=== PATIENT | female | born 1930 | race Caucasian/White ===

== ENCOUNTER 2016-12-22 16:28 | Emergency (ER) | payer MEDICARE, OTHER ==
[2016-12-22 16:38] VITALS: BP 112/66
--- NOTE | 2016-12-22 17:05 | UC ---
Complaint Female HPI - HPI Summary HPI Summary: 86 Y/O female being seen for C/O blood in urine that began today. Denies flank pain, denies suprapubic pain, denies dysuria or frequency. State feels pressure " over bladder. Takes coumadin last PT INR within recommended range done INR 2.41. UA shows Blood 3+, trace leukocytes. Discussed with Angle and need to have PT/INR checked due to jimbo blood in urine. Agreed to go to ER to have PT/INR drawn. - History Of Current Complaint Chief Complaint: UCGU Stated Complaint: BURNING URINATION Time Seen by Provider: 12/22/16 16:41 Hx Obtained From: Patient, Family/Rod Piler ?: No Onset/Duration: Sudden Onset Timing: Lasting Hours Severity Initially: Mild Severity Currently: Mild Pain Intensity: 0 Pain Scale Used: 0-10 Numeric - Allergies/Home Medications Allergies/Adverse Reactions: Allergies Allergy/AdvReac Type Severity Reaction Status Date / Time Penicillins Allergy Severe shortness Verified 04/08/16 14:56 of breathe PMH/Surg Hx/FS Hx/Imm Hx Previously Healthy: No - COPD Endocrine History: Hypothyroidism Cardiovascular History: Hypertension, Atrial Fibrillation Respiratory History: COPD Other History Of: Anticoagulant Therapy - coumadin - Surgical History Surgical History: Yes Surgery Procedure, Year, and Place: open heart surgery september 2011. hysterectomy. Valve repair 2010 - Family History Known Family History: Positive: Cardiac Disease, Hypertension - Social History Alcohol Use: None Substance Use Type: None Smoking Status (MU): Former Smoker - Immunization History Most Recent Influenza Vaccination: 2013 Most Recent Tetanus Shot: with in last 5 years Most Recent Pneumonia Vaccination: 2013 Review of Systems Constitutional: Negative Skin: Negative Eyes: Negative ENT: Negative Respiratory: Shortness Of Breath - COPD chronic Cardiovascular: Negative Gastrointestinal: Negative Genitourinary: Negative Motor: Negative Neurovascular: Negative Musculoskeletal: Negative Neurological: Negative Psychological: Negative All Other Systems Reviewed And Are Negative: Yes Physical Exam Triage Information Reviewed: Yes Appearance: Well-Appearing Vital Signs: Initial Vital Signs Temp 98.3 F 12/22/16 16:34 Pulse 88 12/22/16 16:34 Resp 22 12/22/16 16:34 BP 112/66 12/22/16 16:34 Pulse Ox 87 12/22/16 16:34 Vital Signs Reviewed: Yes Respiratory Exam: Normal Respiratory: Positive: Lungs clear Cardiovascular Exam: Normal Cardiovascular: Positive: RRR Abdominal Exam: Normal Abdomen Description: Positive: Nontender, Soft Bowel Sounds: Positive: Present Musculoskeletal Exam: Normal Musculoskeletal: Positive: ROM Intact Neurological Exam: Normal Neurological: Positive: Alert Psychological Exam: Normal Skin Exam: Normal Complaint Female Dx - Differential Dx/Diagnosis Differential Diagnosis/HQI/PQRI: Urinary Tract Infection, Other - Over coagulation, bladder CA Provider Diagnoses: Hematuria Discharge - Discharge Plan Condition: Stable Disposition: OTHER Discharge Disposition Comment: Recommended patient go directly to ER- Patient and in agreement. Patient Education Materials: Hematuria (ED) Additional Instructions: Please report directly to emergency room for further evaluation of blood in urine and to have blood test related to Coumadin therapy (PT/INR)
== END 2016-12-22 17:33 ==
LOC: UCEAST 16:28
DX: R31.9 Hematuria, unspecified (principal); J44.9 Chronic obstructive pulmonary disease, unspecified; E03.9 Hypothyroidism, unspecified; I10 Essential (primary) hypertension; I48.91 Unspecified atrial fibrillation; Z79.01 Long term (current) use of anticoagulants; Z88.0 Allergy status to penicillin; Z95.2 Presence of prosthetic heart valve; Z95.1 Presence of aortocoronary bypass graft; Z87.891 Personal history of nicotine dependence
CPT/HCPCS: 81003; 87077; 87086; 99211; G0463

== ENCOUNTER 2016-12-22 17:53 | Emergency (ER) | payer MEDICARE, OTHER ==
[2016-12-22 18:54] LABS: Hematocrit 38 % (35-47); Hemoglobin 12.7 g/dl (12.0-16.0); Mean Corpuscular HGB Conc 33 g/dl (31-36); Mean Corpuscular Hemoglobin 34 pg (27-31); Mean Corpuscular Volume 101 fL (80-97); Mean Platelet Volume 10 um3 (7.4-10.4); Red Blood Count 3.73 10^6/ul (4.0-5.4); Red Cell Distribution Width 15 % (10.5-15); White Blood Count 9.6 10^3/ul (3.5-10.8)
[2016-12-22 19:08] LABS: ALT 14 U/L (7-52); Albumin 4.3 g/dL (3.2-5.2); Alkaline Phosphatase 51 U/L (34-104); BUN/Creatinine Ratio 16.2 (8-20); Blood Urea Nitrogen 16 mg/dL (6-24); CO2 Carbon Dioxide 29 mmol/L (22-32); Calcium 9.1 mg/dL (8.6-10.3); Chloride 99 mmol/L (101-111); EGFR African American 68.4 (>60); EGFR Non-African American 53.2 (>60); Globulin 3.4 g/dL (2-4); Glucose 99 mg/dL (70-100); Sodium 133 mmol/L (133-145); Total Protein 7.7 g/dL (6.4-8.9)
[2016-12-22 19:11] LABS: Urine Bacteria Absent (Absent); Urine Bilirubin Negative (Negative); Urine Glucose Negative (Negative); Urine Nitrite Negative (Negative)
[2016-12-22 19:20] LABS: Anion Gap 5 mmol/L (2-11)
[2016-12-22] MEDS ORDERED: Ciprofloxacin 400MG IVPREMIX(* 400 MG/200 ML BAG IVPB ONE (20:12)
[2016-12-22] MEDS ORDERED: cefTRIAXone(*) 1 GM in NS 0.9% 50 ML* 50 ML IVPB ONE (20:14)
--- NOTE | 2016-12-22 20:16 | ED ---
Dillan Caba Rebecca, scribed for Lisa Stanley MD on 12/22/16 at 1829 . GI/ HPI - HPI Summary HPI Summary: Pt is an 86 y/o F sent form [facility] who presents to ED c/o urinary sx and acute on chronic SOB. urinary sx began today and are described as hematuria, dysuria and increased urinary frequency. SOB is characterized as dyspnea at rest. Sx aggravated and alleviated by nothing. Denies flank pain, fever, chills, N/V/D. Pt expresses that she would also like her Coumadin level checked which she is on to treat A Fib. PMHx UTIs which presented with similar sx. - History of Current Complaint Chief Complaint: EDUrogenitalProblems Stated Complaint: BLOOD IN URINE,SOB, COMING FROM CC Hx Obtained From: Patient, Family/Media Buyer - Onset/Duration: Started Days Ago - Today, Still Present Current Severity: Mild Pain Intensity: 3 Associated Signs and Symptoms: Positive: Hematuria, Dysuria. Negative: Nausea, Vomiting Aggravating Factor(s): Nothing Alleviating Factor(s): Nothing - Allergy/Home Medications Allergies/Adverse Reactions: Allergies Allergy/AdvReac Type Severity Reaction Status Date / Time Penicillins Allergy Severe shortness Verified 12/22/16 18:08 of breathe PMH/Surg Hx/FS Hx/Imm Hx Endocrine/Hematology History: Reports: Hx Anticoagulant Therapy - coumadin, Hx Thyroid Disease Denies: Hx Diabetes, Hx Systemic Lupus Erythematosus Cardiovascular History: Reports: Hx Atrial Fibrillation, Hx Congestive Heart Failure - HX, Hx Hypertension, Hx Valvular Heart Disease, Other Cardiovascular Problems/Disorders - VALVULAR HEART DISEASE Respiratory History: Reports: Hx Asthma, Hx Chronic Obstructive Pulmonary Disease (COPD) History: Reports: Hx Kidney Infection, Other Problems/Disorders - UTIs Denies: Hx Dialysis, Hx Renal Disease Musculoskeletal History: Reports: Hx Arthritis Denies: Hx Rheumatoid Arthritis Sensory History: Reports: Hx Contacts or Glasses Opthamlomology History: Reports: Hx Contacts or Glasses Neurological History: Reports: Hx Dementia - per pt's daughter - Cancer History Hx Chemotherapy: No Hx Radiation Therapy: No - Surgical History Surgery Procedure, Year, and Place: open heart surgery september 2011. hysterectomy. Valve repair 2010 Infectious Disease History: No Infectious Disease History: Denies: Traveled Outside the [place] in Last 30 Days - Family History Known Family History: Positive: Cardiac Disease, Hypertension - Social History Alcohol Use: None Substance Use Type: Reports: None Smoking Status (MU): Former Smoker Review of Systems Negative: Fever, Chills Positive: Shortness Of Breath - acute on chronic Negative: Vomiting, Diarrhea, Nausea Positive: dysuria, frequency, hematuria, other - Denies flank pain All Other Systems Reviewed And Are Negative: Yes Physical Exam - Summary Physical Exam Summary: General: Well appearing, no pain distress Skin: Warm, Skin Color Reflects Adequate Perfusion, Dry Eyes: EOMI, DONNA ENT: Pharynx normal, TMs normal Neck: Supple, nontender Respiratory: CTA, breath sounds present, no rhonchi, no wheezes, no rales Cardiovascular: RRR, no murmur, no rub, no gallop Abdomen: Soft, nontender, Non-distended, no guarding, no rebound Bowel: Present Musculoskeletal: TIM, No edema Neuro: Sensory/motor intact, A&Ox3, CN intact 2-12 Psych: Affect/mood appropriate Triage Information Reviewed: Yes Vital Signs On Initial Exam: Initial Vitals Temp Pulse Resp BP Pulse Ox 98.0 F 90 22 148/60 87 12/22/16 17:54 12/22/16 17:54 12/22/16 17:54 12/22/16 17:54 12/22/16 17:54 Vital Signs Reviewed: Yes - Davi Coma Scale Coma Scale Total: 15 Diagnostics - Vital Signs Vital Signs Temp Pulse Resp BP Pulse Ox 12/22/16 18:04 98.0 F 90 22 148/60 98 12/22/16 17:54 98.0 F 90 22 148/60 87 - Laboratory Lab Results: Lab Results 12/22/16 12/22/16 12/22/16 Range/Units 18:40 18:40 18:40 WBC 9.6 (3.5-10.8) 10^3/ul RBC 3.73 L (4.0-5.4) 10^6/ul Hgb 12.7 (12.0-16.0) g/dl Hct 38 (35-47) % MCV 101 H (80-97) fL MCH 34 H (27-31) pg MCHC 33 (31-36) g/dl RDW 15 (10.5-15) % Plt Count 176 (150-450) 10^3/ul MPV 10 (7.4-10.4) um3 Neut % (Auto) 74.0 (38-83) % Lymph % (Auto) 18.5 L (25-47) % [place] % (Auto) 6.0 (1-9) % Eos % (Auto) 1.0 (0-6) % Baso % (Auto) 0.5 (0-2) % Absolute Neuts (auto) 7.1 (1.5-7.7) 10^3/ul Absolute Lymphs (auto) 1.8 (1.0-4.8) 10^3/ul Absolute Monos (auto) 0.6 (0-0.8) 10^3/ul Absolute Eos (auto) 0.1 (0-0.6) 10^3/ul Absolute Basos (auto) 0 (0-0.2) 10^3/ul Absolute Nucleated RBC 0.01 10^3/ul Nucleated RBC % 0.1 INR (Anticoag Therapy) (0.89-1.11) Sodium 133 (133-145) mmol/L Potassium TNP Chloride 99 L (101-111) mmol/L Carbon Dioxide 29 (22-32) mmol/L Anion Gap 5 (2-11) mmol/L BUN 16 (6-24) mg/dL Creatinine 0.99 H (0.51-0.95) mg/dL Est GFR ( Amer) 68.4 (>60) Est GFR (Non-Af Amer) 53.2 (>60) BUN/Creatinine Ratio 16.2 (8-20) Glucose 99 (70-100) mg/dL Calcium 9.1 (8.6-10.3) mg/dL Total Bilirubin 0.90 (0.2-1.0) mg/dL AST TNP ALT 14 (7-52) U/L Alkaline Phosphatase 51 (34-104) U/L C-Reactive Protein 8.10 H (< 5.00) mg/L Total Protein 7.7 (6.4-8.9) g/dL Albumin 4.3 (3.2-5.2) g/dL Globulin 3.4 (2-4) g/dL Albumin/Globulin Ratio 1.3 (1-3) Urine Color Red A Urine Appearance Cloudy Urine pH 7.0 (5-9) Ur Specific [place] 1.014 (1.010-1.030) Urine Protein 2+(100 mg/dl) H (Negative) Urine Ketones Negative (Negative) Urine Blood 3+ H (Negative) Urine Nitrate Negative (Negative) Urine Bilirubin Negative (Negative) Urine Urobilinogen Negative (Negative) Ur Leukocyte Esterase Trace H (Negative) Urine WBC (Auto) Trace(0-5/hpf) (Absent) Urine RBC (Auto) 3+(>10/hpf) H (Absent) Urine Bacteria Absent (Absent) Urine Glucose Negative (Negative) Urine Ascorbic Acid * H (Negative) 12/22/16 12/22/16 Range/Units 18:40 19:35 WBC (3.5-10.8) 10^3/ul RBC (4.0-5.4) 10^6/ul Hgb (12.0-16.0) g/dl Hct (35-47) % MCV (80-97) fL MCH (27-31) pg MCHC (31-36) g/dl RDW (10.5-15) % Plt Count (150-450) 10^3/ul MPV (7.4-10.4) um3 Neut % (Auto) (38-83) % Lymph % (Auto) (25-47) % [place] % (Auto) (1-9) % Eos % (Auto) (0-6) % Baso % (Auto) (0-2) % Absolute Neuts (auto) (1.5-7.7) 10^3/ul Absolute Lymphs (auto) (1.0-4.8) 10^3/ul Absolute Monos (auto) (0-0.8) 10^3/ul Absolute Eos (auto) (0-0.6) 10^3/ul Absolute Basos (auto) (0-0.2) 10^3/ul Absolute Nucleated RBC 10^3/ul Nucleated RBC % INR (Anticoag Therapy) 2.49 H (0.89-1.11) Sodium (133-145) mmol/L Potassium 4.4 Chloride (101-111) mmol/L Carbon Dioxide (22-32) mmol/L Anion Gap (2-11) mmol/L BUN (6-24) mg/dL Creatinine (0.51-0.95) mg/dL Est GFR ( Amer) (>60) Est GFR (Non-Af Amer) (>60) BUN/Creatinine Ratio (8-20) Glucose (70-100) mg/dL Calcium (8.6-10.3) mg/dL Total Bilirubin (0.2-1.0) mg/dL AST 24 ALT (7-52) U/L Alkaline Phosphatase (34-104) U/L C-Reactive Protein (< 5.00) mg/L Total Protein (6.4-8.9) g/dL Albumin (3.2-5.2) g/dL Globulin (2-4) g/dL Albumin/Globulin Ratio (1-3) Urine Color Urine Appearance Urine pH (5-9) Ur Specific [place] (1.010-1.030) Urine Protein (Negative) Urine Ketones (Negative) Urine Blood (Negative) Urine Nitrate (Negative) Urine Bilirubin (Negative) Urine Urobilinogen (Negative) Ur Leukocyte Esterase (Negative) Urine WBC (Auto) (Absent) Urine RBC (Auto) (Absent) Urine Bacteria (Absent) Urine Glucose (Negative) Urine Ascorbic Acid (Negative) Result Diagrams: 12/22/16 18:40 12/22/16 19:35 Lab Statement: Any lab studies that have been ordered have been reviewed, and results considered in the medical decision making process. Re-Evaluation - Re-Evaluation First Eval Re-Evaluation Time: 19:35 Comment: Discussed UA results and plan to D/C the pt. GIGU Course/Dx - Course Course Of Treatment: 86 yo with frequent cystitis with blood here with same. 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
[2016-12-22] MEDS ORDERED: cefTRIAXone(*) 1 GM ADVAN ONE (20:30)
[2016-12-22 21:48] VITALS: BP 134/61
== END 2016-12-22 21:55 | disposition home or self-care (01) ==
LOC: ED 17:53
DX: N30.91 Cystitis, unspecified with hematuria (principal); R30.0 Dysuria; R06.02 Shortness of breath; Z87.891 Personal history of nicotine dependence
CPT/HCPCS: 36415; 80053; 81003; 81015; 85025; 85610; 86140; 99283; J0696

== ENCOUNTER 2017-03-17 01:26 | Inpatient (IN) | payer MEDICARE, OTHER ==
[2017-03-17] MEDS ORDERED: Furosemide IV* 10 MG/ML 10 ML VIAL (100 MG) IV ONE (01:28)
[2017-03-17] MEDS ORDERED: Morphine INJ* 4 MG/ML 1 ML CARPUJECT IV ONE (01:28)
[2017-03-17] MEDS ORDERED: Ondansetron INJ* 2 MG/ML VIAL IV ONE ×2 (01:28→02:14)
[2017-03-17] MEDS ORDERED: Levalbuterol 1.25MG/0.5ML NEB INH ONE (01:28)
[2017-03-17] MEDS ORDERED: Nitroglycerin 2% OINT* 1 GM PAK TOPICAL ONE (01:28)
[2017-03-17] MEDS: methylPREDNISolone 125 MG* 2 ML VIAL IV ONE (01:28)
[2017-03-17] MEDS ORDERED: Diltiazem IV* 5 MG/ML 5 ML VIAL (for loading dose/IV Push) (25 MG) IV SLOW PU ONE (01:31)
[2017-03-17 01:44] LABS: EPAP 6; FIO2 35; IPAP 16
[2017-03-17 01:47] LABS: PCO2 Arterial 47 mmHg (35-45)
[2017-03-17] MEDS ORDERED: Levofloxacin 500 MG IVPREMIX(* 500 MG/100 ML BAG IVPB ONE (01:47)
[2017-03-17 01:50] LABS: Hematocrit 34 % (35-47); Hemoglobin 11.1 g/dl (12.0-16.0); Mean Corpuscular HGB Conc 32 g/dl (31-36); Mean Corpuscular Hemoglobin 33 pg (27-31); Mean Corpuscular Volume 102 fL (80-97); Mean Platelet Volume 10 um3 (7.4-10.4); Red Blood Count 3.37 10^6/ul (4.0-5.4); Red Cell Distribution Width 16 % (10.5-15); White Blood Count 20.4 10^3/ul (3.5-10.8)
[2017-03-17 01:59] LABS: Albumin 4.3 g/dL (3.2-5.2); Calcium 9.7 mg/dL (8.6-10.3); EGFR African American 80.5 (>60); EGFR Non-African American 62.6 (>60); Globulin 3.6 g/dL (2-4); Magnesium 1.9 mg/dL (1.9-2.7); Potassium 4.4 mmol/L (3.5-5.0); Total Bilirubin 1.6 mg/dL (0.2-1.0); Total Protein 7.9 g/dL (6.4-8.9)
[2017-03-17 02:01] LABS: Troponin I 0.02 ng/mL (<0.04)
[2017-03-17 02:52] LABS: Urine Bacteria 1+ (Absent); Urine Bilirubin Negative (Negative); Urine Glucose Negative (Negative); Urine Nitrite Negative (Negative)
[2017-03-17] MEDS ORDERED: Acetaminophen TAB* 325 MG PO PRN (02:52)
[2017-03-17] MEDS ORDERED: Al Hydrox/Mg Hydrox/Simet LIQ* 30 ML UDC PO PRN (02:52)
[2017-03-17] MEDS ORDERED: Docusate CAP* 100 MG PO PRN (02:52)
[2017-03-17] MEDS ORDERED: Morphine INJ* 2 MG/ML 1 ML SYRINGE (TWO MG - NEW SYRINGE VERSION) IV PRN (02:52)
[2017-03-17] MEDS ORDERED: Ondansetron INJ* 2 MG/ML VIAL IV PRN (02:52)
[2017-03-17] MEDS ORDERED: Senna TAB PO PRN (02:52)
[2017-03-17] MEDS ORDERED: Albuterol/Ipratropium NEB.SOL* Albuterol 2.5 MG/Ipratropium 0.5 MG 3 ML INH PRN (02:55)
[2017-03-17] MEDS ORDERED: Albuterol 2.5 MG/3 ML NEB.SOL* (0.083%) INH PRN (02:55)
[2017-03-17 03:35] LABS: TSH (Thyroid Stimulating Horm) 2.74 mcIU/mL (0.34-5.60)
[2017-03-17] MEDS ORDERED: PROCHLORPERAZINE INJ 5 MG/ML 2 ML VIAL ONE (04:33)
[2017-03-17] MEDS: PROCHLORPERAZINE INJ 5 MG/ML 2 ML VIAL IV PRN (04:40)
[2017-03-17 05:12] LABS: Hematocrit 32 % (35-47); Hemoglobin 10.2 g/dl (12.0-16.0); Mean Corpuscular HGB Conc 32 g/dl (31-36); Mean Corpuscular Hemoglobin 32 pg (27-31); Mean Corpuscular Volume 101 fL (80-97); Mean Platelet Volume 11 um3 (7.4-10.4); Red Blood Count 3.14 10^6/ul (4.0-5.4); Red Cell Distribution Width 16 % (10.5-15); White Blood Count 16.8 10^3/ul (3.5-10.8)
[2017-03-17 05:34] LABS: BUN/Creatinine Ratio 15.3 (8-20); Calcium 9.4 mg/dL (8.6-10.3); EGFR African American 81.6 (>60); EGFR Non-African American 63.4 (>60); Potassium 3.5 mmol/L (3.5-5.0)
[2017-03-17 05:36] LABS: Troponin I 0.05 ng/mL (<0.04)
--- NOTE | 2017-03-17 06:46 | ED ---
Marta Caba Thomas, scribed for Robson Mariscal on 03/17/17 at 0238 . Shortness of Breath - HPI Summary HPI Summary: The patient is an 86 y/o F BIBA c/o extreme SOB that began a few hours ago. She was given two breathing treatments prior to arrival. She c/o a cough for the last few days. PMHx includes COPD. Pt additionally c/o nausea. - History of Current Complaint Time Seen by Provider: 03/17/17 01:28 EST Hx Obtained From: Patient, EMS Onset/Duration: Lasting Hours - onset a few hours ago, Still Present Current Severity: Moderate Dyspnea At: Rest Aggrevating Factors: Nothing Alleviating Factors: Nothing Associated Signs & Symptoms: Cough (Productive) - Allergy/Home Medications Allergies/Adverse Reactions: Allergies Allergy/AdvReac Type Severity Reaction Status Date / Time Penicillins Allergy Severe shortness Verified 12/22/16 18:08 of breathe Albuterol [From Proventil] Allergy Unknown Verified 03/17/17 06:06 Reaction Details Amoxicillin [From Augmentin] Allergy Unknown Verified 03/17/17 06:06 Reaction Details Clavulanic Acid Allergy Unknown Verified 03/17/17 06:06 [From Augmentin] Reaction Details Fenoprofen [From Nalfon] Allergy Unknown Verified 03/17/17 06:06 Reaction Details Metolazone [From Zaroxolyn] Allergy Unknown Verified 03/17/17 06:06 Reaction Details Morphine Allergy Nausea Verified 03/17/17 06:06 Nitrofurantoin Allergy Unknown Verified 03/17/17 06:06 [From Macrodantin] Reaction Details Sulfamethoxazole Allergy Nausea Verified 03/17/17 06:06 w/Trimethoprim [From Septra] Theophylline [From Chidi-Dur] Allergy Unknown Verified 03/17/17 06:06 Reaction Details Yellow Dye Allergy Unknown Verified 03/17/17 06:06 Reaction Details PMH/Surg Hx/FS Hx/Imm Hx Previously Healthy: No Endocrine/Hematology History: Reports: Hx Anticoagulant Therapy - coumadin, Hx Thyroid Disease Denies: Hx Diabetes, Hx Systemic Lupus Erythematosus Cardiovascular History: Reports: Hx Atrial Fibrillation, Hx Congestive Heart Failure - HX, Hx Hypertension, Hx Valvular Heart Disease, Other Cardiovascular Problems/Disorders - VALVULAR HEART DISEASE Respiratory History: Reports: Hx Asthma, Hx Chronic Obstructive Pulmonary Disease (COPD) History: Reports: Hx Kidney Infection, Other Problems/Disorders - UTIs Denies: Hx Dialysis, Hx Renal Disease Musculoskeletal History: Reports: Hx Arthritis Denies: Hx Rheumatoid Arthritis Sensory History: Reports: Hx Contacts or Glasses Opthamlomology History: Reports: Hx Contacts or Glasses Neurological History: Reports: Hx Dementia - per pt's daughter - Cancer History Hx Chemotherapy: No Hx Radiation Therapy: No - Surgical History Surgery Procedure, Year, and Place: open heart surgery september 2011. hysterectomy. Valve repair 2010 - Family History Known Family History: Positive: Cardiac Disease, Hypertension - Social History Alcohol Use: None Substance Use Type: Reports: None Smoking Status (MU): Former Smoker Review of Systems Positive: Shortness Of Breath, Cough Positive: Nausea All Other Systems Reviewed And Are Negative: Yes Physical Exam - Summary Physical Exam Summary: Appearance: mild distress Skin: warm, dry, reflects adequate perfusion Head/face: normal Eyes: EOMI, DONNA ENT: normal Neck: supple, nontender Respiratory: Wheezes and rales bilaterally. Cardiovascular: irregular rthym, tachy Abdomen: nontender, soft Bowel: present Musculoskeletal: normal, strength/ROM intact Neuro: normal, sensory motor intact, A&Ox3 Triage Information Reviewed: Yes Vital Signs On Initial Exam: Initial Vitals Temp Pulse Resp BP Pulse Ox 100.4 F 153 36 179/115 90 03/17/17 01:30 EDT 03/17/17 01:30 EDT 03/17/17 01:30 EDT 03/17/17 01:30 EDT 03/17/17 01:30 EDT Vital Signs Reviewed: Yes Diagnostics - Vital Signs Vital Signs Temp Pulse Resp BP Pulse Ox 03/17/17 02:30 105 25 91/54 92 03/17/17 02:02 110 35 92 03/17/17 02:00 108 28 134/65 93 03/17/17 01:52 EST 36 03/17/17 01:47 EST 110 39 130/68 91 03/17/17 01:44 EST 108 44 91 03/17/17 01:41 EST 141 93 03/17/17 01:37 EDT 36 03/17/17 01:30 EDT 100.4 F 153 36 179/115 90 - Laboratory Lab Results: Lab Results 03/17/17 03/17/17 03/17/17 Range/Units 01:35 EST 01:35 EST 01:35 EST WBC 20.4 H (3.5-10.8) 10^3/ul RBC 3.37 L (4.0-5.4) 10^6/ul Hgb 11.1 L (12.0-16.0) g/dl Hct 34 L (35-47) % MCV 102 H (80-97) fL MCH 33 H (27-31) pg MCHC 32 (31-36) g/dl RDW 16 H (10.5-15) % Plt Count 202 (150-450) 10^3/ul MPV 10 (7.4-10.4) um3 Neut % (Auto) 85.6 H (38-83) % Lymph % (Auto) 5.3 L (25-47) % [place] % (Auto) 8.1 (1-9) % Eos % (Auto) 0.4 (0-6) % Baso % (Auto) 0.6 (0-2) % Absolute Neuts (auto) 17.5 H (1.5-7.7) 10^3/ul Absolute Lymphs (auto) 1.1 (1.0-4.8) 10^3/ul Absolute Monos (auto) 1.7 H (0-0.8) 10^3/ul Absolute Eos (auto) 0.1 (0-0.6) 10^3/ul Absolute Basos (auto) 0.1 (0-0.2) 10^3/ul Absolute Nucleated RBC 0 10^3/ul Nucleated RBC % 0 INR (Anticoag Therapy) 3.13 H (0.89-1.11) APTT 37.8 H (26.0-36.3) seconds Patient Temperature ABG pH (7.35-7.45) ABG pH (Temp Correct) ABG pCO2 (35-45) mmHg ABG pCO2 (Temp Corrct ABG pO2 (80-100) mmHg ABG pO2 (Temp Correct ABG HCO3 (19-31) mmol/L ABG O2 Saturation (95-98) % ABG Base Excess (-2.0-2.0) Respiration Rate Ventilator Type Vent Mode FiO2 Inspiratory Time PEEP Pressure Support Pressure Control EPAP IPAP BiPAP Sodium (133-145) mmol/L Potassium (3.5-5.0) mmol/L Chloride (101-111) mmol/L Carbon Dioxide (22-32) mmol/L Anion Gap (2-11) mmol/L BUN (6-24) mg/dL Creatinine (0.51-0.95) mg/dL Est GFR ( Amer) (>60) Est GFR (Non-Af Amer) (>60) BUN/Creatinine Ratio (8-20) Glucose (70-100) mg/dL Lactic Acid (0.5-2.0) mmol/L Calcium (8.6-10.3) mg/dL Magnesium (1.9-2.7) mg/dL Total Bilirubin (0.2-1.0) mg/dL AST (13-39) U/L ALT (7-52) U/L Alkaline Phosphatase (34-104) U/L Troponin I (<0.04) ng/mL B-Natriuretic Peptide 223 H ( - 100) pg/mL Total Protein (6.4-8.9) g/dL Albumin (3.2-5.2) g/dL Globulin (2-4) g/dL Albumin/Globulin Ratio (1-3) Procalcitonin (<0.6) ng/mL TSH (0.34-5.60) mcIU/mL Urine Color Urine Appearance Urine pH (5-9) Ur Specific [place] (1.010-1.030) Urine Protein (Negative) Urine Ketones (Negative) Urine Blood (Negative) Urine Nitrate (Negative) Urine Bilirubin (Negative) Urine Urobilinogen (Negative) Ur Leukocyte Esterase (Negative) Urine WBC (Auto) (Absent) Urine RBC (Auto) (Absent) Ur Squamous Epith Cells (Absent) Urine Bacteria (Absent) Urine Glucose (Negative) 03/17/17 03/17/17 03/17/17 Range/Units 01:35 EST 01:35 EST 01:35 EST WBC (3.5-10.8) 10^3/ul RBC (4.0-5.4) 10^6/ul Hgb (12.0-16.0) g/dl Hct (35-47) % MCV (80-97) fL MCH (27-31) pg MCHC (31-36) g/dl RDW (10.5-15) % Plt Count (150-450) 10^3/ul MPV (7.4-10.4) um3 Neut % (Auto) (38-83) % Lymph % (Auto) (25-47) % [place] % (Auto) (1-9) % Eos % (Auto) (0-6) % Baso % (Auto) (0-2) % Absolute Neuts (auto) (1.5-7.7) 10^3/ul Absolute Lymphs (auto) (1.0-4.8) 10^3/ul Absolute Monos (auto) (0-0.8) 10^3/ul Absolute Eos (auto) (0-0.6) 10^3/ul Absolute Basos (auto) (0-0.2) 10^3/ul Absolute Nucleated RBC 10^3/ul Nucleated RBC % INR (Anticoag Therapy) (0.89-1.11) APTT (26.0-36.3) seconds Patient Temperature ABG pH (7.35-7.45) ABG pH (Temp Correct) ABG pCO2 (35-45) mmHg ABG pCO2 (Temp Corrct ABG pO2 (80-100) mmHg ABG pO2 (Temp Correct ABG HCO3 (19-31) mmol/L ABG O2 Saturation (95-98) % ABG Base Excess (-2.0-2.0) Respiration Rate Ventilator Type Vent Mode FiO2 Inspiratory Time PEEP Pressure Support Pressure Control EPAP IPAP BiPAP Sodium 137 (133-145) mmol/L Potassium 4.4 (3.5-5.0) mmol/L Chloride 103 (101-111) mmol/L Carbon Dioxide 29 (22-32) mmol/L Anion Gap 5 (2-11) mmol/L BUN 12 (6-24) mg/dL Creatinine 0.86 (0.51-0.95) mg/dL Est GFR ( Amer) 80.5 (>60) Est GFR (Non-Af Amer) 62.6 (>60) BUN/Creatinine Ratio 14.0 (8-20) Glucose 211 H (70-100) mg/dL Lactic Acid 2.0 (0.5-2.0) mmol/L Calcium 9.7 (8.6-10.3) mg/dL Magnesium 1.9 (1.9-2.7) mg/dL Total Bilirubin 1.60 H (0.2-1.0) mg/dL AST 19 (13-39) U/L ALT 15 (7-52) U/L Alkaline Phosphatase 51 (34-104) U/L Troponin I 0.02 (<0.04) ng/mL B-Natriuretic Peptide ( - 100) pg/mL Total Protein 7.9 (6.4-8.9) g/dL Albumin 4.3 (3.2-5.2) g/dL Globulin 3.6 (2-4) g/dL Albumin/Globulin Ratio 1.2 (1-3) Procalcitonin 0.1 (<0.6) ng/mL TSH 2.74 (0.34-5.60) mcIU/mL Urine Color Urine Appearance Urine pH (5-9) Ur Specific [place] (1.010-1.030) Urine Protein (Negative) Urine Ketones (Negative) Urine Blood (Negative) Urine Nitrate (Negative) Urine Bilirubin (Negative) Urine Urobilinogen (Negative) Ur Leukocyte Esterase (Negative) Urine WBC (Auto) (Absent) Urine RBC (Auto) (Absent) Ur Squamous Epith Cells (Absent) Urine Bacteria (Absent) Urine Glucose (Negative) 03/17/17 03/17/17 Range/Units 01:38 EST 02:15 WBC (3.5-10.8) 10^3/ul RBC (4.0-5.4) 10^6/ul Hgb (12.0-16.0) g/dl Hct (35-47) % MCV (80-97) fL MCH (27-31) pg MCHC (31-36) g/dl RDW (10.5-15) % Plt Count (150-450) 10^3/ul MPV (7.4-10.4) um3 Neut % (Auto) (38-83) % Lymph % (Auto) (25-47) % [place] % (Auto) (1-9) % Eos % (Auto) (0-6) % Baso % (Auto) (0-2) % Absolute Neuts (auto) (1.5-7.7) 10^3/ul Absolute Lymphs (auto) (1.0-4.8) 10^3/ul Absolute Monos (auto) (0-0.8) 10^3/ul Absolute Eos (auto) (0-0.6) 10^3/ul Absolute Basos (auto) (0-0.2) 10^3/ul Absolute Nucleated RBC 10^3/ul Nucleated RBC % INR (Anticoag Therapy) (0.89-1.11) APTT (26.0-36.3) seconds Patient Temperature Not Reportable ABG pH 7.35 (7.35-7.45) ABG pH (Temp Correct) Not Reportable ABG pCO2 47 H (35-45) mmHg ABG pCO2 (Temp Corrct Not Reportable ABG pO2 63 L (80-100) mmHg ABG pO2 (Temp Correct Not Reportable ABG HCO3 24.8 (19-31) mmol/L ABG O2 Saturation 94.9 L (95-98) % ABG Base Excess 0 (-2.0-2.0) Respiration Rate Not Reportable Ventilator Type Not Reportable Vent Mode bipap FiO2 35 Inspiratory Time Not Reportable PEEP Not Reportable Pressure Support Not Reportable Pressure Control Not Reportable EPAP 6 IPAP 16 BiPAP Not Reportable Sodium (133-145) mmol/L Potassium (3.5-5.0) mmol/L Chloride (101-111) mmol/L Carbon Dioxide (22-32) mmol/L Anion Gap (2-11) mmol/L BUN (6-24) mg/dL Creatinine (0.51-0.95) mg/dL Est GFR ( Amer) (>60) Est GFR (Non-Af Amer) (>60) BUN/Creatinine Ratio (8-20) Glucose (70-100) mg/dL Lactic Acid (0.5-2.0) mmol/L Calcium (8.6-10.3) mg/dL Magnesium (1.9-2.7) mg/dL Total Bilirubin (0.2-1.0) mg/dL AST (13-39) U/L ALT (7-52) U/L Alkaline Phosphatase (34-104) U/L Troponin I (<0.04) ng/mL B-Natriuretic Peptide ( - 100) pg/mL Total Protein (6.4-8.9) g/dL Albumin (3.2-5.2) g/dL Globulin (2-4) g/dL Albumin/Globulin Ratio (1-3) Procalcitonin (<0.6) ng/mL TSH (0.34-5.60) mcIU/mL Urine Color Straw Urine Appearance Cloudy Urine pH 5.0 (5-9) Ur Specific [place] 1.005 L (1.010-1.030) Urine Protein Negative (Negative) Urine Ketones Negative (Negative) Urine Blood 1+ H (Negative) Urine Nitrate Negative (Negative) Urine Bilirubin Negative (Negative) Urine Urobilinogen Negative (Negative) Ur Leukocyte Esterase Negative (Negative) Urine WBC (Auto) Trace(0-5/hpf) (Absent) Urine RBC (Auto) Trace(0-2/hpf) (Absent) Ur Squamous Epith Cells Present H (Absent) Urine Bacteria 1+ H (Absent) Urine Glucose Negative (Negative) Result Diagrams: 03/17/17 04:52 03/17/17 04:52 Lab Statement: Any lab studies that have been ordered have been reviewed, and results considered in the medical decision making process. - Radiology CXR Xray Interpretation: No Acute Changes - CHF. Right lower lobe pneumonia. Radiology Interpretation Completed By: ED Physician - EKG 02:29 Cardiac Rate: Tachycardia - 152 BPM. EKG Interpretation: A-Fib with RVR. Course/Dx - Course Assessment/Plan: The patient is an 86 y/o F BIBA c/o extreme SOB that began a few hours ago. She was given BiPap in the ED. CXR shows right lower lobe infiltrate and CHF. EKG shows A-Fib with RVR. The patient will be admitted [place] [facility] [place]. [place]. - Diagnoses Differential Diagnosis/HQI/PQRI: Positive: CHF, COPD Exacerbation, Pneumonia, Pulmonary Embolism, SARS, Other - resp failure, a fib with rvr Provider Diagnoses: Respiratory failure with hypoxia, COPD exacerbation, CHF (congestive heart failure), Atrial fibrillation with rapid ventricular response - Physician Notifications Discussed Care of Patient With: Cheyanne Davis Time Discussed With Above Provider: 02:38 Instructed by Provider To: Other - I consulted with Dr. Davis, hospitalist, who will admit the patient to [facility]. - Critical Care Time Critical Care Time: 30-74 min Discharge - Discharge Plan Condition: Fair Disposition: ADMITTED TO [facility] documentation as recorded by the Marta moon Thomas accurately reflects the service I personally performed and the decisions made by Loida willis Emmanuel.
--- NOTE | 2017-03-17 07:53 | PN ---
Subjective Date of Service: 03/17/17 Interval History: Patient not sure if she is different than her baseline. She does not know her O2 flow rate at home. She states she uses a nebulizer at home. Objective Active Medications: Acetaminophen (Tylenol Tab*) 650 mg PO Q4H PRN PRN Reason: FEVER/PAIN Al Hydrox/Mg Hydrox/Simethicone (Maalox Plus*) 30 ml PO Q6H PRN PRN Reason: INDIGESTION Albuterol (Ventolin 2.5 Mg/3 Ml Neb.Jen*) 2.5 mg INH Q2H PRN PRN Reason: SOB/WHEEZING Albuterol/Ipratropium (Duoneb (Albuterol 2.5 Mg/Ipratropium 0.5 Mg)) 1 neb INH Q4H PRN PRN Reason: SOB/WHEEZING Docusate Sodium (Colace Cap*) 100 mg PO BID PRN PRN Reason: CONSTIPATION Levofloxacin/Dextrose (Levaquin 750 Mg Ivpremix(*)) 750 mg in 150 mls @ 100 mls /hr IVPB Q48HR [facility] Levothyroxine Sodium (Synthroid Tab*) 50 mcg PO 0800 [facility] Morphine Sulfate (Morphine Inj (Syringe)*) 2 mg IV Q4H PRN PRN Reason: PAIN Ondansetron HCl (Zofran Inj*) 4 mg IV Q4H PRN PRN Reason: NAUSEA/VOMITING Prochlorperazine Edisylate (Compazine Inj*) 5 mg IV Q6H PRN PRN Reason: NAUSEA/VOMITING Last Admin: 03/17/17 04:40 Dose: 5 mg Senna (Senokot Tab*) 1 tab PO BID PRN PRN Reason: CONSTIPATION Warfarin Sodium (Coumadin Tab(*)) 1 mg PO DAILY@1700 [facility] PRN Reason: Protocol Vital Signs 03/17/17 03/17/17 03/17/17 03:00 03:11 03:31 Temperature 100.4 F Pulse Rate 104 103 98 Respiratory 25 24 21 Rate Blood Pressure 127/54 127/54 (mmHg) O2 Sat by Pulse 95 96 96 Oximetry 03/17/17 03/17/17 03/17/17 03:41 03:47 03:57 Temperature 100.2 F 100.2 F Pulse Rate 110 94 90 Respiratory 20 25 25 Rate Blood Pressure 119/67 130/74 (mmHg) O2 Sat by Pulse 95 95 95 Oximetry 03/17/17 03/17/17 03/17/17 04:00 04:02 04:15 Temperature 100.0 F 99.9 F Pulse Rate 102 101 94 Respiratory 23 19 Rate Blood Pressure 130/74 135/93 (mmHg) O2 Sat by Pulse 95 96 Oximetry 03/17/17 03/17/17 03/17/17 04:30 04:45 05:00 Temperature 99.7 F 99.7 F 99.5 F Pulse Rate 96 91 97 Respiratory 18 19 20 Rate Blood Pressure 137/69 139/72 (mmHg) O2 Sat by Pulse 95 96 97 Oximetry 03/17/17 03/17/17 03/17/17 05:01 05:15 05:31 Temperature 99.5 F 99.5 F 99.5 F Pulse Rate 98 99 105 Respiratory 22 22 22 Rate Blood Pressure 114/64 91/71 123/75 (mmHg) O2 Sat by Pulse 96 98 98 Oximetry 03/17/17 03/17/17 03/17/17 05:38 06:00 06:01 Temperature 99.7 F 99.7 F Pulse Rate 97 97 Respiratory 26 16 Rate Blood Pressure 132/80 86/70 (mmHg) O2 Sat by Pulse 99 99 Oximetry 03/17/17 03/17/17 03/17/17 06:25 07:00 07:26 Temperature 99.5 F 99.5 F 98.9 F Pulse Rate 93 92 Respiratory 18 20 Rate Blood Pressure 123/66 123/60 (mmHg) O2 Sat by Pulse 97 95 Oximetry Oxygen Devices in Use Now: Nasal Cannula, BiPAP Appearance: Alert, in a chair. Neutral affect. Blowing her cheeks with each breath but otherwise looks comfortable. She states she breathes like this at home also. Eyes: No Scleral Icterus Ears/Nose/Mouth/Throat: Clear Oropharnyx, Mucous Membranes Moist Neck: NL Appearance and Movements; NL JVP, No Thyroid Enlargement, Masses Respiratory: Symmetrical Chest Expansion and Respiratory Effort, Clear to Auscultation, Clear to Percussion Cardiovascular: RRR, No Edema, - - 3/6 systolic murmur across precordium Extremities: No Clubbing, Cyanosis, - - tr edema BL Neurological: NL Sensation, - - Diminished memory, gave her [age] as "[age]", knows her family's names, her town of residence but very little about her meds. Result Diagrams: 03/17/17 04:52 03/17/17 04:52 Additional Lab and Data: Lab Results 03/17/17 03/17/17 03/17/17 Range/Units 01:35 EST 01:35 EST 01:35 EST WBC 20.4 H (3.5-10.8) 10^3/ul RBC 3.37 L (4.0-5.4) 10^6/ul Hgb 11.1 L (12.0-16.0) g/dl Hct 34 L (35-47) % MCV 102 H (80-97) fL MCH 33 H (27-31) pg MCHC 32 (31-36) g/dl RDW 16 H (10.5-15) % Plt Count 202 (150-450) 10^3/ul MPV 10 (7.4-10.4) um3 Neut % (Auto) 85.6 H (38-83) % Lymph % (Auto) 5.3 L (25-47) % [place] % (Auto) 8.1 (1-9) % Eos % (Auto) 0.4 (0-6) % Baso % (Auto) 0.6 (0-2) % Absolute Neuts (auto) 17.5 H (1.5-7.7) 10^3/ul Absolute Lymphs (auto) 1.1 (1.0-4.8) 10^3/ul Absolute Monos (auto) 1.7 H (0-0.8) 10^3/ul Absolute Eos (auto) 0.1 (0-0.6) 10^3/ul Absolute Basos (auto) 0.1 (0-0.2) 10^3/ul Absolute Nucleated RBC 0 10^3/ul Nucleated RBC % 0 INR (Anticoag Therapy) 3.13 H (0.89-1.11) APTT 37.8 H (26.0-36.3) seconds Patient Temperature ABG pH (7.35-7.45) ABG pH (Temp Correct) ABG pCO2 (35-45) mmHg ABG pCO2 (Temp Corrct ABG pO2 (80-100) mmHg ABG pO2 (Temp Correct ABG HCO3 (19-31) mmol/L ABG O2 Saturation (95-98) % ABG Base Excess (-2.0-2.0) Respiration Rate Ventilator Type Vent Mode FiO2 Inspiratory Time PEEP Pressure Support Pressure Control EPAP IPAP BiPAP Sodium (133-145) mmol/L Potassium (3.5-5.0) mmol/L Chloride (101-111) mmol/L Carbon Dioxide (22-32) mmol/L Anion Gap (2-11) mmol/L BUN (6-24) mg/dL Creatinine (0.51-0.95) mg/dL Est GFR ( Amer) (>60) Est GFR (Non-Af Amer) (>60) BUN/Creatinine Ratio (8-20) Glucose (70-100) mg/dL Lactic Acid (0.5-2.0) mmol/L Calcium (8.6-10.3) mg/dL Magnesium (1.9-2.7) mg/dL Total Bilirubin (0.2-1.0) mg/dL AST (13-39) U/L ALT (7-52) U/L Alkaline Phosphatase (34-104) U/L Troponin I (<0.04) ng/mL B-Natriuretic Peptide 223 H ( - 100) pg/mL Total Protein (6.4-8.9) g/dL Albumin (3.2-5.2) g/dL Globulin (2-4) g/dL Albumin/Globulin Ratio (1-3) Procalcitonin (<0.6) ng/mL TSH (0.34-5.60) mcIU/mL Urine Color Urine Appearance Urine pH (5-9) Ur Specific [place] (1.010-1.030) Urine Protein (Negative) Urine Ketones (Negative) Urine Blood (Negative) Urine Nitrate (Negative) Urine Bilirubin (Negative) Urine Urobilinogen (Negative) Ur Leukocyte Esterase (Negative) Urine WBC (Auto) (Absent) Urine RBC (Auto) (Absent) Ur Squamous Epith Cells (Absent) Urine Bacteria (Absent) Urine Glucose (Negative) 03/17/17 03/17/17 03/17/17 Range/Units 01:35 EST 01:35 EST 01:35 EST WBC (3.5-10.8) 10^3/ul RBC (4.0-5.4) 10^6/ul Hgb (12.0-16.0) g/dl Hct (35-47) % MCV (80-97) fL MCH (27-31) pg MCHC (31-36) g/dl RDW (10.5-15) % Plt Count (150-450) 10^3/ul MPV (7.4-10.4) um3 Neut % (Auto) (38-83) % Lymph % (Auto) (25-47) % [place] % (Auto) (1-9) % Eos % (Auto) (0-6) % Baso % (Auto) (0-2) % Absolute Neuts (auto) (1.5-7.7) 10^3/ul Absolute Lymphs (auto) (1.0-4.8) 10^3/ul Absolute Monos (auto) (0-0.8) 10^3/ul Absolute Eos (auto) (0-0.6) 10^3/ul Absolute Basos (auto) (0-0.2) 10^3/ul Absolute Nucleated RBC 10^3/ul Nucleated RBC % INR (Anticoag Therapy) (0.89-1.11) APTT (26.0-36.3) seconds Patient Temperature ABG pH (7.35-7.45) ABG pH (Temp Correct) ABG pCO2 (35-45) mmHg ABG pCO2 (Temp Corrct ABG pO2 (80-100) mmHg ABG pO2 (Temp Correct ABG HCO3 (19-31) mmol/L ABG O2 Saturation (95-98) % ABG Base Excess (-2.0-2.0) Respiration Rate Ventilator Type Vent Mode FiO2 Inspiratory Time PEEP Pressure Support Pressure Control EPAP IPAP BiPAP Sodium 137 (133-145) mmol/L Potassium 4.4 (3.5-5.0) mmol/L Chloride 103 (101-111) mmol/L Carbon Dioxide 29 (22-32) mmol/L Anion Gap 5 (2-11) mmol/L BUN 12 (6-24) mg/dL Creatinine 0.86 (0.51-0.95) mg/dL Est GFR ( Amer) 80.5 (>60) Est GFR (Non-Af Amer) 62.6 (>60) BUN/Creatinine Ratio 14.0 (8-20) Glucose 211 H (70-100) mg/dL Lactic Acid 2.0 (0.5-2.0) mmol/L Calcium 9.7 (8.6-10.3) mg/dL Magnesium 1.9 (1.9-2.7) mg/dL Total Bilirubin 1.60 H (0.2-1.0) mg/dL AST 19 (13-39) U/L ALT 15 (7-52) U/L Alkaline Phosphatase 51 (34-104) U/L Troponin I 0.02 (<0.04) ng/mL B-Natriuretic Peptide ( - 100) pg/mL Total Protein 7.9 (6.4-8.9) g/dL Albumin 4.3 (3.2-5.2) g/dL Globulin 3.6 (2-4) g/dL Albumin/Globulin Ratio 1.2 (1-3) Procalcitonin 0.1 (<0.6) ng/mL TSH 2.74 (0.34-5.60) mcIU/mL Urine Color Urine Appearance Urine pH (5-9) Ur Specific [place] (1.010-1.030) Urine Protein (Negative) Urine Ketones (Negative) Urine Blood (Negative) Urine Nitrate (Negative) Urine Bilirubin (Negative) Urine Urobilinogen (Negative) Ur Leukocyte Esterase (Negative) Urine WBC (Auto) (Absent) Urine RBC (Auto) (Absent) Ur Squamous Epith Cells (Absent) Urine Bacteria (Absent) Urine Glucose (Negative) 03/17/17 03/17/17 Range/Units 01:38 EST 02:15 WBC (3.5-10.8) 10^3/ul RBC (4.0-5.4) 10^6/ul Hgb (12.0-16.0) g/dl Hct (35-47) % MCV (80-97) fL MCH (27-31) pg MCHC (31-36) g/dl RDW (10.5-15) % Plt Count (150-450) 10^3/ul MPV (7.4-10.4) um3 Neut % (Auto) (38-83) % Lymph % (Auto) (25-47) % [place] % (Auto) (1-9) % Eos % (Auto) (0-6) % Baso % (Auto) (0-2) % Absolute Neuts (auto) (1.5-7.7) 10^3/ul Absolute Lymphs (auto) (1.0-4.8) 10^3/ul Absolute Monos (auto) (0-0.8) 10^3/ul Absolute Eos (auto) (0-0.6) 10^3/ul Absolute Basos (auto) (0-0.2) 10^3/ul Absolute Nucleated RBC 10^3/ul Nucleated RBC % INR (Anticoag Therapy) (0.89-1.11) APTT (26.0-36.3) seconds Patient Temperature Not Reportable ABG pH 7.35 (7.35-7.45) ABG pH (Temp Correct) Not Reportable ABG pCO2 47 H (35-45) mmHg ABG pCO2 (Temp Corrct Not Reportable ABG pO2 63 L (80-100) mmHg ABG pO2 (Temp Correct Not Reportable ABG HCO3 24.8 (19-31) mmol/L ABG O2 Saturation 94.9 L (95-98) % ABG Base Excess 0 (-2.0-2.0) Respiration Rate Not Reportable Ventilator Type Not Reportable Vent Mode bipap FiO2 35 Inspiratory Time Not Reportable PEEP Not Reportable Pressure Support Not Reportable Pressure Control Not Reportable EPAP 6 IPAP 16 BiPAP Not Reportable Sodium (133-145) mmol/L Potassium (3.5-5.0) mmol/L Chloride (101-111) mmol/L Carbon Dioxide (22-32) mmol/L Anion Gap (2-11) mmol/L BUN (6-24) mg/dL Creatinine (0.51-0.95) mg/dL Est GFR ( Amer) (>60) Est GFR (Non-Af Amer) (>60) BUN/Creatinine Ratio (8-20) Glucose (70-100) mg/dL Lactic Acid (0.5-2.0) mmol/L Calcium (8.6-10.3) mg/dL Magnesium (1.9-2.7) mg/dL Total Bilirubin (0.2-1.0) mg/dL AST (13-39) U/L ALT (7-52) U/L Alkaline Phosphatase (34-104) U/L Troponin I (<0.04) ng/mL B-Natriuretic Peptide ( - 100) pg/mL Total Protein (6.4-8.9) g/dL Albumin (3.2-5.2) g/dL Globulin (2-4) g/dL Albumin/Globulin Ratio (1-3) Procalcitonin (<0.6) ng/mL TSH (0.34-5.60) mcIU/mL Urine Color Straw Urine Appearance Cloudy Urine pH 5.0 (5-9) Ur Specific [place] 1.005 L (1.010-1.030) Urine Protein Negative (Negative) Urine Ketones Negative (Negative) Urine Blood 1+ H (Negative) Urine Nitrate Negative (Negative) Urine Bilirubin Negative (Negative) Urine Urobilinogen Negative (Negative) Ur Leukocyte Esterase Negative (Negative) Urine WBC (Auto) Trace(0-5/hpf) (Absent) Urine RBC (Auto) Trace(0-2/hpf) (Absent) Ur Squamous Epith Cells Present H (Absent) Urine Bacteria 1+ H (Absent) Urine Glucose Negative (Negative) Microbiology and Other Data: Microbiology 03/17/17 03:40 Nasal Screen MRSA (PCR)(MARGIE) - Final Nasal Mrsa Negative Assess/Plan/Problems-Billing Assessment: - Patient Problems (1) COPD exacerbation Current Visit: Yes Status: Acute Code(s): J44.1 - CHRONIC OBSTRUCTIVE PULMONARY DISEASE W (ACUTE) EXACERBATION SNOMED Code(s): 255049509233581 Comment: Continue levofloxacin. Transfer to medical [facility]. (2) Atrial fibrillation Current Visit: Yes Status: Acute Code(s): I48.91 - UNSPECIFIED ATRIAL FIBRILLATION SNOMED Code(s): 03749076 Comment: Chronic. Rate OK. Addon digoxin level 1.4 on 03/17. Continue warfarin at 1 mg daily starting 03/18. Her told me on the phone she takes her warfarin in the evening and took it on 03/16. The intent is to skip one day due to INR 3.12 and new antibiotic. Repeat INR 03/18. (3) S/P mitral valve replacement Current Visit: Yes Status: Acute Code(s): Z95.2 - PRESENCE OF PROSTHETIC HEART VALVE SNOMED Code(s): 2233146719782 Comment: Not visible on CXR, must be tissue valve. Will check with . (4) Aortic stenosis Current Visit: Yes Status: Acute Code(s): I35.0 - NONRHEUMATIC AORTIC (VALVE ) STENOSIS SNOMED Code(s): 81641596 Comment: Needs cardiology fup.
[2017-03-17] MEDS ORDERED: Levothyroxine TAB* 25 MCG TAB PO SCH (08:00)
[2017-03-17 08:38] LABS: Digoxin 1.4 ng/ml (0.8-2.0)
[2017-03-17] MEDS ORDERED: Levofloxacin 750 MG IVPREMIX(* 750 MG/150 ML BAG IVPB SCH (09:00)
--- NOTE | 2017-03-17 10:32 | ECHO ---
Patient: GORDO CARROLL [facility] Rec#: [id number] : 1930 Date: 03/17/2017 Age: 86y Height: 152.4 cm / 60.0 in Weight: 54.43 kg / 120.0 lbs Sex: F BSA: 1.5 Room#: ICU 2 Admit Date#: 03/17/2017 Type: Inpatient Referring: Cheyanne Davis Reading: John Lama MD Inspector Toys: Judy Bustos,ROBINSON,RDMS CC: Román Sheets MD Transthoracic Echocardiogram Indication: SOB, CHF BP: 123/60 HR: 96 Rhythm: A-Fib Findings History: MV repair, TV repair, COPD, CHF, HTN, AFIB, AOV stenosis Technical Comments: The study quality is fair. The study is technically limited due to the patient's history of COPD. The study was technically limited due to the patient's inability to lay in the left lateral decubitus position. Left Ventricle: The left ventricular chamber size is normal. Mild concentric left ventricular hypertrophy is observed. Global left ventricular wall motion and contractility are within normal limits. There is normal left ventricular systolic function. The estimated ejection fraction is 55-60%. The assessment of diastolic function is non-diagnostic. Left Atrium: The left atrium is mildly dilated. Right Ventricle: The right ventricle wall thickness is moderately increased. The right ventricular cavity size is normal. The right ventricular global systolic function is low normal. Right Atrium: The right atrium is mildly dilated. Aortic Valve: The aortic valve leaflets are severely thickened with reduced systolic excursion. There is mild to moderate aortic regurgitation. There is severe aortic stenosis. The mean gradient of the aortic valve is 29 mmHg. The aortic valve area, by peak velocities, is calculated at 0.9 cm2. Mitral Valve: The mitral valve leaflets are mildly thickened. There is mild mitral regurgitation. There is mild mitral stenosis. Mitral valve repair functioning normally. Tricuspid Valve: The tricuspid valve leaflets are normal. There is mild tricuspid regurgitation. There is evidence that pulmonary hypertension may be underestimated. Tricuspid valve repair is functioning normally. Pulmonic Valve: The pulmonic valve structure is not well visualized. There is a trace pulmonic regurgitation. Pericardium: There is no significant pericardial effusion. Aorta: The aortic root appears normal. There is no dilatation of the aortic arch. Pulmonary Artery: The main pulmonary artery is not well visualized. Venous: The inferior vena cava appears normal in size. There is less than 50% respiratory change in the inferior vena cava dimension. Summary: There are no significant changes when compared to the previous study done on 10/19/16 Conclusions Mild concentric left ventricular hypertrophy is observed. Global left ventricular wall motion and contractility are within normal limits. The estimated ejection fraction is 55-60%. The aortic valve leaflets are severely thickened with reduced systolic excursion. There is severe aortic stenosis. The mean gradient of the aortic valve is 29 mmHg. There is mild to moderate aortic regurgitation. There is mild mitral regurgitation. Mitral valve repair functioning normally. There is mild tricuspid regurgitation. There is evidence that pulmonary hypertension may be underestimated. There is no significant pericardial effusion. Measurements Name Value Normal Range RVIDd (AP) 2D 2.7 cm (0.9 - 2.6) RVDdMajor (2D) 2.6 cm (2.2 - 4.4) RAd ISD 4CH 4.8 cm (3.4 - 4.9) RA (A4C)W 4.2 cm (2.9 - 4.6) IVSd (2D) 1.1 cm (0.6 - 1) LVPWd (2D) 1.2 cm (0.6 - 1) LVIDd (2D) 3.9 cm (3.6 - 5.4) LVIDs (2D) 2.9 cm - LV FS (2D) 26 % (25 - 45) Aortic Annulus 2 cm (1.4 - 2.6) Ao root diameter (2D) 2.7 cm (2.1 - 3.5) Ascending Ao 2.7 cm (2.1 - 3.4) Aortic arch 2.3 cm (1.8 - 3.4) LA dimension (AP) 2D 4.6 cm (2.3 - 3.8) LAd ISD 4CH 5.2 cm (2.9 - 5.3) LA ISD 4CH W 3.9 cm (2.5 - 4.5) Name Value Normal Range LA ESV SP 4CH (A/L) 42.53 ml - LA ESV SP 2CH (A/L) 48.65 ml - LA ESV BP (A/L) 45.88 ml - LA ESV BP (A/L) index 31 ml/m2 - LA ESV SP 4CH (MOD) 40.09 ml - LA ESV SP 2CH (MOD) 44.85 ml - Name Value Normal Range MV E-wave Vmax 1.5 m/sec - MV deceleration time 215 msec - LV lateral e' Vmax 0.04 m/sec - LV E:e' lateral ratio 37.5 ratio - Name Value Normal Range AV Vmax 3.6 m/sec - AV VTI 70.4 cm - AV peak gradient 52 mmHg - AV mean gradient 29 mmHg - LVOT diameter 2 cm - LVOT Vmax 1 m/sec - LVOT VTI 20 cm - LVOT peak gradient 4 mmHg - LVOT mean gradient 2 mmHg - DOI (VTI) 0.3 ratio - LIOR (continuity Vmax) 0.9 cm2 - LIOR (continuity VTI) 0.9 cm2 - Name Value Normal Range MV Vmax 1.7 m/sec - MV VTI 30.3 cm - MV peak gradient 12 mmHg - MV mean gradient 4.5 mmHg - MV PHT 71 msec - MVA (PHT) 3.1 cm2 - MVA (continuity VTI) 2.1 cm2 - Name Value Normal Range TR Vmax 2.9 m/sec - TR peak gradient 34 mmHg - RAP 8 mmHg - RVSP 42 mmHg - IVC diameter 2 cm - Name Value Normal Range PV Vmax 1 m/sec - PV peak gradient 4 mmHg -
--- NOTE | 2017-03-17 11:22 | HP ---
CC: Román Sheets MD * HISTORY AND PHYSICAL: DATE OF ADMISSION: 03/17/17 TIME OF EVALUATION: 0300. PRIMARY CARE PHYSICIAN: Román Sheets MD CHIEF COMPLAINT: Shortness of breath. HISTORY OF PRESENT ILLNESS: This is an 86-year-old female with past medical history of COPD, on 3 L and CAD, and congestive heart failure, who presents to the emergency room with acute onset of shortness of breath. The patient is on CPAP currently. Most of the history is provided by her and her family members including her , daughter and granddaughter. The patient has been short of breath for about a week now, worse with exertion. She was noted to go down to 78% oxygen with exerting herself a few days ago. They also have noticed increasing congestion and a dry cough for the past 2 days. No chest pain, no changes in her weight, no increase in the lower extremity swelling. This evening, she woke up acutely short of breath and respiratory distress and EMS was called. The patient was noted to be hypoxic 70s to 80s, on 6 L and a heart rate of 140 to 160. On arrival to the emergency room, patient was placed on CPAP, found to be in rapid atrial fibrillation and was given diltiazem, had labs and imaging, was also given Solu- Medrol 125, morphine, nitroglycerin, Zofran, Levaquin, Xopenex and Lasix and was referred to the hospitalist service for further evaluation. The patient states she still feels quite short of breath. No nausea or vomiting. No chest pain. No fevers or chills. No abdominal pain. No urinary symptoms. Otherwise, remaining review of systems is negative. PAST MEDICAL HISTORY: 1. COPD, on 3 L. 2. Hypertension. 3. History of aortic stenosis. 4. History of mitral regurgitation, status post repair. 5. History of tricuspid regurgitation, status post repair. 6. History of CHF, most recent EF reported was 50%. 7. Obstructive sleep apnea. 8. Atrial fibrillation, on anticoagulation. 9. Hypothyroidism. 10. History of hysterectomy. 11. Cataract surgery. MEDICATIONS: Family members are attempting to get her medication list. She is on Coumadin. ALLERGIES: PENICILLIN, developed shortness of breath. FAMILY HISTORY: Mother , complication of diabetes. Father from heart disease. SOCIAL HISTORY: She lives at home with her who is her healthcare proxy. She is a former smoker. She has children and grandchildren who are present in the room. No alcohol use or drug use. Reviewed her code status. The patient states she wants to be a full code. The family is concerned about her decision but she is insisted on this. REVIEW OF SYSTEMS: A 14-point of review of systems reviewed. Pertinent positives and negatives as mentioned in the HPI, otherwise negative. PHYSICAL EXAMINATION GENERAL: Moderate respiratory distress, pale appearing. VITAL SIGNS: T-max 100.4, pulse rate 105, respiratory rate 25, oxygen saturation 92% on 40% of CPAP, blood pressure 91/54. HEENT: Head normocephalic. Pupils equal and reactive. Anicteric. Oropharynx, mucous membranes are dry. NECK: Supple. No lymphadenopathy. RESPIRATORY: Rhonchorous breath sounds bilaterally. Some tachypnea with increased work of breathing noted. CARDIAC: Harsh systolic murmur heard at the right sternal base, most prominent. Irregularly irregular rate and rhythm. ABDOMEN: Soft, nontender, nondistended. EXTREMITIES: No clubbing, cyanosis, or edema. +1 DPs. NEUROLOGIC: Alert and oriented x3. No gross focal neurologic deficits. LABORATORY DATA: White count 20.4, hemoglobin 11.1, hematocrit 34, MCV is 102 , platelets 202. INR of 3.13. Blood gas, pH 7.35, pCO2 47, pO2 63. Sodium 137 , potassium 4.4, chloride 103, bicarb 29, BUN 12, creatinine 0.86. BNP is 223. RADIOGRAPHIC DATA: Prominent interstitial markings, increased haziness/ opacification over the right lower lobe. EKG shows rapid atrial fibrillation with a rate of 150. ASSESSMENT: This is an 86-year-old female with past medical history of chronic obstructive pulmonary disease and congestive heart failure, who presents to the emergency room with acute worsening shortness of breath. 1. Shortness of breath/respiratory distress. Assessment: The patient with hypoxic and hypercarbic respiratory failure. This appears to be multifactorial. I suspect this began with viral upper respiratory infection developing into community- acquired pneumonia with some chronic obstructive pulmonary disease exacerbation and respiratory distress with subsequent acute decompensated congestive heart failure with some volume overload. Plan: We will admit her to the intensive care unit, continue her on the BiPAP. Hold off on further diureses at this time. We will trend her troponins, repeat an echocardiogram, get her med rec obtained, continue her on antibiotics and breathing treatments, hold off on prednisone at this time and follow up on cultures. 2. Rapid atrial fibrillation. Assessment: The patient with a history of atrial fibrillation, on anticoagulation. Her rate is improved after getting diltiazem bolus. Now, her blood pressures are soft. We will monitor. Her rate is better controlled. We will give Lopressor as needed. 3. Chronic medical problems. As mentioned, we will need to obtain the med rec and resume her medications as prescribed and indicated. 4. FEN. We will keep her n.p.o. for now while she is on the CPAP, in respiratory distress. 5. Code status. The patient states she is a full code. Readdress this once her respiratory status subsides. 6. DVT prophylaxis. The patient scores high risk. She is supratherapeutic from her Coumadin. We will hold off on chemical prophylaxis and place SCDs on for now. PATIENT TIME: Greater than 60 minutes spent doing history and physical, more than half the time spent in direct patient contact and critical care time in someone with respiratory distress, going to the intensive care unit. [id number]/[facility] #: [id number] IDRIS
--- NOTE | 2017-03-17 11:56 | RAD ---
Indication: CHF. Single frontal view of the chest performed at 0140 hours was reviewed. Comparison is made with previous exam dated February 19, 2017. Cardiomegaly is noted. Interstitial edema consistent with CHF is noted. The patient is status post tracer thoracotomy. IMPRESSION: CARDIOMEGALY. PATIENT IS STATUS POST TRACER THORACOTOMY. INTERSTITIAL EDEMA CONSISTENT WITH VASCULAR CONGESTION IS NOTED.
[2017-03-17] MEDS: Mometasone/Formoter 200/5 MDI INH SCH (19:20)
[2017-03-18] MEDS: Levothyroxine TAB* 50 MCG TAB PO SCH (06:16)
[2017-03-18] MEDS: Tiotropium CAP.INH* CAP.INH/18 MCG (USE ORDER SET !) INH SCH (08:27)
[2017-03-18] MEDS: Mometasone/Formoter 200/5 MDI INH SCH ×2 (08:27→19:25)
[2017-03-18] MEDS: Donepezil TAB* 5 MG PO SCH (08:35)
[2017-03-18] MEDS ORDERED: Warfarin TAB(*) 1 MG PO SCH (09:00)
[2017-03-18] MEDS ORDERED: Levofloxacin 750 MG IVPREMIX(* 750 MG/150 ML BAG IVPB SCH (09:00)
[2017-03-18] MEDS ORDERED: Spiriva Inhaler DEVICE* 1 EACH DEVICE INH ONE (09:00)
--- NOTE | 2017-03-18 10:32 | PN ---
Subjective Date of Service: 03/18/17 Interval History: No new c/o. Occ cough. Objective Active Medications: Acetaminophen (Tylenol Tab*) 650 mg PO Q4H PRN PRN Reason: FEVER/PAIN Al Hydrox/Mg Hydrox/Simethicone (Maalox Plus*) 30 ml PO Q6H PRN PRN Reason: INDIGESTION Albuterol (Ventolin 2.5 Mg/3 Ml Neb.Jen*) 2.5 mg INH Q2H PRN PRN Reason: SOB/WHEEZING Albuterol/Ipratropium (Duoneb (Albuterol 2.5 Mg/Ipratropium 0.5 Mg)) 1 neb INH Q4H PRN PRN Reason: SOB/WHEEZING Last Admin: 03/17/17 19:14 Dose: 1 neb Docusate Sodium (Colace Cap*) 100 mg PO BID PRN PRN Reason: CONSTIPATION Donepezil HCl (Aricept Tab*) 5 mg PO DAILY [facility] Last Admin: 03/18/17 08:35 Dose: 5 mg Guaifenesin (Robitussin*) 10 ml PO QID [facility] Levofloxacin/Dextrose (Levaquin 750 Mg Ivpremix(*)) 750 mg in 150 mls @ 100 mls /hr IVPB Q48HR [facility] Last Admin: 03/18/17 08:35 Dose: 100 mls/hr Levothyroxine Sodium (Synthroid Tab*) 50 mcg PO DAILY@0600 [facility] Last Admin: 03/18/17 06:16 Dose: 50 mcg Mometasone Furoate/Formoterol Fumar (Dulera 200/5 Mdi*) 2 puff INH BID [facility] Last Admin: 03/18/17 08:27 Dose: 2 puff Morphine Sulfate (Morphine Inj (Syringe)*) 2 mg IV Q4H PRN PRN Reason: PAIN Ondansetron HCl (Zofran Inj*) 4 mg IV Q4H PRN PRN Reason: NAUSEA/VOMITING Potassium Chloride (Klor Con Er Tab*) 40 meq PO ONCE ONE Stop: 03/18/17 11:01 Prochlorperazine Edisylate (Compazine Inj*) 5 mg IV Q6H PRN PRN Reason: NAUSEA/VOMITING Last Admin: 03/17/17 04:40 Dose: 5 mg Senna (Senokot Tab*) 1 tab PO BID PRN PRN Reason: CONSTIPATION Tiotropium [place] (Spiriva Cap.Inh*) 1 cap INH DAILY [facility] Last Admin: 03/18/17 08:27 Dose: 1 cap.cd Vital Signs 03/17/17 03/17/17 03/17/17 10:33 11:00 11:43 Temperature 98.0 F 98 F Pulse Rate 89 89 Respiratory 20 20 20 Rate Blood Pressure 142/55 142/55 (mmHg) O2 Sat by Pulse 97 97 Oximetry 03/17/17 03/17/17 03/17/17 15:54 19:16 20:20 Temperature 98.0 F Pulse Rate 98 97 Respiratory 24 20 20 Rate Blood Pressure 136/64 (mmHg) O2 Sat by Pulse 94 98 Oximetry 03/18/17 03/18/17 03/18/17 00:25 03:40 07:44 Temperature 98.2 F 98.2 F 97.5 F Pulse Rate 87 79 69 Respiratory 20 20 20 Rate Blood Pressure 124/45 134/52 147/54 (mmHg) O2 Sat by Pulse 97 96 97 Oximetry Oxygen Devices in Use Now: Nasal Cannula Appearance: Alert, supine in bed. Neutral affect. Looks comfortable, occ harsh cough. Eyes: No Scleral Icterus Neck: NL Appearance and Movements; NL JVP, No Thyroid Enlargement, Masses Respiratory: Symmetrical Chest Expansion and Respiratory Effort, Clear to Auscultation, Clear to Percussion Cardiovascular: RRR, No Edema, - - 2-3/6 systolic murmur across precordium Extremities: No Edema, No Clubbing, Cyanosis, - Skin: No Rash or Ulcers, No Nodules or Sclerosis, - Neurological: Alert and Oriented x 3, NL Sensation - diminished memory. Result Diagrams: 03/17/17 04:52 03/17/17 04:52 Additional Lab and Data: Lab Results 03/17/17 03/17/17 03/17/17 Range/Units 01:35 EST 01:35 EST 01:35 EST WBC 20.4 H (3.5-10.8) 10^3/ul RBC 3.37 L (4.0-5.4) 10^6/ul Hgb 11.1 L (12.0-16.0) g/dl Hct 34 L (35-47) % MCV 102 H (80-97) fL MCH 33 H (27-31) pg MCHC 32 (31-36) g/dl RDW 16 H (10.5-15) % Plt Count 202 (150-450) 10^3/ul MPV 10 (7.4-10.4) um3 Neut % (Auto) 85.6 H (38-83) % Lymph % (Auto) 5.3 L (25-47) % [place] % (Auto) 8.1 (1-9) % Eos % (Auto) 0.4 (0-6) % Baso % (Auto) 0.6 (0-2) % Absolute Neuts (auto) 17.5 H (1.5-7.7) 10^3/ul Absolute Lymphs (auto) 1.1 (1.0-4.8) 10^3/ul Absolute Monos (auto) 1.7 H (0-0.8) 10^3/ul Absolute Eos (auto) 0.1 (0-0.6) 10^3/ul Absolute Basos (auto) 0.1 (0-0.2) 10^3/ul Absolute Nucleated RBC 0 10^3/ul Nucleated RBC % 0 INR (Anticoag Therapy) 3.13 H (0.89-1.11) APTT 37.8 H (26.0-36.3) seconds Patient Temperature ABG pH (7.35-7.45) ABG pH (Temp Correct) ABG pCO2 (35-45) mmHg ABG pCO2 (Temp Corrct ABG pO2 (80-100) mmHg ABG pO2 (Temp Correct ABG HCO3 (19-31) mmol/L ABG O2 Saturation (95-98) % ABG Base Excess (-2.0-2.0) Respiration Rate Ventilator Type Vent Mode FiO2 Inspiratory Time PEEP Pressure Support Pressure Control EPAP IPAP BiPAP Sodium (133-145) mmol/L Potassium (3.5-5.0) mmol/L Chloride (101-111) mmol/L Carbon Dioxide (22-32) mmol/L Anion Gap (2-11) mmol/L BUN (6-24) mg/dL Creatinine (0.51-0.95) mg/dL Est GFR ( Amer) (>60) Est GFR (Non-Af Amer) (>60) BUN/Creatinine Ratio (8-20) Glucose (70-100) mg/dL Lactic Acid (0.5-2.0) mmol/L Calcium (8.6-10.3) mg/dL Magnesium (1.9-2.7) mg/dL Total Bilirubin (0.2-1.0) mg/dL AST (13-39) U/L ALT (7-52) U/L Alkaline Phosphatase (34-104) U/L Troponin I (<0.04) ng/mL B-Natriuretic Peptide 223 H ( - 100) pg/mL Total Protein (6.4-8.9) g/dL Albumin (3.2-5.2) g/dL Globulin (2-4) g/dL Albumin/Globulin Ratio (1-3) Procalcitonin (<0.6) ng/mL TSH (0.34-5.60) mcIU/mL Urine Color Urine Appearance Urine pH (5-9) Ur Specific [place] (1.010-1.030) Urine Protein (Negative) Urine Ketones (Negative) Urine Blood (Negative) Urine Nitrate (Negative) Urine Bilirubin (Negative) Urine Urobilinogen (Negative) Ur Leukocyte Esterase (Negative) Urine WBC (Auto) (Absent) Urine RBC (Auto) (Absent) Ur Squamous Epith Cells (Absent) Urine Bacteria (Absent) Urine Glucose (Negative) 03/17/17 03/17/17 03/17/17 Range/Units 01:35 EST 01:35 EST 01:35 EST WBC (3.5-10.8) 10^3/ul RBC (4.0-5.4) 10^6/ul Hgb (12.0-16.0) g/dl Hct (35-47) % MCV (80-97) fL MCH (27-31) pg MCHC (31-36) g/dl RDW (10.5-15) % Plt Count (150-450) 10^3/ul MPV (7.4-10.4) um3 Neut % (Auto) (38-83) % Lymph % (Auto) (25-47) % [place] % (Auto) (1-9) % Eos % (Auto) (0-6) % Baso % (Auto) (0-2) % Absolute Neuts (auto) (1.5-7.7) 10^3/ul Absolute Lymphs (auto) (1.0-4.8) 10^3/ul Absolute Monos (auto) (0-0.8) 10^3/ul Absolute Eos (auto) (0-0.6) 10^3/ul Absolute Basos (auto) (0-0.2) 10^3/ul Absolute Nucleated RBC 10^3/ul Nucleated RBC % INR (Anticoag Therapy) (0.89-1.11) APTT (26.0-36.3) seconds Patient Temperature ABG pH (7.35-7.45) ABG pH (Temp Correct) ABG pCO2 (35-45) mmHg ABG pCO2 (Temp Corrct ABG pO2 (80-100) mmHg ABG pO2 (Temp Correct ABG HCO3 (19-31) mmol/L ABG O2 Saturation (95-98) % ABG Base Excess (-2.0-2.0) Respiration Rate Ventilator Type Vent Mode FiO2 Inspiratory Time PEEP Pressure Support Pressure Control EPAP IPAP BiPAP Sodium 137 (133-145) mmol/L Potassium 4.4 (3.5-5.0) mmol/L Chloride 103 (101-111) mmol/L Carbon Dioxide 29 (22-32) mmol/L Anion Gap 5 (2-11) mmol/L BUN 12 (6-24) mg/dL Creatinine 0.86 (0.51-0.95) mg/dL Est GFR ( Amer) 80.5 (>60) Est GFR (Non-Af Amer) 62.6 (>60) BUN/Creatinine Ratio 14.0 (8-20) Glucose 211 H (70-100) mg/dL Lactic Acid 2.0 (0.5-2.0) mmol/L Calcium 9.7 (8.6-10.3) mg/dL Magnesium 1.9 (1.9-2.7) mg/dL Total Bilirubin 1.60 H (0.2-1.0) mg/dL AST 19 (13-39) U/L ALT 15 (7-52) U/L Alkaline Phosphatase 51 (34-104) U/L Troponin I 0.02 (<0.04) ng/mL B-Natriuretic Peptide ( - 100) pg/mL Total Protein 7.9 (6.4-8.9) g/dL Albumin 4.3 (3.2-5.2) g/dL Globulin 3.6 (2-4) g/dL Albumin/Globulin Ratio 1.2 (1-3) Procalcitonin 0.1 (<0.6) ng/mL TSH 2.74 (0.34-5.60) mcIU/mL Urine Color Urine Appearance Urine pH (5-9) Ur Specific [place] (1.010-1.030) Urine Protein (Negative) Urine Ketones (Negative) Urine Blood (Negative) Urine Nitrate (Negative) Urine Bilirubin (Negative) Urine Urobilinogen (Negative) Ur Leukocyte Esterase (Negative) Urine WBC (Auto) (Absent) Urine RBC (Auto) (Absent) Ur Squamous Epith Cells (Absent) Urine Bacteria (Absent) Urine Glucose (Negative) 03/17/17 03/17/17 Range/Units 01:38 EST 02:15 WBC (3.5-10.8) 10^3/ul RBC (4.0-5.4) 10^6/ul Hgb (12.0-16.0) g/dl Hct (35-47) % MCV (80-97) fL MCH (27-31) pg MCHC (31-36) g/dl RDW (10.5-15) % Plt Count (150-450) 10^3/ul MPV (7.4-10.4) um3 Neut % (Auto) (38-83) % Lymph % (Auto) (25-47) % [place] % (Auto) (1-9) % Eos % (Auto) (0-6) % Baso % (Auto) (0-2) % Absolute Neuts (auto) (1.5-7.7) 10^3/ul Absolute Lymphs (auto) (1.0-4.8) 10^3/ul Absolute Monos (auto) (0-0.8) 10^3/ul Absolute Eos (auto) (0-0.6) 10^3/ul Absolute Basos (auto) (0-0.2) 10^3/ul Absolute Nucleated RBC 10^3/ul Nucleated RBC % INR (Anticoag Therapy) (0.89-1.11) APTT (26.0-36.3) seconds Patient Temperature Not Reportable ABG pH 7.35 (7.35-7.45) ABG pH (Temp Correct) Not Reportable ABG pCO2 47 H (35-45) mmHg ABG pCO2 (Temp Corrct Not Reportable ABG pO2 63 L (80-100) mmHg ABG pO2 (Temp Correct Not Reportable ABG HCO3 24.8 (19-31) mmol/L ABG O2 Saturation 94.9 L (95-98) % ABG Base Excess 0 (-2.0-2.0) Respiration Rate Not Reportable Ventilator Type Not Reportable Vent Mode bipap FiO2 35 Inspiratory Time Not Reportable PEEP Not Reportable Pressure Support Not Reportable Pressure Control Not Reportable EPAP 6 IPAP 16 BiPAP Not Reportable Sodium (133-145) mmol/L Potassium (3.5-5.0) mmol/L Chloride (101-111) mmol/L Carbon Dioxide (22-32) mmol/L Anion Gap (2-11) mmol/L BUN (6-24) mg/dL Creatinine (0.51-0.95) mg/dL Est GFR ( Amer) (>60) Est GFR (Non-Af Amer) (>60) BUN/Creatinine Ratio (8-20) Glucose (70-100) mg/dL Lactic Acid (0.5-2.0) mmol/L Calcium (8.6-10.3) mg/dL Magnesium (1.9-2.7) mg/dL Total Bilirubin (0.2-1.0) mg/dL AST (13-39) U/L ALT (7-52) U/L Alkaline Phosphatase (34-104) U/L Troponin I (<0.04) ng/mL B-Natriuretic Peptide ( - 100) pg/mL Total Protein (6.4-8.9) g/dL Albumin (3.2-5.2) g/dL Globulin (2-4) g/dL Albumin/Globulin Ratio (1-3) Procalcitonin (<0.6) ng/mL TSH (0.34-5.60) mcIU/mL Urine Color Straw Urine Appearance Cloudy Urine pH 5.0 (5-9) Ur Specific [place] 1.005 L (1.010-1.030) Urine Protein Negative (Negative) Urine Ketones Negative (Negative) Urine Blood 1+ H (Negative) Urine Nitrate Negative (Negative) Urine Bilirubin Negative (Negative) Urine Urobilinogen Negative (Negative) Ur Leukocyte Esterase Negative (Negative) Urine WBC (Auto) Trace(0-5/hpf) (Absent) Urine RBC (Auto) Trace(0-2/hpf) (Absent) Ur Squamous Epith Cells Present H (Absent) Urine Bacteria 1+ H (Absent) Urine Glucose Negative (Negative) Microbiology and Other Data: Microbiology 03/17/17 03:40 Nasal Screen MRSA (PCR)(MARGIE) - Final Nasal Mrsa Negative Assess/Plan/Problems-Billing Assessment: - Patient Problems (1) COPD exacerbation Current Visit: Yes Status: Acute Code(s): J44.1 - CHRONIC OBSTRUCTIVE PULMONARY DISEASE W (ACUTE) EXACERBATION SNOMED Code(s): 767093770154570 Comment: Continue levofloxacin. Add guifenesin and flutter valve. (2) Atrial fibrillation Current Visit: Yes Status: Acute Code(s): I48.91 - UNSPECIFIED ATRIAL FIBRILLATION SNOMED Code(s): 68799021 Comment: Chronic. Rate OK. Addon digoxin level 1.4 on 03/17. Stop warfarin , got 1 mg AM 03/18. Repeat INR 03/19. (3) S/P mitral valve replacement Current Visit: Yes Status: Acute Code(s): Z95.2 - PRESENCE OF PROSTHETIC HEART VALVE SNOMED Code(s): 0114344620906 Comment: Not visible on CXR, must be tissue valve. Will check with . (4) Aortic stenosis Current Visit: Yes Status: Acute Code(s): I35.0 - NONRHEUMATIC AORTIC (VALVE ) STENOSIS SNOMED Code(s): 40342963 Comment: Needs cardiology fup.
[2017-03-18] MEDS: Potassium Chlor TAB* 10 MEQ TAB.ER PO ONE ×2 (10:56→16:33)
[2017-03-18] MEDS: PROCHLORPERAZINE INJ 5 MG/ML 2 ML VIAL IV PRN (13:35)
[2017-03-18] MEDS: guaiFENesin LIQ* 100 MG/5 ML UDC PO SCH ×3 (15:14→20:13)
[2017-03-19] MEDS: Levothyroxine TAB* 50 MCG TAB PO SCH (05:59)
[2017-03-19 07:57] VITALS: BP 132/42
[2017-03-19] MEDS: Donepezil TAB* 5 MG PO SCH (08:29)
[2017-03-19] MEDS: guaiFENesin LIQ* 100 MG/5 ML UDC PO SCH (08:30)
[2017-03-19] MEDS: Mometasone/Formoter 200/5 MDI INH SCH (08:52)
[2017-03-19] MEDS: Tiotropium CAP.INH* CAP.INH/18 MCG (USE ORDER SET !) INH SCH (08:52)
[2017-03-19] MEDS ORDERED: ceFUROXime TAB(*) 250 MG PO SCH (09:00)
--- NOTE | 2017-03-19 13:18 | PN ---
Progress Note - Progress Note Date of Service: 03/19/17 Note: Time spent on discharge 50 minutes.
--- NOTE | 2017-03-19 21:56 | DS ---
CC: Dr. Sheets* DISCHARGE SUMMARY: DATE OF ADMISSION: 03/17/17 DATE OF DISCHARGE: 03/19/17 HISTORY OF PRESENT ILLNESS: This 86-year-old woman presented with shortness of breath that is going on for about a week. She has a long history of COPD and has home oxygen. She was given methylprednisolone 125 mg in the emergency room. She was in rapid atrial fibrillation at that time. She was given intravenous diltiazem. She was given levofloxacin, bronchodilators, antiemetics. She did very well. By the second hospital day, was markedly improved symptomatically. Her INR went up unexpectedly even though she had only received 1 mg of warfarin here; it did start to come down before discharge. Urine showed low numbers of E. coli that was sensitive to all antibiotics tested. She was switched from levofloxacin to cefuroxime. She will have an INR. She will not get any warfarin the day of discharge or the day following that. On 03/21/17, she will start warfarin 1 mg daily and get an INR on 03/25/17. The report should go to Dr. Sheets. FINAL DIAGNOSES: 1. Chronic obstructive pulmonary disease exacerbation. 2. Atrial fibrillation. 3. Status post mitral valve replacement. 4. Aortic stenosis. 5. Hypothyroidism. DISCHARGE MEDICATIONS: 1. Guaifenesin 10 mL four times a day. 2. Cefuroxime 500 mg b.i.d. for 5 days. 3. Warfarin 1 mg daily to start on 03/21/17, . 4. Topiramate 25 mg daily. 5. Levothyroxine 50 mcg daily. 6. Digoxin 0.25 mg daily. 7. Aspirin 81 mg daily. 8. Fluticasone/salmeterol 230/21 one puff daily. 9. Donepezil 5 mg daily. 10. Tiotropium 1 capsule daily. Losartan has been discontinued. [id number]/[facility] #: [id number] [facility]
== END 2017-03-19 14:00 | disposition home or self-care (01) | DRG 190 ==
LOC: ED 01:26 → ICU 02:52 → MED 10:30
PROVIDERS: ADMIT Pediatrics; ATTEND Internal Medicine
PROC: 5A09357 Assistance with Respiratory Ventilation, Less than 24 Consecutive Hours, Continuous Positive Airway Pressure (ICD-10-PCS; principal; 2017-03-17)
DX: J44.1 Chronic obstructive pulmonary disease with (acute) exacerbation (principal); J96.91 Respiratory failure, unspecified with hypoxia; J96.92 Respiratory failure, unspecified with hypercapnia; I48.91 Unspecified atrial fibrillation; Z99.81 Dependence on supplemental oxygen; M19.90 Unspecified osteoarthritis, unspecified site; I25.10 Atherosclerotic heart disease of native coronary artery without angina pectoris; I35.0 Nonrheumatic aortic (valve) stenosis; B96.20 Unspecified Escherichia coli [E. coli] as the cause of diseases classified elsewhere; G47.33 Obstructive sleep apnea (adult) (pediatric); E03.9 Hypothyroidism, unspecified; F03.90 Unspecified dementia, unspecified severity, without behavioral disturbance, psychotic disturbance, mood disturbance, and anxiety; Z88.5 Allergy status to narcotic agent; Z88.0 Allergy status to penicillin; Z88.2 Allergy status to sulfonamides; Z88.8 Allergy status to other drugs, medicaments and biological substances; Z88.1 Allergy status to other antibiotic agents; Z91.041 Radiographic dye allergy status; Z90.710 Acquired absence of both cervix and uterus; Z82.49 Family history of ischemic heart disease and other diseases of the circulatory system; Z87.891 Personal history of nicotine dependence; Z98.49 Cataract extraction status, unspecified eye; Z83.3 Family history of diabetes mellitus; Z95.2 Presence of prosthetic heart valve; Z79.82 Long term (current) use of aspirin
CPT/HCPCS: 36415; 36600; 71010; 80048; 80053; 80162; 81003; 81015; 82803; 83605; 83735; 83880; 84145; 84443; 84484; 85025; 85610; 85730; 87040; 87077; 87086; 87186; 87641; 87899; 93005; 93306; 94640; 94660; 94760; A9270-GY; J0780; J1956; J2270; J2405; J2930

== ENCOUNTER → 2017-04-15 11:11 | Day surgery (SDC) | payer MEDICARE, OTHER ==
[~2017-04-15 11:11] MED LIST: Acetaminophen TAB* 325 MG PO PRN; Diazepam TAB(*) 5 MG ONE; Heparin 2 UNITS/ML IVPREMIX* 3,000 ML IV ONE; Iohexol 350 (CONTRAST) 200 ML MDV IV ONE; Lidocaine 1% INJ* 10 MG/ML 30 ML SDV ONE; Midazolam* 1 MG/ML 10 ML VIAL (10 MG) ONE; NS 0.9% 1000 ML* 1,000 ML IV SCH; diPHENhydraMINE PO* 25 MG ONE; fentaNYL* 50 MCG/ML 2 ML VIAL (100 MCG VIAL) ONE
[2017-04-15 16:06] VITALS: BP 142/78
--- NOTE | 2017-04-16 04:15 | CATH ---
CC: Dr. Nik Decker, [facility], Cardiology Department * CARDIAC CATHETERIZATION: DATE OF STUDY: 04/15/17 - [facility] CATH PROCEDURE: Cardiac catheterization including coronary angiography. PREOPERATIVE DIAGNOSIS: Aortic stenosis. POSTOPERATIVE DIAGNOSIS: Aortic stenosis. INDICATIONS: The patient is an 86-year-old female with a history of severe COPD , history of mitral and tricuspid valve repair in the past, who now has severe aortic stenosis. The patient is being considered for TAVR aortic valve replacement. DESCRIPTION OF PROCEDURE: The patient was brought to the cardiac catheterization lab in a fasting state. Informed consent had been obtained prior to the procedure. All labs had been reviewed. The patient had been off of her Coumadin for 4 days prior to the procedure. The patient was placed supine on the procedure table. Her femoral areas were cleaned and draped in the usual fashion. 1% lidocaine was used for local anesthesia. The right femoral artery was entered via modified Seldinger technique and a 6-Iranian sheath introducer was placed. The patient underwent coronary angiography using 6-Iranian JL4 catheter and 6-Iranian JR4 catheter. At the end of the procedure, an angiogram of the femoral artery demonstrated normal position in the catheter and a Mynx closure device was deployed. The patient tolerated the procedure well. There were no complications. A total of 35 cc of Omnipaque dye was used. A total of 1 minute fluoro time was used. FINDINGS: CORONARY ARTERIES: 1. Left main artery. The left main was normal in size. It bifurcated into the LAD and circumflex. There was 10% tapering of the left main vessel before the bifurcation of the LAD and left circumflex artery. 2. Left anterior descending artery. The LAD was normal in size. It gave off one diagonal branch. There was no evidence of stenosis. 3. Left circumflex artery. The left circumflex artery was normal in size. It gave off one large obtuse marginal branch. There was no evidence of stenosis. 4. The right coronary artery was a large dominant vessel, giving off the PDA and two posterolateral branches. There was no evidence of stenosis. IMPRESSION: 1. Normal coronary arteries with no significant coronary artery disease. 2. Mynx closure device to the right femoral artery. The patient will proceed to evaluation for TAVR valve replacement. [id number]/[facility] #: [id number] [facility]
== END | disposition home or self-care (01) ==
LOC: CHICATH 11:11
PROVIDERS: ATTEND Specialist
DX: I25.10 Atherosclerotic heart disease of native coronary artery without angina pectoris (principal); I35.0 Nonrheumatic aortic (valve) stenosis; M46.86 Other specified inflammatory spondylopathies, lumbar region; J45.909 Unspecified asthma, uncomplicated; I48.91 Unspecified atrial fibrillation; I10 Essential (primary) hypertension; Z87.891 Personal history of nicotine dependence; Z79.01 Long term (current) use of anticoagulants; Z88.1 Allergy status to other antibiotic agents; Z88.0 Allergy status to penicillin; Z91.09 Other allergy status, other than to drugs and biological substances
CPT/HCPCS: 93454; 99156; 99157; A9270-GY; C1760; C1887; J1644; J2250; J3010

== ENCOUNTER 2017-04-24 13:01 | Inpatient (IN) | payer MEDICARE, OTHER ==
[2017-04-24 14:01] LABS: Hematocrit 27 % (35-47); Hemoglobin 8.8 g/dl (12.0-16.0); Mean Corpuscular HGB Conc 33 g/dl (31-36); Mean Corpuscular Hemoglobin 33 pg (27-31); Mean Corpuscular Volume 100 fL (80-97); Mean Platelet Volume 10 um3 (7.4-10.4); Red Blood Count 2.67 10^6/ul (4.0-5.4); Red Cell Distribution Width 17 % (10.5-15); White Blood Count 6.6 10^3/ul (3.5-10.8)
[2017-04-24 14:02] LABS: Add Diff/Slide Review? Manual Diff Added; Comments Flag Yes
--- NOTE | 2017-04-24 14:04 | RAD ---
HISTORY: Altered mental status COMPARISONS: March 17, 2017 VIEWS: 1: frontal portable view of the chest at 1:43 PM FINDINGS: LINES AND TUBES: None. CARDIOMEDIASTINAL SILHOUETTE: The cardiac silhouette is enlarged. The cardiomediastinal silhouette is otherwise normal for portable technique. Prosthetic heart valves and a stent are noted. PLEURA: The costophrenic angles are sharp. No pleural abnormalities are noted. LUNG PARENCHYMA: The lungs are clear. ABDOMEN: The upper abdomen is clear. There is no subphrenic gas. BONES AND SOFT TISSUES: The patient is status post median sternotomy. IMPRESSION: CARDIOMEGALY
[2017-04-24 14:16] LABS: Albumin 3.5 g/dL (3.2-5.2); BUN/Creatinine Ratio 11.9 (8-20); Calcium 8.9 mg/dL (8.6-10.3); EGFR African American 82.7 (>60); EGFR Non-African American 64.3 (>60); Total Bilirubin 1.5 mg/dL (0.2-1.0); Total Protein 6.5 g/dL (6.4-8.9)
[2017-04-24 14:23] LABS: Eosinophils % 1 % (0-6); Immature Granulocytes 2 % (0-9); Macrocytosis 1+; Neutrophil % 79 % (38-83)
[2017-04-24 14:24] LABS: Add Path Review? YES
[2017-04-24] MEDS ORDERED: Iohexol 300* (CONTRAST) 10 ML SDV IV ONE (14:46)
--- NOTE | 2017-04-24 15:18 | RAD ---
INDICATION: Change in mental status COMPARISON: CT brain February 03, 2004 TECHNIQUE: Noncontrast axial source images were acquired from the skull base to the vertex. FINDINGS: Ventricles/sulci: There is age-related cortical atrophy with compensatory dilatation of the CSF spaces. Brain parenchyma: There is mild periventricular and subcortical white matter change compatible with chronic ischemia. Intracranial hemorrhage:None. Extra-axial spaces: There are no abnormal extra axial fluid collections or evidence of extra-axial mass. Calvarium: There is no calvarial fracture or other calvarial abnormality. Scalp: There is no evidence of scalp or extracalvarial soft tissue abnormality. Paranasal sinuses/mastoid: The paranasal sinuses and mastoid air cells are clear. Other: None. IMPRESSION: CORTICAL ATROPHY WITH CHRONIC MICROVASCULAR ISCHEMIC CHANGES. NO ACUTE FINDINGS.
--- NOTE | 2017-04-24 15:39 | RAD ---
INDICATION: Lower abdominal tenderness COMPARISON: None TECHNIQUE: Axial source images were obtained from the hemidiaphragms to the symphysis pubis following administration of oral and intravenous contrast. 84 mL Omnipaque 300 was utilized. Coronal and sagittal reconstructed images were acquired. Lung bases: The lung bases are clear. There is cardiomegaly. There is sternotomy with valvular surgery. Liver: The liver is normal in size. There is a 0.8 cm, low-density, right hepatic lesion likely an incidental cyst or hemangioma. There is no ductal dilatation. Gallbladder: There are no calcified gallstones. There is no evidence of wall thickening or pericholecystic fluid. Spleen: The spleen is normal in size. There are no masses. Pancreas: There is no focal pancreatic mass or ductal dilatation. Adrenal glands: There is no evidence of adrenal mass. Kidneys: The kidneys are normal in size and position. There are prompt nephrograms and there is prompt excretion bilaterally. There are no renal parenchymal masses. There is no evidence of nephrolithiasis. Adenopathy: There is no evidence of adenopathy by size criteria. Fluid collections: There are no free or localized fluid collections. Vessels:There are atherosclerotic changes involving the aorta and iliac vessels. There is no focal aneurysm. The IVC appears normal. GI tract: There are no acute CT bowel findings. There is no obstruction. There is a moderate-sized hiatal hernia. The upper GI tract is otherwise unremarkable. There are no CT abnormalities the lower GI tract. The terminal ileum and ileocecal valve appear normal. The appendix is normal. Pelvic organs: There is hysterectomy. There is no adnexal mass Bladder: There are no bladder masses. Abdominal and pelvic soft tissues: The extraperitoneal abdominal and pelvic soft tissues appear normal.. Osseous structures: There is spondylitic change lumbar spine. There is a scoliotic deformity.. Other: None IMPRESSION: NO ACUTE CT FINDINGS. NO MASS OR INFLAMMATORY CHANGES. CARDIOMEGALY. JODEE HERNIA.
[2017-04-24] MEDS ORDERED: Phytonadione INJ (Adult)* 10 MG/ML 1 ML AMP IV ONE (16:16)
[2017-04-24] MEDS ORDERED: Pantoprazole IV* 40 MG IV ONE (16:17)
[2017-04-24 16:39] LABS: Digoxin 1.9 ng/ml (0.8-2.0)
[2017-04-24] MEDS ORDERED: Pantoprazole IV* 80 MG in NS 0.9% 250 ML* 250 ML IVPB SCH (18:30)
[2017-04-24] MEDS ORDERED: Albuterol HFA INHALER* 8 gm MDI INH PRN (18:47)
[2017-04-24 19:12] LABS: Troponin I 0.04 ng/mL (<0.04)
[2017-04-24 19:38] LABS: Hematocrit 27 % (35-47); Hemoglobin 8.9 g/dl (12.0-16.0)
[2017-04-24 19:39] LABS: Comments Flag Yes
--- NOTE | 2017-04-24 20:23 | RAD ---
HISTORY: Right arm numbness, altered mental status, confusion COMPARISONS: Head CT dated April 24, 2017, MRI dated December 14, 2008 TECHNIQUE: The following sequences were obtained of the head: Sagittal T1-weighted images, axial T2-weighted images, axial FLAIR images, axial susceptibility weighted images, axial T1-weighted images. Additionally, axial diffusion-weighted images were obtained with calculated apparent diffusion coefficients. FINDINGS: HEMORRHAGE/INFARCT: There are small foci of acute diffusion within the right frontal subcortical white matter. There is no hemorrhage. Elsewhere, there is no hemorrhage or acute infarct. MASSES/SHIFT: There is no mass or shift. EXTRA-AXIAL SPACES/MENINGES: There are no extra-axial fluid collections. SULCI AND VENTRICLES: There is diffuse and proportional enlargement of the sulci and ventricles. CEREBRUM: There is multifocal uncomplicated elevated T2/FLAIR signal in the periventricular and subcortical white matter. BRAINSTEM: There is elevated T2/FLAIR signal within the pontine white matter. CEREBELLUM: There are no focal parenchymal abnormalities. The cerebellar tonsils are normal in size and position. SELLA: The sella is normal. PINEAL: The pineal region is clear. CP ANGLE/TEMPORAL BONES: The labyrinthine structures are grossly normal. VESSELS: Normal flow-voids are noted within the visualized vertebral vasculature. DIFFUSION ABNORMALITIES: There are small foci of restricted diffusion within the right frontal lobe PARANASAL SINUSES/MASTOIDS: The paranasal sinuses are clear. There is a trace right mastoid effusion. ORBITS: The orbits are unremarkable. BONES AND SOFT TISSUE: No bone or soft tissue abnormalities are noted. OTHER: None IMPRESSION: 1. SMALL FOCI OF RESTRICTED DIFFUSION WITHIN THE RIGHT FRONTAL LOBE CONSISTENT WITH SUBACUTE NONHEMORRHAGIC INFARCT. 2. DIFFUSE INVOLUTIONAL CHANGE WITH CHRONIC SMALL VESSEL ISCHEMIC CHANGES. 3. TRACE RIGHT MASTOID EFFUSION
[2017-04-24] MEDS: Mometasone/Formoter 200/5 MDI INH SCH (21:03)
--- NOTE | 2017-04-24 22:55 | ED ---
Nancy Caba Gabriel, scribed for Francisco Miller MD on 04/24/17 at 1327 . 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 Patient reports dizziness and lightheadedness. Patient denies vomiting. Pt has had a BM today. Granddaughter reports they were being seen a CC for ABD pain and on the way out she had an episode of what appeared to be a neurological deficit. She reports being unable to feel her arm and her granddaughter states she was unable to follow her finger. She has had a few episodes since; they have lasted about a minute. She recently stopped her Coumadin for a surgery she had last week and just recently started taking it again, her INR was 1.8 yesterday. Pt has dementia that has been worse since her procedure. - History of Current Complaint Chief Complaint: EDAltMentalStatus Stated Complaint: SOB Hx Obtained From: Patient, Family/Scrap Stripper Hand - mostly from granddaughter Hx From Patient Unobtainable Due To: Dementia Onset/Duration: Sudden Onset, Resolved Timing: Intermittent Episodes Lasting: - 1 minute Onset Severity: Mild Current Severity: None Pain Intensity: 0 Pain Scale Used: 0-10 Numeric Character: Lightheaded, Numbness/Tingling, Visual Changes, Other: - unable to follow her finger - Additional Pertinent History Primary Care Physician: [facility] - Allergy/Home Medications Allergies/Adverse Reactions: Allergies Allergy/AdvReac Type Severity Reaction Status Date / Time Penicillins Allergy Severe shortness Verified 12/22/16 18:08 of breathe Albuterol [From Proventil] Allergy Unknown Verified 03/17/17 06:06 Reaction Details Amoxicillin [From Augmentin] Allergy Unknown Verified 03/17/17 06:06 Reaction Details Clavulanic Acid Allergy Unknown Verified 03/17/17 06:06 [From Augmentin] Reaction Details Fenoprofen [From Nalfon] Allergy Unknown Verified 03/17/17 06:06 Reaction Details Metolazone [From Zaroxolyn] Allergy Unknown Verified 03/17/17 06:06 Reaction Details Morphine Allergy Nausea Verified 03/17/17 06:06 Nitrofurantoin Allergy Unknown Verified 03/17/17 06:06 [From Macrodantin] Reaction Details Sulfamethoxazole Allergy Nausea Verified 03/17/17 06:06 w/Trimethoprim [From Septra] Theophylline [From Chidi-Dur] Allergy Unknown Verified 03/17/17 06:06 Reaction Details Yellow Dye Allergy Unknown Verified 03/17/17 06:06 Reaction Details Home Medications: Home Medications Fluticasone-Salmeterol 250-50* [Advair Diskus 250-50*] 1 puff INH BID 04/24/17 [ History Confirmed 04/24/17] Magnesium Gluconate 500 mg PO DAILY 04/24/17 [History Confirmed 04/24/17] Warfarin TAB(*) [Coumadin TAB(*)] 4 mg PO .TUFR 04/24/17 [History Confirmed ] PMH/Surg Hx/FS Hx/Imm Hx Previously Healthy: No Endocrine/Hematology History: Reports: Hx Anticoagulant Therapy - coumadin, Hx Thyroid Disease Denies: Hx Diabetes, Hx Systemic Lupus Erythematosus Cardiovascular History: Reports: Hx Atrial Fibrillation, Hx Congestive Heart Failure - HX, Hx Hypertension, Hx Valvular Heart Disease, Other Cardiovascular Problems/Disorders - VALVULAR HEART DISEASE Respiratory History: Reports: Hx Asthma, Hx Chronic Obstructive Pulmonary Disease (COPD) History: Reports: Hx Kidney Infection, Other Problems/Disorders - UTIs Denies: Hx Dialysis, Hx Renal Disease Musculoskeletal History: Reports: Hx Arthritis Denies: Hx Rheumatoid Arthritis Sensory History: Reports: Hx Contacts or Glasses Denies: Hx Hearing Aid Opthamlomology History: Reports: Hx Contacts or Glasses Neurological History: Reports: Hx Dementia - per pt's daughter, Hx Migraine, Hx Transient Ischemic Attacks (TIA) Psychiatric History: Reports: Hx Anxiety - Cancer History Hx Chemotherapy: No Hx Radiation Therapy: No - Surgical History Surgery Procedure, Year, and Place: open heart surgery september 2011. hysterectomy. Valve repair 2010 Infectious Disease History: No Infectious Disease History: Denies: Traveled Outside the [place] in Last 30 Days - Family History Known Family History: Positive: Cardiac Disease, Hypertension - Social History Lives: With Family Alcohol Use: None Hx Substance Use: No Substance Use Type: Reports: None Smoking Status (MU): Former Smoker Review of Systems Negative: Fever, Chills Negative: Erythema Negative: Sore Throat Negative: Chest Pain Negative: Shortness Of Breath, Cough Positive: Abdominal Pain. Negative: Vomiting, Diarrhea Negative: dysuria, hematuria Negative: Myalgia, Edema Negative: Rash Neurological: Other - dizziness Positive: Numbness - in upper extremities All Other Systems Reviewed And Are Negative: Yes Physical Exam - Summary Physical Exam Summary: Constitutional: Well-developed, Well-nourished, Alert. (-) Distressed Skin: Warm, Dry HENT: Normocephalic; Atraumatic Eyes: Conjunctiva normal Neck: Musculoskeletal ROM normal neck. (-) JVD, (-) Stridor, (-) Tracheal deviation Cardio: Rhythm regular, rate normal, Heart sounds normal; Intact distal pulses; The pedal pulses are 2+ and symmetric. Radial pulses are 2+ and symmetric. (-) Murmur Pulmonary/Chest wall: Effort normal. (-) Respiratory distress, (-) Wheezes, (-) Rales Abd: Soft, (+) Tenderness in lower abd, (-) Distension, (-) Guarding, (-) Rebound Musculoskeletal: (-) Edema Lymph: (-) Cervical adenopathy Neuro: Alert, Oriented x3 Psych: Mood and affect Normal Rectal exam perform with Kasie as western felt hat blocker reveals jimbo blood per rectum. Triage Information Reviewed: Yes Vital Signs On Initial Exam: Initial Vitals Temp Pulse Resp BP Pulse Ox 98.7 F 84 24 148/71 99 04/24/17 13:08 04/24/17 13:08 04/24/17 13:08 04/24/17 13:08 04/24/17 13:08 Vital Signs Reviewed: Yes Diagnostics - Vital Signs Vital Signs Temp Pulse Resp BP Pulse Ox 04/24/17 13:08 98.7 F 84 24 148/71 99 - Laboratory Result Diagrams: 04/24/17 13:50 04/24/17 13:50 Lab Statement: Any lab studies that have been ordered have been reviewed, and results considered in the medical decision making process. - Radiology CXR Radiology Interpretation Completed By: Radiologist - CARDIOMEGALY ED physician has reviewed this radiology report. - CT CT Brain CT Interpretation Completed By: Radiologist - CORTICAL ATROPHY WITH CHRONIC MICROVASCULAR ISCHEMIC CHANGES. NO ACUTE FINDINGS. ED physician has reviewed this radiology report. CT ABD/Pelvis CT Interpretation Completed By: Radiologist - NO ACUTE CT FINDINGS. NO MASS OR INFLAMMATORY CHANGES. CARDIOMEGALY. JODEE HERNIA. ED physician has reviewed this radiology report. - EKG 1335 Cardiac Rate: NL EKG Rhythm: Sinus Rhythm - at 79 BPM EKG Interpretation: No STEMI NIH Scale - NIH Scale Level of Consciousness: Responds to Minor Stimulation Ask Patient the Month and His/Her Age: Both Correct Ask Pt to Open/Close Eyes and Field Service Supervisor/Release Non-Paretic Hand: Both Correctly Best Gaze (Only Horizontal Eye Movement): Normal Visual Field Testing: No Visual Loss Facial Paresis-Pt to Smile & Close Eyes or Grimace Symmetry: Normal/Symmetrical Motor Function - Right Arm: No Drift-Holds 10 Seconds Motor Function - Left Arm: No Drift-Holds 10 Seconds Motor Function - Right Leg: No Drift-Holds 10 Seconds Motor Function - Left Leg: No Drift-Holds 10 Seconds Sensory (Use Pinprick to Test Arms/Legs/Trunk/Face): Normal Dysarthria (Read Several Words): Normal Extinction and Inattention: No Abnormality Course/Dx - Course Assessment/Plan: This patient is a 86 year old F presenting to [facility] accompanied by granddaughter with a 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 Patient reports dizziness and lightheadedness. Patient denies vomiting. Pt has had a BM today. Granddaughter reports they were being seen a CC for ABD pain and on the way out she had an episode of what appeared to be a neurological deficit. She reports being unable to feel her arm and her granddaughter states she was unable to follow her finger. She has had a few episodes since; they have lasted about a minute. She recently stopped her Coumadin for a surgery she had last week and just recently started taking it again, her INR was 1.8 yesterday. Pt has dementia that has been worse since her procedure. An EKG reveals no STEMI. CXR reveals, per radiologist, CARDIOMEGALY. CT Brain reveals, per radiologist, CORTICAL ATROPHY WITH CHRONIC MICROVASCULAR ISCHEMIC CHANGES. NO ACUTE. FINDINGS. CT ABD/Pelvis reveals, per radiologist, NO ACUTE CT FINDINGS. NO MASS OR INFLAMMATORY CHANGES. CARDIOMEGALY. JODEE. HERNIA. Test results with no significant abnormalities except for a Trop of .04. In the ED course the patient was given vitamin K, Prontonix, and IV fluids. We discussed patient care with Dr. Godfrey and they recommended an EEG. Patient will be admitted with follow up from Dr. Mcclendon. The patient is agreeable with this plan. - Diagnoses Provider Diagnoses: GI bleed, Seizure Discharge - Discharge Plan Condition: Stable Disposition: ADMITTED TO [facility] Referrals: Román Sheets MD [Primary Care Provider] - Consult Consult: 1630 Discussed patient care with Dr. Godfrey, Neuro and she recommend an EEG for bed. 1638 Discussed patient care with Dr. Mcclendon, hospitalist and they agreed to admit the patient. The documentation as recorded by the Nancy moon Gabriel accurately reflects the service I personally performed and the decisions made by , Francisco Miller MD.
--- NOTE | 2017-04-24 23:19 | HP ---
HISTORY AND PHYSICAL: ADDENDUM: Mrs. Luevano is an 86-year-old female with history of recent transaortic valve replacement, who presented to the hospital with change of mental status and reported "blank staring." The patient's MRI showed subacute CVA. Neurology was consulted. The patient is being admitted to the hospital on neuro checks. For further details of the patient's presentation and plan, please see history and physical dictated by Tiffany Loera on with which I agree. [id number]/CPS #: [id number] MTDD
[2017-04-24] MEDS ORDERED: traMADol TAB* 50 MG PO PRN (23:33)
[2017-04-24 23:43] LABS: Urine Bacteria Absent (Absent); Urine Bilirubin Negative (Negative); Urine Glucose Negative (Negative); Urine Nitrite Negative (Negative)
--- NOTE | 2017-04-25 00:51 | HP ---
ATTENDING ADDENDUM NOW INCLUDED ON THIS REPORT CC: Dr. Román Sheets * HISTORY AND PHYSICAL: DATE OF ADMISSION: 04/24/17 PRIMARY CARE PROVIDER: Dr. Román Sheets. ATTENDING PHYSICIAN: Dr. Rozina Quinteros * (dictated by Gabriella Amaya NP). CHIEF COMPLAINT: Right hand numbness and altered mental status. HISTORY OF PRESENT ILLNESS: Ms. Luevano is an 86-year-old female with past medical history significant for dementia, hypothyroidism, atrial fibrillation, CHF with last known EF of 55-60%, obstructive sleep apnea that is untreated, hypertension, COPD on 3 L oxygen via nasal cannula, arthritis, history of TIA, migraines and anxiety, who presents to the emergency room with her granddaughter with complaints of a fixed stare and complaints of a numbness in her right arm. It is to note that the patient was last hospitalized at [facility] from March 17 to March 19 for a COPD exacerbation and atrial fibrillation. According to the patient's granddaughter, she had an aortic TAVR last on April 18. She has noted that she has been lethargic since the procedure and a little more confused. She states that they were at the primary care office today for an evaluation for complaints of abdominal pain when her grandmother developed a fixed stare that lasted approximately 20 seconds. She then could not find her walker and is complaining of numbness in her left arm. She was unable to follow her daughter's finger. She denies any recent fever, chills, lightheadedness, or dizziness. She reports being cold. She reports chest discomfort when she is short of breath and she reports shortness of breath and diarrhea 2 days ago after moving her bowels. Her granddaughter noticed bright red blood when she wiped her. She presented to the hospital for further evaluation. While in the emergency room, the patient again had another episode where she stared to the left for a few seconds, this was noted by her family, not the staff. She received Protonix bolus and was placed on a Protonix drip. She was noted to be anemic lower than her baseline, so she had a digital rectal exam that produced a guaiac positive stool. The patient had labs that were fairly unremarkable. She had a slightly elevated troponin of 0.04. Her digoxin level was 1.9. She had a therapeutic INR of 2.04. EKG showing an atrial fibrillation. Chest x-ray showing cardiomyopathy. She had a head CT showing a cortical atrophy with chronic microvascular changes. She had an abdomen and pelvis CT showing no acute findings with hiatal hernia. Dr. Gold was consulted and the hospitalists were asked to evaluate the patient for admission. PAST MEDICAL HISTORY: 1. Dementia. 2. Hypothyroidism. 3. Atrial fibrillation. 4. Congestive heart failure, last EF of 55-60%. 5. Obstructive sleep apnea, untreated and diagnosed approximately 5 years ago. 6. Hypertension. 7. Aortic stenosis. 8. Chronic obstructive pulmonary disease with chronic hypoxic respiratory failure, on 3 L nasal cannula. 9. Arthritis. 10. TIA. 11. Migraines. 12. Anxiety. PAST SURGICAL HISTORY: 1. Status post aortic TAVR. 2. Status post hysterectomy. 3. Status post mitral valve repair. 4. Status post tricuspid repair. 5. Status post bilateral cataract extractions. HOME MEDICATIONS: Include: 1. Digoxin 0.25 mg oral daily. 2. Aspirin 81 mg oral daily. 3. Albuterol HFA inhaler 2 puffs inhalation every 6 hours as needed for shortness of breath or wheeze. 4. Levothyroxine 50 mcg oral daily. 5. Advair Diskus 250/50 one puff inhalation twice daily. 6. Topamax 25 mg oral daily. 7. Spiriva 1 capsule oral daily. 8. Multivitamin 1 tablet oral daily. 9. Magnesium gluconate 500 mg oral daily. 10. Warfarin 4 mg oral on Saturday and Saturday; 2 mg oral on Saturday, Saturday, Saturday, , Saturday. 11. Aricept 5 mg oral daily. ALLERGIES: PENICILLIN, ALBUTEROL, AMOXICILLIN, AUGMENTIN, FENOPROFEN, METOLAZONE, MORPHINE, NITROFURANTOIN, SEPTRA, THEOPHYLLINE, and YELLOW DYE. FAMILY HISTORY: The patient's father passed from an [place] and the patient has had 2 brothers with history of MIs. Her mother had a history of diabetes mellitus. There is no family history of cancer. SOCIAL HISTORY: The patient is a former smoker, quitting approximately 20 years ago. Prior to that, she had a heavy 60-year smoking history. She denies alcohol or recreational drug use. Her family assist her at home. Her son, Hakan and daughter, Rama Perez will be her surrogate decision makers in the event she is unable to make decisions for herself. REVIEW OF SYSTEMS: I performed a 14-point review of systems. All the pertinent positives and negatives are mentioned in the history of present illness. The remaining review of systems are negative. PHYSICAL EXAMINATION GENERAL APPEARANCE: The patient is alert and pleasant, appears to be in no acute distress. VITAL SIGNS: Temperature 98.7, heart rate 84, respiratory rate 24, O2 sat 99% on 3 L via nasal cannula, and blood pressure 148/71. HEENT: Normocephalic, atraumatic. Pupils are equal and reactive to light. Extraocular movements are intact. RESPIRATORY: There is no accessory muscle use. The lungs are clear to auscultation bilateral. CARDIOVASCULAR: Irregular rate and rhythm. S1, S2 present. There are no murmurs, rubs, or gallops heard. ABDOMEN: Soft, mild tenderness in the epigastric area, nondistended. There are bowel sounds present x4. EXTREMITIES: There is 1+ bilateral lower extremity edema. DP and PT pulses are 2+ and symmetric. MUSCULOSKELETAL: There is no clubbing or cyanosis noted. The patient exhibits good strength in all extremities. NEUROLOGICAL: The patient is alert and oriented x3 with confusion and cranial nerves II through XII are grossly intact. The patient has no pronator drift noted. No nystagmus. She has equal hand lab rep. Her smile is symmetric. Her tongue is midline. She has a strong dorsi and plantar flexion bilateral. PSYCHOLOGICAL: The patient is calm and cooperative. SKIN: There are no rashes or abnormalities seen. DIAGNOSTIC STUDIES/LABORATORY DATA: Sodium 134, potassium 4.0, chloride 100, CO2 29, BUN 10, creatinine 0.84, glucose 95. INR 2.04, troponin 0.04, digoxin 1.9, guaiac positive. White blood cell count 6.6, hemoglobin 8.8, hematocrit 27 , and platelet count 167. EKG shows atrial fibrillation at a rate of 79 and LVH. This EKG is similar to previous EKG from 03/17/17. 1. Chest x-ray from today. Radiologist's impression: Cardiomegaly. 2. Brain CT from today. Radiologist's impression: Cortical atrophy with chronic microvascular ischemic changes. No acute findings. 3. Abdomen and pelvis CT from today. Radiologist's Impression: No acute findings. Hiatal hernia. IMPRESSION: Ms. Luevano is an 86-year-old female with past medical history significant for dementia, hypothyroidism, atrial fibrillation, congestive heart failure with a last known ejection fraction of 55% to 60% in March, obstructive sleep apnea, hypertension, valvular disease, chronic obstructive pulmonary disease on home O2, arthritis, transient ischemic attack, migraines and anxiety, who presents to the emergency room with complaints of staring off, altered mental status, and right hand numbness. She will be admitted as an observation for right arm numbness and a possible GI bleed. ASSESSMENT/PLAN: 1. Right arm numbness and altered mental status. I suspect the part of the patient's altered mental status is secondary to postoperative delirium from her TAVR procedure last week. She will be provided supportive care for that. As far as the patient's staring off and right arm numbness, this could represent seizure or a cerebrovascular accident. The patient will have neuro checks q.4 hours. She will have an EEG. Dr. Gold is aware of the patient and recommends an MRI, we will get this tonight. We will check fasting lipids in the morning and add a hemoglobin A1c on to the ED labs. At this time, the patient has no neuro deficits. The patient is at risk of having a cerebrovascular accident due to being taken off of her warfarin for her procedure and just recently being placed back on it. 2. Atrial fibrillation. The patient's rate is controlled. I am going to hold her warfarin for now in the setting of a possible GI bleed. She will be continued on her home digoxin. Her INR is therapeutic at 2.04 today. 3. Congestive heart failure. The patient's last ejection fraction in March of this year was 55% to 60%. She will have strict I's and O's, daily weights. I will hold on any IV fluids. She has some lower extremity edema, but her lungs are clear at this time. 4. Possible GI bleed. There are reports of bright red blood per rectum and the patient has a positive guaiac. She received Protonix in the ER. We will place her on omeprazole twice daily and trend her H and H. She could also be anemic due to being postop from last week. We will ask GI to consult on the patient if needed in the morning. 5. Anemia. Again, this could be in the setting of a GI bleed or from postoperative blood loss. We will continue to trend the patient's H and H. 6. Obstructive sleep apnea. This is not treated. 7. Hypothyroidism. The patient's TSH was 2.74 in March of this year. We will continue her home levothyroxine. 8. Hypertension. The patient is currently normotensive. She is not on any antihypertensives. We will continue to follow. 9. Chronic obstructive pulmonary disease. I do not suspect the patient is having an acute exacerbation at this time. She will be continued on her home Spiriva and Advair or other substitute available here. 10. Dementia. The patient will be provided with supportive care. I suspect she has some amount of delirium as she is more confused than her baseline. 11. Fluids, electrolytes, and nutrition. The patient will be on a clear liquid diet. 12. Code status. Do not resuscitate. We will try to find a MOLST if the family already has one. If not, we will complete a new one. 13. DVT prophylaxis. The patient is a highest risk. We are going to hold on chemical DVT prophylaxis. She will have TEDs. 14. Disposition. Observation. TIME SPENT: Time for this admission was approximately 60 minutes, greater than half of that was spent [id number] with the patient and family discussing medications, past medical history, the events leading up to her arrival today, and performing a physical examination. The case has been reviewed with the attending, Dr. Quinteros, who agrees with the plan of care. Reviewed by GABRIELLA AMAYA, CULINARY ARTS TEACHER-C 05/01/17 0868 ADDENDUM: Mrs. Luevano is an 86-year-old female with history of recent transaortic valve replacement, who presented to the hospital with change of mental status and reported "blank staring." The patient's MRI showed subacute CVA. Neurology was consulted. The patient is being admitted to the hospital on neuro checks. For further details of the patient's presentation and plan, please see history and physical dictated by Gabriella Amaya on 04/24/17 with which I agree. ROZINA QUINTEROS MD [id number]/CPS #: [id number] #: [id number] IRDIS
[2017-04-25] MEDS: Levothyroxine TAB* 50 MCG TAB PO SCH (06:14)
[2017-04-25 08:22] LABS: Hematocrit 28 % (35-47); Mean Corpuscular HGB Conc 33 g/dl (31-36); Mean Corpuscular Hemoglobin 33 pg (27-31); Mean Corpuscular Volume 101 fL (80-97); Mean Platelet Volume 10 um3 (7.4-10.4); Red Blood Count 2.73 10^6/ul (4.0-5.4); Red Cell Distribution Width 17 % (10.5-15); White Blood Count 5.7 10^3/ul (3.5-10.8)
[2017-04-25 08:27] LABS: Comments Flag Yes
[2017-04-25 08:28] LABS: Add Diff/Slide Review? Manual Diff Added
[2017-04-25] MEDS: Digoxin TAB* 0.25 MG PO SCH (08:29)
[2017-04-25] MEDS: Omeprazole CAP* 20 MG PO SCH ×2 (08:30→20:44)
[2017-04-25] MEDS: Topiramate TAB(*) 25 MG PO SCH (08:30)
[2017-04-25 08:37] LABS: BUN/Creatinine Ratio 10.7 (8-20); Calcium 8.8 mg/dL (8.6-10.3); EGFR African American 82.7 (>60); EGFR Non-African American 64.3 (>60); HDL Cholesterol 23.8 mg/dL; Potassium 4.2 mmol/L (3.5-5.0)
[2017-04-25] MEDS ORDERED: Donepezil TAB* 5 MG PO SCH (09:00)
[2017-04-25] MEDS ORDERED: Spiriva Inhaler DEVICE* 1 EACH DEVICE INH ONE (09:00)
[2017-04-25] MEDS ORDERED: Nitroglycerin TAB 0.4 MG* 0.4 MG TAB SL PRN (09:09)
[2017-04-25] MEDS: Mometasone/Formoter 200/5 MDI INH SCH ×2 (09:22→19:56)
[2017-04-25] MEDS: Tiotropium CAP.INH* CAP.INH/18 MCG (USE ORDER SET !) INH SCH (09:22)
[2017-04-25 09:23] LABS: Eosinophils % 1 % (0-6); Neutrophil % 75 % (38-83)
[2017-04-25 09:24] LABS: Add Path Review? YES; Hypochromasia 1+
[2017-04-25] MEDS: Acetaminophen TAB* 325 MG PO PRN ×2 (09:28→18:19)
--- NOTE | 2017-04-25 10:11 | EEG ---
ELECTROENCEPHALOGRAPHY: DATE OF STUDY: 04/24/17 REFERRING PHYSICIAN: Francisco Miller MD LOCATION: The patient is in the ER. CLINICAL PROBLEM: This is an 86-year-old woman who is status post TAVR 1 week ago. She has a history of atrial fibrillation and was off of her warfarin until just a couple of days ago. Today, she has had three episodes of right arm numbness followed by a blank stare. She also complained of feeling dizzy. These lasted seconds. She has dementia at baseline as well. EEG is requested to evaluate for epileptiform abnormalities. MEDICATIONS: None listed. REPORT: The background demonstrated appropriate organization with defined anterior to posterior voltage and frequency gradients. There was a defined, but slow posterior rhythm of 7 Hz, which was somewhat better developed over the left hemisphere. Over the right frontocentral region, there was frequent, intermittent, polymorphic slowing in the 2 to 5 Hz range. This slowing involved F4, C4 and P4 as well as sometimes Pz. This slowing would last for 2 to 3 seconds at a time. Otherwise, there was also excessive slowing in the bilateral temporal regions, which seemed worse on the right. Attenuation of the occipital rhythm accompanied drowsiness. The sleep background was denoted by sleep spindles, which were bilaterally synchronous and symmetrical as well as K complexes. The sleep transient showed appropriate morphology. Throughout the recording, there were no definitive epileptiform discharges. CLINICAL IMPRESSION: This is an abnormal waking and sleep EEG. There is diffuse background slowing as well as superimposed excessive slowing in the right frontocentral region, extending more posteriorly. In addition, there is also excessive slowing in the bilateral temporal regions, but worse on the right. These findings are suggestive of multifocal areas of neuronal dysfunction without any clear increased epileptic potential. This occurs on a background of mild-to- moderate encephalopathy. [id number]/[facility] #: [id number] [facility]
--- NOTE | 2017-04-25 16:33 | PN ---
Subjective Date of Service: 04/25/17 Interval History: HOSPITALIST PROGRESS NOTE Patient seen and examined at bedside. She c/o epigastric pain and nausea. Does not remember why she came to ED yesterday. As per she has been c/o stomach pain for "a while" and went to see her PCP yesterday. He does not remember if she had hand numbness. Family History: Unchanged from Admission Social History: Unchanged from Admission Past Medical History: Unchanged from Admission Objective Active Medications: Acetaminophen (Tylenol Tab*) 650 mg PO Q4H PRN PRN Reason: FEVER/PAIN Last Admin: 04/25/17 09:28 Dose: 650 mg Albuterol (Ventolin Hfa Inhaler*) 2 puff INH Q6H PRN PRN Reason: WHEEZING Digoxin (Lanoxin Tab*) 0.25 mg PO DAILY [facility] Last Admin: 04/25/17 08:29 Dose: 0.25 mg Levothyroxine Sodium (Synthroid Tab*) 50 mcg PO 0600 [facility] Last Admin: 04/25/17 06:14 Dose: 50 mcg Mometasone Furoate/Formoterol Fumar (Dulera 200/5 Mdi*) 2 puff INH BID [facility] Last Admin: 04/25/17 09:22 Dose: 2 puff Nitroglycerin (Nitroglycerin Tab 0.4 Mg*) 0.4 mg SL Q5M PRN PRN Reason: ANGINA Omeprazole (Prilosec Cap*) 20 mg PO BID [facility] Last Admin: 04/25/17 08:30 Dose: 20 mg Tiotropium Lovell (Spiriva Cap.Inh*) 1 cap INH DAILY [facility] Last Admin: 04/25/17 09:22 Dose: 1 cap Topiramate (Topamax(*)) 25 mg PO DAILY [facility] Last Admin: 04/25/17 08:30 Dose: 25 mg Vital Signs - 8 hr 04/25/17 04/25/17 04/25/17 08:29 08:36 09:09 Temperature 98.1 F Pulse Rate 70 70 96 Respiratory 20 22 Rate Blood Pressure 137/57 136/58 (mmHg) O2 Sat by Pulse 98 94 Oximetry 04/25/17 04/25/17 04/25/17 11:07 11:49 15:22 Temperature 98.0 F 98.4 F Pulse Rate 57 80 68 Respiratory 20 18 Rate Blood Pressure 123/48 128/56 143/52 (mmHg) O2 Sat by Pulse 96 93 98 Oximetry Oxygen Devices in Use Now: Nasal Cannula - 3 liters Appearance: Elderly lady sitting up in bed in NAD. Eyes: No Scleral Icterus Ears/Nose/Mouth/Throat: Mucous Membranes Moist Neck: Trachea Midline Respiratory: Symmetrical Chest Expansion and Respiratory Effort, Clear to Auscultation Cardiovascular: RRR - Normal S1 and S2 Abdominal: NL Sounds; No Tenderness; No Distention Neurological: - - AAOx2 (self and place), [place] Result Diagrams: 04/25/17 08:14 04/25/17 08:13 Assess/Plan/Problems-Billing Assessment: Mrs. 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 - Patient Problems (1) Altered mental status Comment: - Family does not know exactly what neuro deficits she had and patient does not remember (this is her baseline). - As per HPI she had right hand numbness, but and son cannot confirm it. 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 - Patient was off AC for TAVR 1 week ago. - Awaiting Neurology consult and EEG. (2) GI bleed Comment: - As per , patient has had stomach pain for "a while" and that' s the reason of her PCP visit yesterday. - Denies pain now. - Although H&P states Stool guaiac was positive, the result I can see is negative. - Continue PPI, Warfarin on hold for now - family understands she's at risk for furhter strokes off AC. - GI consult requested. (3) Anemia Comment: - Macrocytic, but H/H worse now due to bleed. - Check anemia w/u and monitor H/H. (4) Aortic stenosis Comment: - S/p TAVR at [facility] 04/18/17 (records in the chart). (5) DVT prophylaxis Comment: - Pharmacological prophylaxis contraindicated in the setting of GI bleed. - SCDs. Status and Disposition: Change to inpatient.
--- NOTE | 2017-04-25 16:35 | CONS ---
NEUROLOGY CONSULTATION: DATE OF CONSULT: 04/25/17 LOCATION: The patient is an inpatient. REQUESTING PHYSICIAN: Francisco Miller MD REASON FOR CONSULT: Transient neurologic symptoms. HISTORY OF PRESENT ILLNESS: Angle Luevano is an 86-year-old woman with multiple medical problems most notable for dementia, atrial fibrillation treated with warfarin, as well as aortic valve disease recently, status post TAVR on 04/18/17. She also has a history of COPD and is oxygen dependent. Yesterday, she was at Dr. Sheets's office with her and her granddaughter when her granddaughter noticed that she had a fixed stare and was not able to follow a finger. I was also told by Dr. Miller that there was numbness in her right arm, but the family today is unable to verify this information and the patient herself does not recall. They know that there were symptoms in one of her arms, but they are not sure which arm. She then apparently had another similar episode in the emergency department which reportedly lasted about 10 seconds. She had been at Dr. Sheets's office for evaluation for abdominal pain. In the hospitalist admission note, it then states that she had some numbness in her left arm and was unable to find her walker. I recommended an EEG be done in the emergency department last night and this did not show any epileptiform abnormalities. Her family has not noticed any recurrent symptoms since last night. She has also been diagnosed with GI bleed. Consequently, her warfarin has been held. Since her admission, she has also undergone MRI scan of the brain which showed a small area of restricted diffusion in the right frontal subcortical white matter. With respect to her dementia, she lives at home with her . He states that she is typically oriented to the month and the year, but has otherwise significant short-term memory problems. Her son states that she would be unable to recall having had the surgery last week. Since her surgery, her has noticed that she seems unable to do things that she used to do. For example, she was unable to button the buttons on her shirt recently and she was also trying to put on her shirt incorrectly. She has never had any past history of seizures. As far as they know, she has not been evaluated by Neurology in the past. PAST MEDICAL HISTORY: Dementia; hypothyroidism; atrial fibrillation; congestive heart failure, last EF 50%; obstructive sleep apnea, untreated; hypertension; aortic stenosis; COPD, oxygen dependent; arthritis; TIA; migraines ; anxiety; aortic valve disease, status post TAVR on 04/18/17. PAST SURGICAL HISTORY: Also includes hysterectomy, mitral valve repair, tricuspid repair and bilateral cataract extractions. HOME MEDICATIONS: 1. Digoxin 0.25 mg daily. 2. Aspirin 81 mg daily. 3. Albuterol p.r.n. 4. Levothyroxine 50 mcg daily. 5. Advair twice daily. 6. Topiramate 25 mg daily. 7. Spiriva daily. 8. Multivitamins. 9. Magnesium gluconate. 10. Warfarin. 11. Donepezil. ALLERGIES: PENICILLIN, ALBUTEROL, AMOXICILLIN, AUGMENTIN, FENOPROFEN, METOLAZONE, MORPHINE, NITROFURANTOIN, SEPTRA, THEOPHYLLINE and YELLOW DYE. FAMILY HISTORY: There is cardiac disease as well as diabetes in the family. SOCIAL HISTORY: She is a former smoker, quit about 20 years ago. No alcohol or drug use. REVIEW OF SYSTEMS: As per HPI, otherwise negative. PHYSICAL EXAM: Vital Signs: Temperature 98 degrees, blood pressure 128/56, heart rate 80, oxygen saturation 93% on 3 L. On general examination, she was initially asleep when I entered the room and was speaking with her son and . She woke easily to voice. Her cardiac exam revealed a regular rate and rhythm. She has a midline well-healed sternal scar from previous mitral and tricuspid valve surgery. Her lungs are clear to auscultation bilaterally. There is no significant lower extremity edema. On neurologic examination, she is oriented to person and place but not time. She stated she was 82 years old and was 1 year off on her year of . She was able to name simple objects. She was not able to follow cross-body commands. On cranial nerves exam, her pupils were equal, round and reactive from 3 to 2 mm bilaterally. Versions are full without nystagmus. She was unreliable with visual field testing, but there was no clear visual field deficit. Facial sensation and musculature was full and symmetric. Hearing is intact to voice. The palate elevates symmetrically and the tongue is midline. Shoulder shrug is full and symmetric. On motor examination, she has full strength in the upper and lower extremities with no pronator drift. Sensation is intact to light touch in the upper and lower extremities. Reflexes were 2+ throughout with downgoing toes. [id number] was intact without ataxia. I did not ambulate her. DIAGNOSTIC STUDIES/LAB DATA: Her BMP today is unremarkable. Hemoglobin A1c is 5.9. Lipid panel shows triglycerides 84, total cholesterol 81, LDL 40, HDL 23.8. Her troponin was slightly elevated at 0.4 on admission, but has come down to 0.03 since then. Her CBC has been stable with a hemoglobin of 9.0 and hematocrit of 28, platelets slightly low at 144,000, and white blood cell count of 5.7. Her INR today is 1.86, yesterday it was 2.04. Her urine shows 3+ leukocyte esterase and 3+ white blood cells, negative nitrites, and epithelial cells are present as is 2+ RBCs. Digoxin level was 1.9. Her MRI of the brain was personally reviewed and shows a small area of restricted diffusion in the white matter of the right frontal lobe. There is also multifocal elevated T2/FLAIR signal in the periventricular and subcortical white matter bilaterally as well as in the altagracia, consistent with chronic small vessel ischemic changes. Her EEG yesterday showed some prominent slowing in the right frontal region and overall generalized background slowing, but no clear epileptiform discharges. IMPRESSION: Angle Luevano is an 86-year-old woman with atrial fibrillation who is status post TAVR 1 week ago. She is admitted with GI bleeding and as a result, warfarin has been held. She had an episode at Dr. Sheets's office suggestive of possible seizure with unresponsiveness, staring and possibly some arm numbness, but it is unclear if this was the right or the left side. She does have evidence of a small subcortical infarct on her MRI scan, which could have happened anytime in the last 2 weeks. If she had left arm numbness with this episode yesterday, then it is possible that this stroke could have resulted in seizures, though I note that the infarct is subcortical and not cortical. With respect to treating her for potential seizures, I discussed with the family that seizure medications run risks including sedation as well as confusion and she clearly already has difficulties with that given her dementia. Since she will be here for the next day or two from a GI standpoint, I suggested that we continue to monitor her and if there are any further clear episodes suggestive of focal seizure, then we could certainly initiate treatment at that time. Otherwise, GI is going to be consulting on her in terms of safety of anticoagulation and the family is aware that she is at risk of further strokes if she cannot be on Coumadin at the current time. I would stop her donepezil as this can lower the seizure threshold. I also note that she has tramadol p.r.n. available and I would suggest discontinuing that as well. Thank you for this consultation. [id number]/[facility] #: [id number] IDRIS
[2017-04-25] MEDS: Warfarin TAB(*) 2 MG PO SCH (20:44)
--- NOTE | 2017-04-25 22:03 | CONS ---
GASTROENTEROLOGY CONSULTATION: DATE OF CONSULT: 04/25/17 PRIMARY CARE PROVIDER: Dr. Román Sheets. ATTENDING PHYSICIAN: Dr. Amezquita. REASON FOR CONSULTATION: Abdominal pain. HISTORY OF PRESENT ILLNESS: Ms. Luevano is an 86-year-old female with extensive past medical history significant for dementia, atrial fibrillation, severe aortic stenosis, status post aortic TAVR last on 04/18/17, CHF, obstructive sleep apnea, hypertension, COPD on 3 L oxygen via nasal cannula, history of TIA, migraines, anxiety, who presented to the emergency room with altered mental status. After emergent workup was performed, it was determined that she had an acute CVA. She was admitted for further workup and Neurology work-up is in progress . Further history was obtained by family at bedside and it was noted that the patient was seen in her primary care's office the day before for symptoms of abdominal pain that began in March of 2017. The patient's granddaughter is a nurse and majority of the history was obtained from her at bedside. The patient apparently has been having pain located in her epigastric area and left upper quadrant that at times radiates to her upper chest. She denies any nausea or history of emesis. Her weight and appetite have been relatively stable over many years. She denies any rectal bleeding, melena, dysphagia, odynophagia, heartburn. Throughout the day she was noted to have a few soft brown bowel movements. She was occult blood negative in the emergency room. She is also on Coumadin for her multiple cardiac issues. Gastroenterology was consulted for further workup of her abdominal pain and noted anemia of 8.8 on admission and possible GI bleed. Of note, CT abdomen and pelvis did reveal a moderate sized hiatal hernia. There were otherwise no acute gastrointestinal abnormalities on CT imaging. PAST MEDICAL HISTORY: 1. Dementia. 2. Hypothyroidism. 3. Atrial fibrillation. 4. Congestive heart failure with an EF of 50%. 5. Untreated obstructive sleep apnea. 6. Hypertension. 7. Aortic stenosis status post TAVR. 8. COPD with chronic hypoxic respiratory failure on 3 L nasal cannula home O2. 9. Arthritis. 10. TIA. 11. Migraines. 12. Anxiety. PAST SURGICAL HISTORY: 1. Status post aortic TAVR last week. 2. Hysterectomy. 3. Mitral valve repair. 4. Tricuspid repair. 5. Bilateral cataracts repair. HOME MEDICATIONS: 1. Digoxin. 2. Aspirin 81 mg daily. 3. Albuterol HFA. 4. Levothyroxine. 5. Advair Diskus. 6. Topamax. 7. Spiriva. 8. Multivitamin. 9. Magnesium gluconate. 10. Warfarin. 11. Aricept. ALLERGIES: PENICILLIN, ALBUTEROL, AMOXICILLIN, AUGMENTIN, FENOPROFEN, METOLAZONE, MORPHINE, NITROFURANTOIN, SEPTRA, THEOPHYLLINE, YELLOW DYE. FAMILY HISTORY: No family history of gastrointestinal cancers, otherwise noncontributory. SOCIAL HISTORY: The patient is a former smoker. She quit approximately 20 years ago. She denies any alcohol or recreational drug use. REVIEW OF SYSTEMS: On a 14-point scale have been reviewed, all pertinent positives and negatives have been noted above in the HPI. PHYSICAL EXAM: Vital Signs: Temperature 98.4, pulse 78, respirations 17, she is 98% on 3 L nasal cannula, blood pressure 144/58. Generally, the patient is alert and oriented, response to some questions appropriately. He is a poor historian in no acute distress. HEENT: Moist mucous membranes. Respiratory: Clear to auscultation bilaterally. Cardiovascular Exam: Irregular rhythm, regular rate. Abdomen: Soft, nontender, mild tenderness in the epigastric area , nondistended. Positive bowel sounds in all 4 quadrants. No rebound, guarding or rigidity. Extremities: Positive 1+ pitting lower extremity edema. No clubbing or cyanosis. DIAGNOSTIC STUDIES/LAB DATA: WBCs 5.7, hemoglobin 9.0, hematocrit 28, MCV 101, platelets 144. INR 1.86. Sodium 136, potassium 4.2, chloride 105, CO2 25, anion gap 6, BUN 9, creatinine 0.84, glucose 90, hemoglobin A1c 5.9, lactic acid 1.1, calcium 8.8, total bilirubin 1.50, AST 17, ALT 10, alkaline phosphatase 40, troponin 0.04 and have normalized to 0.03 and 0.02. Total protein 6.5, albumin 3.5, globulin 3.0, albumin 1.2, triglycerides 84, cholesterol 81, LDL 40, HDL 23.8. CT imaging with moderate hiatal hernia. ASSESSMENT AND PLAN: Ms. Luevano is a pleasant 86-year-old female with multiple comorbidities including atrial fibrillation and severe aortic stenosis status post transcatheter aortic valve replacement on Coumadin, obstructive sleep apnea, chronic obstructive pulmonary disease on 3 L nasal cannula at home , dementia, history of transient ischemic accident, who presented with new cerebrovascular accident. Neurology is currently following the patient. Gastroenterology was consulted for epigastric pain that began in March of 2017. The patient was noted to be anemic at 8.8 on admission. Currently, she has a hemoglobin of 9.0. She was occult blood negative. CT of the abdomen and pelvis revealed a moderate sized hiatal hernia, otherwise was negative for an acute process. 1. Epigastric pain: maybe secondary to moderate sized hiatal hernia versus stress-induced gastritis. The patient has been started on PPI therapy daily. Is symptoms persist, recommend adding Carafate therapy twice daily or may increase PPI to twice daily for possible PUD for a short course of 6 weeks. At this juncture given the patient's newly diagnosed cerebrovascular accident yesterday and occult blood negative stool and lack of acute gastrointestinal bleeding, would recommend placing any endoscopic procedures on hold and to restart Coumadin therapy given her new cerebrovascular accident while off Coumadin. We will continue to follow the patient closely. Currently, the patient's hemoglobin is stable. If rectal bleeding occurs or the patient's hemoglobin continues to downtrend while on Coumadin therapy, we would then recommend endoscopic procedures to be done under monitored anesthesia care due to multiple comorbidities. 2. Normocytic anemia without active gastrointestinal bleeding: Will follow hemoglobin closely after initiation of Coumadin therapy. The patient's granddaughter states she has had a distant history of a colonoscopy and no recent upper endoscopies. Again, we will continue PPI therapy daily for possible gastritis and GERD due to moderate hiatal hernia. 3. Moderate sized hiatal hernia. Would recommend administering small frequent meals. Again, the patient has been started on PPI therapy daily, which should help with some of her upper gastrointestinal symptoms. 4. History of atrial fibrillation and severe aortic stenosis, status post recent transcatheter aortic valve replacement. Coumadin therapy will be restarted this evening due to recent stroke. Discussed with Dr. Amezquita. 5. Obstructive sleep apnea and severe chronic obstructive pulmonary disease on 3 L nasal cannula home oxygen. Case was discussed with Dr. Amezquita and patient's family at bedside. They are in agreement with conservative measures at this time due to new CVA. We will follow the patient closely and provide further recommendations as clinically needed. Thank you, Dr. Bia, for allowing us to participate in the care of your patient. If you should have any further questions or concerns, please do not hesitate to contact us. [id number]/[facility] #: [id number] IDRIS
[2017-04-26] MEDS: Acetaminophen TAB* 325 MG PO PRN (05:44)
[2017-04-26] MEDS: Levothyroxine TAB* 50 MCG TAB PO SCH (05:44)
[2017-04-26 05:49] LABS: Hematocrit 26 % (35-47); Mean Corpuscular HGB Conc 34 g/dl (31-36); Mean Corpuscular Hemoglobin 34 pg (27-31); Mean Corpuscular Volume 99 fL (80-97); Mean Platelet Volume 10 um3 (7.4-10.4); Red Blood Count 2.68 10^6/ul (4.0-5.4); Red Cell Distribution Width 17 % (10.5-15); White Blood Count 4.3 10^3/ul (3.5-10.8)
[2017-04-26 05:53] LABS: Add Diff/Slide Review? Manual Diff Added; Comments Flag Yes
[2017-04-26 06:05] LABS: Anion Gap 5 mmol/L (2-11); BUN/Creatinine Ratio 10.3 (8-20); Blood Urea Nitrogen 9 mg/dL (6-24); CO2 Carbon Dioxide 27 mmol/L (22-32); Chloride 107 mmol/L (101-111); EGFR African American 79.4 (>60); EGFR Non-African American 61.7 (>60); Glucose 98 mg/dL (70-100); Potassium 3.9 mmol/L (3.5-5.0); Sodium 139 mmol/L (133-145)
[2017-04-26 06:21] LABS: Iron 64 ug/dL (50-212); Total Iron Binding Capacity 294 mcg/dL (250-450); Transferrin 210 mg/dL (203-362)
[2017-04-26 06:29] LABS: Add Path Review? YES; Eosinophils % 2 % (0-6); Immature Granulocytes 1 % (0-9); Metamyelocytes % 1 % (0-2); Neutrophil % 70 % (38-83)
[2017-04-26 06:41] LABS: Ferritin 50.6 ng/mL (11-307)
[2017-04-26 06:46] LABS: Folate > 20.00 ng/mL (>3.99)
[2017-04-26 06:50] LABS: Vitamin B12 1074 pg/mL (180-914)
[2017-04-26] MEDS: Mometasone/Formoter 200/5 MDI INH SCH ×2 (07:34→19:35)
[2017-04-26] MEDS: Tiotropium CAP.INH* CAP.INH/18 MCG (USE ORDER SET !) INH SCH (07:34)
[2017-04-26] MEDS: Digoxin TAB* 0.25 MG PO SCH (08:15)
[2017-04-26] MEDS: Topiramate TAB(*) 25 MG PO SCH (08:15)
[2017-04-26] MEDS: Omeprazole CAP* 20 MG PO SCH ×2 (08:16→21:28)
--- NOTE | 2017-04-26 14:26 | PN ---
Subjective Date of Service: 04/26/17 Interval History: HOSPITALIST PROGRESS NOTE Patient seen and examined at bedside. Offers no complaints at this time, denies stomach pain, tolerating diet well with no N/V. Family History: Unchanged from Admission Social History: Unchanged from Admission Past Medical History: Unchanged from Admission Objective Active Medications: Acetaminophen (Tylenol Tab*) 650 mg PO Q4H PRN PRN Reason: FEVER/PAIN Last Admin: 04/26/17 05:44 Dose: 650 mg Albuterol (Ventolin Hfa Inhaler*) 2 puff INH Q6H PRN PRN Reason: WHEEZING Digoxin (Lanoxin Tab*) 0.25 mg PO DAILY [facility] Last Admin: 04/26/17 08:15 Dose: 0.25 mg Levothyroxine Sodium (Synthroid Tab*) 50 mcg PO 0600 [facility] Last Admin: 04/26/17 05:44 Dose: 50 mcg Mometasone Furoate/Formoterol Fumar (Dulera 200/5 Mdi*) 2 puff INH BID [facility] Last Admin: 04/26/17 07:34 Dose: 2 puff Nitroglycerin (Nitroglycerin Tab 0.4 Mg*) 0.4 mg SL Q5M PRN PRN Reason: ANGINA Omeprazole (Prilosec Cap*) 20 mg PO BID [facility] Last Admin: 04/26/17 08:16 Dose: 20 mg Tiotropium [place] (Spiriva Cap.Inh*) 1 cap INH DAILY [facility] Last Admin: 04/26/17 07:34 Dose: 1 cap Topiramate (Topamax(*)) 25 mg PO DAILY [facility] Last Admin: 04/26/17 08:15 Dose: 25 mg Warfarin Sodium (Coumadin Tab(*)) 4 mg PO TuFr@1700 [facility] PRN Reason: Protocol Warfarin Sodium (Coumadin Tab(*)) 2 mg PO SuMoWeThSa@1700 [facility] PRN Reason: Protocol Last Admin: 04/25/17 20:44 Dose: 2 mg Vital Signs - 8 hr 04/26/17 11:32 Temperature 98.1 F Pulse Rate 68 Respiratory 20 Rate Blood Pressure 132/44 (mmHg) O2 Sat by Pulse 97 Oximetry Oxygen Devices in Use Now: Nasal Cannula - 3 liters Appearance: Elderly lady lying in bed in NAD. Eyes: No Scleral Icterus Ears/Nose/Mouth/Throat: Mucous Membranes Moist Neck: Trachea Midline Respiratory: Symmetrical Chest Expansion and Respiratory Effort, Clear to Auscultation Cardiovascular: - - Normal S1 and S2, irregularly irregular Abdominal: NL Sounds; No Tenderness; No Distention Neurological: - - AAOx1 (self), [place] Result Diagrams: 04/26/17 05:42 04/26/17 05:42 Assess/Plan/Problems-Billing Assessment: Mrs. 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 - Patient Problems (1) Altered mental status Comment: - Family does not know exactly what neuro deficits she had and patient does not remember (this is her baseline). - As per HPI she had right hand numbness, but and son cannot confirm it. 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 - Patient was off AC for TAVR 1 week ago. - Neurology input appreciated and EEG reviewed - would not recommend AED at this time. Agreed with warfarin. (2) GI bleed Comment: - As per , patient has had stomach pain for "a while" and that' s the reason of her PCP visit yesterday. - Denies pain now. - Although H&P states Stool guaiac was positive, the result I can see is negative. - GI consult appreciated - would not pursue and EGD now in the acute setting of a stroke. Recommended PPI, continue warfarin and monitor H/H. If H/H remains stable, can go home and f/u with GI as outpatient to plan EGD in the future. If H/H drops, will reconsult GI. (3) Anemia Comment: - Continue to monitor H/H with Warfarin on board. (4) Aortic stenosis Comment: - S/p TAVR at [facility] 04/18/17 (records in the chart). (5) Enterococcus UTI Comment: - Allergic to penicillins and Nitrofurantoin - will treat with Fosfomycin. (6) DVT prophylaxis Comment: - Warfarin. - SCDs. Status and Disposition: Inpatient. Anticipate d/c home if H/H remains stable.
[2017-04-26] MEDS ORDERED: FOSFOMYCIN 3 GM PO ONE (17:00)
[2017-04-26] MEDS ORDERED: Warfarin TAB(*) 4 MG PO SCH (17:00)
--- NOTE | 2017-04-27 04:44 | PN ---
PROGRESS NOTE: DATE OF FOLLOWUP: 04/26/17 HISTORY: No acute overnight events. The family and the patient deny any further episodes of staring off or arm numbness. She has been seen by GI and they feel it is safe from a GI perspective to restart the warfarin so that was done last night. I also note that her urine culture is growing Enterococcus faecalis greater than 100,000 colonies. MEDICATIONS: 1. Tylenol as needed. 2. Albuterol as needed. 3. Digoxin. 4. Levothyroxine. 5. Dulera. 6. Nitroglycerin as needed. 7. Omeprazole. 8. Spiriva. 9. Topamax. 10. Warfarin. PHYSICAL EXAMINATION: Vital Signs: Temperature 98.1, blood pressure 132/44, heart rate 68, oxygen saturation 97% on 3 L. On focused mental status examination, the patient was alert and intermittently appeared to be trying to fall asleep, but would quickly alert again when spoken to. She indicates she does not know why she is here in the hospital. When asked what city we are in, she first guessed [place] and then guessed [place]. When told that she is in [place], she asked why. She knows the town that she lives in. She does not know the name of the hospital. She is able to name simple objects. She initially stated that her grandson was her nephew. The remainder of the neurologic exam was not repeated today. LABORATORY DATA: Her hematocrit is stable at 26 with a hemoglobin of 9.0. Her vitamin B12 is 1074 and folate is greater than 20. Her BMP is normal today. Iron studies are normal. 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 She has been found to have a small right frontal subcortical stroke. She has not had any further episodes of staring off. She has been found to have a urinary tract infection and Dr. Amezquita will be starting an antibiotic. She has been restarted on warfarin and she has a very small stroke, so I think this is fine at this point. It is possible that her urinary tract infection could have caused further confusion leading to this apparent staring episode, but it is also possible as mentioned previously that that could have been a small seizure. At this point, she has not had this recur and I think it makes sense to hold off on any antiseizure treatment at this point. I discussed with her that he should watch carefully for any recurrent staring episodes and if she has any associated arm numbness with this that it would be important to take note of which side of the body is affected. If she were to have further episodes which seemed consistent with seizure, then consideration of an antiseizure medication should be made at that time. Dr. Johnson will be taking over the neurology service this evening and will receive sign-out on the patient , but please call if there are any further episodes. [id number]/[facility] #: [id number] IDRIS
[2017-04-27] MEDS: Levothyroxine TAB* 50 MCG TAB PO SCH (06:03)
[2017-04-27 07:23] LABS: Hematocrit 27 % (35-47); Hemoglobin 8.8 g/dl (12.0-16.0)
[2017-04-27] MEDS: Tiotropium CAP.INH* CAP.INH/18 MCG (USE ORDER SET !) INH SCH (07:50)
[2017-04-27] MEDS: Mometasone/Formoter 200/5 MDI INH SCH ×2 (07:51→19:25)
[2017-04-27] MEDS: Digoxin TAB* 0.25 MG PO SCH (08:24)
[2017-04-27] MEDS: Omeprazole CAP* 20 MG PO SCH ×2 (08:24→21:34)
[2017-04-27] MEDS: Topiramate TAB(*) 25 MG PO SCH (08:24)
[2017-04-27] MEDS: Warfarin TAB(*) 2 MG PO SCH (16:48)
--- NOTE | 2017-04-27 17:35 | PN ---
Subjective Date of Service: 04/27/17 Interval History: . Interviewed and examined patient at bedside; Discussed case with Dr. Garcia ; Reviewed previous notes and radiology results; Patient seems quite lucid; family agrees. Discussed labs and that there is not a significant decrement in Hgb overnight despite therapeutic INR. no evidence for seizure on EEG (discussed with family) UTI was treated with one, 3 gram dose of Abx (Fosfomycin) Stroke (CVA) noted - thought secondary to being off warfarin - now therapeutic. . Family History: Unchanged from Admission Social History: Unchanged from Admission Past Medical History: Unchanged from Admission Objective Active Medications: . Acetaminophen (Tylenol Tab*) 650 mg PO Q4H PRN PRN Reason: FEVER/PAIN Last Admin: 04/26/17 05:44 Dose: 650 mg Albuterol (Ventolin Hfa Inhaler*) 2 puff INH Q6H PRN PRN Reason: WHEEZING Digoxin (Lanoxin Tab*) 0.25 mg PO DAILY [facility] Last Admin: 04/27/17 08:24 Dose: 0.25 mg Levothyroxine Sodium (Synthroid Tab*) 50 mcg PO 0600 [facility] Last Admin: 04/27/17 06:03 Dose: 50 mcg Mometasone Furoate/Formoterol Fumar (Dulera 200/5 Mdi*) 2 puff INH BID [facility] Last Admin: 04/27/17 07:51 Dose: 2 puff Nitroglycerin (Nitroglycerin Tab 0.4 Mg*) 0.4 mg SL Q5M PRN PRN Reason: ANGINA Omeprazole (Prilosec Cap*) 20 mg PO BID [facility] Last Admin: 04/27/17 08:24 Dose: 20 mg Tiotropium [place] (Spiriva Cap.Inh*) 1 cap INH DAILY [facility] Last Admin: 04/27/17 07:50 Dose: 1 cap Topiramate (Topamax(*)) 25 mg PO DAILY [facility] Last Admin: 04/27/17 08:24 Dose: 25 mg Warfarin Sodium (Coumadin Tab(*)) 4 mg PO TuFr@1700 [facility] PRN Reason: Protocol Last Admin: 04/26/17 16:58 Dose: 4 mg Warfarin Sodium (Coumadin Tab(*)) 2 mg PO SuMoWeThSa@1700 [facility] PRN Reason: Protocol Last Admin: 04/27/17 16:48 Dose: 2 mg . Oxygen Devices in Use Now: Nasal Cannula Result Diagrams: 04/27/17 06:44 04/26/17 05:42 Assess/Plan/Problems-Billing . Assessment: Mrs. Luevano is an 86 y.o. F with PMH of dementia, hypothyroidism, Afib, diastolic CHF EF 50%, SHADY, HTN, severe s/p TAVR 04/18/17, COPD on home O2 3 liters, arthritis, TIA, migraines, anxiety, who presented to ED with altered mental status. Current Medications: - Acetaminophen (Tylenol Tab) 650 mg PO Q4H PRN FEVER/PAIN - Albuterol (Ventolin Hfa Inhaler) 2 puff INH Q6H PRN WHEEZING - Digoxin (Lanoxin Tab) 0.25 mg PO DAILY [facility] - Levothyroxine Sodium (Synthroid Tab) 50 mcg PO 0600 [facility] - Mometasone Furoate/Formoterol Fumar (Dulera 200/5 Mdi) 2 puff INH BID [facility] - Nitroglycerin (Nitroglycerin Tab 0.4 Mg) 0.4 mg SL Q5M PRN ANGINA - Omeprazole (Prilosec Cap) 20 mg PO BID [facility] - Tiotropium [place] (Spiriva Cap.Inh) 1 cap INH DAILY [facility] - Topiramate (Topamax) 25 mg PO DAILY [facility] - Warfarin Sodium (Coumadin Tab) 4 mg PO TuFr@1700 [facility] - Warfarin Sodium (Coumadin Tab) 2 mg PO SuMoWeThSa@1700 [facility] - Patient Problems (1) Anemia Current Visit: Yes Status: Acute Priority: High Code(s): D64.9 - ANEMIA, UNSPECIFIED Comment: - Continue to monitor H/H with Warfarin and therapeutic INR. (2) Altered mental status Current Visit: Yes Status: Acute Code(s): R41.82 - ALTERED MENTAL STATUS, UNSPECIFIED Comment: - Better now. - Family does not know exactly what neuro deficits she had and patient does not remember (this is her baseline). - As per HPI she had right hand numbness, but and son cannot confirm it. 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 - Patient was off AC for TAVR 1 week ago. - Neurology input appreciated and EEG reviewed - does not recommend AED at this time. - Agreed with warfarin. - Possibly secondary to UTI (treated and improving now). (3) Aortic stenosis Current Visit: Yes Status: Acute Priority: High Code(s): I35.0 - NONRHEUMATIC AORTIC (VALVE) STENOSIS Comment: - S/p TAVR at [facility] 04/18/17 (records in the chart). - was off anticoagulation for ~ 1 week. - likely there was embolic event during procedure or in ana-procedure period ( while off anticoagulation). (4) Enterococcus UTI Current Visit: Yes Status: Acute Code(s): N39.0 - URINARY TRACT INFECTION, SITE NOT SPECIFIED; B95.2 - ENTEROCOCCUS THE CAUSE OF DISEASES CLASSIFIED ELSEWHERE SNOMED Code(s): 212955543791622 Comment: - Allergic to penicillins and Nitrofurantoin - will treat with Fosfomycin. (5) GI bleed Current Visit: Yes Status: Acute Code(s): K92.2 - GASTROINTESTINAL HEMORRHAGE, UNSPECIFIED SNOMED Code(s): 98851388 Comment: - As per , patient has had stomach pain for "a while" and that's the reason for a recent PCP visit. - Denies pain now. - Although H&P states Stool guaiac was positive, the result available is negative (perhaps miscommunication between providers) - GI consult appreciated - would not pursue and EGD now in the acute setting of a stroke. Recommended PPI, continue warfarin and monitor H/H. If H/H remains stable, can go home and f/u with GI as outpatient to plan EGD in the future. If H/H drops, will reconsult GI. (6) Atrial fibrillation Current Visit: No Status: Acute Priority: High Code(s): I48.91 - UNSPECIFIED ATRIAL FIBRILLATION Comment: Chronic; rate-controlled. On digoxin; level was acceptable 04/24... (7) S/P mitral valve replacement Current Visit: No Status: Acute Code(s): Z95.2 - PRESENCE OF PROSTHETIC HEART VALVE Comment: - History noted. (8) DVT prophylaxis Current Visit: Yes Status: Acute Priority: High Code(s): VSX4796 - Comment: - Warfarin (INR > 2 now) - SCDs. Status and Disposition: Inpatient. Anticipate d/c home if H/H remains stable.
[2017-04-28 05:25] LABS: Hematocrit 28 % (35-47); Hemoglobin 9.4 g/dl (12.0-16.0); Mean Corpuscular HGB Conc 34 g/dl (31-36); Mean Corpuscular Hemoglobin 34 pg (27-31); Mean Corpuscular Volume 100 fL (80-97); Mean Platelet Volume 10 um3 (7.4-10.4); Red Blood Count 2.78 10^6/ul (4.0-5.4); Red Cell Distribution Width 17 % (10.5-15); White Blood Count 4.6 10^3/ul (3.5-10.8)
[2017-04-28 05:26] LABS: Add Diff/Slide Review? Slide Review Added; Comments Flag Yes
[2017-04-28 05:40] LABS: Albumin 3.6 g/dL (3.2-5.2); BUN/Creatinine Ratio 8.8 (8-20); EGFR African American 87.5 (>60); Globulin 2.7 g/dL (2-4); Potassium 3.7 mmol/L (3.5-5.0); Total Bilirubin 1.7 mg/dL (0.2-1.0); Total Protein 6.3 g/dL (6.4-8.9)
[2017-04-28] MEDS: Levothyroxine TAB* 50 MCG TAB PO SCH (06:06)
[2017-04-28 08:18] VITALS: BP 136/55
[2017-04-28] MEDS: Omeprazole CAP* 20 MG PO SCH (08:18)
[2017-04-28] MEDS: Topiramate TAB(*) 25 MG PO SCH (08:18)
[2017-04-28] MEDS: Digoxin TAB* 0.25 MG PO SCH (08:18)
[2017-04-28] MEDS: Mometasone/Formoter 200/5 MDI INH SCH (11:13)
[2017-04-28] MEDS: Tiotropium CAP.INH* CAP.INH/18 MCG (USE ORDER SET !) INH SCH (11:13)
[2017-04-28] MEDS: Acetaminophen TAB* 325 MG PO PRN (12:01)
--- NOTE | 2017-04-28 12:48 | PN ---
Hospitalist Progress Note Date of Service: 04/28/17 . HOSPITALIST DISCHARGE NOTE: See dc instructions and summary by me. Patient stable for dc dc instructions reviewed with the patient at the bedside. DC patient home today.
--- NOTE | 2017-04-28 13:29 | CONS ---
GASTROENTEROLOGY CONSULT FOLLOWUP: DATE OF CONSULT: 04/28/17 CONSULTING PHYSICIANS: Yana Amezquita MD; Román Sheets MD REASON FOR CONSULTATION: Several potential GI issues over the last 6 weeks including constipation (skipping upwards of 4 or 5 days), epigastric pain and anemia with a question of GI bleeding, although no blood seen and stool heme negative this admission. An extended conversation was held with the patient's granddaughter, , who is a nurse on . The patient lives with her who is said to be a good observer and historian. Her granddaughter states that through the year she has not typically been one to complain about her bowels. She began to complain of stomach pain the epigastric area during an early March hospitalization. She did not go to the bathroom during that hospital stay nor for a few days after going home. Some MiraLAX was used, though not on a fixed schedule. It did seem to work, though it is difficult to pin that down. There is also concern about Aricept that was started sometime in February or March, although it is not listed on her 03/17/17 H and P, and med-recon form has many question pierre. The Aricept was discontinued. Another followup appointment for complaints of epigastric pain also revealed the neurologic deficits since she was admitted. Here in the hospital, warfarin was restarted and omeprazole started. She was observed to eat fine and have bowel movements at least every other day without any overt blood. Her hemoglobin which was 8.8 on admission went up slightly to 9.4. Hemoglobin was 10.2 the morning after admission, 03/17/17. Today she states her stomach is fine and her daughter agrees. She ate a complete breakfast. Her abdomen is symmetric with active bowel sounds. She appears nontender and there is no particular guarding, though the abdomen is somewhat firm and she appears in no distress and is smiling stating her abdomen hurts everywhere that it is touched. A light touch had her saying that the pressure was too much. IMAGING: CT scan of the abdomen and pelvis showed a moderate hiatal hernia with no abnormalities of the luminal GI tract below that. LABORATORY DATA: White count is 6.6 and then at discharge 4.6, having been 20, 000 on admission, 03/17/17. Platelets 140,000. IMPRESSION: Most likely cause for her abdominal complaints are reflux induced by chronic illness and dependency and/or constipation and the same factors would exacerbate that. Both could be operating. Her having poor short-term memory probably plays a role. Going home on a PPI is a good idea and we would also give MiraLAX on a fixed schedule. She should spend time upright after meals in an attempt to reduce time recumbent. Her anemia probably has a substantial component of anemia of chronic disease, possibly a bone marrow contribution given the chronic leukopenia and thrombocytopenia. [id number]/[facility] #: [id number] [facility]
--- NOTE | 2017-04-29 03:36 | DS ---
CC: Dr. Román Sheets; Dr. Juan Antonio Hill * DISCHARGE SUMMARY: DATE OF ADMISSION: 04/24/17 DATE OF DISCHARGE: 04/28/17 PRIMARY CARE PROVIDER: Dr. Román Sheets. GI DIESEL TECHNOLOGY INSTRUCTOR: Dr. Juan Antonio Hill. NEUROLOGY DIESEL TECHNOLOGY INSTRUCTOR: Dr. Janneth Gold. PRINCIPAL DISCHARGE DIAGNOSES: 1. Right hand numbness/altered mental status - multifactorial. 2. Subacute versus acute subcortical infarct on MRI. 3. Recent transaortic valve replacement (TAVR), off anticoagulation with implication in current stroke presentation. 4. Chronic atrial fibrillation - on anticoagulation. 5. Chronic dementia. 6. Acute urinary tract infection - enterococcal - status post treatment in hospital. SECONDARY DIAGNOSES: 1. Known dementia. 2. Hypothyroidism - on Synthroid replacement. 3. Congestive heart failure with last ejection fraction approximately 50%. 4. Obstructive sleep apnea, untreated - diagnosed approximately 5 years ago. 5. Hypertension. 6. Aortic stenosis - status post TAVR recently in [place], [place]. 7. Chronic obstructive pulmonary disease/chronic hypoxic respiratory failure, on 3 L nasal cannula standing. 8. Arthritis. 9. History of transient ischemic attacks. 10. Migraines. 11. Anxiety. DISCHARGE MEDICATION REGIMEN: 1. Topamax 25 mg by mouth daily. 2. Levothyroxine 50 mcg by mouth daily. 3. Digoxin 0.25 mg by mouth daily. 4. Aspirin 81 mg by mouth daily. 5. Spiriva 1 capsule/inhalation daily. 6. Albuterol inhaler 2 puffs every 6 hours as needed for shortness of breath/ wheezing. 7. Multivitamin with minerals 1 tab by mouth once daily. 8. Warfarin - continue previous regimen including 2 mg orally Saturday, Saturday, Saturday, , Saturday and 4 mg on Saturday and Saturday. 9. Advair Diskus 250/50 strength 1 inhalation twice daily. 10. Magnesium gluconate 500 mg by mouth daily. 11. Stop donepezil/Aricept. 12. Start omeprazole 20 mg by mouth twice daily. 13. Tylenol (OTC) 650 mg by mouth every 4 hours p.r.n. pain/fever. HISTORY OF PRESENT ILLNESS AND HOSPITAL COURSE: Please see the H and P on April 24, [address] Rozina Quinteros, supervising Tiffany Loera NP, as well as the neurology consultation by Dr. Janneth Gold, as well as the GI consultation by Dr. Jamee Cisneros with followup by Dr. Juan Antonio Hill. In brief , Ms. Luevano is a pleasant, but demented 86-year-old female with a medical history complicated including hypothyroidism/chronic atrial fibrillation/CHF with generally preserved ejection fraction, SHADY - untreated, COPD - chronic 3 L oxygen by nasal cannula, arthritis, history of TIA, migraines, and anxiety, who came to the emergency room with her granddaughter complaining of fixed staring episodes and numbness in her right arm, by report. Of note, the patient had held her anticoagulation for a TAVR on the prior to admission ( April 18, 2017). The patient was lethargic since that procedure (which was reportedly successful) and a bit more confused. The patient went to her PCP for her complaints of abdominal pain, when there was fixed stare noted lasting 20 seconds. The patient was confused and could not find her walker and complained of numbness in her left arm. She was not following her granddaughter 's finger (granddaughter is a nurse at [employer] [place] The patient reported feeling cold , but did not have objective fever nor other vital sign abnormalities. The patient came to the emergency room and had another episode of staring where she stared to the left, by report, for a few seconds. This was noted by the family but not the staff. The abdominal pain was very vague on description. The patient had a therapeutic INR of over 2, but the patient was off Coumadin for her recent cardiac procedure. The patient was admitted with concern for stroke. The head CT showed cortical atrophy with chronic microvascular changes , and the MRI subsequently showed a small foci of restricted diffusion within the right frontal lobe consistent with a subacute nonhemorrhagic infarct. The MRI also showed diffuse involutional changes consistent with chronic small vessel ischemic disease as well as trace right mastoid effusion. Together, these MRI findings were suggestive of a acute to subacute infarct likely sustained in the 1 to 2 weeks prior to this presentation and likely after the cardiac procedure given all factors. There was concern for seizure and the patient had an EEG, which was abnormal consistent with her multiple medical problems including dementia but did not show any specific epileptiform changes. The patient was seen by GI for reports of dark stools and other reports of red stools but there was no evidence of GI bleeding. The patient remained on Coumadin and this was deemed very important secondary to her neurologic events. The patient's hemoglobin ranged between 8.8 (low during hospitalization) to 9.4 on the day of admission. There was no transfusion given. The patient continues on aspirin and Coumadin. She has followup labs on May [address] Hill as well as to her PCP, Dr. Sheets. The patient is subjectively feeling better. She was treated with antibiotics (fosfomycin) for a urinary tract infection with a single 3-g dose, which is an appropriate choice given the UTI was Enterococcus faecalis species. The enterococcus was known to be pansensitive. The patient is doing better and is at her baseline on April 28. Repeat hemoglobin is encouraging. The patient is to follow up with Dr. Sheets and then Dr. Hill in the outpatient setting. There is a tentative plan to do an EGD/colonoscopy to explore her iron deficiency anemia when the patient is stabilized. Again, this will be arranged based on her clinical progress following the hospitalization. She was given return to ED instructions along with her family members and in particular her granddaughter who is a nurse at the hospital and is instrumental in her care. Med changes were communicated to the patient's family. TIME SPENT: Total time taken to discharge Ms. Luevano was 45 minutes, greater than half the time was spent going over the discharge instructions with the patient and her family. [id number]/[facility] #: [id number] MTDD
== END 2017-04-28 13:16 | disposition home health service (06) | DRG 65 ==
LOC: ED 13:01 → MEDTELE 18:41 → OBSVTOIN 04-25 07:35
PROVIDERS: ADMIT Internal Medicine; ATTEND Internal Medicine
PROC: 4A00X4Z Measurement of Central Nervous Electrical Activity, External Approach (ICD-10-PCS; principal; 2017-04-25)
DX: I63.9 Cerebral infarction, unspecified (principal); N39.0 Urinary tract infection, site not specified; J96.11 Chronic respiratory failure with hypoxia; I48.2 Chronic atrial fibrillation; I11.0 Hypertensive heart disease with heart failure; I50.9 Heart failure, unspecified; D53.9 Nutritional anemia, unspecified; G43.909 Migraine, unspecified, not intractable, without status migrainosus; B95.2 Enterococcus as the cause of diseases classified elsewhere; J44.9 Chronic obstructive pulmonary disease, unspecified; E03.9 Hypothyroidism, unspecified; F03.90 Unspecified dementia, unspecified severity, without behavioral disturbance, psychotic disturbance, mood disturbance, and anxiety; F41.9 Anxiety disorder, unspecified; R20.0 Anesthesia of skin; M19.90 Unspecified osteoarthritis, unspecified site; G47.33 Obstructive sleep apnea (adult) (pediatric); R41.82 Altered mental status, unspecified; K44.9 Diaphragmatic hernia without obstruction or gangrene; Z66 Do not resuscitate; Z88.5 Allergy status to narcotic agent; Z88.0 Allergy status to penicillin; Z88.2 Allergy status to sulfonamides; Z88.8 Allergy status to other drugs, medicaments and biological substances; Z88.1 Allergy status to other antibiotic agents; Z91.041 Radiographic dye allergy status; Z86.73 Personal history of transient ischemic attack (TIA), and cerebral infarction without residual deficits; Z90.710 Acquired absence of both cervix and uterus; Z82.49 Family history of ischemic heart disease and other diseases of the circulatory system; Z87.891 Personal history of nicotine dependence; Z95.2 Presence of prosthetic heart valve; Z83.3 Family history of diabetes mellitus; Z98.42 Cataract extraction status, left eye; Z98.41 Cataract extraction status, right eye; Z79.82 Long term (current) use of aspirin
CPT/HCPCS: 36415; 70450; 70551; 71010; 74177; 80048; 80053; 80061; 80162; 81003; 81015; 82272; 82607; 82728; 82746; 83036; 83540; 83550; 83605; 84484; 85014; 85018; 85025; 85060; 85610; 85730; 86850; 86900; 86901; 87077; 87086; 87186; 93005; 94640; 94760; 95819; A9270-GY; G0378; Q9967

== ENCOUNTER 2017-11-13 14:49 | Emergency (ER) | payer MEDICARE, OTHER ==
[2017-11-13 15:03] VITALS: BP 143/63
--- NOTE | 2017-11-13 15:11 | UC ---
Complaint Female HPI - HPI Summary HPI Summary: 87 yo female presents with uti symptoms. She is a poor historian due to underlying dementia - therefore her son and provide the majority of the history. They tell me that pt has been complaining of burning with urination and blood in her urine for the last 2 days. Also feeling achy all over and tired more often, but they say this is common for her when she has a UTI. Usually gets one every 6 months or so. Denies fever, chills, abdominal pain, n/v /d/c, flank pain. - History Of Current Complaint Chief Complaint: UCGU Stated Complaint: UTI Time Seen by Provider: 11/13/17 15:11 Hx Obtained From: Patient, Family/Lasting Machine Operator Onset/Duration: Sudden Onset Severity Currently: None Pain Intensity: 0 - Allergies/Home Medications Allergies/Adverse Reactions: Allergies Allergy/AdvReac Type Severity Reaction Status Date / Time albuterol Allergy Unknown Verified 11/13/17 15:44 Reaction Details amoxicillin [From Augmentin] Allergy Unknown Verified 11/13/17 15:44 Reaction Details clavulanic acid Allergy Unknown Verified 11/13/17 15:44 [From Augmentin] Reaction Details fenoprofen Allergy Unknown Verified 11/13/17 15:44 Reaction Details metolazone Allergy Unknown Verified 11/13/17 15:44 Reaction Details morphine Allergy Nausea Verified 11/13/17 15:44 nitrofurantoin Allergy Unknown Verified 11/13/17 15:44 [From Macrodantin] Reaction Details Penicillins Allergy Shortness Verified 11/13/17 15:44 of Breath sulfamethoxazole Allergy Nausea Verified 11/13/17 15:44 [From Septra] theophylline Allergy Unknown Verified 11/13/17 15:44 Reaction Details trimethoprim [From Septra] Allergy Nausea Verified 11/13/17 15:44 yellow dye Allergy Unknown Verified 11/13/17 15:44 Reaction Details Home Medications: Home Medications Donepezil HCl [Aricept] 5 mg PO DAILY 11/13/17 [History Confirmed 11/13/17] Spironolactone 25 mg PO DAILY 11/13/17 [History Confirmed 11/13/17] Ubidecarenone [Coq-10 Tr] 100 mg PO DAILY 11/13/17 [History Confirmed 11/13/17] PMH/Surg Hx/FS Hx/Imm Hx Endocrine History: Hypothyroidism Cardiovascular History: Cardiac Disease, Hypertension, Congestive Heart Failure Respiratory History: COPD GI/ History: Gastroesophageal Reflux Other History Of: Anticoagulant Therapy - coumadin - Surgical History Surgical History: Yes Surgery Procedure, Year, and Place: open heart surgery september 2011. hysterectomy. Valve repair 2017-MARIUSZ 3-OK FOR 1.5 OR 3T-UP TO 720 G/CM. HEART ABLASION - Family History Known Family History: Positive: Cardiac Disease, Hypertension - Social History Lives: With Family Alcohol Use: None Substance Use Type: None Smoking Status (MU): Former Smoker - Immunization History Most Recent Influenza Vaccination: 2017 Most Recent Tetanus Shot: with in last 5 years Most Recent Pneumonia Vaccination: 2017 Review of Systems Constitutional: Negative Skin: Negative Respiratory: Negative Cardiovascular: Negative Gastrointestinal: Negative Genitourinary: Dysuria, Hematuria Neurological: Negative Psychological: Negative All Other Systems Reviewed And Are Negative: Yes Physical Exam - Summary Physical Exam Summary: GENERAL: NAD. WDWN. No pain distress. SKIN: No rashes, sores, lesions, or open wounds. NECK: Supple. Nontender. No lymphadenopathy. CHEST: No accessory muscle use. Breathing comfortably and in no distress. CV: Pulses intact. Brisk cap refill. ABDOMEN: Soft. NTTP. No distention or guarding. No CVA tenderness. Bowel sounds present NEURO: Alert. PSYCH: Age appropriate behavior. Triage Information Reviewed: Yes Vital Signs: Initial Vital Signs Temp 98 F 11/13/17 15:00 Pulse 90 11/13/17 15:00 Resp 16 11/13/17 15:00 BP 143/63 11/13/17 15:00 Pulse Ox 98 11/13/17 15:00 Laboratory Tests 11/13/17 15:27 POC Urine Color Red A POC Urine Clarity Turbid POC Urine pH 5.5 POC Ur Specif [place] 1.015 POC Urine Protein 3+ A POC Ur Glucose (UA) Negative POC Urine Ketones Trace A POC Urine Blood 3+ A POC Urine Nitrite Positive A POC Urine Bilirubin 2+ A POC Urine Urobilinogen 1.0 POC U Leukocyte Esteras Trace A Complaint Female Dx - Course Course Of Treatment: UA with signs of infection. Given pt's extensive allergy list and cross-reactions with her current medications - I will rx for Keflex and send her urine for culture. - Differential Dx/Diagnosis Provider Diagnoses: UTI Discharge - Sign-Out/Discharge Documenting (check all that apply): Discharge/Admit/Transfer - Discharge Plan Condition: Stable Disposition: HOME Prescriptions: Cephalexin CAP* [Keflex CAP*] 500 mg PO BID #14 cap Patient Education Materials: Urinary Tract Infection in Women (ED) Referrals: Nuria Martin MD [Primary Care Provider] - Additional Instructions: If you develop a fever, shortness of breath, chest pain, new or worsening symptoms - please call your PCP or go to the ED. Your blood pressure was high at todays visit. Please see your primary provider within 4 weeks for recheck and re-evaluation. - Billing Disposition and Condition Condition: STABLE Disposition: Home
--- NOTE | 2017-11-15 17:24 | UC ---
- Progress Note Progress Note: notify p NO UTI stop antibiotic recheck if still symptomatic Discharge - Sign-Out/Discharge Documenting (check all that apply): Post-Discharge Follow Up - Discharge Plan Condition: Stable Disposition: HOME Prescriptions: Cephalexin CAP* [Keflex CAP*] 500 mg PO BID #14 cap Patient Education Materials: Urinary Tract Infection in Women (ED) Referrals: Nuria Martin MD [Primary Care Provider] - Additional Instructions: If you develop a fever, shortness of breath, chest pain, new or worsening symptoms - please call your PCP or go to the ED. Your blood pressure was high at todays visit. Please see your primary provider within 4 weeks for recheck and re-evaluation. - Billing Disposition and Condition Condition: STABLE Disposition: Home
== END 2017-11-13 16:13 | disposition home or self-care (01) ==
LOC: UCEAST 14:49
DX: N39.0 Urinary tract infection, site not specified (principal); F03.90 Unspecified dementia, unspecified severity, without behavioral disturbance, psychotic disturbance, mood disturbance, and anxiety; Z88.0 Allergy status to penicillin; Z88.5 Allergy status to narcotic agent; Z88.8 Allergy status to other drugs, medicaments and biological substances; Z88.2 Allergy status to sulfonamides; Z91.041 Radiographic dye allergy status; J44.9 Chronic obstructive pulmonary disease, unspecified; I11.0 Hypertensive heart disease with heart failure; I50.9 Heart failure, unspecified; Z87.891 Personal history of nicotine dependence
CPT/HCPCS: 81003; 87086; 99212; G0463

== ENCOUNTER 2018-02-06 10:52 | Emergency (ER) | payer MEDICARE, OTHER ==
--- NOTE | 2018-02-06 11:36 | ED ---
Abdominal Pain/Female - HPI Summary HPI Summary: A 87 y/o female presents to the ED c/o constant abdominal pain that has been ongoing for 3 weeks. Pt was admitted to [facility] and discharged on 01/19/18 and has been having constipation since. Pt saw her PCP today who referred her to ED for CT scan to r/o SBO. 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 - History of Current Complaint Chief Complaint: EDAbdPain Stated Complaint: CONSTIPATION Time Seen by Provider: 02/06/18 11:20 Hx Obtained From: Family/Air Box Tester Hx From Patient Unobtainable Due To: Dementia Onset/Duration: Lasting Weeks, Still Present Timing: Constant Severity Initially: Mild Severity Currently: Mild Pain Intensity: 0 Pain Scale Used: 0-10 Numeric Location: Diffuse - lower abdominal Character: Dull Alleviating Factor(s): Bowel Movement Associated Signs and Symptoms: Positive: Constipation Allergies/Adverse Reactions: Allergies Allergy/AdvReac Type Severity Reaction Status Date / Time albuterol Allergy Unknown Verified 02/06/18 11:28 Reaction Details amoxicillin [From Augmentin] Allergy Unknown Verified 02/06/18 11:28 Reaction Details clavulanic acid Allergy Unknown Verified 02/06/18 11:28 [From Augmentin] Reaction Details fenoprofen Allergy Unknown Verified 02/06/18 11:28 Reaction Details metolazone Allergy Unknown Verified 02/06/18 11:28 Reaction Details morphine Allergy Nausea Verified 02/06/18 11:28 nitrofurantoin Allergy Unknown Verified 02/06/18 11:28 [From Macrodantin] Reaction Details Penicillins Allergy Shortness Verified 02/06/18 11:28 of Breath sulfamethoxazole Allergy Nausea Verified 02/06/18 11:28 [From Septra] theophylline Allergy Unknown Verified 02/06/18 11:28 Reaction Details trimethoprim [From Septra] Allergy Nausea Verified 02/06/18 11:28 yellow dye Allergy Unknown Verified 02/06/18 11:28 Reaction Details PMH/Surg Hx/FS Hx/Imm Hx Previously Healthy: No Endocrine/Hematology History: Reports: Hx Anticoagulant Therapy - coumadin, Hx Thyroid Disease Denies: Hx Diabetes, Hx Systemic Lupus Erythematosus Cardiovascular History: Reports: Hx Atrial Fibrillation, Hx Congestive Heart Failure - HX, Hx Hypertension, Hx Valvular Heart Disease, Other Cardiovascular Problems/Disorders - VALVULAR HEART DISEASE Denies: Hx Pacemaker/ICD Respiratory History: Reports: Hx Asthma, Hx Chronic Obstructive Pulmonary Disease (COPD) History: Reports: Hx Kidney Infection, Other Problems/Disorders - UTIs Denies: Hx Dialysis, Hx Renal Disease Musculoskeletal History: Reports: Hx Arthritis Denies: Hx Rheumatoid Arthritis, Hx Scoliosis Sensory History: Reports: Hx Contacts or Glasses Denies: Hx Hearing Aid Opthamlomology History: Reports: Hx Contacts or Glasses Neurological History: Reports: Hx Dementia - per pt's daughter, Hx Migraine, Hx Transient Ischemic Attacks (TIA) Denies: Hx Headaches, Other Neuro Impairments/Disorders Psychiatric History: Reports: Hx Anxiety Denies: Hx Panic Disorder - Cancer History Hx Chemotherapy: No Hx Radiation Therapy: No - Surgical History Surgery Procedure, Year, and Place: open heart surgery september 2011. hysterectomy. Valve repair 2017-[facility] 3-OK FOR 1.5 OR 3T-UP TO 720 G/CM. HEART ABLASION Infectious Disease History: No Infectious Disease History: Denies: Traveled Outside the [place] in Last 30 Days - Family History Known Family History: Positive: Cardiac Disease, Hypertension - Social History Occupation: Retired Lives: With Family Alcohol Use: None Hx Substance Use: No Substance Use Type: Reports: None Hx Tobacco Use: Yes Smoking Status (MU): Former Smoker Review of Systems Negative: Fever Positive: Abdominal Pain, Other - pos: constipation All Other Systems Reviewed And Are Negative: Yes Physical Exam - Summary Physical Exam Summary: Appearance: The patient is well-nourished in no acute distress and in no acute pain. Skin: The skin is warm and dry and skin color reflects adequate perfusion. HEENT: The head is normocephalic and atraumatic. The pupils are equal and reactive. The conjunctivae are clear and without drainage. Nares are patent and without drainage. Mouth reveals moist mucous membranes and the throat is without erythema and exudate. The external ears are intact. The ear canals are patent and without drainage. The tympanic membranes are intact. Neck: the neck is supple with full range of motion and non-tender. There are no carotid bruits. There is no neck vein distension. Respiratory: Chest is non-tender. Lungs are clear to auscultation and breath sounds are symmetrical and equal. Cardiovascular: Heart is regular rate and rhythm. There is no murmur or rub auscultated. There is no peripheral edema and pulses are symmetrical and equal. Abdomen: MildTTP in lower abdomen. There are normal bowel sounds heard in all four quadrants and there is no organomegaly palpated. Musculoskeletal: There is no back tenderness noted. Extremities are non-tender with full range of motion. There is good capillary refill. There is no peripheral edema or calf tenderness elicited. Neurological: Patient is alert and oriented to person, place and time. The patient has symmetrical motor strength in all four extremities. Cranial nerves are grossly intact. Deep tendon reflexes are symmetrical and equal in all four extremities. Psychiatric: The patient has an appropriate affect and does not exhibit any anxiety or depression. Triage Information Reviewed: Yes Vital Signs On Initial Exam: Initial Vitals Temp Pulse Resp BP Pulse Ox 97.8 F 83 16 127/66 98 02/06/18 11:14 02/06/18 11:14 02/06/18 11:14 02/06/18 11:14 02/06/18 11:14 Vital Signs Reviewed: Yes Abdomen Description: Positive: Other: - lower abdominal tenderness Diagnostics - Vital Signs Vital Signs Temp Pulse Resp BP Pulse Ox 02/06/18 11:14 97.8 F 83 16 127/66 98 - Laboratory Result Diagrams: 02/06/18 11:57 02/06/18 11:57 Lab Statement: Any lab studies that have been ordered have been reviewed, and results considered in the medical decision making process. - CT A/P CT CT Interpretation: No Acute Changes - IMPRESSION: #. Colonic diverticulosis without findings of acute diverticulitis. Negative for bowel obstruction. Negative for significant retained stool in the colon. #. Peripheral vascular disease without gross change compared with the January 16, 2018. ED provider has reviewed this report. CT Interpretation Completed By: Radiologist Re-Evaluation - Re-Evaluation 1 Re-Evaluation Time: 14:17 Change: Improved Comment: Discussing diagnostic results with pt and family, and plan to D/C home. Abdominal Pain Fem Course/Dx - Course Course Of Treatment: Ms Luevano was brought in by her family at her PCP's request. The family just wants a CT scan of her abdomen to see if she is obstructed because she has been C/O abdominal pain ever since a recent admission for GI bleeding. She has been feeling constipated and has had laxatives, enemas and a digital disimpaction. They do not know why a CT wasn't just obtained as an outpatient so my assumption is that the PCP wants a more thorough W/U for the pain. She has mild diffuse low abdominal tenderness with normal bowel sounds. Labs are WNL and CT shoed no acute pathology including constipation. I recommended F/U with her PCP for further consideration. - Diagnoses Provider Diagnoses: Abdominal pain Discharge - Sign-Out/Discharge Documenting (check all that apply): Patient Departure - DC - Discharge Plan Condition: Stable Disposition: HOME Patient Education Materials: Acute Abdominal Pain (ED) Referrals: Nuria Martin MD [Primary Care Provider] - 2 Days Additional Instructions: Please return to ED if you experience new or worsening symptoms. Follow up with your primary care provider in 2 days. - Billing Disposition and Condition Condition: STABLE Disposition: Home - Attestation Statements Document Initiated by Scribe: Yes Documenting Scribe: Kathleen Becerra Provider For Whom Scribe is Documenting (Include Credential): Dr. Uriel Santillan MD Scribe Attestation: I, Kathleen Becerra, scribed for Dr. Uriel Santillan MD on 02/07/18 at 0930. Scribe Documentation Reviewed: Yes Provider Attestation: The documentation as recorded by the Kathleen moon accurately reflects the service I personally performed and the decisions made by me, Dr. Uriel Santillan MD
[2018-02-06 12:11] LABS: Hematocrit 33 % (35-47); Hemoglobin 10.8 g/dl (12.0-16.0); Mean Corpuscular HGB Conc 33 g/dl (31-36); Mean Corpuscular Hemoglobin 31 pg (27-31); Mean Corpuscular Volume 95 fL (80-97); Mean Platelet Volume 10.1 um3 (7.4-10.4); Platelet Count 161 10^3/ul (150-450); Red Blood Count 3.45 10^6/ul (4.00-5.40); Red Cell Distribution Width 18 % (10.5-15); White Blood Count 6.3 10^3/ul (3.5-10.8)
--- OUTSIDE RECORDS SUMMARY | 2018-02-06 12:23 | XMS REPORT ---
:1930 External Reference #:[id number] Author Organization [facility] Address [address] [place] [address] [place] [address] Phone [phone] Care Team Providers Name Role Phone Nuria Martin MD Primary Care Physician Unavailable Payers Type Date Identification Numbers Payment Provider Subscriber Medicare Primary Policy Number: [id number] Medicare Angle Carroll PayID: [id number] [facility] [address] [place] [address] [facility] Part [facility] Policy Number: [id number] [facility] Benefit Plan Uriel Escobedo Chloé Group Number: [id number] [facility] Group Name: Joe Grimes [place], [place] PayID: [id number] Advance Directives Type Date Description Status Comment Other Directive 02/08/2015 Health Care Proxy Current and Verified Problems Date Description Provider Status Onset: 02/18/2013 Mitral valve disorder John Lama M.D. Active Onset: 02/18/2013 Atrial fibrillation John Lama M.D. Active Onset: 02/18/2013 Hypoxemia John Lama M.D. Active Onset: 01/12/2015 Localized, primary osteoarthritis Nava Rose M.D. Active Social History Type Date Description Comments Marital Status Lives With Occupation Retired Cigarette Use Former Cigarette Smoker ETOH Use Denies alcohol use Smoking Patient is a former smoker quit 21 years ago Recreational Drug Use Denies Drug Use Smoking Patient is a former smoker 1996 Daily Caffeine Comsumes on average 1 cup of decaff coffee per day Exercise Type/Frequency Walks daily limited Allergies, Adverse Reactions, Alerts Date Description Reaction Status Severity Comments 02/18/2013 Penicillin shortness of breathe active 09/03/2014 Macrodantin active 03/15/2017 Theodur active 03/15/2017 Zaroxlen active 03/22/2017 Morphine active Vomitimg 03/22/2017 Nalfon active 04/24/2017 Quinoline Yellow active 04/30/2017 Amoxicillin active 05/16/2017 Sulfamethoxazole / active Trimethoprim 03/15/2017 Potasium inactive 03/22/2017 Proventil inactive Medications Medication Date Status Form Strength Qnty SIG Indications Ordering Provider Digoxin 01/21/ Active Tablets 125mcg One by I48.0 Airc 2018 mouth every Ted, [employer] day Albuterol 10/02/ Active Nebulizer (2.5mg/3ML 75ml 1 vial via Aric Sulfate 2017 ) 0.083% nebulizer 4 Ted, [employer] times daily as needed Nebulizer 08/28/ Active Device 1units use for R06.02 Aric 2018 albuterol Ted, [employer] nebulized solution up to 4 times a day. I50.9 Spiriva 08/23/2017 Active Capsules 18mcg 90caps inhale the Aric Handihaler contents of Ted, [employer] one capsule via handihaler by mouth every day Spironolactone 08/22/2017 Active Tablets 25mg 90tabs 1 by mouth R0 John every day 6. DGill Lama, 02 M.D. Nebulizer 03/15/2017 Active Device 1units use for Román Miller albuterol Kortney, nebulized M.D. solution up to 4 times a day. Ventolin HFA 10/03/2016 Active Aerosol 108(90B 1units 2 puffs po qid J4 Román carbajal) prn 4. Kortney mcg/ac 9 M.D. Topamax Active Tablets 25mg 120tabs 1 by mouth Román Miller every day Edna Sheets Oxygen Active Misc 1units 2-3 L Unknown continuously Warfarin Sodium Active Tablets 2mg take 1 by Unknown mouth at nightly( on hold for at least two months) Centrum Silver Active Tablets 50+Wome Unknown 50+Women n Wheelchair Active 1units to be used as Román Sheets M.D. Magnesium Active Tablets 250mg 1 by mouth Unknown every day Coq-10 Active Capsules 100mg 1 by mouth Unknown ER daily Advair Diskus Active Aerosol 250-50m 180units use 1 Aric cg/Dose inhalation by RENE Jean mouth 2 times a day Levothyroxine Active Tablets 50mcg 90tabs Take 1 Tablet Aric Sodium By Mouth Daily RENE Jean Omeprazole Active Capsules 20mg 180caps Take One Aric DR Capsule By RENE Jean Mouth Twice A Day Zofran Active Tablets 4mg take 1 by Unknown mouth Orn q6 hrs Coumadin 12/07/2017 - Hx Tablets 2mg 270tabs Take 3 Tablets Aric 01/20/2018 By Mouth Daily RENE Jean Or as Directed Digoxin 10/23/2017 - Hx Tablets 250mcg 90tabs One tablet I4 Aric 01/21/2018 once daily 8. RENE Jean 0 Donepezil HCL 03/15/2017 - Hx Tablets 5mg 60tabs 1 by mouth G3 Román Miller 04/23/2017 every day Bisi Fortune M.D. Losartan 02/17/2013 - Hx Tablets 25mg 30tabs 1 po qd John Potassium 04/23/2017 Anna Lama M.D. Aspirin 81 02/17/2013 - Hx Tablets DR 81mg po qd John 04/23/2016 Anna Lama M.D. Reglan 12/05/2008 - Hx Tablets 5mg 30tabs tid ac prn Kevin 02/18/2013 Anna Martinez M.D.,FACP Imitrex 12/05/2008 - Hx Tablets 50mg 9tabs po q2h as Kevin 02/18/2013 directed for Anna Martinez h/vic Bishop,FACP Albuterol - Hx 1 puff qid Unknown Sulfate ER 02/21/2017 Coumadin - Hx Tablet As directed by Unknown 12/07/2017 PCP Digoxin - Hx 250mcg 1 po qd Aric 10/23/2017 RENE Jean Potassium - Hx Tablets ER 10Meq 1 po bid Unknown Chloride CR 10/13/2013 Magnesium & - Hx 1 po bid Unknown Vitamin 10/13/2013 D3/Calcium Aspirin - Hx Tablets DR 325mg 1 by mouth Unknown 10/03/2016 every day Aspirin - Hx 81mg 1 by mouth Unknown 01/20/2018 every day Magnesium - Hx Capsules 500-300 take one Unknown 05/16/2017 0-150mg capsule/tablet -Unit-m daily by mouth g Topiramate - Hx Tablets 25mg Take 1 Tablet Unknown 05/15/2017 By Mouth Every Day Acetaminophen - Hx Tablets 325mg 2 tablets by Unknown 01/23/2018 mouth every 6 hours as needed for pain/fever Medications Administered in Office Medication Date Status Form Strength Qnty SIG Indications Ordering Provider Depomedrol Administered Injection Nava 80MG 015 Edna Rose Depomedrol Administered Injection Nava 80MG 015 Edna Rose Immunizations CPT Code Status Date Vaccine Lot # [id number] Given 01/25/2017 Influenza Virus Vaccine, Quadrivalent, Split, [id number] Preservative Free Vital Signs Date Vital Result Comment 01/24/2018 Height 58.25 inches 4'10.25" Weight 130.00 lb Heart Rate 60 /min BP Systolic Sitting 132 mmHg lue lg cuff BP Diastolic Sitting 64 mmHg lue lg cuff BP Systolic Standing 130 mmHg BP Diastolic Standing 64 mmHg Respiratory Rate 18 /min BMI (Body Mass Index) 26.9 kg/m2 Ejection Fraction 50-55% 01/20/2018 echo 01/21/2018 Height 58.25 inches 4'10.25" Weight 132.00 lb Heart Rate 62 /min BP Systolic Sitting 140 mmHg BP Diastolic Sitting 74 mmHg O2 % BldC Oximetry 96 % BMI (Body Mass Index) 27.3 kg/m2 01/16/2018 Height 58.25 inches 4'10.25" Heart Rate 90 /min BP Systolic 142 mmHg BP Diastolic 63 mmHg O2 % BldC Oximetry 96 % 01/02/2018 Height 58.25 inches 4'10.25" Weight 128.00 lb Heart Rate 89 /min BP Systolic Sitting 118 mmHg lue reg cuff BP Diastolic Sitting 62 mmHg lue reg cuff BP Systolic Standing 120 mmHg BP Diastolic Standing 62 mmHg Respiratory Rate 16 /min BMI (Body Mass Index) 26.5 kg/m2 Ejection Fraction 50-55% 05/14/2017 echo 11/21/2017 Height 58.25 inches 4'10.25" Weight 128.75 lb Heart Rate 89 /min BP Systolic 124 mmHg BP Diastolic 64 mmHg Body Temperature 97.1 F O2 % BldC Oximetry 95 % BMI (Body Mass Index) 26.7 kg/m2 09/11/2017 Height 58.25 inches 4'10.25" Weight 132.25 lb Heart Rate 87 /min BP Systolic 153 mmHg BP Diastolic 76 mmHg Body Temperature 97.3 F O2 % BldC Oximetry 95 % BMI (Body Mass Index) 27.4 kg/m2 08/22/2017 Weight 137.00 lb Heart Rate 90 /min BP Systolic Sitting 140 mmHg lue reg cuff BP Diastolic Sitting 76 mmHg lue reg cuff BP Systolic Standing 148 mmHg lue reg cuff BP Diastolic Standing 80 mmHg lue reg cuff Respiratory Rate 18 /min Ejection Fraction 50-55% 05/14/2017 echo 08/19/2017 Weight 136.50 lb BP Systolic 122 mmHg BP Diastolic 70 mmHg Body Temperature 97.8 F 05/29/2017 Height 60 inches 5'0" Weight 137.00 lb Heart Rate 84 /min BP Systolic Sitting 132 mmHg Lue large cuff BP Diastolic Sitting 74 mmHg Lue large cuff BP Systolic Standing 138 mmHg Lue BP Diastolic Standing 72 mmHg Lue Respiratory Rate 16 /min BMI (Body Mass Index) 26.8 kg/m2 Ejection Fraction 50-55% 05/14/17 05/16/2017 Height 60 inches 5'0" Weight 137.25 lb with shoes BP Systolic Sitting 152 mmHg Rue reg cuff BP Diastolic Sitting 55 mmHg Rue reg cuff BP Systolic Standing 136 mmHg Rue reg cuff BP Diastolic Standing 66 mmHg Rue reg cuff Respiratory Rate 36 /min O2 % BldC Oximetry 87 % BMI (Body Mass Index) 26.8 kg/m2 04/30/2017 Height 60 inches 5'0" Weight 134.00 lb w/ shoes and coat Heart Rate 80 /min BP Systolic Sitting 134 mmHg lue reg cuff BP Diastolic Sitting 68 mmHg lue reg cuff Respiratory Rate 20 /min w/ O2, 3L/min BMI (Body Mass Index) 26.2 kg/m2 Ejection Fraction 55-60% echo 03/17/17 04/24/2017 Heart Rate 89 /min BP Systolic Sitting 120 mmHg BP Diastolic Sitting 60 mmHg Body Temperature 98.4 F O2 % BldC Oximetry 86 % supplementary O2 nasal cannula 03/22/2017 Height 60 inches 5'0" Weight 142.00 lb Heart Rate 98 /min BP Systolic Sitting 136 mmHg BP Diastolic Sitting 62 mmHg Body Temperature 98.7 F O2 % BldC Oximetry 88 % BMI (Body Mass Index) 27.7 kg/m2 03/15/2017 Height 60 inches 5'0" Weight 144.00 lb Heart Rate 63 /min BP Systolic 130 mmHg BP Diastolic 80 mmHg Body Temperature 98.4 F O2 % BldC Oximetry 87 % with 02 on 3 liters N/C BMI (Body Mass Index) 28.1 kg/m2 02/22/2017 Height 60 inches 5'0" Weight 150.00 lb with shoes Heart Rate 88 /min BP Systolic Sitting 126 mmHg Lue lrg cuff BP Diastolic Sitting 56 mmHg Lue lrg cuff Respiratory Rate 18 /min BMI (Body Mass Index) 29.3 kg/m2 Ejection Fraction 55-60% 10/19/2016-echo 02/18/2017 Height 60 inches 5'0" Weight 148.12 lb Heart Rate 72 /min BP Systolic 140 mmHg BP Diastolic 65 mmHg Body Temperature 98.2 F O2 % BldC Oximetry 95 % BMI (Body Mass Index) 28.9 kg/m2 01/03/2017 Weight 148.50 lb Heart Rate 80 /min BP Systolic 110 mmHg BP Diastolic 60 mmHg Body Temperature 98.0 F O2 % BldC Oximetry 97 % 10/03/2016 Weight 148.00 lb Heart Rate 90 /min BP Systolic Sitting 130 mmHg BP Diastolic Sitting 82 mmHg Respiratory Rate 14 /min Body Temperature 97.0 F O2 % BldC Oximetry 91 % 2% O2 04/24/2016 Height 58.5 inches 4'10.50" Weight 144.00 lb Heart Rate 86 /min BP Systolic Sitting 148 mmHg right arm, reg cuff BP Diastolic Sitting 76 mmHg right arm, reg cuff BP Systolic Standing 142 mmHg right arm, reg cuff BP Diastolic Standing 76 mmHg right arm, reg cuff Respiratory Rate 20 /min BMI (Body Mass Index) 29.6 kg/m2 Ejection Fraction 55-60% 09/25/12 04/29/2015 Height 58.5 inches 4'10.50" Weight 159.00 lb with shoes Heart Rate 64 /min regular BP Systolic 126 mmHg left arm reg cuff BP Diastolic 64 mmHg left arm reg cuff BP Systolic Standing 132 mmHg left arm reg cuff BP Diastolic Standing 72 mmHg left arm reg cuff BMI (Body Mass Index) 32.7 kg/m2 Ejection Fraction 55-60% as of 09/25/12 echo 04/01/2015 Height 58.5 inches 4'10.50" Weight 155.00 lb Pain Level 0 BMI (Body Mass Index) 31.8 kg/m2 03/02/2015 Height 58.5 inches 4'10.50" Weight 155.00 lb Pain Level 6 BMI (Body Mass Index) 31.8 kg/m2 01/12/2015 Height 58.5 inches 4'10.50" Weight 155.00 lb Pain Level 0 BMI (Body Mass Index) 31.8 kg/m2 10/29/2014 Height 58.5 inches 4'10.50" Weight 153.00 lb w/o shoes Heart Rate 90 /min reg BP Systolic Sitting 140 mmHg Rue, lg cuff BP Diastolic Sitting 76 mmHg Rue, lg cuff BP Systolic Standing 136 mmHg Rue BP Diastolic Standing 80 mmHg Rue Respiratory Rate 22 /min BMI (Body Mass Index) 31.4 kg/m2 Ejection Fraction 55-60% as of 09/25/12 echo 10/11/2014 Height 58.5 inches 4'10.50" Weight 155.00 lb Heart Rate 89 /min BP Systolic 124 mmHg BP Diastolic 61 mmHg Pain Level 2 BMI (Body Mass Index) 31.8 kg/m2 09/20/2014 Height 58.5 inches 4'10.50" Weight 155.00 lb Heart Rate 94 /min BP Systolic 141 mmHg BP Diastolic 80 mmHg Pain Level 5 BMI (Body Mass Index) 31.8 kg/m2 09/03/2014 Height 58.5 inches 4'10.50" Weight 155.00 lb Pain Level 8 BMI (Body Mass Index) 31.8 kg/m2 04/14/2014 Height 58.5 inches 4'10.50" Weight 160.00 lb with shoes Heart Rate 88 /min BP Systolic Sitting 132 mmHg LA lg cuff BP Diastolic Sitting 70 mmHg LA lg cuff BP Systolic Standing 124 mmHg LA lg cuff BP Diastolic Standing 70 mmHg LA lg cuff Respiratory Rate 17 /min BMI (Body Mass Index) 32.9 kg/m2 10/16/2013 Height 58.5 inches 4'10.50" Weight 155.00 lb Heart Rate 96 /min irreg BP Systolic Sitting 146 mmHg Ra large cuff BP Diastolic Sitting 80 mmHg Ra large cuff BP Systolic Standing 140 mmHg Ra BP Diastolic Standing 76 mmHg Ra Respiratory Rate 18 /min BMI (Body Mass Index) 31.8 kg/m2 02/18/2013 Height 58.5 inches 4'10.50" Weight 160.00 lb Heart Rate 96 /min BP Systolic Sitting 110 mmHg Ra large cuff BP Diastolic Sitting 60 mmHg Ra large cuff BP Systolic Standing 118 mmHg Ra BP Diastolic Standing 68 mmHg Ra Respiratory Rate 18 /min BMI (Body Mass Index) 32.9 kg/m2 Results Test Date Test Result H/L Range Note Protime W/ Inr 01/21/2018 Prothrombin Time 14.7 Inr 1.2 Stool Occult Blood, 01/16/2018 Stool Occult SEE RESULT BELOW 1 Screen Blood, Screen Inr/Protime 01/16/2018 Inr 4.56 High 0.77-1.02 Protime W/ Inr 01/16/2018 Inr 4.56 Laboratory test 01/16/2018 Packed Cells SEE RESULTS BELO 2 finding <SEE NOTE> FFP SEE RESULTS BELO <SEE NOTE> 3 Type & Screen 01/16/2018 Patient Blood Type O Positive Antibody Screen NEGATIVE CBC Auto Diff 01/16/2018 White Blood Count 11.0 10^3/uL High 3.5-10.8 Red Blood Count 1.62 10^6/uL Low 4.00-5.40 Hemoglobin 5.4 g/dL Low 12.0-16.0 4 Hematocrit 16 % Low 35-47 Mean Corpuscular Volume 100 fL High 80-97 Mean Corpuscular Hemoglobin 33 pg High 27-31 Mean Corpuscular HGB Conc 34 g/dL 31-36 Red Cell Distribution Width 17 % High 10.5-15 Platelet Count 216 10^3/uL 150-450 Mean Platelet Volume 9.6 um3 7.4-10.4 Abs Neutrophils 8.2 10^3/uL High 1.5-7.7 Laboratory test finding 01/16/2018 Lactic Acid 1.4 mmol/L 0.5-2.0 5 Manual Differential 01/16/2018 Neutrophil % 70 % 38-83 Lymphocytes % 25 % 25-47 Monocytes % 5 % 0-7 Eosinophils % 0 % 0-6 Basophil % 0 % 0-2 Abs Neutrophils 7.7 10^3/uL 1.5-7.7 Abs Lymphocytes 2.8 10^3/uL 1.0-4.8 Abs Monocytes 0.6 10^3/uL 0-0.8 Abs Eosinophils 0 10^3/uL 0-0.6 Abs Basophils 0 10^3/uL 0-0.2 Macrocytosis 1+ Polychromasia 1+ Anisocytosis 3+ Tear Drop Cells 1+ Elliptocyte 1+ Comp Metabolic Panel 01/16/2018 Sodium 138 mmol/L 135-145 Potassium 4.0 mmol/L 3.5-5.0 Chloride 102 mmol/L 101-111 Co2 Carbon Dioxide 31 mmol/L 22-32 Anion Gap 5 mmol/L 2-11 Glucose 98 mg/dL 70-100 Blood Urea Nitrogen 23 mg/dL 6-24 Creatinine 0.79 mg/dL 0.51-0.95 BUN/Creatinine Ratio 29.1 High 8-20 Calcium 8.6 mg/dL 8.6-10.3 Total Protein 5.8 g/dL Low 6.4-8.9 Albumin 3.7 g/dL 3.2-5.2 Globulin 2.1 g/dL 2-4 Albumin/Globulin Ratio 1.8 1-3 Total Bilirubin 0.80 mg/dL 0.2-1.0 Alkaline Phosphatase 40 U/L 34-104 Alt 7 U/L 7-52 Ast 12 U/L Low 13-39 Egfr Non- 68.8 >60 Egfr 83.3 >60 6 Urine Culture And Sensitivities 01/16/2018 Urine Culture SEE RESULT BELOW 7 Laboratory test finding 01/16/2018 Pathologist Review (SEE NOTE) 8 Urinalysis Profile 01/16/2018 Urine Color Yellow Urine Appearance Clear Urine Specific [place] 1.016 1.010-1.030 Urine pH 6.0 5-9 Urine Urobilinogen Negative Negative Urine Ketones Negative Negative Urine Protein Negative Negative Urine Leukocytes Trace Negative Urine Blood Negative Negative * * Negative 9 Urine Nitrite Negative Negative Urine Bilirubin Negative Negative Urine Glucose Negative Negative Urine White Blood Cell Trace(0-5/hpf) Absent Urine Red Blood Cell Trace(0-2/hpf) Absent Urine Bacteria Absent Absent Urine Squamous Epithelial Cell Present Absent Laboratory test finding 01/16/2018 Troponin-I (TnI) 0.01 ng/mL <0.04 TSH (Thyroid Stim Horm) 2.90 mcIU/mL 0.34-5.60 Digoxin 2.5 ng/ml High 0.8-2.0 Protime W/ Inr 12/19/2017 Prothrombin Time 31.2 Inr 2.6 Protime W/ Inr 11/21/2017 Prothrombin Time 27.8 Inr 2.3 Ua Routine 11/21/2017 Ua Specific [place] 1.015 Ua PH 5 Ua Color cindy Ua Appera clear Ua WBC neg Ua Protein trace Ua Glucose neg Ua Ketones ng Ua Bilirubin neg Ua Urobilinogen neg Ua Nitrite neg Ua Occult Blood trace Poc Urinalysis 11/13/2017 Poc Glucose, Urine Negative Negative Poc Bilirubin, Urine 2+ Negative Poc Ketone, Urine Trace Negative Poc Specific [place], Urine 1.015 1.010-1.030 Poc Blood, Urine 3+ Negative Poc pH, Urine 5.5 5-9 Poc Protein, Urine 3+ Negative Poc Urobilinogen, Urine 1.0 Negative Poc Nitrite, Urine Positive Negative Poc Leukocytes, Urine Trace Negative Poc Color, Urine Red Poc Clarity, Urine Turbid 10 Urine Culture And 11/13/2017 Urine Culture SEE RESULT BELOW 11, 12 Sensitivities Protime W/ Inr 10/24/2017 Prothrombin Time 24.9 Inr 2.1 Protime W/ Inr 10/10/2017 Prothrombin Time 24.6 Inr 2.1 Protime W/ Inr 10/03/2017 Prothrombin Time 19 Inr 1.6 Protime W/ Inr 2017 Prothrombin Time 41.4 Inr 3.5 Protime W/ Inr 09/19/2017 Prothrombin Time 19.5 Inr 1.6 Laboratory test finding 09/13/2017 Lipase 21 U/L 11.0-82.0 Erythrocyte Sed Rate 29 mm/Hr 0-40 C Reactive Protein 3.92 mg/L < 5.00 13 Comp Metabolic Panel 09/13/2017 Sodium 140 mmol/L 139-145 Potassium 4.9 mmol/L 3.5-5.0 Chloride 105 mmol/L 101-111 Co2 Carbon Dioxide 29 mmol/L 22-32 Anion Gap 6 mmol/L 2-11 Glucose 90 mg/dL 70-100 Blood Urea Nitrogen 21 mg/dL 6-24 Creatinine 0.87 mg/dL 0.51-0.95 BUN/Creatinine Ratio 24.1 High 8-20 Calcium 9.1 mg/dL 8.6-10.3 Total Protein 6.8 g/dL 6.4-8.9 Albumin 4.2 g/dL 3.2-5.2 Globulin 2.6 g/dL 2-4 Albumin/Globulin Ratio 1.6 1-3 Total Bilirubin 0.90 mg/dL 0.2-1.0 Alkaline Phosphatase 61 U/L 34-104 Alt 10 U/L 7-52 Ast 17 U/L 13-39 Egfr Non- 61.7 >60 Egfr 79.4 >60 14 Protime W/ Inr 09/06/2017 Prothrombin Time 39.6 Inr 3.3 Laboratory test 08/20/2017 B-Type Natriuretic 245 pg/mL High 15 finding Peptide BNP CBC Auto Diff 08/20/2017 White Blood Count 5.2 10^3/uL 3.5-10.8 Red Blood Count 3.05 10^6/uL Low 4.0-5.4 Hemoglobin 10.0 g/dL Low 12.0-16.0 Hematocrit 31 % Low 35-47 Mean Corpuscular Volume 100 fL High 80-97 Mean Corpuscular Hemoglobin 33 pg High 27-31 Mean Corpuscular HGB Conc 33 g/dL 31-36 Red Cell Distribution Width 18 % High 10.5-15 Platelet Count 153 10^3/uL 150-450 Mean Platelet Volume 10.1 um3 7.4-10.4 Abs Neutrophils 3.9 10^3/uL 1.5-7.7 Abs Lymphocytes 0.9 10^3/uL Low 1.0-4.8 Abs Monocytes 0.5 10^3/uL 0-0.8 Abs Eosinophils 0 10^3/uL 0-0.6 Abs Basophils 0 10^3/uL 0-0.2 Abs Nucleated RBC 0 10^3/uL Comp Metabolic Panel 08/20/2017 Sodium 141 mmol/L 139-145 Potassium 4.0 mmol/L 3.5-5.0 Chloride 104 mmol/L 101-111 Co2 Carbon Dioxide 31 mmol/L 22-32 Anion Gap 6 mmol/L 2-11 Glucose 118 mg/dL High 70-100 Blood Urea Nitrogen 14 mg/dL 6-24 Creatinine 0.89 mg/dL 0.51-0.95 BUN/Creatinine Ratio 15.7 8-20 Calcium 9.0 mg/dL 8.6-10.3 Total Protein 6.8 g/dL 6.4-8.9 Albumin 4.1 g/dL 3.2-5.2 Globulin 2.7 g/dL 2-4 Albumin/Globulin Ratio 1.5 1-3 Total Bilirubin 1.10 mg/dL High 0.2-1.0 Alkaline Phosphatase 53 U/L 34-104 Alt 12 U/L 7-52 Ast 17 U/L 13-39 Egfr Non- 60.1 >60 Egfr 77.3 >60 16 Manual Differential 08/20/2017 Neutrophil % 73 % 38-83 Lymphocytes % 24 % Low 25-47 Monocytes % 3 % 0-7 Eosinophils % 0 % 0-6 Basophil % 0 % 0-2 Abs Neutrophils 3.9 10^3/uL 1.5-7.7 Abs Lymphocytes 1.3 10^3/uL 1.0-4.8 Abs Monocytes 0.2 10^3/uL 0-0.8 Abs Eosinophils 0 10^3/uL 0-0.6 Abs Basophils 0 10^3/uL 0-0.2 RBC Morphology Normal Normal Laboratory test finding 08/20/2017 Pathologist Review (SEE NOTE) 17 Protime W/ Inr 08/08/2017 Prothrombin Time 27.4 Inr 2.2 Protime W/ Inr 07/24/2017 Prothrombin Time 22.0 Inr 2.2 Protime W/ Inr 07/16/2017 Inr 1.8 Protime W/ Inr 06/28/2017 Prothrombin Time 20.3 Inr 2.0 Protime W/ Inr 06/20/2017 Inr 1.3 Protime W/ Inr 05/22/2017 Inr 2.2 Protime W/ Inr 05/08/2017 Inr 2.8 Vitamin B12 And Folate Serum 05/01/2017 Vitamin B12 1143 pg/mL High 180- 914 18 Folic Acid (Folate) > 20.00 ng/mL >3.99 Laboratory test finding 05/01/2017 TSH (Thyroid Stim Horm) 2.24 mcIU/mL 0.34-5.60 Comp Metabolic Panel 05/01/2017 Sodium 140 mmol/L 133-145 Potassium 4.0 mmol/L 3.5-5.0 Chloride 104 mmol/L 101-111 Co2 Carbon Dioxide 29 mmol/L 22-32 Anion Gap 7 mmol/L 2-11 Glucose 76 mg/dL 70-100 Blood Urea Nitrogen 14 mg/dL 6-24 Creatinine 0.89 mg/dL 0.51-0.95 BUN/Creatinine Ratio 15.7 8-20 Calcium 9.1 mg/dL 8.6-10.3 Total Protein 7.0 g/dL 6.4-8.9 Albumin 4.2 g/dL 3.2-5.2 Globulin 2.8 g/dL 2-4 Albumin/Globulin Ratio 1.5 1-3 Total Bilirubin 1.30 mg/dL High 0.2-1.0 Alkaline Phosphatase 50 U/L 34-104 Alt 12 U/L 7-52 Ast 19 U/L 13-39 Egfr Non- 60.1 >60 Egfr 77.3 >60 19 Laboratory test finding 05/01/2017 Lipase 33 U/L 11.0-82.0 C Reactive Protein 5.24 mg/L High < 5.00 20 Erythrocyte Sed Rate 38 mm/Hr 0-40 Inr/Protime 05/01/2017 Inr 2.70 High 0.77-1.02 21 CBC Auto Diff 05/01/2017 White Blood Count 4.6 10^3/uL 3.5-10.8 Red Blood Count 3.07 10^6/uL Low 4.0-5.4 Hemoglobin 10.3 g/dL Low 12.0-16.0 Hematocrit 31 % Low 35-47 Mean Corpuscular Volume 100 fL High 80-97 Mean Corpuscular Hemoglobin 34 pg High 27-31 Mean Corpuscular HGB Conc 33 g/dL 31-36 Red Cell Distribution Width 18 % High 10.5-15 Platelet Count 157 10^3/uL 150-450 Mean Platelet Volume 11 um3 High 7.4-10.4 Abs Neutrophils 3.2 10^3/uL 1.5-7.7 Abs Lymphocytes 0.9 10^3/uL Low 1.0-4.8 Abs Monocytes 0.5 10^3/uL 0-0.8 Abs Eosinophils 0 10^3/uL 0-0.6 Abs Basophils 0 10^3/uL 0-0.2 Abs Nucleated RBC 0.01 10^3/uL Granulocyte % 68.7 % 38-83 Lymphocyte % 19.8 % Low 25-47 Monocyte % 10.3 % High 1-9 Eosinophil % 0.6 % 0-6 Basophil % 0.6 % 0-2 Nucleated Red Blood Cells % 0.1 Laboratory test finding 04/24/2017 Pathologist Review (SEE NOTE) 22 Manual Differential 04/24/2017 Immature Granulocytes 2 % 0-9 Neutrophil % 79 % 38-83 Band % 2 % 0-8 Lymphocytes % 12 % Low 25-47 Monocytes % 6 % 0-13 Eosinophils % 1 % 0-6 Macrocytosis 1+ CBC Auto Diff 04/24/2017 White Blood Count 6.6 10^3/uL 3.5-10.8 Red Blood Count 2.67 10^6/uL Low 4.0-5.4 Hemoglobin 8.8 g/dL Low 12.0-16.0 Hematocrit 27 % Low 35-47 Mean Corpuscular Volume 100 fL High 80-97 Mean Corpuscular Hemoglobin 33 pg High 27-31 Mean Corpuscular HGB Conc 33 g/dL 31-36 Red Cell Distribution Width 17 % High 10.5-15 Platelet Count 167 10^3/uL 150-450 Mean Platelet Volume 10 um3 7.4-10.4 Abs Neutrophils 5.3 10^3/uL 1.5-7.7 Abs Lymphocytes 0.8 10^3/uL Low 1.0-4.8 Abs Monocytes 0.4 10^3/uL 0-0.8 Abs Eosinophils 0.1 10^3/uL 0-0.6 Abs Basophils 0 10^3/uL 0-0.2 Abs Nucleated RBC 0 10^3/uL Laboratory test finding 04/24/2017 Partial Thrombo Time 35.3 seconds 26.0 -36.3 PTT Digoxin 1.9 ng/ml 0.8-2.0 Hemoglobin A1c (Glyco HGB) 5.9 % High 4.0-5.6 23 Inr/Protime 04/24/2017 Inr 2.04 High 0.77-1.02 24 Type & Screen 04/24/2017 Patient Blood Type O Positive Antibody Screen NEGATIVE Laboratory test finding 04/24/2017 Troponin-I (TnI) 0.04 ng/mL High <0.04 25 Comp Metabolic Panel 04/24/2017 Sodium 134 mmol/L 133-145 Potassium 4.0 mmol/L 3.5-5.0 Chloride 100 mmol/L Low 101-111 Co2 Carbon Dioxide 29 mmol/L 22-32 Anion Gap 5 mmol/L 2-11 Glucose 95 mg/dL 70-100 Blood Urea Nitrogen 10 mg/dL 6-24 Creatinine 0.84 mg/dL 0.51-0.95 BUN/Creatinine Ratio 11.9 8-20 Calcium 8.9 mg/dL 8.6-10.3 Total Protein 6.5 g/dL 6.4-8.9 Albumin 3.5 g/dL 3.2-5.2 Globulin 3.0 g/dL 2-4 Albumin/Globulin Ratio 1.2 1-3 Total Bilirubin 1.50 mg/dL High 0.2-1.0 Alkaline Phosphatase 40 U/L 34-104 Alt 10 U/L 7-52 Ast 17 U/L 13-39 Egfr Non- 64.3 >60 Egfr 82.7 >60 26 Laboratory test 04/24/2017 Lactic Acid 1.1 mmol/L 0.5-2.0 27 finding Stool Occult Blood 04/24/2017 Stool Occult Blood, SEE RESULT BELOW 28 Diag Diag Hemoglobin/Hematocrit 04/24/2017 Hemoglobin 8.9 g/dL Low 12.0-16.0 Hematocrit 27 % Low 35-47 Protime W/ Inr 04/23/2017 Inr 1.8 Inr/Protime 04/10/2017 Inr 1.46 High 0.89-1.11 CBC No Diff 04/10/2017 White Blood Count 4.9 10^3/uL 3.5-10.8 Red Blood Count 3.19 10^6/uL Low 4.0-5.4 Hemoglobin 10.3 g/dL Low 12.0-16.0 Hematocrit 32 % Low 35-47 Mean Corpuscular Volume 101 fL High 80-97 Mean Corpuscular Hemoglobin 32 pg High 27-31 Mean Corpuscular HGB Conc 32 g/dL 31-36 Red Cell Distribution Width 16 % High 10.5-15 Platelet Count 169 10^3/uL 150-450 Mean Platelet Volume 10 um3 7.4-10.4 Basic Metabolic Panel 04/10/2017 Sodium 139 mmol/L 133-145 Potassium 4.2 mmol/L 3.5-5.0 Chloride 102 mmol/L 101-111 Co2 Carbon Dioxide 32 mmol/L 22-32 Anion Gap 5 mmol/L 2-11 Glucose 92 mg/dL 70-100 Blood Urea Nitrogen 12 mg/dL 6-24 Creatinine 0.85 mg/dL 0.51-0.95 BUN/Creatinine Ratio 14.1 8-20 Calcium 9.1 mg/dL 8.6-10.3 Egfr Non- 63.4 >60 Egfr 81.6 >60 29 Protime W/ Inr 04/03/2017 Inr 2.1 Protime W/ Inr 03/28/2017 Prothrombin Time 18.9 Inr 1.6 Protime W/ Inr 03/22/2017 Prothrombin Time 18.5 Inr 1.5 Laboratory test finding 03/17/2017 Magnesium 1.9 mg/dL 1.9-2.7 Troponin-I (TnI) 0.02 ng/mL <0.04 B-Type Natriuretic Peptide BNP 223 pg/mL High 30 TSH (Thyroid Stim Horm) 2.74 mcIU/mL 0.34-5.60 Procalcitonin 0.1 ng/mL <0.6 31 Comp Metabolic Panel 03/17/2017 Sodium 137 mmol/L 133-145 Potassium 4.4 mmol/L 3.5-5.0 Chloride 103 mmol/L 101-111 Co2 Carbon Dioxide 29 mmol/L 22-32 Anion Gap 5 mmol/L 2-11 Glucose 211 mg/dL High 70-100 Blood Urea Nitrogen 12 mg/dL 6-24 Creatinine 0.86 mg/dL 0.51-0.95 BUN/Creatinine Ratio 14.0 8-20 Calcium 9.7 mg/dL 8.6-10.3 Total Protein 7.9 g/dL 6.4-8.9 Albumin 4.3 g/dL 3.2-5.2 Globulin 3.6 g/dL 2-4 Albumin/Globulin Ratio 1.2 1-3 Total Bilirubin 1.60 mg/dL High 0.2-1.0 Alkaline Phosphatase 51 U/L 34-104 Alt 15 U/L 7-52 Ast 19 U/L 13-39 Egfr Non- 62.6 >60 Egfr 80.5 >60 32 Laboratory test finding 03/17/2017 Partial Thrombo Time 37.8 seconds High 26.0-36.3 PTT Inr/Protime 03/17/2017 Inr 3.13 High 0.89-1.11 Laboratory test finding 03/17/2017 Lactic Acid 2.0 mmol/L 0.5-2.0 33 CBC Auto Diff 03/17/2017 White Blood Count 20.4 10^3/uL High 3.5-10.8 Red Blood Count 3.37 10^6/uL Low 4.0-5.4 Hemoglobin 11.1 g/dL Low 12.0-16.0 Hematocrit 34 % Low 35-47 Mean Corpuscular Volume 102 fL High 80-97 Mean Corpuscular Hemoglobin 33 pg High 27-31 Mean Corpuscular HGB Conc 32 g/dL 31-36 Red Cell Distribution Width 16 % High 10.5-15 Platelet Count 202 10^3/uL 150-450 Mean Platelet Volume 10 um3 7.4-10.4 Abs Neutrophils 17.5 10^3/uL High 1.5-7.7 Abs Lymphocytes 1.1 10^3/uL 1.0-4.8 Abs Monocytes 1.7 10^3/uL High 0-0.8 Abs Eosinophils 0.1 10^3/uL 0-0.6 Abs Basophils 0.1 10^3/uL 0-0.2 Abs Nucleated RBC 0 10^3/uL Granulocyte % 85.6 % High 38-83 Lymphocyte % 5.3 % Low 25-47 Monocyte % 8.1 % 1-9 Eosinophil % 0.4 % 0-6 Basophil % 0.6 % 0-2 Nucleated Red Blood Cells % 0 Laboratory test finding 03/17/2017 Legionella Antigen By SEE RESULT BELOW 34 Eia Urine Culture And 03/17/2017 Urine Culture SEE RESULT BELOW 35 Sensitivities Urinalysis Profile 03/17/2017 Urine Color Straw Urine Appearance Cloudy Urine Specific [place] 1.005 Low 1.010-1.030 Urine pH 5.0 5-9 Urine Urobilinogen Negative Negative Urine Ketones Negative Negative Urine Protein Negative Negative Urine Leukocytes Negative Negative Urine Blood 1+ Negative Urine Nitrite Negative Negative Urine Bilirubin Negative Negative Urine Glucose Negative Negative Urine White Blood Cell Trace(0-5/hpf) Absent Urine Red Blood Cell Trace(0-2/hpf) Absent Urine Bacteria 1+ Absent Urine Squamous Epithelial Cell Present Absent Protime W/ Inr 03/15/2017 Prothrombin Time 40.3 Inr 3.3 Protime W/ Inr 03/07/2017 Prothrombin Time 46.6 Inr 3.8 Occult Blood,Stool (3 03/07/2017 Occult Blood - Stool negative X 3 Spec) Laboratory test 02/19/2017 B-Type Natriuretic 210 pg/mL High 36 finding Peptide BNP CBC Auto Diff 02/19/2017 White Blood Count 6.3 10^3/uL 3.5-10.8 Red Blood Count 2.93 10^6/uL Low 4.0-5.4 Hemoglobin 10.0 g/dL Low 12.0-16.0 Hematocrit 30 % Low 35-47 Mean Corpuscular Volume 101 fL High 80-97 Mean Corpuscular Hemoglobin 34 pg High 27-31 Mean Corpuscular HGB Conc 34 g/dL 31-36 Red Cell Distribution Width 16 % High 10.5-15 Platelet Count 157 10^3/uL 150-450 Mean Platelet Volume 10 um3 7.4-10.4 Abs Neutrophils 4.5 10^3/uL 1.5-7.7 Abs Lymphocytes 1.1 10^3/uL 1.0-4.8 Abs Monocytes 0.6 10^3/uL 0-0.8 Abs Eosinophils 0.1 10^3/uL 0-0.6 Abs Basophils 0 10^3/uL 0-0.2 Abs Nucleated RBC 0.01 10^3/uL Comp Metabolic Panel 02/19/2017 Sodium 138 mmol/L 133-145 Potassium 4.4 mmol/L 3.5-5.0 Chloride 103 mmol/L 101-111 Co2 Carbon Dioxide 33 mmol/L High 22-32 Anion Gap 2 mmol/L 2-11 Glucose 87 mg/dL 70-100 Blood Urea Nitrogen 14 mg/dL 6-24 Creatinine 0.90 mg/dL 0.51-0.95 BUN/Creatinine Ratio 15.6 8-20 Calcium 8.9 mg/dL 8.6-10.3 Total Protein 6.7 g/dL 6.4-8.9 Albumin 4.0 g/dL 3.2-5.2 Globulin 2.7 g/dL 2-4 Albumin/Globulin Ratio 1.5 1-3 Total Bilirubin 1.00 mg/dL 0.2-1.0 Alkaline Phosphatase 49 U/L 34-104 Alt 12 U/L 7-52 Ast 19 U/L 13-39 Egfr Non- 59.4 >60 Egfr 76.3 >60 37 Manual Differential 02/19/2017 Immature Granulocytes 1 % 0-9 Neutrophil % 70 % 38-83 Band % 1 % 0-8 Lymphocytes % 20 % Low 25-47 Monocytes % 9 % 0-13 Macrocytosis 1+ Polychromasia 1+ Basophilic Stippling 1+ Laboratory test finding 02/19/2017 Pathologist Review (SEE NOTE) 38 Iron & Iron Binding Capacity 02/19/2017 Iron 57 g/dL 50-212 Unsaturated Iron Binding 264 g/dL Total Iron Binding Capacity 321 g/dL 250-450 % Iron Saturation 18 % 15-55 Laboratory test finding 02/19/2017 Ferritin 45.0 ng/mL 11-307 TSH (Thyroid Stim Horm) 2.73 mcIU/mL 0.34-5.60 Folic Acid (Folate) > 20.00 ng/mL >3.99 Vitamin B12 967 pg/mL High 180-914 39 Protime W/ Inr 02/07/2017 Prothrombin Time 29.5 Inr 2.4 Protime W/ Inr 01/10/2017 Prothrombin Time 32.7 Inr 2.7 Urinalysis Profile 01/08/2017 Urine Color Cindy Urine Appearance Cloudy Urine Specific [place] 1.016 1.010-1.030 Urine pH 8.0 5-9 Urine Urobilinogen Negative Negative Urine Ketones Negative Negative Urine Protein Negative Negative Urine Leukocytes Negative Negative Urine Blood Negative Negative Urine Nitrite Negative Negative Urine Bilirubin Negative Negative Urine Glucose Negative Negative Ua Routine 01/03/2017 Ua Specific [place] 1010 Ua PH 7 Ua Color yellow Ua Appera clear Ua WBC trace Ua Protein - Ua Glucose normal Ua Ketones - Ua Bilirubin - Ua Urobilinogen normal Ua Nitrite - Ua Occult Blood trace Protime W/ Inr 01/03/2017 Prothrombin Time 38.9 Inr 3.2 Laboratory test finding 12/22/2016 Potassium Redraw 4.4 mmol/L 3.5-5.0 Ast Redraw 24 U/L 13-39 CBC Auto Diff 12/22/2016 White Blood Count 9.6 10^3/uL 3.5-10.8 Red Blood Count 3.73 10^6/uL Low 4.0-5.4 Hemoglobin 12.7 g/dL 12.0-16.0 Hematocrit 38 % 35-47 Mean Corpuscular Volume 101 fL High 80-97 Mean Corpuscular Hemoglobin 34 pg High 27-31 Mean Corpuscular HGB Conc 33 g/dL 31-36 Red Cell Distribution Width 15 % 10.5-15 Platelet Count 176 10^3/uL 150-450 Mean Platelet Volume 10 um3 7.4-10.4 Abs Neutrophils 7.1 10^3/uL 1.5-7.7 Abs Lymphocytes 1.8 10^3/uL 1.0-4.8 Abs Monocytes 0.6 10^3/uL 0-0.8 Abs Eosinophils 0.1 10^3/uL 0-0.6 Abs Basophils 0 10^3/uL 0-0.2 Abs Nucleated RBC 0.01 10^3/uL Granulocyte % 74.0 % 38-83 Lymphocyte % 18.5 % Low 25-47 Monocyte % 6.0 % 1-9 Eosinophil % 1.0 % 0-6 Basophil % 0.5 % 0-2 Nucleated Red Blood Cells % 0.1 Inr/Protime 12/22/2016 Inr 2.49 High 0.89-1.11 Urinalysis Profile 12/22/2016 Urine Appearance Cloudy Urine Specific [place] 1.014 1.010-1.030 Urine pH 7.0 5-9 Urine Urobilinogen Negative Negative Urine Ketones Negative Negative Urine Protein 2+(100 mg/dL) Negative Urine Leukocytes Trace Negative Urine Blood 3+ Negative * * Negative 40 Urine Nitrite Negative Negative Urine Bilirubin Negative Negative Urine Glucose Negative Negative Urine White Blood Cell Trace(0-5/hpf) Absent Urine Red Blood Cell 3+(>10/hpf) Absent Urine Bacteria Absent Absent Urine Color Red Comp Metabolic Panel 12/22/2016 Sodium 133 mmol/L 133-145 Chloride 99 mmol/L Low 101-111 Co2 Carbon Dioxide 29 mmol/L 22-32 Glucose 99 mg/dL 70-100 Blood Urea Nitrogen 16 mg/dL 6-24 Creatinine 0.99 mg/dL High 0.51-0.95 BUN/Creatinine Ratio 16.2 8-20 Calcium 9.1 mg/dL 8.6-10.3 Total Protein 7.7 g/dL 6.4-8.9 Albumin 4.3 g/dL 3.2-5.2 Globulin 3.4 g/dL 2-4 Albumin/Globulin Ratio 1.3 1-3 Total Bilirubin 0.90 mg/dL 0.2-1.0 Alkaline Phosphatase 51 U/L 34-104 Alt 14 U/L 7-52 Egfr Non- 53.2 >60 Egfr 68.4 >60 41 Potassium TNP mmol/L 3.5-5.0 Anion Gap 5 mmol/L 2-11 Ast TNP U/L 13-39 Laboratory test 12/22/2016 C Reactive 8.10 mg/L High < 5.00 42 finding Protein Urine Culture And 12/22/2016 Urine Culture SEE RESULT 43, 44 Sensitivities BELOW Inr/Protime 12/04/2016 Inr 2.41 High 0.89-1.11 Protime W/ Inr 11/07/2016 Inr 2.6 Comp Metabolic Panel 09/04/2016 Sodium 139 mmol/L 133-145 Potassium 4.1 mmol/L 3.5-5.0 Chloride 104 mmol/L 101-111 Co2 Carbon Dioxide 31 mmol/L 22-32 Anion Gap 4 mmol/L 2-11 Glucose 100 mg/dL 70-100 Blood Urea Nitrogen 21 mg/dL 6-24 Creatinine 0.94 mg/dL 0.51-0.95 BUN/Creatinine Ratio 22.3 High 8-20 Calcium 9.0 mg/dL 8.6-10.3 Total Protein 6.9 g/dL 6.4-8.9 Albumin 4.2 g/dL 3.2-5.2 Globulin 2.7 g/dL 2-4 Albumin/Globulin Ratio 1.6 1-3 Total Bilirubin 0.80 mg/dL 0.2-1.0 Alkaline Phosphatase 54 U/L 34-104 Alt 14 U/L 7-52 Ast 19 U/L 13-39 Egfr Non- 56.6 >60 Egfr 72.8 >60 45 CBC Auto Diff 09/04/2016 White Blood Count 5.4 10^3/uL 3.5-10.8 Red Blood Count 3.51 10^6/uL Low 4.0-5.4 Hemoglobin 11.9 g/dL Low 12.0-16.0 Hematocrit 36 % 35-47 Mean Corpuscular Volume 103 fL High 80-97 Mean Corpuscular Hemoglobin 34 pg High 27-31 Mean Corpuscular HGB Conc 33 g/dL 31-36 Red Cell Distribution Width 16 % High 10.5-15 Platelet Count 142 10^3/uL Low 150-450 Mean Platelet Volume 11 um3 High 7.4-10.4 Abs Neutrophils 3.9 10^3/uL 1.5-7.7 Abs Lymphocytes 1.1 10^3/uL 1.0-4.8 Abs Monocytes 0.3 10^3/uL 0-0.8 Abs Eosinophils 0.1 10^3/uL 0-0.6 Abs Basophils 0.1 10^3/uL 0-0.2 Abs Nucleated RBC 0 10^3/uL Granulocyte % 72.1 % 38-83 Lymphocyte % 20.2 % Low 25-47 Monocyte % 5.6 % 1-9 Eosinophil % 0.9 % 0-6 Basophil % 1.2 % 0-2 Nucleated Red Blood Cells % 0 Urine Culture And Sensitivities 01/09/2014 Urine Culture (SEE NOTE) 46 Comp Metabolic Panel 12/30/2013 Sodium 139 mmol/L 133-145 Potassium 4.0 mmol/L 3.7-5.6 Chloride 106 mmol/L 101-111 Co2 Carbon Dioxide 28 mmol/L 22-32 Anion Gap 5 mmol/L 2-11 Glucose 200 mg/dL High 70-100 Blood Urea Nitrogen 13 mg/dL 6-24 Creatinine 0.94 mg/dL 0.51-0.95 BUN/Creatinine Ratio 13.8 8-20 Calcium 8.8 mg/dL 8.6-10.3 Total Protein 6.6 g/dL 6.4-8.9 Albumin 4.0 g/dL 3.2-5.2 Globulin 2.6 g/dL 2-4 Albumin/Globulin Ratio 1.5 1-3 Total Bilirubin 0.50 mg/dL 0.2-1.0 Alkaline Phosphatase 57 U/L 34-104 Alt 13 U/L 7-52 Ast 17 U/L 13-39 Egfr Non- 56.9 >60 Egfr 73.1 >60 47 Inr/Protime 12/30/2013 Inr 2.65 High 0.85-1.06 CBC Auto Diff 12/30/2013 White Blood Count 5.2 10^3/uL 4.8-10.8 Red Blood Count 3.61 10^6/uL Low 4.0-5.4 Hemoglobin 12.1 g/dL 12.0-16.0 Hematocrit 36 % 35-47 Mean Corpuscular Volume 100 fL High 80-97 Mean Corpuscular Hemoglobin 34 pg High 27-31 Mean Corpuscular HGB Conc 33 g/dL 31-36 Red Cell Distribution Width 15 % 10.5-15 Platelet Count 140 10^3/uL Low 150-450 Mean Platelet Volume 11 um3 High 7.4-10.4 Abs Neutrophils 3.8 10^3/uL 1.5-7.7 Abs Lymphocytes 1.1 10^3/uL 1.0-4.8 Abs Monocytes 0.2 10^3/uL 0-0.8 Abs Eosinophils 0.1 10^3/uL 0-0.6 Abs Basophils 0 10^3/uL 0-0.2 Abs Nucleated RBC 0 10^3/uL Granulocyte % 73.6 % 38-83 Lymphocyte % 20.5 % Low 25-47 Monocyte % 4.4 % 1-9 Eosinophil % 1.1 % 0-6 Basophil % 0.4 % 0-2 Nucleated Red Blood Cells % 0 Laboratory test finding 10/21/2013 Digoxin 1.0 ng/ml 0.8-2.0 Basic Metabolic Panel 10/21/2013 Sodium 138 mmol/L 133-145 Potassium 4.1 mmol/L 3.7-5.6 Chloride 105 mmol/L 101-111 Co2 Carbon Dioxide 28 mmol/L 22-32 Anion Gap 5 mmol/L 2-11 Glucose 166 mg/dL High 70-100 Blood Urea Nitrogen 16 mg/dL 6-24 Creatinine 0.97 mg/dL High 0.51-0.95 BUN/Creatinine Ratio 16.5 8-20 Calcium 9.0 mg/dL 8.6-10.3 Egfr Non- 54.8 >60 Egfr 70.5 >60 48 1 SEE RESULT BELOW Name: ANGLE CARROLL : [address]: Uriel Hernandez MD Acct: [id number] Unit: [id number] AGE: 87 Location: ED Re01/16/18 SEX: F Status: REG ER SPEC: [id number] NIKITA: 01/16/18-8 [facility] [address]: Uriel Hernandez MD REQ: [id number] RECD: 01/16/18 STATUS: VEE HAJI DR: Nuria Martin MD _ SOURCE: STOOL SPDESC: ORDERED: Occult Bl, Scn Procedure Result Reported Site Stool Occult Blood (1) Final 01/16/18- 1357 ML Stool Occult Blood Positive Collection Date (1) 01/16/18 * ML - Main Lab . END OF REPORT DEPARTMENT OF PATHOLOGY, [address] [place] [address] Carrington Chadwick M.D. Director [facility] # [id number] 2 SEE RESULTS BELOW [id number] OP PC TRANSFUSED 01/16/18 1838 [id number] OP PC TRANSFUSED 01/16/18 1347 3 SEE RESULTS BELOW [id number] OP FFP TRANSFUSED 01/17/18 0056 [id number] OP FFP TRANSFUSED 01/16/18 2154 4 Verbal to [id number] by [id number] at 1253 on .Results read back accurately 5 [facility] Severe Sepsis and Septic Shock Management Bundle Measure requires all lactic acids initially measuring >2.0 mmol/L be repeated. 6 Because ethnic data is not always readily available, this report includes an eGFR for both -Americans and non- Americans. The National Kidney Disease Education Program (NKDEP) does not endorse the use of the MDRD equation for patients that are not between the ages of 18 and 70, are , have extremes of body size, muscle mass, or nutritional status, or are non- or non-. According to the National Kidney Foundation, irrespective of diagnosis, the stage of the disease is based on the level of kidney function: Stage Description GFR(mL/min/1.73 m(2)) 1 Kidney damage with normal or decreased GFR 90 2 Kidney damage with mild decrease in GFR 60-89 3 Moderate decrease in GFR 30-59 4 Severe decrease in GFR 15-29 5 Kidney failure <15 (or dialysis) 7 SEE RESULT BELOW Name: ANGLE CARROLL : [address]: Rozina Quinteros MD Acct: [id number] Unit: [id number] AGE: 87 Location: [place] [address] Re01/16/18 SEX: F Status: ADM IN SPEC: [id number] NIKITA: 01/16/[address] [facility] [address]: Uriel Hernandez MD REQ: [id number] RECD: 01/16/18 STATUS: VEE HAJI DR: Nuria Martin MD _ SOURCE: URINE SPDESC: ORDERED: Urine Culture Procedure Result Reported Site Urine Culture Final 01/17/18- 1319 ML No growth of clinically significant organisms * ML - Main Lab . END OF REPORT DEPARTMENT OF PATHOLOGY, [address] [place] [address] Carrington Chadwick M.D. Director [facility] # [id number] 8 Severe, mildly macrocytic anemia noted. Moderate Leukocytosis with absolute neutrophilia suggestive of acute inflammatory/reactive process. Additional studies as clinically warranted. Reviewed by Dr. Chadwick 9 *Ascorbic acid is present which may interfere with detection of blood. 10 [employer]: [id number] 11 [id number] BLOODY 12 SEE RESULT BELOW Name: ANGLE CARROLL : [address]: Roseann Chin MD Acct: [id number] Unit: [id number] AGE: 87 Location: [facility] Re11/13/17 SEX: F Status: DEP ER SPEC: [id number] NIKITA: 11/13/17-15[address] [facility] [address]: William FABIAN REQ: [id number] RECD: 11/14/17-1010 STATUS: VEE HAJI DR: [facility] Nuria Martin MD _ SOURCE: URINE SPDESC: ORDERED: Urine Culture COMMENTS: [id number] BLOODY Procedure Result Reported Site Urine Culture Final 11/15/17- 1334 ML No growth of clinically significant organisms * ML - Main Lab . END OF REPORT DEPARTMENT OF PATHOLOGY, [address] [place] [address] Carrington Chadwick M.D. Director [facility] # [id number] 13 Acute inflammation: >10.00 14 Because ethnic data is not always readily available, this report includes an eGFR for both -Americans and non- Americans. The National Kidney Disease Education Program (NKDEP) does not endorse the use of the MDRD equation for patients that are not between the ages of 18 and 70, are , have extremes of body size, muscle mass, or nutritional status, or are non- or non-. According to the National Kidney Foundation, irrespective of diagnosis, the stage of the disease is based on the level of kidney function: Stage Description GFR(mL/min/1.73 m(2)) 1 Kidney damage with normal or decreased GFR 90 2 Kidney damage with mild decrease in GFR 60-89 3 Moderate decrease in GFR 30-59 4 Severe decrease in GFR 15-29 5 Kidney failure <15 (or dialysis) 15 >100 to <200 pg/mL: likely compensated congestive heart failure (CHF) 200 to 400 pg/mL: likely moderate CHF >400 pg/mL: likely moderate to severe CHF 16 Because ethnic data is not always readily available, this report includes an eGFR for both -Americans and non- Americans. The National Kidney Disease Education Program (NKDEP) does not endorse the use of the MDRD equation for patients that are not between the ages of 18 and 70, are , have extremes of body size, muscle mass, or nutritional status, or are non- or non-. According to the National Kidney Foundation, irrespective of diagnosis, the stage of the disease is based on the level of kidney function: Stage Description GFR(mL/min/1.73 m(2)) 1 Kidney damage with normal or decreased GFR 90 2 Kidney damage with mild decrease in GFR 60-89 3 Moderate decrease in GFR 30-59 4 Severe decrease in GFR 15-29 5 Kidney failure <15 (or dialysis) 17 Macrocytic anemia with elliptocytosis. Reviewed by Mari Gaines MD 18 Normal Range 180 to 914 Indeterminate Range 145 to 180 Deficient Range <145 19 Because ethnic data is not always readily available, this report includes an eGFR for both -Americans and non- Americans. The National Kidney Disease Education Program (NKDEP) does not endorse the use of the MDRD equation for patients that are not between the ages of 18 and 70, are , have extremes of body size, muscle mass, or nutritional status, or are non- or non-. According to the National Kidney Foundation, irrespective of diagnosis, the stage of the disease is based on the level of kidney function: Stage Description GFR(mL/min/1.73 m(2)) 1 Kidney damage with normal or decreased GFR 90 2 Kidney damage with mild decrease in GFR 60-89 3 Moderate decrease in GFR 30-59 4 Severe decrease in GFR 15-29 5 Kidney failure <15 (or dialysis) 20 Acute inflammation: >10.00 21 Please note the change in INR reference range effective 17. 22 Macrocytic anemia. Reviewed by Mari Gaines MD 23 Therapeutic target for the treatment of diabetes mellitus patients is <7% HBA1C, and in selective patients <6.0%. Please refer to [place] [employer] diabetic care guidelines for further information. 24 Please note the change in INR reference range effective 17. 25 Result TnIDx:0.04 Called to [employer] at: 14:20:20 by:[id number] Read back by:[email or web address] 26 Because ethnic data is not always readily available, this report includes an eGFR for both -Americans and non- Americans. The National Kidney Disease Education Program (NKDEP) does not endorse the use of the MDRD equation for patients that are not between the ages of 18 and 70, are , have extremes of body size, muscle mass, or nutritional status, or are non- or non-. According to the National Kidney Foundation, irrespective of diagnosis, the stage of the disease is based on the level of kidney function: Stage Description GFR(mL/min/1.73 m(2)) 1 Kidney damage with normal or decreased GFR 90 2 Kidney damage with mild decrease in GFR 60-89 3 Moderate decrease in GFR 30-59 4 Severe decrease in GFR 15-29 5 Kidney failure <15 (or dialysis) 27 [facility] Severe Sepsis and Septic Shock Management Bundle Measure requires all lactic acids initially measuring >2.0 mmol/L be repeated. 28 SEE RESULT BELOW Name: NADIACORNELANGLE : [address]: Francisco Miller MD Acct: [id number] Unit: [id number] AGE: 86 Location: ED Re04/24/17 SEX: F Status: REG ER SPEC: [id number] NIKITA: 04/24/17-[address]: Francisco Miller MD REQ: [id number] RECD: 04/24/17 STATUS: VEE [facility] DR: Román Sheets III, MD _ SOURCE: STOOL SPDESC: ORDERED: Occult Bl, Diag Procedure Result Reported Site Stool Occult Blood (1) Final 04/24/17- 1622 ML Stool Occult Blood Negative Collection Date (1) 04/24/17 * ML - MAIN LAB ([facility]) . END OF REPORT * ML=Testing performed at Main Lab DEPARTMENT OF PATHOLOGY, [address] [place] [address] Carrington Chadwick M.D. Director [facility] # [id number] 29 Because ethnic data is not always readily available, this report includes an eGFR for both -Americans and non- Americans. The National Kidney Disease Education Program (NKDEP) does not endorse the use of the MDRD equation for patients that are not between the ages of 18 and 70, are , have extremes of body size, muscle mass, or nutritional status, or are non- or non-. According to the National Kidney Foundation, irrespective of diagnosis, the stage of the disease is based on the level of kidney function: Stage Description GFR(mL/min/1.73 m(2)) 1 Kidney damage with normal or decreased GFR 90 2 Kidney damage with mild decrease in GFR 60-89 3 Moderate decrease in GFR 30-59 4 Severe decrease in GFR 15-29 5 Kidney failure <15 (or dialysis) 30 >100 to <200 pg/mL: likely compensated congestive heart failure (CHF) 200 to 400 pg/mL: likely moderate CHF >400 pg/mL: likely moderate to severe CHF 31 Interpretive information available on [employer] Test Catalog at [email or web address] 32 Because ethnic data is not always readily available, this report includes an eGFR for both -Americans and non- Americans. The National Kidney Disease Education Program (NKDEP) does not endorse the use of the MDRD equation for patients that are not between the ages of 18 and 70, are , have extremes of body size, muscle mass, or nutritional status, or are non- or non-. According to the National Kidney Foundation, irrespective of diagnosis, the stage of the disease is based on the level of kidney function: Stage Description GFR(mL/min/1.73 m(2)) 1 Kidney damage with normal or decreased GFR 90 2 Kidney damage with mild decrease in GFR 60-89 3 Moderate decrease in GFR 30-59 4 Severe decrease in GFR 15-29 5 Kidney failure <15 (or dialysis) 33 [facility] Severe Sepsis and Septic Shock Management Bundle Measure requires all lactic acids initially measuring >2.0 mmol/L be repeated. 34 SEE RESULT BELOW Name: ANGLE CARROLL : [address]: Cheyanne Davis DO Acct: [id number] Unit: [id number] AGE: 86 Location: ICU [id number] Re03/17/17 SEX: F Status: ADM IN SPEC: [id number] NIKITA: 03/17/[address]: Cheyanne Davis DO REQ: [id number] RECD: 03/17/17 STATUS: VEE HAJI DR: Robson Sheets III, MD _ SOURCE: URINE SPDESC: ORDERED: Legion Ur Ag, S.pneumo Ur Ag COMMENTS: Verbal to [id number] by [id number] at 0412 on 03/17/17. Results read back accurately. Procedure Result Reported Site Legionella Urine Antigen Final 03/17/17- 411 ML Organism 1 Negative Legionella Antigen testing by enzyme immunoassay S.Pneumonia Urine Antigen Final 03/17/17- 411 ML Organism 1 POSITIVE S. PNEUMO ANTIGEN Antigen testing by enzyme immunoassay * ML - MAIN LAB ([facility]) . END OF REPORT * ML=Testing performed at Main Lab DEPARTMENT OF PATHOLOGY, [address] [place] [address] Carrington Chadwick M.D. Director [facility] # [id number] 35 SEE RESULT BELOW Name: ANGLE CARROLL : [address]: Roni Mcclendon MD Acct: [id number] Unit: [id number] AGE: 86 Location: [place] [id number] Re03/17/17 SEX: F Status: ADM IN SPEC: [id number] NIKITA: 03/17/17 [facility] [address]: Robson Mariscal MD REQ: [id number] RECD: 03/17/17 STATUS: VEE HAJI DR: Román Sheets III, MD _ SOURCE: URINE SPDESC: ORDERED: Urine Culture Procedure Result Reported Site Urine Culture Final 03/19/17- 0758 ML Organism 1 ESCHERICHIA COLI [place] Count 10-25,000 (Moderate) CFU/ML Organism 2 NORMAL ERIN [place] Count 1-10,000 (Few) CFU/ML 1. ESCHERICHIA COLI [facility] RX --------- ------ Ampicillin <=2 S Cefazolin <=4 S Cefepime <=1 S Ceftriaxone <=1 S Ciprofloxacin <=0.25 S Gentamicin <=1 S Levofloxacin <=0.12 S Meropenem <=0.25 S Nitrofurantoin <=16 S Tetracycline <=1 S Pipercillin/Tazobactam <=4 S Trimethoprim/Sulfamethoxazole <=20 S Amoxicillin/Clavulanic Acid <=2 S Aztreonam <=1 S Contact the Microbiology Department for any additional antibiotic reporting. * ML - MAIN LAB ([facility]) . END OF REPORT * ML=Testing performed at Main Lab DEPARTMENT OF PATHOLOGY, [address] [place] [address] Carrington Chadwick M.D. Director [facility] # [id number] 36 >100 to <200 pg/mL: likely compensated congestive heart failure (CHF) 200 to 400 pg/mL: likely moderate CHF >400 pg/mL: likely moderate to severe CHF 37 Because ethnic data is not always readily available, this report includes an eGFR for both -Americans and non- Americans. The National Kidney Disease Education Program (NKDEP) does not endorse the use of the MDRD equation for patients that are not between the ages of 18 and 70, are , have extremes of body size, muscle mass, or nutritional status, or are non- or non-. According to the National Kidney Foundation, irrespective of diagnosis, the stage of the disease is based on the level of kidney function: Stage Description GFR(mL/min/1.73 m(2)) 1 Kidney damage with normal or decreased GFR 90 2 Kidney damage with mild decrease in GFR 60-89 3 Moderate decrease in GFR 30-59 4 Severe decrease in GFR 15-29 5 Kidney failure <15 (or dialysis) 38 Macrocytic anemia noted. Additional studies is warranted. Reviewed by Dr. Chadwick 39 Normal Range 180 to 914 Indeterminate Range 145 to 180 Deficient Range <145 40 *Ascorbic acid is present which may interfere with detection of blood. 41 Because ethnic data is not always readily available, this report includes an eGFR for both -Americans and non- Americans. The National Kidney Disease Education Program (NKDEP) does not endorse the use of the MDRD equation for patients that are not between the ages of 18 and 70, are , have extremes of body size, muscle mass, or nutritional status, or are non- or non-. According to the National Kidney Foundation, irrespective of diagnosis, the stage of the disease is based on the level of kidney function: Stage Description GFR(mL/min/1.73 m(2)) 1 Kidney damage with normal or decreased GFR 90 2 Kidney damage with mild decrease in GFR 60-89 3 Moderate decrease in GFR 30-59 4 Severe decrease in GFR 15-29 5 Kidney failure <15 (or dialysis) 42 Acute inflammation: >10.00 43 [id number] 44 SEE RESULT BELOW Name: ANGLE CARROLL : [address]: Lawrence Su DO Acct: [id number] Unit: [id number] AGE: 86 Location: [facility] Re12/22/16 SEX: F Status: DEP ER SPEC: [id number] NIKITA: 12/22/16-17[address] [facility] [address]: Diann Friedman NP REQ: [id number] RECD: 12/23/16-1409 STATUS: VEE HAJI DR: Lawrence Huerta III, MD _ SOURCE: URINE SPDESC: ORDERED: Urine Culture COMMENTS: [id number] Procedure Result Reported Site Urine Culture Final 12/24/16- 1533 ML Organism 1 STREP GROUP B [place] Count 10-25,000 (Moderate) CFU/ML Organism 2 NORMAL ERIN [place] Count 1-10,000 (Few) CFU/ML Susceptibility testing of penicillins and other B-lactams approved by FDA for treatment of Streptococcus pyogenes (Group A Strep) and Streptococcus agalactiae (Group B Strep) is not necessary for clinical purposes and need not be done routinely, since as with vancomycin, resistant strains have not been recognized. (CLSI F792-Y56;p.66) Positive isolates will be saved for one week. Please call the Microbiology Laboratory if further susceptibility testing is needed. * ML - MAIN LAB ([facility]) . END OF REPORT * ML=Testing performed at Main Lab DEPARTMENT OF PATHOLOGY, [address] [place] [address] Carrington Chadwick M.D. Director [facility] # [id number] 45 Because ethnic data is not always readily available, this report includes an eGFR for both -Americans and non- Americans. The National Kidney Disease Education Program (NKDEP) does not endorse the use of the MDRD equation for patients that are not between the ages of 18 and 70, are , have extremes of body size, muscle mass, or nutritional status, or are non- or non-. According to the National Kidney Foundation, irrespective of diagnosis, the stage of the disease is based on the level of kidney function: Stage Description GFR(mL/min/1.73 m(2)) 1 Kidney damage with normal or decreased GFR 90 2 Kidney damage with mild decrease in GFR 60-89 3 Moderate decrease in GFR 30-59 4 Severe decrease in GFR 15-29 5 Kidney failure <15 (or dialysis) 46 RUN DATE: 01/12/14 [facility] LAB LIVE PAGE 1 RUN TIME: [address] [place] [id number] Specimen Inquiry Name: ANGLE CARROLL : [address]: Roseann Chin MD Acct: [id number] Unit: [id number] AGE: 83 Location: [facility] Re01/09/14 SEX: F Status: DEP ER SPEC: [id number] NIKITA: 01/09/14-[address] [facility] [address]: Roseann Chin MD REQ: [id number] RECD: 01/10/14-3 STATUS: VEE HAJI DR: [facility] John Arrington MD _ SOURCE: URINE SPDESC: ORDERED: Urine Culture Procedure Result Verified Site Urine Culture Final 01/12/14- 0856 ML Organism 1 ESCHERICHIA COLI [place] Count 10-25,000 (Moderate) CFU/ML 1. ESCHERICHIA COLI M.I.C. RX --------- ------ Ampicillin >=32 R Cefazolin <=4 S Cefepime <=1 S Ceftriaxone <=1 S Ciprofloxacin <=0.25 S Gentamicin >=16 R Levofloxacin <=0.12 S Meropenem <=0.25 S Nitrofurantoin <=16 S Tetracycline <=1 S Pipercillin/Tazobactam <=4 S Trimethoprim/Sulfamethoxazole <=20 S Amoxicillin/Clavulanic Acid 16 I Aztreonam <=1 S Contact the Microbiology Department for any additional antibiotic reporting. END OF REPORT * ML=Testing performed at Main Lab DEPARTMENT OF PATHOLOGY, [address] [place] [address] Carrington Chadwick M.D. Director [facility] # [id number] 47 Because ethnic data is not always readily available, this report includes an eGFR for both -Americans and non- Americans. The National Kidney Disease Education Program (NKDEP) does not endorse the use of the MDRD equation for patients that are not between the ages of 18 and 70, are , have extremes of body size, muscle mass, or nutritional status, or are non- or non-. According to the National Kidney Foundation, irrespective of diagnosis, the stage of the disease is based on the level of kidney function: Stage Description GFR(mL/min/1.73 m(2)) 1 Kidney damage with normal or decreased GFR 90 2 Kidney damage with mild decrease in GFR 60-89 3 Moderate decrease in GFR 30-59 4 Severe decrease in GFR 15-29 5 Kidney failure <15 (or dialysis) 48 Because ethnic data is not always readily available, this report includes an eGFR for both -Americans and non- Americans. The National Kidney Disease Education Program (NKDEP) does not endorse the use of the MDRD equation for patients that are not between the ages of 18 and 70, are , have extremes of body size, muscle mass, or nutritional status, or are non- or non-. According to the National Kidney Foundation, irrespective of diagnosis, the stage of the disease is based on the level of kidney function: Stage Description GFR(mL/min/1.73 m(2)) 1 Kidney damage with normal or decreased GFR 90 2 Kidney damage with mild decrease in GFR 60-89 3 Moderate decrease in GFR 30-59 4 Severe decrease in GFR 15-29 5 Kidney failure <15 (or dialysis) Procedures Date CPT Code Description Status 01/24/2018 12438 EKG Tracing & Interpretation Completed 01/16/2018 36183 EKG Tracing & Interpretation Completed 09/11/2017 56386 EKG Tracing & Interpretation Completed 08/22/2017 97500 EKG Tracing & Interpretation Completed 05/16/2017 94162 EKG Tracing & Interpretation Completed 05/16/2017 67159 EKG Tracing & Interpretation Completed 05/14/2017 22402 ECHO Transthoracic, Real-Time 2D With Doppler And Color Completed Flow 05/14/2017 84477 ECHO Transthoracic, Real-Time 2D With Doppler And Color Completed Flow 04/25/2017 28340 EKG, Interpretation Only Completed 04/24/2017 46952 EEG Recording Awake & Asleep Completed 04/15/2017 15447 Cath PLMT&NJX L Ventriculog Img S&I Completed 03/17/2017 06842 ECHO Transthorasic Realtime 2D W Doppler & Color Flow Completed Hosp 02/22/2017 03907 EKG Tracing & Interpretation Completed 10/23/2016 15090 Plethysmography Determination Lung Volumes & Per Airway Completed Resist 10/23/2016 29373 Pulmonary Function><Bronchodil Completed 10/19/2016 11486 ECHO Transthoracic, Real-Time 2D With Doppler And Color Completed Flow 04/24/2016 98995 EKG Tracing & Interpretation Completed 04/29/2015 14095 EKG Tracing & Interpretation Completed 03/02/201526973 Inject/Drain Joint/Bursa Major W/O US Completed 10/29/2014 50768 EKG Tracing & Interpretation Completed 09/20/201447804 Inject/Drain Joint/Bursa Major W/O US Completed 08/24/2014 81843 EKG, Interpretation Only Completed 10/16/2013 69727 EKG Tracing & Interpretation Completed 09/25/2012 28209 ECHO Transthoracic, Real-Time 2D With Doppler And Color Completed Flow Encounters Type Date Location Provider CPT E/M Dx Office Visit 01/24/2018 [facility] Alec Lama, 06411 I48.2 8:15a Taylor Bishop I50.9 I35.0 Z95.2 D64.9 Office Visit 01/21/2018 9:40a [facility] [place] [address] D50.9 [place] I48.0 Z79.01 K92.2 K59.00 Office Visit 01/02/2018 11:30a [facility] Alec Lama, 72837 I27.20 Taylor Bishop R94.31 Z95.2 Office Visit 11/21/2017 10:20a [facility] [place] [address] Z79.01 [place] I48.2 N39.0 Office Visit 09/11/2017 1:00p [facility] [place] [address] Z00.00 [place] R10.9 M79.602 Z87.891 J44.9 E03.9 I27.20 I48.2 Office Visit 08/22/2017 11:30a [facility] Alec Lama 17808 R06.02 Taylor Bishop I48.2 Z95.2 I27.20 Office Visit 08/19/2017 3:40p [facility] [place] [address] R06.02 [place] R07.9 Office Visit 05/29/2017 2:15p [facility] John Lama 98406 Z95.2 Taylor Bishop I48.2 I50.9 I34.0 Office Visit 04/30/2017 1:15p [facility] John Lama, 73718 I48.2 Brake Assembler AT [facility] M.D. I50.9 I35.0 Z95.2 Office Visit 04/28/2017 12:51p [facility] Luther Powers, 42424 I63.9 Hospitalists M.D. I48.91 I50.9 K92.2 Office Visit 04/27/2017 12:50p [facility] Luther Powers, 94088 I63.9 Hospitalists M.D. I48.91 I50.9 K92.2 Office Visit 04/26/2017 12:50p [facility] Yana Mckeon, 36292 I63.9 Hospitalists M.D. I48.91 I50.9 K92.2 Office Visit 04/26/2017 12:00p [facility] [address] I63.9 R40.4 F03.90 N39.0 Office Visit 04/25/2017 11:57a [facility] [place] [address] I63.9 R40.4 F03.90 Office Visit 04/25/2017 12:49p [facility] Yana Mckeon, 50036 I63.9 Hospitalists M.D. I48.91 I50.9 K92.2 Office Visit 04/25/2017 1:45p [facility] [place] [address] K44.9 R10.13 R10.10 D50.0 Office Visit 04/24/2017 12:48p [facility] Tiffany Gonzalez, 50164 I63.9 Assoc,pc [employer] Hospitalists I48.91 K92.2 Office Visit 04/24/2017 11:40a [facility] Román Sheets, 69936 R53.83 - Mark Bishop R10.13 R06.00 F03.90 Office Visit 03/22/2017 11:20a [facility] Román Sheets, 47442 I48.2 - Mark Bishop Z79.01 R06.00 G31.84 Office Visit 03/19/2017 8:34a [facility] Roni Mcclendon, 76961 I50.9 Hospitalists M.D. J44.9 J18.9 I25.10 Office Visit 03/18/2017 8:33a [facility] Roni Mcclendon, 40357 I50.9 Hospitalists M.D. J18.9 J44.9 I25.10 Office Visit 03/17/2017 8:32a [facility] [address] I50.9 Hospitalists J18.9 J44.9 I25.10 Office Visit 03/17/2017 8:31a [facility] Roni Karwesley, 21369 I50.9 Hospitalists M.D. I25.10 J44.9 J18.9 Office Visit 03/15/2017 10:00a [facility] Román Sheets, 88301 G31.84 - Mark Bishop I48.2 Z79.01 Office Visit 02/22/2017 2:30p [facility] John Lama, 35693 I35.0 [facility] [place] R06.00 I48.2 I34.0 Office Visit 02/18/2017 3:20p [facility] Román Sheets, 20195 I35.0 - Mark Bishop R06.00 Office Visit 01/03/2017 2:00p [facility] Román Sheets, 68573 I48.2 - Mark Bishop R31.0 J44.9 Office Visit 10/03/2016 3:40p [facility] Román Sheets, 34973 I48.2 - Mark Bishop I35.0 J44.9 Office Visit 04/24/2016 1:00p [facility] Alec Lama, 15482 I48.2 [facility] [place]na I34.0 I35.0 Office Visit 04/29/2015 2:30p [facility] Alec Lama, 79313 I48.2 [facility] [place] I34.0 J44.9 R94.31 Office Visit 04/01/2015 10:45a [facility] Rose M.D. 62172 M17.11 C.M.A. Office Visit 01/12/2015 1:45p [facility] M.D. 79839 715.16 C.M.A. 715.36 Office Visit 10/29/2014 3:45p [facility] Johnle Lama, 92505 427.31 Brake Assembler GentryDGill 424.0 496 Office Visit 10/11/2014 11:50a [facility] M.D. 93945 715.16 C.M.A. Office Visit 09/03/2014 11:00a [facility] M.D. 01354 719.06 C.M.A. 715.96 Office Visit 08/24/2014 2:11p [facility]oc, Rozina Quinteros, 04803 599.0 Hospitalists MGillDGill 427.31 496 294.20 Office Visit 08/23/2014 2:10p [facility] Ass, Man Tomas, 38913 599.0 Hospitalists N.P. 486 496 427.31 Office Visit 04/14/2014 10:30a [facility] John NickGill Lama, 22681 424.0 Brake Assembler M.D. 427.31 Office Visit 10/16/2013 2:45p [facility] Johnle Lama, 25981 424.0 Brake Assembler M.DGill 427.31 799.02 Office Visit 02/18/2013 11:15a [facility] John RomeroGill Lama, 82553 424.0 Brake Assembler M.D. 427.31 799.02 Office Visit 09/17/2012 11:30a [facility] John RomeroGill Lama, 38730 428.0 Brake Assembler M.D. 396.9 427.31 Office Visit 09/04/2012 1:41p [facility], 92671 491.22 Assoc, Hospitalists [place] 427.31 396.2 799.02 Office Visit 09/03/2012 1:40p [facility], 15903 491.22 Assoc,pc Hospitalists [place] 427.31 396.2 Office Visit 09/02/2012 1:39p [facility], 59129 491.22 Assoc,pc Hospitalists [place] 427.31 396.2 Office Visit 09/01/2012 1:39p [facility], 08318 491.22 Assoc,pc Hospitalists [place] 427.31 396.2 Office Visit 08/31/2012 1:38p [facility], 19032 491.22 Assoc,pc Hospitalists [place] 427.31 396.2 Office Visit 08/30/2012 [facility] 25676 491.22 Assoc, Hospitalists [place] Hospitalist 427.31 396.2 Office Visit 04/16/2012 1:45p [facility] John Lama, 30287 394.1 [facility] Ed[place] 786.05 Plan of Care Future Appointment(s):03/26/2018 9:30 am - John Lama M.D. at [facility]02/26/2018 11:00 am - Nurse Visit IC at [facility]02/25/2018 11:15 am - Nurse Visit IC at [facility]01/24/2018 - John Lama M.D.I48.2 Chronic atrial fibrillationNew Orders:Holter MonitorFollow up:2 monthsRecommendations:Stay off Coumadin and Aspirin for 2 months then we will reaccess at office bseljZ52.9 Heart failure, clqzmgwsttqD68.0 Nonrheumatic aortic (valve) nxyazaynR56.2 Presence of prosthetic heart feimzO97.9 Anemia, unspecified
--- OUTSIDE RECORDS SUMMARY | 2018-02-06 12:24 | XMS REPORT ---
:1930 External Reference #:[id number] Author Organization [facility] Address [address] [place] [address] [place] [address] Phone [phone] Care Team Providers Name Role Phone Nuria Martin MD Primary Care Physician Unavailable Payers Type Date Identification Numbers Payment Provider Subscriber Medicare Primary Policy Number: [id number] Medicare Angle Carroll PayID: [id number] [facility] [address] [place] [address] [facility] Part B Policy Number: [id number] [facility] Health Benefit Plan Uriel Escobedo Chloé Group Number: [id number] [facility] Group Name: Joe Grimes [place], [place] PayID: [id number] Advance Directives Type Date Description Status Comment [...] 01/21/ Active Tablets 125mcg One by I48.0 Aric 2018 mouth every Ted, JEEPER OPERATOR day Albuterol 10/02/ Active Nebulizer (2.5mg/3ML 75ml 1 vial via Aric Sulfate 2017 ) 0.083% nebulizer 4 Ted, JEEPER OPERATOR times daily as needed Nebulizer 08/28/ Active Device 1units use for R06.02 Aric 2018 albuterol Ted, JEEPER OPERATOR nebulized solution up to 4 times a day. I50.9 Spiriva 08/23/2017 Active Capsules 18mcg 90caps inhale the Aric Handihaler contents of Ted, JEEPER OPERATOR one capsule via handihaler by mouth every [...] 1 by Unknown mouth at nightly( on hold) Centrum Silver Active Tablets 50+Wome Unknown 50+Women n Wheelchair Active 1units to be used as Román Miller needed Edna Sheets Magnesium Active Tablets 250mg 1 by mouth [...] CPT Code Status Date Vaccine Lot # [id number] Given 01/25/2017 Influenza Virus Vaccine, Quadrivalent, Split, [...] Color Yellow Urine Appearance Clear Urine Specific [place]coe 1.016 1.010-1.030 Urine pH 6.0 5-9 Urine [...] Inr 2.3 Ua Routine 11/21/2017 Ua Specific [place]coe 1.015 Ua PH 5 Ua Color cindy Ua Appera clear Ua WBC neg Ua Protein trace Ua Glucose neg Ua Ketones ng Ua Bilirubin neg Ua Urobilinogen neg Ua Nitrite neg Ua Occult Blood trace Poc Urinalysis 11/13/2017 Poc Glucose, Urine Negative Negative Poc Bilirubin, Urine 2+ Negative Poc Ketone, Urine Trace Negative Poc Specific [place], Urine 1.015 1.010-1.030 Poc Blood, Urine 3+ [...] Color Straw Urine Appearance Cloudy Urine Specific [place] 1.005 Low 1.010-1.030 Urine pH 5.0 5-9 [...] Color Cindy Urine Appearance Cloudy Urine Specific [place] 1.016 1.010-1.030 Urine pH 8.0 5-9 Urine Urobilinogen Negative Negative Urine Ketones Negative Negative Urine Protein Negative Negative Urine Leukocytes Negative Negative Urine Blood Negative Negative Urine Nitrite Negative Negative Urine Bilirubin Negative Negative Urine Glucose Negative Negative Ua Routine 01/03/2017 Ua Specific [place] 1010 Ua PH 7 Ua Color yellow [...] Profile 12/22/2016 Urine Appearance Cloudy Urine Specific [place] 1.014 1.010-1.030 Urine pH 7.0 5-9 Urine [...] [address]: Uriel Hernandez MD Acct: [id number] Unit: [id number] AGE: 87 Location: ED Re01/16/18 SEX: F Status: REG ER SPEC: [id number] NIKITA: 01/16/18-[address] [facility] [address]: Uriel Hernandez MD REQ: [id number] RECD: 01/16/18 STATUS: VEE HAJI DR: Nuria Martin MD _ SOURCE: STOOL SPDESC: ORDERED: Occult Bl, Scn Procedure Result Reported Site Stool Occult Blood (1) Final 01/16/18- 1357 ML Stool Occult Blood Positive Collection Date (1) 01/16/18 * ML - Main Lab . END OF REPORT DEPARTMENT OF PATHOLOGY, [address] [place] [address] Carrington Chadwick M.D. Director [facility] # [id number] 2 SEE RESULTS BELOW [id number] OP PC TRANSFUSED 01/16/18 1838 [id number] OP PC TRANSFUSED 01/16/18 1347 3 SEE RESULTS BELOW [id number] OP FFP TRANSFUSED 01/17/18 0056 [id number] OP FFP TRANSFUSED 01/16/18 2154 4 Verbal to [id number] by [id number] at 1253 on .Results read back accurately 5 [facility] Severe Sepsis and Septic Shock Management Bundle [...] [address]: Rozina Quinteros MD Acct: [id number] Unit: [id number] AGE: 87 Location: [place] [address] Re01/16/18 SEX: F Status: ADM IN SPEC: [id number] NIKITA: 01/16/[address] [facility] [address]: Uriel Hernandez MD REQ: [id number] RECD: 01/16/18 STATUS: VEE HAJI DR: Nuria Martin MD _ SOURCE: URINE SPDESC: ORDERED: Urine Culture Procedure Result Reported Site Urine Culture Final 01/17/18- 1319 ML No growth of clinically significant organisms * ML - Main Lab . END OF REPORT DEPARTMENT OF PATHOLOGY, [address] [place] [address] Carrington Chadwick M.D. Director [facility] # [id number] 8 Severe, mildly macrocytic anemia noted. Moderate Leukocytosis with absolute neutrophilia suggestive of acute inflammatory/reactive process. Additional studies as clinically warranted. Reviewed by Dr. Chadwick 9 *Ascorbic acid is present which may interfere with detection of blood. 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 Helper: [id number] BLOODY 12 SEE RESULT BELOW Name: ANGLE CARROLL Vazquez : [address]: Roseann Chin MD Acct: [id number] Unit: [id number] AGE: 87 Location: [facility] Re11/13/17 SEX: F Status: DEP ER SPEC: [id number] NIKITA: 11/13/17-[address] [facility] [address]: William FABIAN REQ: [id number] RECD: 11/14/17-1010 STATUS: VEE HAJI DR: [facility] Nuria Martin MD _ SOURCE: URINE SPDESC: ORDERED: Urine Culture COMMENTS: [id number] BLOODY Procedure Result Reported Site Urine Culture Final 11/15/17- 1334 ML No growth of clinically significant organisms * ML - Main Lab . END OF REPORT DEPARTMENT OF PATHOLOGY, [address] [place] [address] Carrington Chadwick M.D. Director [facility] # [id number] 13 Acute inflammation: >10.00 14 Because ethnic [...] in selective patients <6.0%. Please refer to [place] [employer] diabetic care guidelines for further information. 24 Please note the change in INR reference range effective 17. 25 Result TnIDx:0.04 Called to KFOX at: 14:20:20 by:[email or web address] Read back by:[email or web address] 26 Because ethnic data is not always [...] 5 Kidney failure <15 (or dialysis) 27 [facility] Severe Sepsis and Septic Shock Management Bundle Measure requires all lactic acids initially measuring >2.0 mmol/L be repeated. 28 SEE RESULT BELOW Name: NADIACORNELANGLE E : [address]: Francisco Miller MD Acct: [id number] Unit: [id number] AGE: 86 Location: ED Re04/24/17 SEX: F Status: REG ER SPEC: [id number] NIKITA: 04/24/[address]: Francisco Miller MD REQ: [id number] RECD: 04/24/17 STATUS: COMP [facility] DR: Román Sheets III, MD _ SOURCE: STOOL SPDESC: ORDERED: Occult Bl, Diag Procedure Result Reported Site Stool Occult Blood (1) Final 04/24/17- 1622 ML Stool Occult Blood Negative Collection Date (1) 04/24/17 * ML - MAIN LAB (PSC1) . END OF REPORT * ML=Testing performed at Main Lab DEPARTMENT OF PATHOLOGY, [address] [place] [address] Carrington Chadwick M.D. Director [facility] # [id number] 29 Because ethnic data is not always [...] severe CHF 31 Interpretive information available on [employer] Test Catalog at [email or web address] 32 Because ethnic data is not always [...] 5 Kidney failure <15 (or dialysis) 33 [facility] Severe Sepsis and Septic Shock Management Bundle Measure requires all lactic acids initially measuring >2.0 mmol/L be repeated. 34 SEE RESULT BELOW Name: ANGLE CARROLL : [address]: Cheyanne Davis DO Acct: [id number] Unit: [id number] AGE: 86 Location: ICU [id number] Re03/17/17 SEX: F Status: ADM IN SPEC: [id number] NIKITA: 03/17/[address]: Cheyanne Davis DO REQ: [id number] RECD: 03/17/17 STATUS: VEE HAJI DR: Robson Sheets III, MD _ SOURCE: URINE SPDESC: ORDERED: Legion Ur Ag, S.pneumo Ur Ag COMMENTS: Verbal to [id number] by [id number] at 0412 on 03/17/17. Results read back accurately. Procedure Result Reported Site Legionella Urine Antigen Final 03/17/17- 411 ML Organism 1 Negative Legionella Antigen testing by enzyme immunoassay S.Pneumonia Urine Antigen Final 03/17/17- 411 ML Organism 1 POSITIVE S. PNEUMO ANTIGEN Antigen testing by enzyme immunoassay * ML - MAIN LAB ([facility]) . END OF REPORT * ML=Testing performed at Main Lab DEPARTMENT OF PATHOLOGY, [address] [place] [address] Carrington Chadwick M.D. Director [facility] # [id number] 35 SEE RESULT BELOW Name: ANGLE CARROLL : [address]: Roni Mcclendon MD Acct: [id number] Unit: [id number] AGE: 86 Location: [place] [address]- Re03/17/17 SEX: F Status: ADM IN SPEC: [id number] NIKITA: 03/17/[address] [facility] [address]: Robson Mariscal MD REQ: [id number] RECD: 03/17/17 STATUS: VEE HAJI DR: Román Sheets III, MD _ SOURCE: URINE SPDESC: ORDERED: Urine Culture Procedure Result Reported Site Urine Culture Final 03/19/17- 0758 ML Organism 1 ESCHERICHIA COLI [place] Count 10-25,000 (Moderate) CFU/ML Organism 2 NORMAL ERIN [place] Count 1-10,000 (Few) CFU/ML 1. ESCHERICHIA COLI [...] antibiotic reporting. * ML - MAIN LAB ([facility]) . END OF REPORT * ML=Testing performed at Main Lab DEPARTMENT OF PATHOLOGY, [address] [place] [address] Carrington Chadwick M.D. Director [facility] # [id number] 36 >100 to <200 pg/mL: likely compensated [...] (or dialysis) 42 Acute inflammation: >10.00 43 [id number] 44 SEE RESULT BELOW Name: ANGLE CARROLL : [address]: Lawrence Su DO Acct: [id number] Unit: [id number] AGE: 86 Location: [facility] Re12/22/16 SEX: F Status: DEP ER SPEC: [id number] NIKITA: 12/22/16-[address] [facility] [address]: Diann Friedman NP REQ: [id number] RECD: 12/23/16-1409 STATUS: VEE HAJI DR: Lawrence Huerta III, MD _ SOURCE: URINE SPDESC: ORDERED: Urine Culture COMMENTS: [id number] Procedure Result Reported Site Urine Culture Final 12/24/16- 1533 ML Organism 1 STREP GROUP B [place] Count 10-25,000 (Moderate) CFU/ML Organism 2 NORMAL ERIN [place] Count 1-10,000 (Few) CFU/ML Susceptibility testing of penicillins and other B-lactams approved by FDA for treatment of Streptococcus pyogenes (Group A Strep) and Streptococcus agalactiae (Group B Strep) is not necessary for clinical purposes and need not be done routinely, since as with vancomycin, resistant strains have not been recognized. (CLSI A620-Z13;p.66) Positive isolates will be saved for one week. Please call the Microbiology Laboratory if further susceptibility testing is needed. * ML - [facility] ([facility]) . END OF REPORT * ML=Testing performed at Main Lab DEPARTMENT OF PATHOLOGY, [address] [place] [address] Carrington Chadwick M.D. Director [facility] # [id number] 45 Because ethnic data is not always [...] <15 (or dialysis) 46 RUN DATE: 01/12/14 [facility] LAB LIVE PAGE 1 RUN TIME: [address] [place] [address] Specimen Inquiry Name: ANGLE CARROLL : [address]: Roseann Chin MD Acct: [id number] Unit: [id number] AGE: 83 Location: [facility] Re01/09/14 SEX: F Status: DEP ER SPEC: [id number] NIKITA: 01/09/14-[address] [facility] [address]: Roseann Chin MD REQ: [id number] RECD: 01/10/14-1223 STATUS: VEE HAJI DR: [facility] John Arrington MD _ SOURCE: URINE SPDESC: ORDERED: Urine Culture Procedure Result Verified Site Urine Culture Final 01/12/14- 0856 ML Organism 1 ESCHERICHIA COLI [place] Count 10-25,000 (Moderate) CFU/ML 1. ESCHERICHIA COLI [...] performed at Main Lab DEPARTMENT OF PATHOLOGY, [address] [place] [address] Carrington Chadwick M.D. Director [facility] # [id number] 47 Because ethnic data is not always [...] Procedures Date CPT Code Description Status 01/24/2018 51326 EKG Tracing & Interpretation Completed 01/16/2018 03521 EKG Tracing & Interpretation Completed 09/11/2017 20241 EKG Tracing & Interpretation Completed 08/22/2017 10173 EKG Tracing & Interpretation Completed 05/16/2017 58708 EKG Tracing & Interpretation Completed 05/16/2017 79922 EKG Tracing & Interpretation Completed 05/14/2017 11409 ECHO Transthoracic, Real-Time 2D With Doppler And Color Completed Flow 05/14/2017 47182 ECHO Transthoracic, Real-Time 2D With Doppler And Color Completed Flow 04/25/2017 81123 EKG, Interpretation Only Completed 04/24/2017 79108 EEG Recording Awake & Asleep Completed 04/15/2017 17041 Cath PLMT&NJX L Ventriculog Img S&I Completed 03/17/2017 61125 ECHO Transthorasic Realtime 2D W Doppler & Color Flow Completed Hosp 02/22/2017 71181 EKG Tracing & Interpretation Completed 10/23/2016 71615 Plethysmography Determination Lung Volumes & Per Airway Completed Resist 10/23/2016 16196 Pulmonary Function><Bronchodil Completed 10/19/2016 38538 ECHO Transthoracic, Real-Time 2D With Doppler And Color Completed Flow 04/24/2016 17266 EKG Tracing & Interpretation Completed 04/29/2015 18748 EKG Tracing & Interpretation Completed 03/02/201555495 Inject/Drain Joint/Bursa Major W/O US Completed 10/29/2014 93719 EKG Tracing & Interpretation Completed 09/20/201463498 Inject/Drain Joint/Bursa Major W/O US Completed 08/24/2014 70315 EKG, Interpretation Only Completed 10/16/2013 74249 EKG Tracing & Interpretation Completed 09/25/2012 00121 ECHO Transthoracic, Real-Time 2D With Doppler And Color Completed Flow Encounters Type Date Location Provider CPT E/M Dx Office Visit 01/24/2018 [facility] Alec Lama, [address]759 I48.2 8:15a Taylor Bishop I50.9 I35.0 Z95.2 D64.9 Office Visit 01/02/2018 11:30a [facility] Alec Lama, [address]7076 I27.20 Taylor Bishop R94.31 Z95.2 Office Visit 11/21/2017 10:20a [facility] [place] [address] Z79.01 [place] I48.2 N39.0 Office Visit 09/11/2017 1:00p [facility] [place] [address] Z00.00 [place] R10.9 M79.602 Z87.891 J44.9 E03.9 I27.20 I48.2 Office Visit 08/22/2017 11:30a [facility] Alec Lama [address]77 R06.02 Taylor Bishop I48.2 Z95.2 I27.20 Office Visit 08/19/2017 3:40p [facility] [place] [address] R06.02 [place] R07.9 Office Visit 05/29/2017 2:15p [facility] Alec Lama, 47054 Z95.2 Taylor Bishop I48.2 I50.9 I34.0 Office Visit 04/30/2017 1:15p [facility] Alec Lama [address]254 I48.2 [facility] Edna I50.9 I35.0 Z95.2 Office Visit 04/28/2017 12:51p [facility] Luther Powers, 18950 I63.9 Hospitalists M.D. I48.91 I50.9 K92.2 Office Visit 04/27/2017 12:50p [facility] Luther Powers, 51582 I63.9 Hospitalists M.D. I48.91 I50.9 K92.2 Office Visit 04/26/2017 12:00p [facility] [address] I63.9 R40.4 F03.90 N39.0 Office Visit 04/26/2017 12:50p [facility] Yana Mckeon, 64234 I63.9 Hospitalists M.D. I48.91 I50.9 K92.2 Office Visit 04/25/2017 12:49p [facility] Yana Mckeon, 09239 I63.9 Hospitalists M.D. I48.91 I50.9 K92.2 Office Visit 04/25/2017 11:57a [facility] [place] [address] I63.9 R40.4 F03.90 Office Visit 04/25/2017 1:45p [facility] [place] [address] K44.9 R10.13 R10.10 D50.0 Office Visit 04/24/2017 12:48p [facility] Tiffany Gonzalez, 88682 I63.9 Assoc,pc JEEPER OPERATOR Hospitalists I48.91 K92.2 Office Visit 04/24/2017 11:40a [facility] Román Sheets, 47171 R53.83 - Mark Bishop R10.13 R06.00 F03.90 Office Visit 03/22/2017 11:20a [facility] Román Sheets, 14669 I48.2 - Mark Bishop Z79.01 R06.00 G31.84 Office Visit 03/19/2017 8:34a [facility] Roni Mcclendon, 28482 I50.9 Hospitalists M.D. J44.9 J18.9 I25.10 Office Visit 03/18/2017 8:33a [facility] Roni Mcclendon, 49036 I50.9 Hospitalists M.D. J18.9 J44.9 I25.10 Office Visit 03/17/2017 8:32a [facility] [address] I50.9 Hospitalists J18.9 J44.9 I25.10 Office Visit 03/17/2017 8:31a [facility] Roni Pere[place]esley, 49391 I50.9 Hospitalists M.D. I25.10 J44.9 J18.9 Office Visit 03/15/2017 10:00a [facility] Román Sheets, 33688 G31.84 - Mark Bishop I48.2 Z79.01 Office Visit 02/22/2017 2:30p [facility] John Lama, 79986 I35.0 [facility] [place] R06.00 I48.2 I34.0 Office Visit 02/18/2017 3:20p [facility] Román Sheets, 08842 I35.0 - Mark Bishop R06.00 Office Visit 01/03/2017 2:00p [facility] Román Sheets, 11263 I48.2 - Mark Bishop R31.0 J44.9 Office Visit 10/03/2016 3:40p [facility] Román Sheets, 05526 I48.2 - Mark Bishop I35.0 J44.9 Office Visit 04/24/2016 1:00p [facility] John Lama, 89198 I48.2 [facility] [place] I34.0 I35.0 Office Visit 04/29/2015 2:30p [facility] John Lama, 50408 I48.2 [facility] [place] I34.0 J44.9 R94.31 Office Visit 04/01/2015 10:45a [facility] M.D. 74312 M17.11 C.M.A. Office Visit 01/12/2015 1:45p [facility] M.D. 47669 715.16 C.M.A. 715.36 Office Visit 10/29/2014 3:45p [facility] John Lama, 60315 427.31 Travel Occupational Therapist M.D. 424.0 496 Office Visit 10/11/2014 11:50a [facility] M.D. 25085 715.16 C.M.A. Office Visit 09/03/2014 11:00a [facility] M.D. 66790 719.06 C.M.A. 715.96 Office Visit 08/24/2014 2:11p [facility], Rozina Quinteros, 38753 599.0 Hospitalists [place] 427.31 496 294.20 Office Visit 08/23/2014 2:10p [facility], Man Tomas, 57471 599.0 Hospitalists N.P. 486 496 427.31 Office Visit 04/14/2014 10:30a [facility] John Lama, 66837 424.0 Travel Occupational Therapist M.D. 427.31 Office Visit 10/16/2013 2:45p [facility] John Lama, 27661 424.0 Travel Occupational Therapist M.DGill 427.31 799.02 Office Visit 02/18/2013 11:15a [facility] John Lama, 93656 424.0 Travel Occupational Therapist M.DGill 427.31 799.02 Office Visit 09/17/2012 11:30a [facility] John Lama, 77041 428.0 Travel Occupational Therapist M.DGill 396.9 427.31 Office Visit 09/04/2012 1:41p [facility] 43017 491.22 Assoc,pc Hospitalists [place] 427.31 396.2 799.02 Office Visit 09/03/2012 1:40[place] [facility] [place] [address] 491.22 Assoc,pc Hospitalists [place] 427.31 396.2 Office Visit 09/02/2012 1:39p [facility] [place] [place] [address] 491.22 Assoc,pc Hospitalists [place] 427.31 396.2 Office Visit 09/01/2012 1:39p [facility], 97878 491.22 Assoc, Hospitalists [place] 427.31 396.2 Office Visit 08/31/2012 1:38[place] [facility] [place] [address] 491.22 Assoc,pc Hospitalists [place] 427.31 396.2 Office Visit 08/30/2012 1:38p [facility] Kevin [place], 85571 491.22 Assoc, Hospitalists [place] Hospitalist 427.31 396.2 Office Visit 04/16/2012 1:45p [facility] John Lama, 37654 394.1 [facility] [place] 786.05 Plan of Care Future Appointment(s):03/26/2018 9:30 am - John Lama M.D. at [facility]02/26/2018 11:00 am - Nurse Visit IC at [facility]02/25/2018 11:15 am - Nurse Visit IC at [facility]01/24/2018 - John Lama M.D.I48.2 Chronic atrial fibrillationNew Orders:Holter MonitorFollow up:2 monthsRecommendations:Stay off Coumadin and Aspirin for 2 months then we will reaccess at office gceflK92.9 Heart failure, vvwcxejlqqlY27.0 Nonrheumatic aortic (valve) jwsvpkpsQ83.2 Presence of prosthetic heart legwxC70.9 Anemia, unspecified
--- OUTSIDE RECORDS SUMMARY | 2018-02-06 12:25 | XMS REPORT ---
:1930 External Reference #:[id number] [facility] Address [address] [place] [address] [place] [address] Phone [phone] Care Team Providers Name Role Phone Nuria Martin MD Primary Care Physician Unavailable Payers Type Date Identification Numbers Payment Provider Subscriber Medicare Primary Policy Number: [id number] Medicare Angle Carroll PayID: [id number] [facility] [address] [place] [address] [facility] Part B Policy Number: [id number] [facility] Health Benefit Plan Uriel Escobedo Chloé Group Number: [id number] [facility] Group Name: Joe Grimes [place], [place] PayID: [id number] Advance Directives Type Date Description Status Comment [...] of decaff coffee per day Exercise Type/Frequency Does not exercise Allergies, Adverse Reactions, Alerts Date Description Reaction Status Severity Comments 02/18/2013 Penicillin shortness of breathe active 09/03/2014 Macrodantin active 03/15/2017 Theodur active 03/15/2017 Zaroxlen active 03/22/2017 Proventil active 03/22/2017 Morphine active Vomitimg 03/22/2017 Nalfon active 04/24/2017 Quinoline Yellow active 04/30/2017 Amoxicillin active 05/16/2017 Sulfamethoxazole / active Trimethoprim 03/15/2017 Potasium inactive Medications Medication Date Status Form Strength Qnty SIG Indications Ordering Provider Digoxin 01/21/ Active Tablets 125mcg One by I48.0 Aric 2018 mouth every Ted, SOFTWARE PRODUCT MANAGER day Albuterol 10/02/ Active Nebulizer (2.5mg/3ML 75ml 1 vial via Aric 2017 ) 0.083% nebulizer 4 Ted, SOFTWARE PRODUCT MANAGER times daily as needed Nebulizer 08/28/ Active Device 1units use for R06.02 Aric 2018 albuterol Ted, SOFTWARE PRODUCT MANAGER nebulized solution up to 4 times a day. I50.9 Spiriva 08/23/2017 Active Capsules 18mcg 90caps inhale the Aric Handihaler contents of Ted, SOFTWARE PRODUCT MANAGER one capsule via handihaler by mouth every day Spironolactone 08/22/2017 Active Tablets 25mg 90tabs 1 by mouth R0 John every day 6. D. Kelby, 02 M.D. Nebulizer 03/15/2017 Active Device 1units [...] 2mg take 1 by Unknown mouth at nightly Centrum Silver Active Tablets 50+Wome Unknown 50+Women [...] By RENE Jean Mouth Twice A Day Coumadin 12/07/2017 - Hx Tablets 2mg 270tabs [...] po q2h as Kevin 02/18/2013 directed for clotilde Jacques M.D.,FACP Albuterol - Hx 1 puff qid Unknown [...] Tablet Unknown 05/15/2017 By Mouth Every Day Medications Administered in Office Medication Date Status Form Strength Qnty SIG Indications Ordering Provider Depomedrol Administered Injection Nava 80MG 015 Edna Rose Depomedrol Administered Injection Nava 80MG 015 Edna Rose Immunizations CPT Code Status Date Vaccine Lot # [id number] Given 01/25/2017 Influenza Virus Vaccine, Quadrivalent, Split, [id number] Preservative Free Vital Signs Date Vital Result Comment 01/21/2018 Height 58.25 inches 4'10.25" Weight 132.00 [...] Result H/L Range Note Protime W/ Inr 01/16/2018 Inr 4.56 Laboratory test finding 01/16/2018 Packed Cells SEE RESULTS BELO <SEE 1 NOTE> FFP SEE RESULTS BELO <SEE NOTE> 2 Type & Screen 01/16/2018 Patient Blood Type O Positive Antibody Screen NEGATIVE Urine Culture And 01/16/2018 Urine Culture SEE RESULT 3 Sensitivities BELOW Laboratory test finding 01/16/2018 Pathologist Review (SEE NOTE) 4 Stool Occult Blood, 01/16/2018 Stool Occult Blood, SEE RESULT 5 Screen Screen BELOW Inr/Protime 01/16/2018 Inr 4.56 High 0.77-1.02 CBC Auto Diff 01/16/2018 White Blood Count 11.0 10^3/uL High 3.5-10.8 Red Blood Count 1.62 10^6/uL Low 4.00-5.40 Hemoglobin 5.4 g/dL Low 12.0-16.0 6 Hematocrit 16 % Low 35-47 Mean Corpuscular Volume 100 fL High 80-97 Mean Corpuscular Hemoglobin 33 pg High 27-31 Mean Corpuscular HGB Conc 34 g/dL 31-36 Red Cell Distribution Width 17 % High 10.5-15 Platelet Count 216 10^3/uL 150-450 Mean Platelet Volume 9.6 um3 7.4-10.4 Abs Neutrophils 8.2 10^3/uL High 1.5-7.7 Laboratory test finding 01/16/2018 Lactic Acid 1.4 mmol/L 0.5-2.0 7 Urinalysis Profile 01/16/2018 Urine Color Yellow Urine Appearance Clear Urine Specific Coyote 1.016 1.010-1.030 Urine pH 6.0 5-9 Urine Urobilinogen Negative Negative Urine Ketones Negative Negative Urine Protein Negative Negative Urine Leukocytes Trace Negative Urine Blood Negative Negative * * Negative 8 Urine Nitrite Negative Negative Urine Bilirubin Negative Negative Urine Glucose Negative Negative Urine White Blood Cell Trace(0-5/hpf) Absent Urine Red Blood Cell Trace(0-2/hpf) Absent Urine Bacteria Absent Absent Urine Squamous Epithelial Cell Present Absent Laboratory test finding 01/16/2018 Troponin-I (TnI) 0.01 ng/mL <0.04 TSH (Thyroid Stim Horm) 2.90 mcIU/mL 0.34-5.60 Digoxin 2.5 ng/ml High 0.8-2.0 Manual Differential 01/16/2018 Neutrophil % 70 % [...] Egfr Non- 68.8 >60 Egfr 83.3 >60 9 Protime W/ Inr 12/19/2017 Prothrombin Time 31.2 Inr 2.6 Protime W/ Inr 11/21/2017 Prothrombin Time 27.8 Inr 2.3 Ua Routine 11/21/2017 Ua Specific Coyote 1.015 Ua PH 5 Ua Color cindy Ua Appera clear Ua WBC neg Ua Protein trace Ua Glucose neg Ua Ketones ng Ua Bilirubin neg Ua Urobilinogen neg Ua Nitrite neg Ua Occult Blood trace Poc Urinalysis 11/13/2017 Poc Glucose, Urine Negative Negative Poc Bilirubin, Urine 2+ Negative Poc Ketone, Urine Trace Negative Poc Specific [place], Urine 1.015 1.010-1.030 Poc Blood, Urine 3+ [...] Color Straw Urine Appearance Cloudy Urine Specific [place] 1.005 Low 1.010-1.030 Urine pH 5.0 5-9 [...] Color Cindy Urine Appearance Cloudy Urine Specific [place] 1.016 1.010-1.030 Urine pH 8.0 5-9 Urine Urobilinogen Negative Negative Urine Ketones Negative Negative Urine Protein Negative Negative Urine Leukocytes Negative Negative Urine Blood Negative Negative Urine Nitrite Negative Negative Urine Bilirubin Negative Negative Urine Glucose Negative Negative Ua Routine 01/03/2017 Ua Specific [place] 1010 Ua PH 7 Ua Color yellow Ua Appera clear Ua WBC trace Ua Protein - Ua Glucose normal Ua Ketones - Ua Bilirubin - Ua Urobilinogen normal Ua Nitrite - Ua Occult Blood trace Protime W/ Inr 01/03/2017 Prothrombin Time 38.9 Inr 3.2 Urine Culture And 12/22/2016 Urine Culture SEE RESULT 40, 41 Sensitivities BELOW Laboratory test 12/22/2016 C Reactive 8.10 mg/L High < 5.00 42 finding Protein Comp Metabolic Panel 12/22/2016 Sodium 133 mmol/L [...] Egfr Non- 53.2 >60 Egfr 68.4 >60 43 Potassium TNP mmol/L 3.5-5.0 Anion Gap 5 mmol/L 2-11 Ast TNP U/L 13-39 Urinalysis Profile 12/22/2016 Urine Appearance Cloudy Urine Specific [place] 1.014 1.010-1.030 Urine pH 7.0 5-9 Urine Urobilinogen Negative Negative Urine Ketones Negative Negative Urine Protein 2+(100 mg/dL) Negative Urine Leukocytes Trace Negative Urine Blood 3+ Negative * * Negative 44 Urine Nitrite Negative Negative Urine Bilirubin Negative Negative Urine Glucose Negative Negative Urine White Blood Cell Trace(0-5/hpf) Absent Urine Red Blood Cell 3+(>10/hpf) Absent Urine Bacteria Absent Absent Urine Color Red Inr/Protime 12/22/2016 Inr 2.49 High 0.89-1.11 CBC Auto Diff 12/22/2016 White Blood Count [...] Blood Cells % 0.1 Laboratory test finding 12/22/2016 Potassium Redraw 4.4 mmol/L 3.5-5.0 Ast Redraw 24 U/L 13-39 Inr/Protime 12/04/2016 Inr 2.41 High 0.89-1.11 Protime [...] Blood Cells % 0 Urine Culture And 01/09/2014 Urine Culture (SEE NOTE) 46 Sensitivities Inr/Protime 12/30/2013 Inr 2.65 High 0.85-1.06 CBC [...] 0-2 Nucleated Red Blood Cells % 0 Comp Metabolic Panel 12/30/2013 Sodium 139 mmol/L [...] Non- 56.9 >60 Egfr 73.1 >60 47 Basic Metabolic Panel 10/21/2013 Sodium 138 mmol/L 133-145 Potassium 4.1 mmol/L 3.7-5.6 Chloride 105 mmol/L 101-111 Co2 Carbon Dioxide 28 mmol/L 22-32 Anion Gap 5 mmol/L 2-11 Glucose 166 mg/dL High 70-100 Blood Urea Nitrogen 16 mg/dL 6-24 Creatinine 0.97 mg/dL High 0.51-0.95 BUN/Creatinine Ratio 16.5 8-20 Calcium 9.0 mg/dL 8.6-10.3 Egfr Non- 54.8 >60 Egfr 70.5 >60 48 Laboratory test finding 10/21/2013 Digoxin 1.0 ng/ml 0.8-2.0 1 SEE RESULTS BELOW [id number] OP PC TRANSFUSED 01/16/18 1838 [id number] OP PC TRANSFUSED 01/16/18 1347 2 SEE RESULTS BELOW [id number] OP FFP TRANSFUSED 01/17/18 0056 [id number] OP FFP TRANSFUSED 01/16/18 2154 3 SEE RESULT BELOW Name: ANGLE CARROLL : [address]: Rozina Quinteros MD Acct: [id number] Unit: [id number] AGE: 87 Location: [place] [address] Re01/16/18 SEX: F Status: ADM IN SPEC: [id number] NIKITA: 01/16/[address]: Uriel Hernandez MD REQ: [id number] RECD: 01/16/18 STATUS: VEE HAJI DR: Nuria Martin MD _ SOURCE: URINE SPDESC: ORDERED: Urine Culture Procedure Result Reported Site Urine Culture Final 01/17/18- 1319 ML No growth of clinically significant organisms * ML - Main Lab . END OF REPORT DEPARTMENT OF PATHOLOGY, [address] [place] [address] Carrington Chadwick M.D. Director [facility] # [id number] 4 Severe, mildly macrocytic anemia noted. Moderate Leukocytosis with absolute neutrophilia suggestive of acute inflammatory/reactive process. Additional studies as clinically warranted. Reviewed by Dr. Chadwick 5 SEE RESULT BELOW Name: ANGLE CARROLL : [address]: Uriel Hernandez MD Acct: [id number] Unit: [id number] AGE: 87 Location: ED Re01/16/18 SEX: F Status: REG ER SPEC: [id number] NIKITA: 01/16/[address]: Uriel Hernandez MD REQ: [id number] RECD: 01/16/18 STATUS: VEE HAJI DR: Nuria Martin MD _ SOURCE: STOOL SPDESC: ORDERED: Occult Bl, Scn Procedure Result Reported Site Stool Occult Blood (1) Final 01/16/18- 1357 ML Stool Occult Blood Positive Collection Date (1) 01/16/18 * ML - Main Lab . END OF REPORT DEPARTMENT OF PATHOLOGY, [address] [place] [address], [place] [address] Carrington Chadwick M.D. Director [facility] # [id number] 6 Verbal to [id number] by [id number] at 1253 on .Results read back accurately 7 [facility] Severe Sepsis and Septic Shock Management Bundle Measure requires all lactic acids initially measuring >2.0 mmol/L be repeated. 8 *Ascorbic acid is present which may interfere with detection of blood. 9 Because ethnic data is not always readily [...] 15-29 5 Kidney failure <15 (or dialysis) 10 [employer]: [id number] 11 [id number] BLOODY 12 SEE RESULT BELOW Name: ANGLE CARROLL : [address]: Roseann Chin MD Acct: [id number] Unit: [id number] AGE: 87 Location: [facility] Re/04/18 SEX: F Status: DEP ER SPEC: [id number] NIKITA: 11/13/17-[address]: William FABIAN REQ: [id number] RECD: 11/14/17-1009 STATUS: VEE HAJI DR: [facility] Nuria Martin MD _ SOURCE: URINE SPDESC: ORDERED: Urine Culture COMMENTS: [id number] BLOODY Procedure Result Reported Site Urine Culture Final 11/15/17- 1334 ML No growth of clinically significant organisms * ML - Main Lab . END OF REPORT DEPARTMENT OF PATHOLOGY, [address] [place] [address] Carrington Chadiwck M.D. Director [facility] # [id number] 13 Acute inflammation: >10.00 14 Because ethnic [...] in selective patients <6.0%. Please refer to [place] [employer] diabetic care guidelines for further information. 24 Please note the change in INR reference range effective 17. 25 Result TnIDx:0.04 Called to KFOX at: 14:20:20 by:[email or web address] Read back by:[email or web address] 26 Because ethnic data [...] 5 Kidney failure <15 (or dialysis) 27 [place] Severe Sepsis and Septic Shock Management Bundle Measure requires all lactic acids initially measuring >2.0 mmol/L be repeated. 28 SEE RESULT BELOW Name: ANGLE CARROLL : [address]: Francisco Miller MD Acct: [id number] Unit: [id number] AGE: 86 Location: ED Re04/24/17 SEX: F Status: REG ER SPEC: [id number] NIKITA: 04/24/[address]: Francisco Miller MD REQ: [id number] RECD: 04/24/17 STATUS: VEE HAJI DR: Román Sheets III, MD _ SOURCE: STOOL SPDESC: ORDERED: Occult Bl, Diag Procedure Result Reported Site Stool Occult Blood (1) Final 04/24/17- 1622 ML Stool Occult Blood Negative Collection Date (1) 04/24/17 * ML - [facility] ([facility]) . END OF REPORT * ML=Testing performed at [facility] DEPARTMENT OF PATHOLOGY, [address] [place] [address] Carrington Chadwick M.D. Director [facility] # [id number] 29 Because ethnic data is not always [...] severe CHF 31 Interpretive information available on [employer] Test Catalog at [email or web address] 32 Because ethnic data is not always [...] 5 Kidney failure <15 (or dialysis) 33 [facility] Severe Sepsis and Septic Shock Management Bundle Measure requires all lactic acids initially measuring >2.0 mmol/L be repeated. 34 SEE RESULT BELOW Name: ANGLE CARROLL : [address]: Cheyanne Davis DO Acct: [id number] Unit: [id number] AGE: 86 Location: ICU [id number] Re03/17/17 SEX: F Status: ADM IN SPEC: [id number] NIKITA: 03/17/[address]: Cheyanne Davis DO REQ: [id number] RECD: 03/17/17 STATUS: VEE HAJI DR: Robson Sheets III, MD _ SOURCE: URINE SPDESC: ORDERED: Legion Ur Ag, S.pneumo Ur Ag COMMENTS: Verbal to [id number] by [email or web address] at 0412 on 03/17/17. Results read back accurately. Procedure Result Reported Site Legionella Urine Antigen Final 03/17/17- 411 ML Organism 1 Negative Legionella Antigen testing by enzyme immunoassay S.Pneumonia Urine Antigen Final 03/17/17- 411 ML Organism 1 POSITIVE S. PNEUMO ANTIGEN Antigen testing by enzyme immunoassay * ML - MAIN LAB ([facility]) . END OF REPORT * ML=Testing performed at Main Lab DEPARTMENT OF PATHOLOGY, [address] [place] [address] Carrington Chadwick M.D. Director [facility] # [id number] 35 SEE RESULT BELOW Name: ANGLE CARROLL : [address]: Roni Mcclendon MD Acct: [id number] Unit: [id number] AGE: 86 Location: [place] [address]- Re03/17/17 SEX: F Status: ADM IN SPEC: [id number] NIKITA: 03/17/17 [facility] DR: Robson Mariscal MD REQ: [id number] RECD: 03/17/17 STATUS: VEE HAJI DR: Román Sheets III, MD _ SOURCE: URINE SPDESC: ORDERED: Urine Culture Procedure Result Reported Site Urine Culture Final 03/19/17- 0758 ML Organism 1 ESCHERICHIA COLI [place] Count 10-25,000 (Moderate) CFU/ML Organism 2 NORMAL ERIN [place] Count 1-10,000 (Few) CFU/ML 1. ESCHERICHIA COLI [...] antibiotic reporting. * ML - MAIN LAB ([facility]) . END OF REPORT * ML=Testing performed at Main Lab DEPARTMENT OF PATHOLOGY, [address] [place] [address] Carrington Chadwick M.D. Director [facility] # [id number] 36 >100 to <200 pg/mL: likely compensated [...] 145 to 180 Deficient Range <145 40 [id number] 41 SEE RESULT BELOW Name: ANGLE CARROLL : [address]: Lawrence Su DO Acct: [id number] Unit: [id number] AGE: 86 Location: [facility] Re12/22/16 SEX: F Status: DEP ER SPEC: [id number] NIKITA: 12/22/16-1700 [facility] DR: Diann Friedman NP REQ: [id number] RECD: 12/23/16-1409 STATUS: VEE HAJI DR: Lawrence Huerta III, MD _ [facility] ORDERED: Urine Culture COMMENTS: [id number] Procedure Result Reported Site Urine Culture Final 12/24/16- 1533 ML Organism 1 STREP GROUP B [place] Count 10-25,000 (Moderate) CFU/ML Organism 2 NORMAL ERIN [place] Count 1-10,000 (Few) CFU/ML Susceptibility testing of penicillins and other B-lactams approved by FDA for treatment of Streptococcus pyogenes (Group A Strep) and Streptococcus agalactiae (Group B Strep) is not necessary for clinical purposes and need not be done routinely, since as with vancomycin, resistant strains have not been recognized. (CLSI F930-I89;p.66) Positive isolates will be saved for one week. Please call the Microbiology Laboratory if further susceptibility testing is needed. * ML - MAIN LAB ([facility]) . END OF REPORT * ML=Testing performed at Main Lab DEPARTMENT OF PATHOLOGY, [address] [place] [address] Carrington Chadwick M.D. Director [facility] # [id number] 42 Acute inflammation: >10.00 43 Because ethnic data is not always readily [...] 15-29 5 Kidney failure <15 (or dialysis) 44 *Ascorbic acid is present which may interfere with detection of blood. 45 Because ethnic data is not always [...] <15 (or dialysis) 46 RUN DATE: 01/12/14 [facility] LAB LIVE PAGE 1 RUN TIME: [address] [place] [address] Specimen Inquiry Name: ANGLE CARROLL : [address]: Roseann Chin MD Acct: [id number] Unit: [id number] AGE: 83 Location: [facility] Re01/09/14 SEX: F Status: DEP ER SPEC: [id number] NIKITA: 01/09/14-145 [facility] DR: Roseann Chin MD REQ: [id number] RECD: 01/10/14-1223 STATUS: VEE HAJI DR: [facility] John Arrington MD _ SOURCE: URINE SPDESC: ORDERED: Urine Culture Procedure Result Verified Site Urine Culture Final 01/12/14- 0856 ML Organism 1 ESCHERICHIA COLI [place] Count 10-25,000 (Moderate) CFU/ML 1. ESCHERICHIA COLI [...] performed at Main Lab DEPARTMENT OF PATHOLOGY, [address] [place] [address] Carrington Chadwick M.D. Director [facility] # [id number] 47 Because ethnic data is not always [...] dialysis) Procedures Date CPT Code Description Status 01/16/2018 07356 EKG Tracing & Interpretation Completed 09/11/2017 68023 EKG Tracing & Interpretation Completed 08/22/2017 25165 EKG Tracing & Interpretation Completed 05/16/2017 20271 EKG Tracing & Interpretation Completed 05/16/2017 67697 EKG Tracing & Interpretation Completed 05/14/2017 47249 ECHO Transthoracic, Real-Time 2D With Doppler And Color Completed Flow 05/14/2017 58349 ECHO Transthoracic, Real-Time 2D With Doppler And Color Completed Flow 04/25/2017 06521 EKG, Interpretation Only Completed 04/24/2017 12262 EEG Recording Awake & Asleep Completed 04/15/2017 26677 Cath PLMT&NJX L Ventriculog Img S&I Completed 03/17/2017 10774 ECHO Transthorasic Realtime 2D W Doppler & Color Flow Completed Hosp 02/22/2017 09667 EKG Tracing & Interpretation Completed 10/23/2016 38843 Plethysmography Determination Lung Volumes & Per Airway Completed Resist 10/23/2016 36192 Pulmonary Function><Bronchodil Completed 10/19/2016 31438 ECHO Transthoracic, Real-Time 2D With Doppler And Color Completed Flow 04/24/2016 47805 EKG Tracing & Interpretation Completed 04/29/2015 86313 EKG Tracing & Interpretation Completed 03/02/2015 41465 Inject/Drain Joint/Bursa Major W/O US Completed 10/29/2014 06496 EKG Tracing & Interpretation Completed 09/20/2014 60370 Inject/Drain Joint/Bursa Major W/O US Completed 08/24/2014 30737 EKG, Interpretation Only Completed 10/16/2013 60790 EKG Tracing & Interpretation Completed 09/25/2012 33162 ECHO Transthoracic, Real-Time 2D With Doppler And Color Completed Flow Encounters Type Date Location Provider CPT E/M Dx Office Visit 01/02/2018 [facility], 10922 I27.20 11:30a Jet D[employer] Tender M.D. R94.31 Z95.2 Office Visit 11/21/2017 10:20a [facility] Internal Medicine - Aric Jean, SOFTWARE PRODUCT MANAGER 21693 Z79.01 [place] I48.2 N39.0 Office Visit 09/11/2017 1:00p [facility] Internal Medicine - Aric Ted, SOFTWARE PRODUCT MANAGER 20004 Z00.00 [place] R10.9 M79.602 Z87.891 J44.9 E03.9 I27.20 I48.2 Office Visit 08/22/2017 11:30a [facility] Anna Lama, 45042 R06.02 [facility] M.D. I48.2 Z95.2 I27.20 Office Visit 08/19/2017 3:40p [facility] Internal Medicine - Aric Jean, SOFTWARE PRODUCT MANAGER 39909 R06.02 [place] R07.9 Office Visit 05/29/2017 2:15p [facility] Anna Lama, 15523 Z95.2 [facility] M.D. I48.2 I50.9 I34.0 Office Visit 04/30/2017 1:15p [facility] Anna Lama, 06656 I48.2 [facility] M.D. I50.9 I35.0 Z95.2 Office Visit 04/28/2017 12:51p [facility], Luther Powers, 54788 I63.9 Hospitalists M.D. I48.91 I50.9 K92.2 Office Visit 04/27/2017 12:50p [facility],festus Powers, 51447 I63.9 Hospitalists M.D. I48.91 I50.9 K92.2 Office Visit 04/26/2017 12:00p [facility] [place] [address] I63.9 R40.4 F03.90 N39.0 Office Visit 04/26/2017 12:50p [facility], Yana Mckeon, 82318 I63.9 Hospitalists M.D. I48.91 I50.9 K92.2 Office Visit 04/25/2017 12:49p [facility],festus Mckeon, 17151 I63.9 Hospitalists M.D. I48.91 I50.9 K92.2 Office Visit 04/25/2017 11:57a [facility] [address] I63.9 R40.4 F03.90 Office Visit 04/25/2017 1:45p [facility] [place] [address] K44.9 R10.13 R10.10 D50.0 Office Visit 04/24/2017 12:48p [facility] Tiffany Gonzalez, 48927 I63.9 Assoc,pc SOFTWARE PRODUCT MANAGER Hospitalists I48.91 K92.2 Office Visit 04/24/2017 11:40a [facility] Internal Medicine Román Sheets, 56198 R53.83 - Mark Bishop R10.13 R06.00 F03.90 Office Visit 03/22/2017 11:20a [facility] Internal Medicine Román Sheets, 31688 I48.2 - Mark Bishop Z79.01 R06.00 G31.84 Office Visit 03/19/2017 8:34a [facility] Roni Mcclendon, 05666 I50.9 Hospitalists M.D. J44.9 J18.9 I25.10 Office Visit 03/18/2017 8:33a [facility] Roni Mcclendon, 28511 I50.9 Hospitalists M.D. J18.9 J44.9 I25.10 Office Visit 03/17/2017 8:32a [facility] Cheyanne Davis, 34770 I50.9 Hospitalists J18.9 J44.9 I25.10 Office Visit 03/17/2017 8:31a [facility] Roni Mcclendon, 99026 I50.9 Hospitalists M.D. I25.10 J44.9 J18.9 Office Visit 03/15/2017 10:00a [facility] Internal Medicine Román Sheets, 27512 G31.84 - Mark Bishop I48.2 Z79.01 Office Visit 02/22/2017 2:30p [facility] John Lama, 76077 I35.0 Taylor Bishop R06.00 I48.2 I34.0 Office Visit 02/18/2017 3:20p [facility] Internal Medicine Román Angela Snowie, 69056 I35.0 - Mark Bishop R06.00 Office Visit 01/03/2017 2:00p [facility] Internal Medicine Román ShuklaGill Snowie, 32605 I48.2 - Mark Bishop R31.0 J44.9 Office Visit 10/03/2016 3:40p [facility] Internal Medicine Román Angela Sheets, 76674 I48.2 - Mark Bishop I35.0 J44.9 Office Visit 04/24/2016 1:00p [facility], 17329 I48.2 [facility] M.DGill I34.0 I35.0 Office Visit 04/29/2015 2:30p [facility] [place], 86611 I48.2 [facility] M.DGill I34.0 J44.9 R94.31 Office Visit 04/01/2015 10:45a [facility] M.D. 98381 M17.11 C.M.A. Office Visit 01/12/2015 1:45p [facility] M.D. 75182 715.16 C.M.A. 715.36 Office Visit 10/29/2014 3:45p [facility] [place], 86622 427.31 [facility] M.DGill 424.0 496 Office Visit 10/11/2014 11:50a [facility] M.D. 52063 715.16 C.M.A. Office Visit 09/03/2014 11:00a [facility] M.D. 74418 719.06 C.M.A. 715.96 Office Visit 08/24/2014 2:11p [facility], Rozina Quinteros, 44339 599.0 Hospitalists MIsak 427.31 496 294.20 Office Visit 08/23/2014 2:10p [facility], Man Tomas, 90251 599.0 Hospitalists N.P. 486 496 427.31 Office Visit 04/14/2014 10:30a [facility] John Lama, 18725 424.0 [employer] M.DGill 427.31 Office Visit 10/16/2013 2:45p [facility] John Lama, 27402 424.0 [employer] T[employer] M.DGill 427.31 799.02 Office Visit 02/18/2013 11:15a [facility] John Lama, 67556 424.0 [employer] M.DGill 427.31 799.02 Office Visit 09/17/2012 11:30a [facility] John Lama, 28876 428.0 [employer] Tender M.DGill 396.9 427.31 Office Visit 09/04/2012 1:41p [facility] [place], [address] 491.22 Assoc, Hospitalists Edna 427.31 396.2 799.02 Office Visit 09/03/2012 1:40[place] [facility] [place], [address] 491.22 Assoc, Hospitalists Edna 427.31 396.2 Office Visit 09/02/2012 1:39[place] [facility] [place], [address] 491.22 Assoc, Hospitalists MIsak 427.31 396.2 Office Visit 09/01/2012 1:39p [facility] [place], [address] 491.22 Assoc, Hospitalists [place] 427.31 396.2 Office Visit 08/31/2012 1:38p [facility], [id number] 491.22 [facility] [place] 427.31 396.2 Office Visit 08/30/2012 1:38p [facility] Kevin Martinez, [address] 491.22 [facility] [place] Hospitalist 427.31 396.2 Office Visit 04/16/2012 1:45p [facility] John Lama, [address] 394.1 Taylor M.DGill 786.05 Plan of Care 01/21/2018 - Aric Jean NPD50.9 Iron deficiency anemia, unspecifiedComments:I would like to recheck your blood levels in a couple of weeks.I48.0 Paroxysmal atrial fibrillationNew Medication:Digoxin 125 mcgComments:It is important to set up an appointment with Dr. Lama within the next 2-3 weeks.Z79.01 [facility] (current) use of zdogxhdmslybpoJ20.2 Gastrointestinal hemorrhage, unspecifiedComments:Continue taking the Omeprazole daily.K59.00 Constipation, unspecifiedComments:I recommend Trying dulcolax suppositories and/or Fleets enema.
--- OUTSIDE RECORDS SUMMARY | 2018-02-06 12:26 | XMS REPORT ---
:1930 External Reference #:[id number] Author Organization [facility] [employer] Address [address] [place] [address] [place] [address] Phone [phone] Care Team Providers Name Role Phone Nuria Martin MD Primary Care Physician Unavailable Payers Type Date Identification Numbers Payment Provider Subscriber Medicare Primary Policy Number: [id number] Medicare Angle Carroll PayID: [id number] [facility] [address] [place] [address] [place] [facility] Part B Policy Number: [id number] [facility] Benefit Plan Uriel Escobedo Chloé Group Number: [id number] [facility] Group Name: Joe Grimes [place], [place] PayID: [id number] Advance Directives Type Date Description Status Comment [...] Form Strength Qnty SIG Indications Ordering Provider Coumadin 12/07/ Active Tablets 2mg 270tab Take 3 Aric 2018 s Tablets By RENE Jean Mouth Daily Or as Directed Digoxin 10/23/ Active Tablets 250mcg 90tabs One tablet Aric 2018 once daily RENE Jean Albuterol 10/02/ Active Nebulizer (2.5mg/3ML 75ml 1 vial via Aric 2017 ) 0.083% nebulizer 4 RENE Jean times daily as needed Nebulizer 08/28/ Active Device 1units use for R06.02 Aric 2018 albuterol RENE Jean nebulized solution up to 4 times a day. I50.9 Spiriva 08/23/2017 Active Capsules 18mcg 90caps inhale the Aric Handihaler contents of RENE Jean one capsule via handihaler by mouth every day Spironolactone 08/22/2017 Active Tablets 25mg 90tabs 1 by mouth R0 John every day 6. DGill Lama, 02 M.D. Nebulizer 03/15/2017 Active Device 1units use for Román Miller albuterol Kortney, nebulized M.DGill solution up to 4 times a day. Ventolin HFA 10/03/2016 Active Aerosol 108(90B 1units 2 puffs po qid J4 Román Miller ase) prn 4. Kortney mcg/ac 9 M.DGill Topamax Active Tablets 25mg 120tabs 1 by mouth Román Miller every day Edna Sheets Oxygen Active Misc 1units 2-3 L Unknown continuously Warfarin Sodium Active Tablets 2mg take 1 by Unknown mouth at nightly Aspirin Active 81mg 1 by mouth Unknown every day Centrum Silver Active Tablets 50+Wome Unknown 50+Women n Wheelchair Active 1units to be used as Román Shukla. needed Henok Sheets. Magnesium Active Tablets 250mg 1 by mouth [...] By RENE Jean Mouth Twice A Day Donepezil HCL 03/15/2017 - Hx Tablets 5mg 60tabs 1 by mouth G3 Román EGill 04/23/2017 every day Bisi Fortune M.D. Losartan [...] po q2h as Kevin 02/18/2013 directed for shailesh Jacques/vic Bishop,FACUmang Albuterol - Hx 1 puff qid Unknown [...] 1 by mouth Unknown 10/03/2016 every day Magnesium - Hx Capsules 500-300 take one Unknown 05/16/2017 0-150mg capsule/tablet -Unit-m daily by mouth g Topiramate - Hx Tablets 25mg Take 1 Tablet Unknown 05/15/2017 By Mouth Every Day Medications Administered in Office Medication Date Status Form Strength Qnty SIG Indications Ordering Provider Depomedrol Administered Injection Nava 80MG 015 Edna Rose Depomedrol Administered Injection Nava 80MG Camila Rose M.D. Immunizations CPT Code Status Date Vaccine Lot # [id number] Given 01/25/2017 Influenza Virus Vaccine, Quadrivalent, Split, [id number] Preservative Free Vital Signs Date Vital Result Comment 01/16/2018 Height 58.25 inches 4'10.25" Heart Rate [...] Test Date Test Result H/L Range Note Stool Occult 01/16/2018 Stool Occult SEE RESULT BELOW 1 Blood, Screen Blood, Screen Inr/Protime 01/16/2018 Inr 4.56 High 0.77-1.02 CBC Auto Diff 01/16/2018 White Blood Count 11.0 10^3/uL High 3.5-10.8 Red Blood Count 1.62 10^6/uL Low 4.00-5.40 Hemoglobin 5.4 g/dL Low 12.0-16.0 2 Hematocrit 16 % Low 35-47 Mean Corpuscular Volume 100 fL High 80-97 Mean Corpuscular Hemoglobin 33 pg High 27-31 Mean Corpuscular HGB Conc 34 g/dL 31-36 Red Cell Distribution Width 17 % High 10.5-15 Platelet Count 216 10^3/uL 150-450 Mean Platelet Volume 9.6 um3 7.4-10.4 Abs Neutrophils 8.2 10^3/uL High 1.5-7.7 Laboratory test finding 01/16/2018 Lactic Acid 1.4 mmol/L 0.5-2.0 3 Manual Differential 01/16/2018 Neutrophil % 70 % [...] Egfr Non- 68.8 >60 Egfr 83.3 >60 4 Laboratory test finding 01/16/2018 Troponin-I (TnI) 0.01 ng/mL <0.04 TSH (Thyroid Stim Horm) 2.90 mcIU/mL 0.34-5.60 Digoxin 2.5 ng/ml High 0.8-2.0 Urinalysis Profile 01/16/2018 Urine Color Yellow Urine Appearance Clear Urine Specific [place] 1.016 1.010-1.030 Urine pH 6.0 5-9 Urine Urobilinogen Negative Negative Urine Ketones Negative Negative Urine Protein Negative Negative Urine Leukocytes Trace Negative Urine Blood Negative Negative * * Negative 5 Urine Nitrite Negative Negative Urine Bilirubin Negative Negative Urine Glucose Negative Negative Urine White Blood Cell Trace(0-5/hpf) Absent Urine Red Blood Cell Trace(0-2/hpf) Absent Urine Bacteria Absent Absent Urine Squamous Epithelial Cell Present Absent Laboratory test finding 01/16/2018 Pathologist Review (SEE NOTE) 6 Type & Screen 01/16/2018 Patient Blood Type O Positive Antibody Screen NEGATIVE Laboratory test finding 01/16/2018 Packed Cells SEE RESULTS BELO <SEE NOTE> 7 FFP SEE RESULTS BELO <SEE NOTE> 8 Protime W/ Inr 12/19/2017 Prothrombin Time 31.2 Inr 2.6 Protime W/ Inr 11/21/2017 Prothrombin Time 27.8 Inr 2.3 Ua Routine 11/21/2017 Ua Specific [place] 1.015 Ua PH 5 Ua Color cindy Ua Appera clear Ua WBC neg Ua Protein trace Ua Glucose neg Ua Ketones ng Ua Bilirubin neg Ua Urobilinogen neg Ua Nitrite neg Ua Occult Blood trace Poc Urinalysis 11/13/2017 Poc Glucose, Urine Negative Negative Poc Bilirubin, Urine 2+ Negative Poc Ketone, Urine Trace Negative Poc Specific [place], Urine 1.015 1.010-1.030 Poc Blood, Urine 3+ Negative Poc pH, Urine 5.5 5-9 Poc Protein, Urine 3+ Negative Poc Urobilinogen, Urine 1.0 Negative Poc Nitrite, Urine Positive Negative Poc Leukocytes, Urine Trace Negative Poc Color, Urine Red Poc Clarity, Urine Turbid 9 Urine Culture And 11/13/2017 Urine Culture SEE RESULT BELOW 10, 11 Sensitivities Protime W/ Inr 10/24/2017 Prothrombin Time [...] C Reactive Protein 3.92 mg/L < 5.00 12 Comp Metabolic Panel 09/13/2017 Sodium 140 mmol/L [...] Egfr Non- 61.7 >60 Egfr 79.4 >60 13 Protime W/ Inr 09/06/2017 Prothrombin Time 39.6 Inr 3.3 Laboratory test 08/20/2017 B-Type Natriuretic 245 pg/mL High 14 finding Peptide BNP CBC Auto Diff 08/20/2017 [...] Egfr Non- 60.1 >60 Egfr 77.3 >60 15 Manual Differential 08/20/2017 Neutrophil % 73 % [...] test finding 08/20/2017 Pathologist Review (SEE NOTE) 16 Protime W/ Inr 08/08/2017 Prothrombin Time 27.4 [...] Vitamin B12 1143 pg/mL High 180- 914 17 Folic Acid (Folate) > 20.00 ng/mL >3.99 [...] Egfr Non- 60.1 >60 Egfr 77.3 >60 18 Laboratory test finding 05/01/2017 Lipase 33 U/L 11.0-82.0 C Reactive Protein 5.24 mg/L High < 5.00 19 Erythrocyte Sed Rate 38 mm/Hr 0-40 Inr/Protime 05/01/2017 Inr 2.70 High 0.77-1.02 20 CBC Auto Diff 05/01/2017 White Blood Count [...] 0-2 Nucleated Red Blood Cells % 0.1 Hemoglobin/Hematocrit 04/24/2017 Hemoglobin 8.9 g/dL Low 12.0-16.0 Hematocrit 27 % Low 35-47 Stool Occult Blood Diag 04/24/2017 Stool Occult Blood, SEE RESULT BELOW 21 Diag Laboratory test finding 04/24/2017 Lactic Acid 1.1 mmol/L 0.5-2.0 22 Comp Metabolic Panel 04/24/2017 Sodium 134 mmol/L [...] Egfr Non- 64.3 >60 Egfr 82.7 >60 23 Laboratory test finding 04/24/2017 Troponin-I (TnI) 0.04 ng/mL High <0.04 24 Type & Screen 04/24/2017 Patient Blood Type O Positive Antibody Screen NEGATIVE Inr/Protime 04/24/2017 Inr 2.04 High 0.77-1.02 25 Laboratory test finding 04/24/2017 Partial Thrombo 35.3 seconds 26.0- 36.3 Time PTT Digoxin 1.9 ng/ml 0.8-2.0 Hemoglobin A1c (Glyco HGB) 5.9 % High 4.0-5.6 26 CBC Auto Diff 04/24/2017 White Blood Count [...] 10^3/uL 0-0.2 Abs Nucleated RBC 0 10^3/uL Manual Differential 04/24/2017 Immature Granulocytes 2 % 0-9 Neutrophil % 79 % 38-83 Band % 2 % 0-8 Lymphocytes % 12 % Low 25-47 Monocytes % 6 % 0-13 Eosinophils % 1 % 0-6 Macrocytosis 1+ Laboratory test finding 04/24/2017 Pathologist Review (SEE NOTE) 27 Protime W/ Inr 04/23/2017 Inr 1.8 Inr/Protime [...] Egfr Non- 63.4 >60 Egfr 81.6 >60 28 Protime W/ Inr 04/03/2017 Inr 2.1 Protime W/ Inr 03/28/2017 Prothrombin Time 18.9 Inr 1.6 Protime W/ Inr 03/22/2017 Prothrombin Time 18.5 Inr 1.5 Laboratory test 03/17/2017 Legionella Antigen SEE RESULT BELOW 29 finding By Eia Inr/Protime 03/17/2017 Inr 3.13 High 0.89-1.11 Comp Metabolic Panel 03/17/2017 Sodium 137 mmol/L [...] Egfr Non- 62.6 >60 Egfr 80.5 >60 30 Urine Culture And 03/17/2017 Urine Culture SEE RESULT BELOW 31 Sensitivities Laboratory test finding 03/17/2017 Magnesium 1.9 mg/dL 1.9-2.7 Troponin-I (TnI) 0.02 ng/mL <0.04 B-Type Natriuretic Peptide BNP 223 pg/mL High 32 TSH (Thyroid Stim Horm) 2.74 mcIU/mL 0.34-5.60 Procalcitonin 0.1 ng/mL <0.6 33 Laboratory test finding 03/17/2017 Partial Thrombo Time 37.8 seconds High 26.0-36.3 PTT Laboratory test finding 03/17/2017 Lactic Acid 2.0 mmol/L 0.5-2.0 34 CBC Auto Diff 03/17/2017 White Blood Count [...] 0-2 Nucleated Red Blood Cells % 0 Urinalysis Profile 03/17/2017 Urine Color Straw Urine Appearance Cloudy Urine Specific [place] 1.005 Low 1.010-1.030 Urine pH 5.0 5-9 [...] test 02/19/2017 B-Type Natriuretic 210 pg/mL High 35 finding Peptide BNP CBC Auto Diff 02/19/2017 [...] Egfr Non- 59.4 >60 Egfr 76.3 >60 36 Manual Differential 02/19/2017 Immature Granulocytes 1 % 0-9 Neutrophil % 70 % 38-83 Band % 1 % 0-8 Lymphocytes % 20 % Low 25-47 Monocytes % 9 % 0-13 Macrocytosis 1+ Polychromasia 1+ Basophilic Stippling 1+ Laboratory test finding 02/19/2017 Pathologist Review (SEE NOTE) 37 Iron & Iron Binding Capacity 02/19/2017 Iron 57 g/dL 50-212 Unsaturated Iron Binding 264 g/dL Total Iron Binding Capacity 321 g/dL 250-450 % Iron Saturation 18 % 15-55 Laboratory test finding 02/19/2017 Ferritin 45.0 ng/mL 11-307 TSH (Thyroid Stim Horm) 2.73 mcIU/mL 0.34-5.60 Folic Acid (Folate) > 20.00 ng/mL >3.99 Vitamin B12 967 pg/mL High 180-914 38 Protime W/ Inr 02/07/2017 Prothrombin Time 29.5 Inr 2.4 Protime W/ Inr 01/10/2017 Prothrombin Time 32.7 Inr 2.7 Urinalysis Profile 01/08/2017 Urine Color Cindy Urine Appearance Cloudy Urine Specific [place] 1.016 1.010-1.030 Urine pH 8.0 5-9 Urine Urobilinogen Negative Negative Urine Ketones Negative Negative Urine Protein Negative Negative Urine Leukocytes Negative Negative Urine Blood Negative Negative Urine Nitrite Negative Negative Urine Bilirubin Negative Negative Urine Glucose Negative Negative Ua Routine 01/03/2017 Ua Specific [place] 1010 Ua PH 7 Ua Color yellow Ua Appera clear Ua WBC trace Ua Protein - Ua Glucose normal Ua Ketones - Ua Bilirubin - Ua Urobilinogen normal Ua Nitrite - Ua Occult Blood trace Protime W/ Inr 01/03/2017 Prothrombin Time 38.9 Inr 3.2 Comp Metabolic Panel 12/22/2016 Sodium 133 mmol/L [...] Egfr Non- 53.2 >60 Egfr 68.4 >60 39 Potassium TNP mmol/L 3.5-5.0 Anion Gap 5 mmol/L 2-11 Ast TNP U/L 13-39 CBC Auto Diff 12/22/2016 White [...] 3.5-5.0 Ast Redraw 24 U/L 13-39 Inr/Protime 12/22/2016 Inr 2.49 High 0.89-1.11 Urinalysis Profile 12/22/2016 Urine Appearance Cloudy Urine Specific [place] 1.014 1.010-1.030 Urine pH 7.0 5-9 Urine Urobilinogen Negative Negative Urine Ketones Negative Negative Urine Protein 2+(100 mg/dL) Negative Urine Leukocytes Trace Negative Urine Blood 3+ Negative * * Negative 40 Urine Nitrite Negative Negative Urine Bilirubin Negative Negative Urine Glucose Negative Negative Urine White Blood Cell Trace(0-5/hpf) Absent Urine Red Blood Cell 3+(>10/hpf) Absent Urine Bacteria Absent Absent Urine Color Red Urine Culture And 12/22/2016 Urine Culture SEE RESULT 41, 42 Sensitivities BELOW Laboratory test 12/22/2016 C Reactive 8.10 mg/L High < 5.00 43 finding Protein Inr/Protime 12/04/2016 Inr 2.41 High 0.89-1.1 1 Protime W/ Inr 11/07/2016 Inr 2.6 CBC Auto Diff 09/04/2016 White Blood Count [...] Blood Cells % 0 Comp Metabolic Panel 09/04/2016 Sodium 139 mmol/L [...] Egfr Non- 56.6 >60 Egfr 72.8 >60 44 Urine Culture And 01/09/2014 Urine Culture (SEE NOTE) 45 Sensitivities CBC Auto Diff 12/30/2013 White Blood Count [...] 0-2 Nucleated Red Blood Cells % 0 Inr/Protime 12/30/2013 Inr 2.65 High 0.85-1.06 Comp Metabolic Panel 12/30/2013 Sodium 139 mmol/L [...] Egfr Non- 56.9 >60 Egfr 73.1 >60 46 Basic Metabolic Panel 10/21/2013 Sodium 138 mmol/L 133-145 Potassium 4.1 mmol/L 3.7-5.6 Chloride 105 mmol/L 101-111 Co2 Carbon Dioxide 28 mmol/L 22-32 Anion Gap 5 mmol/L 2-11 Glucose 166 mg/dL High 70-100 Blood Urea Nitrogen 16 mg/dL 6-24 Creatinine 0.97 mg/dL High 0.51-0.95 BUN/Creatinine Ratio 16.5 8-20 Calcium 9.0 mg/dL 8.6-10.3 Egfr Non- 54.8 >60 Egfr 70.5 >60 47 Laboratory test finding 10/21/2013 Digoxin 1.0 ng/ml 0.8-2.0 1 SEE RESULT BELOW Name: ANGLE CARROLL : [address]: Uriel Hernandez MD Acct: [id number] Unit: [id number] AGE: 87 Location: ED Re01/16/18 SEX: F Status: REG ER SPEC: [id number] NIKITA: 01/16/[address] [facility] [address]: Uriel Hernandez MD REQ: [id number] RECD: 01/16/18 STATUS: VEE HAJI DR: Nuria Martin MD _ SOURCE: STOOL SPDESC: ORDERED: Occult Bl, Scn Procedure Result Reported Site Stool Occult Blood (1) Final 01/16/18- 1357 ML Stool Occult Blood Positive Collection Date (1) 01/16/18 * ML - Main Lab . END OF REPORT DEPARTMENT OF PATHOLOGY, [address] [place] [address] Carrington Chadwick M.D. Director [facility] # [id number] 2 Verbal to [id number] by [id number] at 1253 on .Results read back accurately 3 [facility] Severe Sepsis and Septic Shock Management Bundle Measure requires all lactic acids initially measuring >2.0 mmol/L be repeated. 4 Because ethnic data is not always readily [...] 15-29 5 Kidney failure <15 (or dialysis) 5 *Ascorbic acid is present which may interfere with detection of blood. 6 Severe, mildly macrocytic anemia noted. Moderate Leukocytosis with absolute neutrophilia suggestive of acute inflammatory/reactive process. Additional studies as clinically warranted. Reviewed by Dr. Chadwick 7 SEE RESULTS BELOW [id number] OP PC TRANSFUSED 01/16/18 1838 [id number] OP PC TRANSFUSED 01/16/18 1347 8 SEE RESULTS BELOW [id number] OP FFP TRANSFUSED 01/17/18 0056 [id number] OP FFP TRANSFUSED 01/16/18 2154 9 [employer] Associate: [id number] BLOODY 11 SEE RESULT BELOW Name: ANGLE CARROLL : [address]: Roseann Chin MD Acct: [id number] Unit: [id number] AGE: 87 Location: [facility] Re11/13/17 SEX: F Status: DEP ER SPEC: [id number] NIKITA: 11/13/17-[address] [facility] [address]: William FABIAN REQ: [id number] RECD: 11/14/17-1010 STATUS: VEE HAJI DR: [facility] Nuria Martin MD _ SOURCE: URINE SPDESC: ORDERED: Urine Culture COMMENTS: [id number] BLOODY Procedure Result Reported Site Urine Culture Final 11/15/17- 1334 ML No growth of clinically significant organisms * ML - Main Lab . END OF REPORT DEPARTMENT OF PATHOLOGY, [address] [place] [address] Carrington Chadwick M.D. Director [facility] # [id number] 12 Acute inflammation: >10.00 13 Because ethnic data is not always readily [...] 15-29 5 Kidney failure <15 (or dialysis) 14 >100 to <200 pg/mL: likely compensated congestive heart failure (CHF) 200 to 400 pg/mL: likely moderate CHF >400 pg/mL: likely moderate to severe CHF 15 Because ethnic data is not always readily [...] 15-29 5 Kidney failure <15 (or dialysis) 16 Macrocytic anemia with elliptocytosis. Reviewed by Mari Gaines MD 17 Normal Range 180 to 914 Indeterminate Range 145 to 180 Deficient Range <145 18 Because ethnic data is not always readily [...] 15-29 5 Kidney failure <15 (or dialysis) 19 Acute inflammation: >10.00 20 Please note the change in INR reference range effective 17. 21 SEE RESULT BELOW Name: ANGLE CARROLL : [address]: Francisco Miller MD Acct: [id number] Unit: [id number] AGE: 86 Location: ED Re04/24/17 SEX: F Status: REG ER SPEC: [id number] NIKITA: 04/24/[address]: Francisco Miller MD REQ: [id number] RECD: 04/24/17 STATUS: VEE HAJI DR: Román Sheets III, MD _ SOURCE: STOOL SPDESC: ORDERED: Occult Bl, Diag Procedure Result Reported Site Stool Occult Blood (1) Final 04/24/17- 1622 ML Stool Occult Blood Negative Collection Date (1) 04/24/17 * ML - MAIN LAB ([facility]) . END OF REPORT * ML=Testing performed at Main Lab DEPARTMENT OF PATHOLOGY, [address] [place] [address] Carrington Chadwick M.D. Director [facility] # [id number] 22 [facility] Severe Sepsis and Septic Shock Management Bundle Measure requires all lactic acids initially measuring >2.0 mmol/L be repeated. 23 Because ethnic data is not always readily [...] 15-29 5 Kidney failure <15 (or dialysis) 24 Result TnIDx:0.04 Called to KFOX at: 14:20:20 by:[id number] Read back by:KFOX 25 Please note the change in INR reference range effective 17. 26 Therapeutic target for the treatment of diabetes mellitus patients is <7% HBA1C, and in selective patients <6.0%. Please refer to [place] [employer] diabetic care guidelines for further information. 27 Macrocytic anemia. Reviewed by Mari Gaines MD 28 Because ethnic data is not always readily [...] 15-29 5 Kidney failure <15 (or dialysis) 29 SEE RESULT BELOW Name: NADIACORNELANGLE : [address]: Cheyanne Davis DO Acct: [id number] Unit: [id number] AGE: 86 Location: ICU [id number] Re03/17/17 SEX: F Status: ADM IN SPEC: [id number] NIKITA: 03/17/[address] [facility] [address]: Cheyanne Davis DO REQ: [id number] RECD: 03/17/17 STATUS: COMP ADITHYA DR: Robson Sheets III, MD _ SOURCE: URINE SPDESC: ORDERED: Legion Ur Ag, S.pneumo Ur Ag COMMENTS: Verbal to [id number] by [id number] at 0412 on 03/17/17. Results read back accurately. Procedure Result Reported Site Legionella Urine Antigen Final 03/17/17- 411 ML Organism 1 Negative Legionella Antigen testing by enzyme immunoassay S.Pneumonia Urine Antigen Final 03/17/17- 411 ML Organism 1 POSITIVE S. PNEUMO ANTIGEN Antigen testing by enzyme immunoassay * ML - [facility]) . END OF REPORT * ML=Testing performed at Main Lab DEPARTMENT OF PATHOLOGY, [address] [place] [address] Carrington Chadwick M.D. Director [facility] # [id number] 30 Because ethnic data is not always readily [...] 15-29 5 Kidney failure <15 (or dialysis) 31 SEE RESULT BELOW Name: ANGLE CARROLL : [address]: Roni Mcclendon MD Acct: [id number] Unit: [id number] AGE: 86 Location: [place] [address] Re03/17/17 SEX: F Status: ADM IN SPEC: [id number] NIKITA: 03/17/[address]: Robson Mariscal MD REQ: [id number] RECD: 03/17/17 STATUS: VEE HAJI DR: Román Sheets III, MD _ SOURCE: URINE SPDESC: ORDERED: Urine Culture Procedure Result Reported Site Urine Culture Final 03/19/17- 0758 ML Organism 1 ESCHERICHIA COLI Spangle Count 10-25,000 (Moderate) CFU/ML Organism 2 NORMAL ERIN Spangle Count 1-10,000 (Few) CFU/ML 1. ESCHERICHIA COLI [...] any additional antibiotic reporting. * ML - [facility] ([facility]) . END OF REPORT * ML=Testing performed at Main Lab DEPARTMENT OF PATHOLOGY, [address] [place] [address] Carrington Chadwick M.D. Director [facility] # [id number] 32 >100 to <200 pg/mL: likely compensated congestive heart failure (CHF) 200 to 400 pg/mL: likely moderate CHF >400 pg/mL: likely moderate to severe CHF 33 Interpretive information available on [employer] Test Catalog at [email or web address] 34 [facility] Severe Sepsis and Septic Shock Management Bundle Measure requires all lactic acids initially measuring >2.0 mmol/L be repeated. 35 >100 to <200 pg/mL: likely compensated congestive heart failure (CHF) 200 to 400 pg/mL: likely moderate CHF >400 pg/mL: likely moderate to severe CHF 36 Because ethnic data is not always readily [...] 15-29 5 Kidney failure <15 (or dialysis) 37 Macrocytic anemia noted. Additional studies is warranted. Reviewed by Dr. Chadwick 38 Normal Range 180 to 914 Indeterminate Range 145 to 180 Deficient Range <145 39 Because ethnic data is not always readily [...] 15-29 5 Kidney failure <15 (or dialysis) 40 *Ascorbic acid is present which may interfere with detection of blood. 41 [id number] 42 SEE RESULT BELOW Name: ANGLE CARROLL : [address]: Lawrence Su DO Acct: [id number] Unit: [id number] AGE: 86 Location: [facility] Re12/22/16 SEX: F Status: DEP ER SPEC: [id number] NIKITA: 12/22/16-[address] [facility] [address]: Diann Friedman NP REQ: [id number] RECD: 12/23/16-1409 STATUS: VEE HAJI DR: Lawrence Huerta III, MD _ SOURCE: URINE SPDESC: ORDERED: Urine Culture COMMENTS: [id number] Procedure Result Reported Site Urine Culture Final 12/24/16- 1533 ML Organism 1 STREP GROUP B Spangle Count 10-25,000 (Moderate) CFU/ML Organism 2 NORMAL ERIN Spangle Count 1-10,000 (Few) CFU/ML Susceptibility testing of penicillins and other B-lactams approved by FDA for treatment of Streptococcus pyogenes (Group A Strep) and Streptococcus agalactiae (Group B Strep) is not necessary for clinical purposes and need not be done routinely, since as with vancomycin, resistant strains have not been recognized. (CLSI C156-N03;p.66) Positive isolates will be saved for one week. Please call the Microbiology Laboratory if further susceptibility testing is needed. * ML - MAIN LAB ([facility]) . END OF REPORT * ML=Testing performed at Main Lab DEPARTMENT OF PATHOLOGY, [address] [place] [address] Carrington Chadwick M.D. Director [facility] # [id number] 43 Acute inflammation: >10.00 44 Because ethnic data is not always readily [...] 15-29 5 Kidney failure <15 (or dialysis) 45 RUN DATE: 01/12/14 [facility] LAB LIVE PAGE 1 RUN TIME: [address] [place] [id number] Specimen Inquiry Name: ANGLE CARROLL : [address]: Roseann Chin MD Acct: [id number] Unit: [id number] AGE: 83 Location: [facility] Re01/09/14 SEX: F Status: DEP ER SPEC: [id number] NIKITA: 01/09/14-[address] [facility] [address]: Roseann Chin MD REQ: [id number] RECD: 01/10/14-1223 STATUS: VEE HAJI DR: [facility] John Arrington MD _ SOURCE: URINE SPDESC: ORDERED: Urine Culture Procedure Result Verified Site Urine Culture Final 01/12/14- 0856 ML Organism 1 ESCHERICHIA COLI Spangle Count 10-25,000 (Moderate) CFU/ML 1. ESCHERICHIA COLI [...] performed at Main Lab DEPARTMENT OF PATHOLOGY, [address] [place] [address] Carrington Chadwick M.D. Director [facility] # [id number] 46 Because ethnic data is not always readily [...] 15-29 5 Kidney failure <15 (or dialysis) 47 Because ethnic data is not always [...] Procedures Date CPT Code Description Status 01/16/2018 57552 EKG Tracing & Interpretation Completed 09/11/2017 61712 EKG Tracing & Interpretation Completed 08/22/2017 35084 EKG Tracing & Interpretation Completed 05/16/2017 75773 EKG Tracing & Interpretation Completed 05/16/2017 12742 EKG Tracing & Interpretation Completed 05/14/2017 95051 ECHO Transthoracic, Real-Time 2D With Doppler And Color Completed Flow 05/14/2017 69705 ECHO Transthoracic, Real-Time 2D With Doppler And Color Completed Flow 04/25/2017 87129 EKG, Interpretation Only Completed 04/24/2017 31012 EEG Recording Awake & Asleep Completed 04/15/2017 70693 Cath PLMT&NJX L Ventriculog Img S&I Completed 03/17/2017 24458 ECHO Transthorasic Realtime 2D W Doppler & Color Flow Completed Hosp 02/22/2017 32404 EKG Tracing & Interpretation Completed 10/23/2016 63627 Plethysmography Determination Lung Volumes & Per Airway Completed Resist 10/23/2016 94384 Pulmonary Function><Bronchodil Completed 10/19/2016 96570 ECHO Transthoracic, Real-Time 2D With Doppler And Color Completed Flow 04/24/2016 64950 EKG Tracing & Interpretation Completed 04/29/2015 39860 EKG Tracing & Interpretation Completed 03/02/201573492 Inject/Drain Joint/Bursa Major W/O US Completed 10/29/2014 86111 EKG Tracing & Interpretation Completed 09/20/201435308 Inject/Drain Joint/Bursa Major W/O US Completed 08/24/2014 09444 EKG, Interpretation Only Completed 10/16/2013 63830 EKG Tracing & Interpretation Completed 09/25/2012 32779 ECHO Transthoracic, Real-Time 2D With Doppler And Color Completed Flow Encounters Type Date Location Provider CPT E/M Dx Office Visit 01/02/2018 [facility] Alec Lama, [address] I27.20 11:30a Taylor Bishop R94.31 Z95.2 Office Visit 11/21/2017 10:20a [facility] [facility] [place] [address] Z79.01 [place] I48.2 N39.0 Office Visit 09/11/2017 1:00p [facility] [place] [address] Z00.00 [place] R10.9 M79.602 Z87.891 J44.9 E03.9 I27.20 I48.2 Office Visit 08/22/2017 11:30a [facility] Alec Lama, 47364 R06.02 Taylor Bishop I48.2 Z95.2 I27.20 Office Visit 08/19/2017 3:40p [facility] [place] [address] R06.02 [place] R07.9 Office Visit 05/29/2017 2:15p [facility] Alec Lama, 52615 Z95.2 Taylor Bishop I48.2 I50.9 I34.0 Office Visit 04/30/2017 1:15p [facility] Alec Lama, 94495 I48.2 It Systems Manager AT [facility] [place] I50.9 I35.0 Z95.2 Office Visit 04/28/2017 12:51p [facility], Luther Powers, 88160 I63.9 Hospitalists Edna I48.91 I50.9 K92.2 Office Visit 04/27/2017 12:50p [facility] Luther Gio, 56419 I63.9 Hospitalists M.D. I48.91 I50.9 K92.2 Office Visit 04/26/2017 12:00p [facility] [address] I63.9 R40.4 F03.90 N39.0 Office Visit 04/26/2017 12:50p [facility] Yana Mckeon, 11600 I63.9 Hospitalists M.D. I48.91 I50.9 K92.2 Office Visit 04/25/2017 12:49p [facility] Yana Mckeon, 86296 I63.9 Hospitalists M.D. 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 I48.91 K92.2 Office Visit 04/24/2017 11:40a [facility] Internal Medicine Román Sheets, 15067 R53.83 - Mark Bishop R10.13 R06.00 F03.90 Office Visit 03/22/2017 11:20a [facility] Medicine Román Sheets, 86584 I48.2 - Mark Bishop Z79.01 R06.00 G31.84 Office Visit 03/19/2017 8:34a [facility] Roni Mcclendon, 32283 I50.9 Hospitalists MIsak J44.9 J18.9 I25.10 Office Visit 03/18/2017 8:33a [facility] Roni Mcclendon, 25002 I50.9 Hospitalists MIsak J18.9 J44.9 I25.10 Office Visit 03/17/2017 8:32a [facility] [place]oc,[place] [address] I50.9 Hospitalists J18.9 J44.9 I25.10 Office Visit 03/17/2017 8:31a [facility] Roni Mcclendon, 91342 I50.9 Hospitalists M.D. I25.10 J44.9 J18.9 Office Visit 03/15/2017 10:00a [facility] Medicine Román Sheest, 18295 G31.84 - Mark Bishop I48.2 Z79.01 Office Visit 02/22/2017 2:30p [facility] John Lama, 48884 I35.0 Taylor Bishop R06.00 I48.2 I34.0 Office Visit 02/18/2017 3:20p [facility] Medicine Román Sheets, 77898 I35.0 - Mark Bishop R06.00 Office Visit 01/03/2017 2:00p [facility] Medicine Román Sheets, 47144 I48.2 - Mark Bishop R31.0 J44.9 Office Visit 10/03/2016 3:40p [facility] Medicine Román Sheets, 57889 I48.2 - Mark Bishop I35.0 J44.9 Office Visit 04/24/2016 1:00p [facility] Alec Lama, 71073 I48.2 [facility] Edna I34.0 I35.0 Office Visit 04/29/2015 2:30p [facility] Of John Lama, 70714 I48.2 [facility] Alla.Anna I34.0 J44.9 R94.31 Office Visit 04/01/2015 10:45a [facility] Rose M.D. 69194 M17.11 C.M.A. Office Visit 01/12/2015 1:45p [facility] M.D. 35850 715.16 C.M.A. 715.36 Office Visit 10/29/2014 3:45p [facility] Of John Lama, 82584 427.31 It Systems Manager M.D. 424.0 496 Office Visit 10/11/2014 11:50a [facility] M.D. 75153 715.16 C.M.A. Office Visit 09/03/2014 11:00a [facility] M.D. 20918 719.06 C.M.A. 715.96 Office Visit 08/24/2014 2:11p [facility]oc, Rozina Quinteros, 03006 599.0 Hospitalists MIsak 427.31 496 294.20 Office Visit 08/23/2014 2:10p [facility], Man Tomas, 42307 599.0 Hospitalists N.P. 486 496 427.31 Office Visit 04/14/2014 10:30a [facility] NickGill Lama, 49216 424.0 It Systems Manager M.D. 427.31 Office Visit 10/16/2013 2:45p [facility] Anna Lama, 41910 424.0 It Systems Manager M.DGill 427.31 799.02 Office Visit 02/18/2013 11:15a [facility] NickGill Lama, 59054 424.0 It Systems Manager M.D. 427.31 799.02 Office Visit 09/17/2012 11:30a [facility] NickGill [facility], 57809 428.0 It Systems Manager M.D. 396.9 427.31 Office Visit 09/04/2012 1:41p [facility], 84081 491.22 Assoc, Hospitalists Edna 427.31 396.2 799.02 Office Visit 09/03/2012 1:40p [facility], 95572 491.22 Assoc, Hospitalists Edna 427.31 396.2 Office Visit 09/02/2012 1:39p [facility], 42390 491.22 Assoc, Hospitalists Edna 427.31 396.2 Office Visit 09/01/2012 1:39p [facility], 46714 491.22 Assoc, Hospitalists Edna 427.31 396.2 Office Visit 08/31/2012 1:38p [facility] [place], [address] 491.22 Assoc,pc Hospitalists Edna 427.31 396.2 Office Visit 08/30/2012 1:38p [facility] Kevin Martinez, 19277 491.22 Assoc,pc Hospitalists Edna Hospitalist 427.31 396.2 Office Visit 04/16/2012 1:45p [facility] John Lama, 05614 394.1 Taylor Bishop 786.05 Plan of Care 01/16/2018 - Merry Ramirez, N.P.R06.02 Shortness of breathComments:Given your current condition I think it best for you to go directly to the hospital.R55 Syncope and collapse
[2018-02-06 12:32] LABS: EGFR Non-African American 55.6 (>60)
[2018-02-06] MEDS ORDERED: Iodixanol* (CONTRAST) 320 MG/ML 100 ML SDV IV ONE (12:48)
[2018-02-06 13:04] LABS: Monocytes % 9 % (0-7)
[2018-02-06 13:05] LABS: ABS Basophils 0 10^3/ul (0-0.2); ABS Neutrophils 4.4 10^3/ul (1.5-7.7)
--- NOTE | 2018-02-06 13:29 | RAD ---
INDICATION: Lower abdominal pain. Constipation for several weeks. Assess for small bowel obstruction. COMPARISON: January 16, 2018 CT TECHNIQUE: Multidetector CT images were obtained from the lung bases to the ischial tuberosities with 80 mL Visipaque 320 IV contrast. No oral contrast administered. Multiplanar reformation. REPORT: VISUALIZED INFERIOR THORAX: Emphysema. Cardiomegaly. 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 LIVER / GALLBLADDER / PANCREAS / SPLEEN: Unremarkable liver, gallbladder, pancreas. Upper normal size spleen. ALIMENTARY TRACT: Unremarkable upper GI, small bowel, and inferomedial extending appendix. Diverticulosis of the sigmoid colon without findings of diverticulitis. Negative for significant retained stool in the colon. Negative for ascites, free air, or significant hernias. MESENTERIC: Unremarkable. ADRENAL / GENITOURINARY: Normal adrenal glands. Unremarkable kidneys with symmetric nephrograms and pyelograms. Unremarkable nondilated ureters and partially distended urinary bladder. Pelvic phleboliths noted. Post hysterectomy. Unremarkable adnexal regions. RETROPERITONEAL: Negative for lymphadenopathy. VASCULAR: Ectatic abdominal aorta with fusiform enlargement of the infrarenal segment measuring up to 2.2 cm below the threshold for aneurysm. Severe atherosclerotic plaque at the iliac arteries with gross occlusion of the LEFT internal iliac artery and high-grade stenosis at the RIGHT external iliac artery. Physiologic distention of the IVC. BONES: Negative for suspicious osseous lesions. Degenerative spondylosis and facet joint osteoarthritis results in moderate acquired central canal stenosis at L2-L3 without significant change. SOFT TISSUE: Unremarkable. IMPRESSION: #. Colonic diverticulosis without findings of acute diverticulitis. Negative for bowel obstruction. Negative for significant retained stool in the colon. #. Peripheral vascular disease without gross change compared with the January 16, 2018 CT angiogram.
[2018-02-06 14:00] LABS: Urine Appearance Turbid; Urine Blood Negative (Negative); Urine Color Yellow; Urine Ketones Negative (Negative); Urine Protein Negative (Negative); Urine Specific Gravity 1.059 (1.010-1.030); Urine Urobilinogen Negative (Negative)
[2018-02-06 14:27] VITALS: BP 156/54
== END 2018-02-06 14:27 | disposition home or self-care (01) ==
LOC: ED 10:52
DX: R10.9 Unspecified abdominal pain (principal); K57.30 Diverticulosis of large intestine without perforation or abscess without bleeding; I73.9 Peripheral vascular disease, unspecified; I48.91 Unspecified atrial fibrillation; Z79.01 Long term (current) use of anticoagulants; Z87.891 Personal history of nicotine dependence; Z88.3 Allergy status to other anti-infective agents; Z88.8 Allergy status to other drugs, medicaments and biological substances; Z88.5 Allergy status to narcotic agent
CPT/HCPCS: 36415; 74177; 80053; 81003; 83605; 83690; 85025; 85060; 99283; Q9967

== ENCOUNTER 2018-12-18 06:51 | Emergency (ER) | payer MEDICARE, OTHER ==
--- NOTE | 2018-12-18 07:47 | ED ---
Head Injury - HPI Summary HPI Summary: This pt is an 88 Y/O F brought in by EMS to [facility] for a CC of a head injury following a fall around 0530 this morning and rates the pain a 2/10 in severity. She is accompanied by her family. Per her she went to the bathroom and was found on the ground. She has a hematoma on the back of her head in the occipital region which is also swollen. LOC is unknown. She currently denies SOB, CP, N/V, fevers, chills, neck pain, and coughing. She has more pain when that region is touched. Her stated that he applied ice to the injured area which helped with swelling and bleeding. She has a Hx of dementia and therefore is unsure if she lost consciousness. She is currently on blood thinners. She has a PMHx of CHF, COPD, and is on 3 L of oxygen constantly at home. - History Of Current Complaint Chief Complaint: EDHeadInjury Stated Complaint: FALL/HEAD INJURY PER PT Hx Obtained From: Patient, Family/Rv Repairer - daughter Mechanism Of Injury: Fall From A Standing Position Onset/Duration: Started Hours Ago - 0530, Still Present Onset of Pain: Immediate Severity Currently: Mild Severity Initially: Mild Pain Intensity: 2 Pain Scale Used: 0-10 Numeric Location of Head Injury: Occipital Aggravating Factor(s): Other: - touch Alleviating Factor(s): Ice Associated Signs And Symptoms: Negative - SOB, CP, N/V, fevers, chills, neck pain, and coughing, LOC Duration Unknown, Swelling, Other: - hematoma on her occipital region - Allergies/Home Medications Allergies/Adverse Reactions: Allergies Allergy/AdvReac Type Severity Reaction Status Date / Time amoxicillin [From Augmentin] Allergy Unknown Verified 12/18/18 07:47 Reaction Details clavulanic acid Allergy Unknown Verified 12/18/18 07:47 [From Augmentin] Reaction Details fenoprofen Allergy Unknown Verified 12/18/18 07:47 Reaction Details metolazone Allergy Unknown Verified 12/18/18 07:47 Reaction Details morphine Allergy Nausea Verified 12/18/18 07:47 nitrofurantoin Allergy Unknown Verified 12/18/18 07:47 [From Macrodantin] Reaction Details Penicillins Allergy Shortness Verified 12/18/18 07:47 of Breath sulfamethoxazole Allergy Nausea Verified 12/18/18 07:47 [From ] theophylline Allergy Unknown Verified 12/18/18 07:47 Reaction Details trimethoprim [From ] Allergy Nausea Verified 12/18/18 07:47 yellow dye Allergy Unknown Verified 12/18/18 07:47 Reaction Details Home Medications: Home Medications Apixaban* [Eliquis*] 2.5 mg PO BID 12/18/18 [History Confirmed 12/18/18] Fluticasone-Salmeterol 250-50* [Advair Diskus 250-50*] 1 puff INH BID 12/18/18 [ History Confirmed 12/18/18] PMH/Surg Hx/FS Hx/Imm Hx Previously Healthy: No Endocrine/Hematology History: Reports: Hx Anticoagulant Therapy - coumadin, Hx Thyroid Disease Denies: Hx Diabetes, Hx Systemic Lupus Erythematosus Cardiovascular History: Reports: Hx Atrial Fibrillation, Hx Congestive Heart Failure - HX, Hx Hypertension, Hx Valvular Heart Disease, Other Cardiovascular Problems/Disorders - VALVULAR HEART DISEASE Denies: Hx Pacemaker/ICD Respiratory History: Reports: Hx Asthma, Hx Chronic Obstructive Pulmonary Disease (COPD) History: Reports: Hx Kidney Infection, Other Problems/Disorders - UTIs Denies: Hx Dialysis, Hx Renal Disease Musculoskeletal History: Reports: Hx Arthritis Denies: Hx Rheumatoid Arthritis, Hx Scoliosis Sensory History: Reports: Hx Contacts or Glasses Denies: Hx Hearing Aid Opthamlomology History: Reports: Hx Contacts or Glasses Neurological History: Reports: Hx Dementia - per pt's daughter, Hx Migraine, Hx Transient Ischemic Attacks (TIA) Denies: Hx Headaches, Other Neuro Impairments/Disorders Psychiatric History: Reports: Hx Anxiety Denies: Hx Panic Disorder - Cancer History Hx Chemotherapy: No Hx Radiation Therapy: No - Surgical History Surgery Procedure, Year, and Place: open heart surgery september 2011. hysterectomy. Valve repair 2017-[facility] 3-OK FOR 1.5 OR 3T-UP TO 720 G/CM. HEART ABLASION Infectious Disease History: No Infectious Disease History: Denies: Traveled Outside the [place] in Last 30 Days - Family History Known Family History: Positive: Cardiac Disease, Hypertension - Social History Alcohol Use: None Hx Substance Use: No Substance Use Type: Reports: None Hx Tobacco Use: Yes Smoking Status (MU): Former Smoker Review of Systems Negative: Fever, Chills Negative: Chest Pain Negative: Shortness Of Breath, Cough Negative: Vomiting, Nausea Musculoskeletal: Negative - neck pain Positive: Other - ecchymosis to her occipital region, hematoma to her occipital region All Other Systems Reviewed And Are Negative: Yes Physical Exam - Summary Physical Exam Summary: GENERAL: Patient is a well-developed and nourished F who is lying comfortable in the stretcher. Patient is not in any acute respiratory distress. HEAD AND FACE: Normocephalic, Hematoma seen on the R part of the occipital region, Ecchymosis seen to the occipital area EYES: PERRLA, EOMI x 2. EARS: Hearing grossly intact. MOUTH: Oropharynx within normal limits. NECK: Supple, trachea is midline, no adenopathy, no JVD, no carotid bruit. CHEST: Symmetric, no tenderness at palpation LUNGS: Clear to auscultation bilaterally. No wheezing or crackles. CVS: Regular rate and rhythm, S1 and S2 present, no murmurs or gallops appreciated. ABDOMEN: Soft, non-tender. Bowel sounds are normal. No abnormal abdominal pulsations. EXTREMITIES: Full ROM in all major joints, no edema, no cyanosis or clubbing. NEURO: Alert and oriented x 3. No acute neurological deficits. Speech is normal and follows commands. SKIN: Dry and warm, Triage Information Reviewed: Yes Vital Signs On Initial Exam: Initial Vitals Temp Pulse Resp BP Pulse Ox 99 F 93 18 154/87 94 12/18/18 06:55 12/18/18 06:55 12/18/18 06:55 12/18/18 06:55 12/18/18 06:55 Vital Signs Reviewed: Yes Diagnostics - Vital Signs Vital Signs Temp Pulse Resp BP Pulse Ox 12/18/18 06:55 99 F 93 18 154/87 94 - Laboratory Lab Statement: Any lab studies that have been ordered have been reviewed, and results considered in the medical decision making process. - CT Brain CT CT Interpretation Completed By: Radiologist Summary of CT Findings: NO EVIDENCE FOR ACUTE INTRACRANIAL ABNORMALITY. ED physician has reviewed this report. Cervical Spine CT CT Interpretation Completed By: Radiologist Summary of CT Findings: 1. No fracture or traumatic malalignment of cervical spine. 2. Generalized osteopenia. 3. Varying degrees multiple spondylosis results in up to moderate right neural foraminal stenosis at C3-C4 and at least mild spinal canal stenosis at C6-C7. 4. Moderate biapical centrilobular emphysema. ED Physician has reviewed this report. Re-Evaluation - Re-Evaluation First Eval Re-Evaluation Time: 08:46 Change: Improved Comment: Pt andher family were informed of the discharge plan and the imaging results. She and her family are agreeable. Head Injury Course/Dx Course Of Treatment: This pt is an 88 Y/O F brought in by EMS to [facility] for a CC of a head injury following a fall around 0530 this morning and rates the pain a 2/10 in severity. Her PE found that she had a Hematoma seen on the R part of the occipital region and Ecchymosis seen to the occipital area. She is on blood thinners. Her Brain CT showed the following: NO EVIDENCE FOR ACUTE INTRACRANIAL ABNORMALITY. Her Cervical Spine CT shows the followin. No fracture or traumatic malalignment of cervical spine. 2. Generalized osteopenia. 3. Varying degrees multiple spondylosis results in up to moderate right neural foraminal stenosis at C3-C4 and at least mild spinal canal stenosis at C6-C7. 4. Moderate biapical centrilobular emphysema. I discussed results with patient, and she reports feeling better. She is hemodynamically stable and safe for discharge. Strict return precautions given and she will otherwise follow up with her PCP. She will be discharged with a Dx of a head injury. - Diagnoses Provider Diagnoses: Head injury Discharge - Sign-Out/Discharge Documenting (check all that apply): Patient Departure - discharge Patient Received Moderate/Deep Sedation with Procedure: No - Discharge Plan Condition: Stable Disposition: HOME Patient Education Materials: Head Injury (ED) Referrals: Nuria Martin MD [Primary Care Provider] - 2 Days Additional Instructions: Follow up with your primary care physician in 1-3 days. RETURN TO THE EMERGENCY DEPARTMENT FOR CHANGING OR WORSENING SYMPTOMS. - Billing Disposition and Condition Condition: STABLE Disposition: Home - Attestation Statements Document Initiated by Scribe: Yes Documenting Scribe: Dre Zhu Provider For Whom Ramin is Documenting (Include Credential): Raiza Jameson MD Scribe Attestation: Dre Caba, scribed for Raiza Jameson MD on 12/20/18 at 0756. Scribe Documentation Reviewed: Yes Provider Attestation: The documentation as recorded by the Dre moon accurately reflects the service I personally performed and the decisions made by me, Raiza Jameson MD Status of Scribe Document: Viewed
[2018-12-18] MEDS ORDERED: Acetaminophen TAB* 325 MG PO ONE (07:48)
[2018-12-18] MEDS ORDERED: Tetan/Diph/Pertus SYR(Tdap)* 0.5 ML SYR(BOOSTRIX) use SYR contains LATEX IM ONE (08:04)
[2018-12-18 08:47] VITALS: BP 123/82
[2018-12-18] MEDS ORDERED: Bacitracin OINTMENT* 0.5% 0.5 oz TUBE TOPICAL ONE (08:47)
== END 2018-12-18 08:54 | disposition home or self-care (01) ==
LOC: ED 06:51
DX: S09.90XA Unspecified injury of head, initial encounter (principal); Z23 Encounter for immunization; W18.30XA Fall on same level, unspecified, initial encounter; Y92.002 Bathroom of unspecified non-institutional (private) residence as the place of occurrence of the external cause; E07.9 Disorder of thyroid, unspecified; I48.91 Unspecified atrial fibrillation; I11.0 Hypertensive heart disease with heart failure; I50.9 Heart failure, unspecified; J44.9 Chronic obstructive pulmonary disease, unspecified; F41.9 Anxiety disorder, unspecified; Z79.01 Long term (current) use of anticoagulants; Z79.899 Other long term (current) drug therapy; Z99.81 Dependence on supplemental oxygen; Z88.1 Allergy status to other antibiotic agents; Z88.5 Allergy status to narcotic agent; Z88.0 Allergy status to penicillin; Z88.2 Allergy status to sulfonamides; Z87.891 Personal history of nicotine dependence; M85.88 Other specified disorders of bone density and structure, other site; M47.892 Other spondylosis, cervical region; M48.02 Spinal stenosis, cervical region
CPT/HCPCS: 70450; 72125; 90471; 90715; 99283; A9270-GY

== ENCOUNTER 2019-01-14 10:49 | Inpatient (IN) | payer MEDICARE, OTHER ==
--- OUTSIDE RECORDS SUMMARY | 2019-01-14 11:21 | XMS REPORT | Continuity of Care Document ---
:1930 External Reference #:[id number] Author Name Aric Jean NP (transmitted by agent of provider Yue Carney) Address [address], [place] [address] Care Team Providers Name Role Phone Nuria Martin MD - Internal Care Team Information [place] [phone] Medicine Problems Active Problems Provider Date Mitral valve disorder John Lama M.D. 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 Onset: 02/18/2013 Hypoxemia John Lama M.D. Onset: 02/18/2013 Localized, primary osteoarthritis Nava Rose M.D. Onset: 01/12/2015 Disorder of shoulder Jasiel Buitrago MD Onset: 04/22/2018 Social History Type Date Description Comments Sex Unknown Tobacco Use Start: Unknown End: Former Cigarette Smoker Unknown ETOH Use Denies alcohol use Tobacco Use Start: Unknown End: Patient is a former quit 21 years ago Unknown smoker Recreational Drug Use Denies Drug Use Tobacco Use Start: Unknown End: Patient is a former 1996 Unknown smoker Smoking Status Reviewed: 01/07/19 Patient is a former 1996 smoker Exercise Type/Frequency Walks daily limited Allergies, Adverse Reactions, Alerts Active Allergies Reaction Severity Comments Date Penicillin shortness of breathe 02/18/2013 Macrodantin 09/03/2014 Theodur 03/15/2017 Zaroxlen 03/15/2017 Morphine Vomitimg 03/22/2017 Nalfon 03/22/2017 Quinoline Yellow 04/24/2017 Amoxicillin 04/30/2017 Sulfamethoxazole / Trimethoprim 05/16/2017 Inactive Allergies Potasium 03/15/2017 Proventil 03/22/2017 Medications Active Medications SIG Qnty Indications Ordering Date Provider Meclizine HCL 1/2 to 1 tablet 30tabs R42 Aric Jean NP 01/07/2019 every 12 hours as 12.5mg Tablets needed for dizziness Fluticasone 2 sprays each 16gm Aric Jean NP 01/07/2019 Propionate nostril qd. 50mcg/Act Suspension Miralax dissolve 1 510units Aric Jean NP 09/25/2018 3350NF tablespoonful once Powder daily in liquid as needed Magnesium 1 by mouth every day 90tabs Aric Jean NP 08/02/2018 250mg Tablets Eliquis 1 tablet by mouth 180tabs I48.2 Aric Jean NP 03/26/2018 2.5mg twice a day. blood Tablets thinner. Digoxin take 1 tablet by 90tabs I48.0 Aric Jean NP 01/21/2018 125mcg mouth every day Tablets Albuterol Sulfate inhale the contents 75units Aric Jean NP 10/02/2017 of 1 vial via (2.5mg/3ML) 0.083% nebulizer 4 times Nebulizer daily as needed Nebulizer use for albuterol 1units R06.02 Aric Jean NP 08/28/2017 Device nebulized solution up to 4 times a day. I50.9 Spiriva Handihaler inhale the contents 90caps Aric Jean NP 08/23/2017 18mcg of one capsule via Capsules handihaler by mouth every day Spironolactone 1 by mouth every day 90tabs R06.02 John Castillo 08/22/2017 25mg Tablets Edna Lama Nebulizer use for albuterol 1units Román Miller 03/15/2017 Device nebulized solution Edna Sheets up to 4 times a day. Ventolin HFA 2 puffs po qid prn 1units J44.9 Román Miller 10/03/2016 108(90Base) Edna Sheets mcg/ac Aerosol Topamax 1 by mouth every day 90tabs Aric Jean NP 25mg Tablets Oxygen 2-3 L continuously 1units Unknown Misc Centrum Silver 50+Women 1 by mouth daily 90tabs Aric Jean NP 50+Women Tablets Wheelchair to be used as needed 1units Román Miller Edna Sheets Coq-10 1 by mouth daily 90caps Aric Jean NP 100mg Capsules ER Advair Diskus inhale 1 puff by 180units Aric Jean NP mouth 2 times a day 250-50mcg/Dose Aerosol Omeprazole take one capsule by 180caps Aric Jena NP 20mg Capsules DR mouth twice a day Zofran take 1 by mouth orn 30tabs Aric Jaen NP 4mg Tablets q6 hours Levothyroxine Sodium Take 1 Tablet By 90tabs Aric Jean NP 50mcg Mouth Every Day Tablets Senna Laxative 1 tab saturday 42tabs Aric Jean NP 8.6mg saturday Tablets Keflex 1 by mouth four Unknown 500mg Capsules times a day as needed Medications Administered in Office Medication SIG Qnty Indications Ordering Provider Date PPD Injection Nurse Visit A 07/08/2018 Triamcinolone (Kenalog) Jasiel Buitrago MD 04/22/2018 Injection Depomedrol 80MG Nava Rose M.D. 03/02/2015 Injection Depomedrol 80MG Nava Rose M.D. 09/20/2014 Injection Immunizations CPT Code Status Date Vaccine Lot # [id number] Given 02/13/2018 Influenza Virus Vaccine, Quadrivalent, Split, Preservative Free 23801 Given 01/25/2017 Influenza Virus Vaccine, Quadrivalent, Split, [id number] Preservative Free Vital Signs Date Vital Result Comment 01/07/2019 2:48pm Height 58.25 inches 4'10.25" Weight 120.00 lb Heart Rate 93 /min BP Systolic 139 mmHg BP Diastolic 76 mmHg Body Temperature 97.7 F O2 % BldC Oximetry 95 % BMI (Body Mass Index) 24.9 kg/m2 08/08/2018 10:01am Height 58.25 inches 4'10.25" Weight 119.00 lb with shoes Heart Rate 68 /min BP Systolic Sitting 138 mmHg Lue reg cuff BP Diastolic Sitting 66 mmHg Lue reg cuff BP Systolic Standing 130 mmHg Lue reg cuff BP Diastolic Standing 60 mmHg Lue reg cuff Respiratory Rate 18 /min BMI (Body Mass Index) 24.7 kg/m2 Results Test Date Facility Test Result H/L Range Note Order 01/07/2019 [facility] In-House EKG <pending> Urine Culture And 11/14/2018 [facility] Urine Culture SEE RESULT [address] [place], [place] [id number] [phone] 1 SEE RESULT BELOW Name: ANGLE CARROLL : [address]: Aric Jean RADAR TESTER Acct: [id number] Unit: [id number] AGE: 88 Location: [facility] Re11/14/18 SEX: F Status: REG REF SPEC: [id number] NIKITA: 11/14/18-1106 [facility] DR: Aric Jean RADAR TESTER REQ: [id number] RECD: 11/14/188 STATUS: COMP _ SOURCE: URINE SPDESC: ORDERED: Urine Culture COMMENTS: [id number] Procedure Result Reported Site Urine Culture Final 11/15/18- 1307 ML No growth of clinically significant organisms * ML - Main Lab . END OF REPORT DEPARTMENT OF PATHOLOGY, [address] [place] [address] Carrington Chadwick M.D. 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 08/08/2018 I48.2 Chronic atrial fibrillation John Lama M.D. Plan of Treatment Future Appointment(s):02/06/2019 1:00 pm - Aric Jean NP at [facility] Internal Medicine - [facility]01/16/2019 11:15 am - John Lama M.D. at [facility]01/07/2019 - Aric Ted, NPR42 Dizziness and giddinessNew Medication:Meclizine HCL 12.5 mg - 1/2 to 1 tablet every 12 hours as needed for dizzinessComments:Your dizziness is likely due to vertigo. Keep your visit next week with Dr. Lama. If no improvementor worsening I would recommend physical therapy. You can use the meclizine up to twice daily. This may make you tired.It is important to move slowly when you first get up and to try to use your walker when ambulating. Have the bloodwork done soon. Functional Status Description No Information Available Mental Status Description No Information Available Referrals Description No Information Available
--- NOTE | 2019-01-14 12:36 | ED ---
HPI Chest Pain - HPI Summary HPI Summary: The patient is an 88 y/o F presenting to [facility] accompanied by granddaughter with a chief complaint of dizziness and diffuse chest pain today worsening over the last few days. The chest pain is noted to have a sudden onset that lasts fore a few seconds before resolving, but it is accompanied by SOB. Per granddaughter, who is a nurse, noted that the patient has been hypertensive ( 180 mmHg SBP), tachycardiac (140s bpm), tachpneic, and hypoxic, as she had to have her at home O2 turned up from 3L to 5L for some relief of the O2 sat at 83% . The SOB that is aggravated by deep breathing. She additionally c/o back pain. She also notes that she is currently on Doxycycline for UTI. No anticoagulants. PMHx: thyroid disease, Atrial fibrillation, CHF, HTN, COPD/emphysema, asthma, kidney infection, migraines, TIA, dementia, valve repair. FHx: cardiac disease, HTN. Former smoker, no EtOH, no substance use. Medications reviewed. Allergies noted. - History of Current Complaint Chief Complaint: EDGeneral Time Seen by Provider: 01/14/19 12:16 Hx Obtained From: Patient Onset/Duration: Started Days Ago - over the last few days, Still Present Timing: Lasting Days Initial Severity: Mild Current Severity: Moderate Pain Intensity: 0 Pain Scale Used: 0-10 Numeric Chest Pain Location: Diffuse Chest Pain Radiates: No Character: Dyspnea at Rest Aggravating Factor(s): Deep Breaths Alleviating Factor(s): Oxygen - 3L increased to 5L at home Associated Signs and Symptoms: Positive: Dizziness, Shortness of Breath, Back Pain, Other: - elevated HR and BP - Additional Pertinent History Primary Care Physician: [id number] - Allergy/Home Medications Allergies/Adverse Reactions: Allergies Allergy/AdvReac Type Severity Reaction Status Date / Time amoxicillin [From Augmentin] Allergy Unknown Verified 01/14/19 12:47 Reaction Details clavulanic acid Allergy Unknown Verified 01/14/19 12:47 [From Augmentin] Reaction Details fenoprofen Allergy Unknown Verified 01/14/19 12:47 Reaction Details metolazone Allergy Unknown Verified 01/14/19 12:47 Reaction Details morphine Allergy Nausea Verified 01/14/19 12:47 nitrofurantoin Allergy Unknown Verified 01/14/19 12:47 [From Macrodantin] Reaction Details Penicillins Allergy Shortness Verified 01/14/19 12:47 of Breath sulfamethoxazole Allergy Nausea Verified 01/14/19 12:47 [From ] theophylline Allergy Unknown Verified 01/14/19 12:47 Reaction Details trimethoprim [From ] Allergy Nausea Verified 01/14/19 12:47 yellow dye Allergy Unknown Verified 01/14/19 12:47 Reaction Details Home Medications: Home Medications Digoxin TAB* [Lanoxin TAB*] 0.125 mcg PO DAILY 01/14/19 [History Confirmed 01/14] Doxycycline Hyclate 100 mg PO BID 01/14/19 [History Confirmed 01/14/19] Meclizine TAB* [Antivert 12.5 TAB*] 6.25 - 12.5 mg PO BID PRN 01/14/19 [History Confirmed 01/14/19] Senna TAB 8.6 mg* [Senokot 8.6 mg TAB*] 1 tab PO MOWEFR 01/14/19 [History Confirmed 01/14/19] PMH/Surg Hx/FS Hx/Imm Hx Endocrine/Hematology History: Reports: Hx Anticoagulant Therapy - coumadin, Hx Thyroid Disease Denies: Hx Diabetes, Hx Systemic Lupus Erythematosus Cardiovascular History: Reports: Hx Atrial Fibrillation, Hx Congestive Heart Failure - HX, Hx Hypertension, Hx Valvular Heart Disease, Other Cardiovascular Problems/Disorders - VALVULAR HEART DISEASE Denies: Hx Pacemaker/ICD Respiratory History: Reports: Hx Asthma, Hx Chronic Obstructive Pulmonary Disease (COPD) History: Reports: Hx Kidney Infection, Other Problems/Disorders - UTIs Denies: Hx Dialysis, Hx Renal Disease Musculoskeletal History: Reports: Hx Arthritis Denies: Hx Rheumatoid Arthritis, Hx Scoliosis Sensory History: Reports: Hx Contacts or Glasses Denies: Hx Hearing Aid Opthamlomology History: Reports: Hx Contacts or Glasses Neurological History: Reports: Hx Dementia - per pt's daughter, Hx Migraine, Hx Transient Ischemic Attacks (TIA) Denies: Hx Headaches, Other Neuro Impairments/Disorders Psychiatric History: Reports: Hx Anxiety Denies: Hx Panic Disorder - Cancer History Hx Chemotherapy: No Hx Radiation Therapy: No - Surgical History Surgical History: Yes Surgery Procedure, Year, and Place: open heart surgery september 2011. hysterectomy. Valve repair 2017-[facility] 3-OK FOR 1.5 OR 3T-UP TO 720 G/CM. HEART ABLASION Infectious Disease History: No Infectious Disease History: Denies: Traveled Outside the [place] in Last 30 Days - Family History Known Family History: Positive: Cardiac Disease, Hypertension - Social History Alcohol Use: None Hx Substance Use: No Substance Use Type: Reports: None Hx Tobacco Use: Yes Smoking Status (MU): Former Smoker Review of Systems Positive: Chest Pain, Other - tachycardic Positive: Shortness Of Breath - tachpnea, hypoxia Positive: Other - back pain Neurological: Other - dizziness All Other Systems Reviewed And Are Negative: Yes Physical Exam - Summary Physical Exam Summary: Constitutional: Well-developed, Well-nourished, Alert. (-) Distressed Skin: Warm, Dry HENT: Normocephalic; Atraumatic Eyes: Conjunctiva normal Neck: Musculoskeletal ROM normal neck. (-) JVD, (-) Stridor, (-) Tracheal deviation Cardio: Rhythm regular, rate normal, Heart sounds normal; Intact distal pulses; The pedal pulses are 2+ and symmetric. Radial pulses are 2+ and symmetric. (-) Murmur Pulmonary/Chest wall: Tachpnea, 89% on 5L O2. Crackles throughout bilaterally, ( -) Respiratory distress, (-) Wheezes, (-) Rales Abd: Soft, (-) tenderness, (-) Distension, (-) Guarding, (-) Rebound Musculoskeletal: Good pulses bilaterally in radius, No calf tenderness, No venous cords, No pain with dorsiflexion of foot, (-) Edema Lymph: (-) Cervical adenopathy Neuro: Alert, Oriented x3 Psych: Mood and affect Normal Triage Information Reviewed: Yes Vital Signs On Initial Exam: Initial Vitals Temp Pulse Resp BP Pulse Ox 98.8 F 99 22 125/71 96 01/14/19 11:02 01/14/19 11:02 01/14/19 11:02 01/14/19 11:02 01/14/19 11:02 Vital Signs Reviewed: Yes Diagnostics - Vital Signs Vital Signs Temp Pulse Resp BP Pulse Ox 01/14/19 11:02 98.8 F 99 22 125/71 96 - Laboratory Result Diagrams: 01/15/19 05:52 01/15/19 05:52 Lab Statement: Any lab studies that have been ordered have been reviewed, and results considered in the medical decision making process. - Radiology CXR Radiology Interpretation Completed By: Radiologist Summary of Radiographic Findings: Impression: 1. Right lower lobe consolidation with a small right pleural effusion. Recommend follow-up until resolution to exclude underlying pulmonary parenchymal pathology. 2. Cardiomegaly. ED physician has reviewed this report. - EKG 1228 Cardiac Rate: Other Rate - 106 bpm EKG Rhythm: Atrial Fibrillation Summary of EKG Findings: Atrial fibrillation at 106 bpm. QRS (136) wave. Re-Evaluation - Re-Evaluation First Eval Re-Evaluation Time: 13:35 Comment: We discussed results and plan for admission to the hospital. Chest Pain Course/Dx - Course Course Of Treatment: Patient is here with new diagnosis pneumonia. Patient was given antibiotics for her pneumonia. Patient did not meet sepsis criteria. Patient admitted to the hospital for further management - Diagnoses Provider Diagnoses: COPD exacerbation - Provider Notifications Discussed Care Of Patient With: Roseann Leung - hospitalist Time Discussed With Above Provider: 13:30 Instructed by Provider To: Admit As Observation - Dr. Leung accepts the patient for admission. Discharge ED - Sign-Out/Discharge Documenting (check all that apply): Patient Departure - Patient accepted for admission by Dr. Leung. Patient Received Moderate/Deep Sedation with Procedure: No - Discharge Plan Condition: Stable Disposition: ADMITTED TO [facility] - Billing Disposition and Condition Condition: STABLE Disposition: Admitted to [facility] - Attestation Statements Document Initiated by Ramin: Yes Documenting Scribe: Zara Marte Provider For Whom Ramin is Documenting (Include Credential): Dr. Chevy Ocasio MD Scribe Attestation: Zara Caba scribed for Dr. Chevy Ocasio MD on 01/16/19 at 1130. Scribe Documentation Reviewed: Yes Provider Attestation: The documentation as recorded by the Zara moon accurately reflects the service I personally performed and the decisions made by me, Dr. Chevy Ocasio MD Status of Scrkan Document: Viewed
[2019-01-14] MEDS ORDERED: Albuterol/Ipratropium NEB.SOL* Albuterol 2.5 MG/Ipratropium 0.5 MG 3 ML INH ONE (12:50)
[2019-01-14 13:02] LABS: Hematocrit 32 % (35-47); Hemoglobin 10.4 g/dL (12.0-16.0); Mean Corpuscular HGB Conc 33 g/dL (31-36); Mean Corpuscular Hemoglobin 32 pg (27-31); Mean Corpuscular Volume 98 fL (80-97); Platelet Count 179 10^3/uL (150-450); Red Blood Count 3.25 10^6 /uL (3.70-4.87); Red Cell Distribution Width 16 % (10-15); White Blood Count 12.1 10^3/uL (3.5-10.8)
[2019-01-14] MEDS ORDERED: Azithromycin 500 mg/250 ml NS 500 MG/250 ML BAG IVPB ONE (13:11)
[2019-01-14] MEDS ORDERED: cefTRIAXone(*) 1 GM in NS 0.9% 50 ML* 50 ML IVPB ONE (13:11)
[2019-01-14] MEDS ORDERED: methylPREDNISolone 125 MG* 2 ML VIAL IV ONE (13:12)
[2019-01-14 13:30] LABS: ABS Basophils 0.1 10^3/ul (0-0.2); ABS Lymphocytes 0.9 10^3/ul (1.0-4.8); ABS Monocytes 2.1 10^3/ul (0-0.8); Eosinophil % 0.2 %; Lymphocyte % 7.4 %; Nucleated Red Blood Cells % 0.1
[2019-01-14 13:30] LABS: Albumin 4.1 g/dL (3.2-5.2); Albumin/Globulin Ratio 1.3 (1-3); BUN/Creatinine Ratio 29.2 (8-20); Calcium 9.7 mg/dL (8.6-10.3); EGFR African American 92.5 (>60); EGFR Non-African American 76.4 (>60); Globulin 3.1 g/dL (2-4); Total Bilirubin 1.6 mg/dL (0.2-1.0); Total Protein 7.2 g/dL (6.4-8.9); Troponin I 0.01 ng/mL (<0.04)
[2019-01-14 14:00] LABS: Magnesium 2.1 mg/dL (1.9-2.7)
[2019-01-14] MEDS ORDERED: Ondansetron ODT TAB* 4 MG PO PRN (15:09)
[2019-01-14] MEDS ORDERED: Albuterol 2.5 MG/3 ML NEB.SOL* (0.083%) INH PRN (15:09)
[2019-01-14] MEDS ORDERED: NS 0.9% 1000 ML** 1,000 ML IV SCH (15:15)
[2019-01-14] MEDS ORDERED: Acetaminophen TAB* 325 MG PO PRN (15:26)
--- NOTE | 2019-01-14 16:43 | HP ---
CC: Dr. Martin* ADMISSION HISTORY AND PHYSICAL: DATE OF ADMISSION: 01/14/19 PRIMARY CARE PROVIDER: Dr. Martin. HEALTHCARE PROXIES: Her daughter, Rama Reveles, and her . CODE STATUS: Full. SOURCE OF INFORMATION: History obtained from interview with the patient, review of past medical records as well as discussion with her granddaughter who is a nurse at [facility] [place] RELIABILITY: From records and from granddaughter is excellent, from the patient is poor. CHIEF COMPLAINT: "I don't know why I am here." Per granddaughter is increased oxygen demand. HISTORY OF PRESENT ILLNESS: This is an 88-year-old female with past medical history includes at least [id number] dementia, chronic AFib, aortic valve repair by TAVR in 2017, COPD with chronic respiratory failure, on 3 L oxygen, who had been in her usual state of health until approximately 7 days prior to presentation, started to develop waxing and waning dizziness for which she saw her PCP, was prescribed meclizine, had a urinalysis checked and results returned yesterday positive for E. coli for which she was started on doxycycline day prior to presentation. Over the weekend, approximately 3 days prior to presentation, her granddaughter, the nurse, noted increased shortness of breath and increased oxygen demand from 3 L to 4 L over the weekend. She noticed today there was report from the home health aide to her granddaughter that the patient was 83% on the 4 L and so her oxygen was increased to 5 L, heart rate was noted to be in the 120s while getting ready with some increased respiratory rate. Because of these constellation of findings including hypoxia and increased need of oxygen, increased respiratory rate and heart rate as well as waxing and waning dizziness, the patient was brought to the emergency room. The patient is a poor historian, hard to obtain review of systems, but there was no report per family or the patient of cough or fevers, chills, night sweats at home, urinary symptoms, nausea, vomiting, constipation or diarrhea, bleeding, changes in her medications, or recent travel. She has had no asymmetric weakness or slurred speech or confusion to suggest TIA or CVA, although she does have a history of a TIA status post her TAVR which was thought to be embolic in nature while her Coumadin was held. 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 HOME MEDICATIONS: Include: 1. Meclizine 6.25 to 12.5 mg twice daily as needed, which was started 7 days prior to presentation for intermittent dizziness. 2. Doxycycline started day prior to presentation for recently identified UTI. 3. Senna 1 tab Saturday, Saturday, Saturday. 4. CoQ10 100 mg daily. 5. Ondansetron ODT 4 mg every 6 hours as needed. 6. Multivitamin 1 tab daily. 7. Magnesium gluconate 250 mg daily. 8. Advair 250/50 one puff twice daily. 9. Spiriva 2 puffs inhaled daily. 10. Spironolactone 25 mg in the morning. 11. Omeprazole 20 mg twice daily. 12. Digoxin 0.125 mg daily. 13. Albuterol 2.5 mg inhaled 4 times a day as needed. 14. Levothyroxine 50 mcg in the morning. 15. Apixaban 2.5 mg twice daily. 16. Topiramate 25 mg in the morning. ALLERGIES: Notable for AMOXICILLIN, CLAVULANIC ACID, FENOPROFEN, METOLAZONE, MORPHINE, NITROFURANTOIN, PENICILLINS, SULFAMETHOXAZOLE, THEOPHYLLINE, TRIMETHOPRIM, and YELLOW DYE. Although it is noted the patient has already tolerated ceftriaxone in the emergency room indicating no cross-reactivity with amoxicillin or penicillin. FAMILY HISTORY: Father with a history of HI. SOCIAL HISTORY: Former smoker, smoked for 60 years, quit 20 years prior to presentation. No alcohol or illicits. REVIEW OF SYSTEMS: As per HPI. Also notable that it was difficult to obtain from the patient given her history of dementia. PHYSICAL EXAMINATION GENERAL: Appears stated age, sitting up in bed, interactive, pleasant, in no apparent distress. VITAL SIGNS: 155/88, heart rate 97 to 103, respiratory rate was 22, T-max is 98.8, oxygen is 100% on 4 L. HEENT: Her oropharynx is clear. She has moist mucous membranes. Her sclerae are anicteric. NECK: Her JVD is elevated to the angle of her jaw. She has no cervical or supraclavicular lymphadenopathy. LUNGS: Sound clear throughout. Difficult to auscultate any rales or rhonchi. HEART: She has irregularly irregular heart rate. Difficult to appreciate any murmurs. ABDOMEN: Soft, nontender, nondistended. EXTREMITIES: Warm and well perfused without clubbing, cyanosis, or edema. She has less than 2 second cap refill. NEUROLOGIC: She is alert and oriented x2. She had difficulty with the year and the month. Her cranial nerves II through XII are intact. She has symmetric strength throughout. No pronator drift. PSYCHIATRIC: She has no apparent anxiety, agitation, or depression. DIAGNOSTIC STUDIES/LAB DATA: Labs are notable for a white blood cell count of 12.1 with 74% neutrophils, hemoglobin is 10.4, platelets 179. BUN 21, creatinine 0.75, lactic acid is 1.2. Total bilirubin is 1.6. Troponin I of 0.01. BNP is 842. Data reviewed. EKG: Atrial fibrillation, ventricular rate about 100, left axis. Chest x-ray: Right lower lobe confluent opacity, cardiomegaly. ASSESSMENT AND PLAN: This is an 88-year-old female presenting with 1 week of intermittent dizziness as well as increased oxygen need at home, found with right lower lobe pneumonia suspicious for cause of hypoxic respiratory failure. 1. Acute on chronic hypoxic respiratory failure. Suspect in the setting of pneumonia based on chest x-ray findings and hypoxia that developed over the last week, although interesting that she has not had fevers, minimally elevated leukocytosis, and no cough. She has received ceftriaxone and azithromycin in the emergency room. We will continue tomorrow q.24 hours. She has received 125 mg of methylprednisolone in the emergency room. We will continue 40 mg twice daily tomorrow in the setting of severe pneumonia requiring hospital stay as well as underlying chronic obstructive pulmonary disease. Check Strep pneumo and legionella urine antigens and repeat set of labs tomorrow. 2. Chronic atrial fibrillation. Continue digoxin and apixaban. 3. Urinary tract infection with Escherichia coli noted prior to presentation. Ceftriaxone will cover. 4. Heart failure with preserved ejection fraction, currently controlled, not decompensated. Continue with home spironolactone. Currently not on a beta- zoie or neprilysin. 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 5. Dementia. If possible, place near window to minimize risk of delirium. 6. Hypothyroidism. Continue home dose of Synthroid. 7. DVT prophylaxis: Continue apixaban, which she takes for her atrial fibrillation. [id number]/[facility] #: [id number] IDRIS
[2019-01-14] MEDS ORDERED: Metoprolol Tartrate IV* 1 MG/ML 5 ML VIAL IV ONE (18:40)
[2019-01-14] MEDS: Senna TAB 8.6 mg* TAB PO SCH (19:42)
[2019-01-14] MEDS: Polyethylene Glycol 3350* 17 GM PACKET PO PRN (19:43)
[2019-01-14] MEDS: Apixaban* 2.5 MG TAB PO SCH (19:43)
[2019-01-14] MEDS: Mometasone/Formoter 200/5 MDI INH SCH (20:06)
[2019-01-15] MEDS: Levothyroxine TAB* 50 MCG TAB PO SCH (05:49)
[2019-01-15 06:01] LABS: Hematocrit 30 % (35-47); Hemoglobin 10.1 g/dL (12.0-16.0); Mean Corpuscular HGB Conc 34 g/dL (31-36); Mean Corpuscular Hemoglobin 33 pg (27-31); Mean Corpuscular Volume 98 fL (80-97); Mean Platelet Volume 11.9 fL (7.4-10.4); Platelet Count 163 10^3/uL (150-450); Red Blood Count 3.09 10^6 /uL (3.70-4.87); Red Cell Distribution Width 16 % (10-15); White Blood Count 6.6 10^3/uL (3.5-10.8)
[2019-01-15 06:18] LABS: BUN/Creatinine Ratio 33.8 (8-20); Calcium 8.9 mg/dL (8.6-10.3); EGFR African American 98.8 (>60); EGFR Non-African American 81.7 (>60); Potassium 4.6 mmol/L (3.5-5.0)
[2019-01-15 06:47] LABS: ABS Lymphocytes 0.5 10^3/ul (1.0-4.8); ABS Monocytes 0.2 10^3/ul (0-0.8); ABS Neutrophils 5.7 10^3/ul (1.5-7.7); Lymphocyte % 7.8 %; Nucleated Red Blood Cells % 0.1; Polychromasia 1+
[2019-01-15] MEDS: SPIRIVA Respimat* (tiotropium) 2.5 mcg/inh Inhaler INH SCH (07:42)
[2019-01-15] MEDS: Mometasone/Formoter 200/5 MDI INH SCH ×2 (07:43→19:44)
[2019-01-15] MEDS: COENZYME Q10 100 MG PO SCH (10:22)
[2019-01-15] MEDS: Pantoprazole TAB * 40 MG TAB PO SCH (10:22)
[2019-01-15] MEDS: Apixaban* 2.5 MG TAB PO SCH ×2 (10:22→21:47)
[2019-01-15] MEDS: Topiramate TAB(*) 25 MG PO SCH (10:22)
[2019-01-15] MEDS: Multivitamins/Minerals TAB PO SCH (10:22)
[2019-01-15] MEDS: methylPREDNISolone SOD 40 MG* 1 ML VIAL IV SCH ×2 (10:22→21:47)
[2019-01-15] MEDS: Spironolactone TAB* 25 MG PO SCH (10:22)
[2019-01-15] MEDS: cefTRIAXone(*) 1 GM in NS 0.9% 50 ML* 50 ML IVPB SCH (14:29)
[2019-01-15] MEDS: Azithromycin IV(*) 250 MG in NS 0.9% 250 ML* 250 ML IVPB SCH (16:21)
[2019-01-15] MEDS: Digoxin TAB* 0.125 MG PO SCH (17:02)
--- NOTE | 2019-01-15 19:03 | PN ---
Subjective Date of Service: 01/15/19 Interval History: Sitting in bed waiting for breakfast Has no complaints Denies cough, SOB Objective Active Medications: Acetaminophen (Tylenol Tab*) 650 mg PO Q4H PRN PRN Reason: PAIN - MILD Albuterol (Ventolin 2.5 Mg/3 Ml Neb.Jen*) 2.5 mg INH QID PRN PRN Reason: SHORTNESS OF BREATH Last Admin: 01/14/19 20:05 Dose: 2.5 mg Apixaban (Eliquis*) 2.5 mg PO BID [facility] Last Admin: 01/15/19 10:22 Dose: 2.5 mg Coenzyme Q10 (Coenzyme Q10 (Nf)) 1 cap PO DAILY [facility] Last Admin: 01/15/19 10:22 Dose: Not Given Digoxin (Lanoxin Tab*) 0.125 mg PO DAILY@1700 [facility] Last Admin: 01/15/19 17:02 Dose: 0.125 mg Azithromycin 250 mg/ Sodium (Chloride) 250 mls @ 250 mls/hr IVPB Q24H [facility] Last Admin: 01/15/19 16:21 Dose: 250 mls/hr Ceftriaxone Sodium 1 gm/ (Sodium Chloride) 50 mls @ 100 mls/hr IVPB Q24H [facility] Last Admin: 01/15/19 14:29 Dose: 100 mls/hr Levothyroxine Sodium (Synthroid Tab*) 50 mcg PO DAILY@0600 [facility] Last Admin: 01/15/19 05:49 Dose: 50 mcg Meclizine HCl (Antivert Tab*) 12.5 mg PO Q8HR PRN PRN Reason: DIZZINESS Methylprednisolone Sodium Succinate (Solu-Medrol 40 Mg) 40 mg IV Q12H [facility] Last Admin: 01/15/19 10:22 Dose: 40 mg Mometasone Furoate/Formoterol Fumar (Dulera 200/5 Mdi*) 2 puff INH BID [facility] Last Admin: 01/15/19 07:43 Dose: 2 puff Multivitamins/Minerals (Theragran/Minerals Tab*) 1 tab PO DAILY [facility] Last Admin: 01/15/19 10:22 Dose: 1 tab Ondansetron HCl (Zofran Odt Tab*) 4 mg PO Q6H PRN PRN Reason: NAUSEA Last Admin: 01/14/19 19:43 Dose: 4 mg Pantoprazole Sodium (Protonix Tab*) 40 mg PO DAILY [facility] Last Admin: 01/15/19 10:22 Dose: 40 mg Polyethylene Glycol/Electrolytes (Miralax*) 17 gm PO DAILY PRN PRN Reason: CONSTIPATION Last Admin: 01/14/19 19:43 Dose: 17 gm Senna (Senokot 8.6 Mg Tab*) 1 tab PO MOWEFR [facility] Last Admin: 01/14/19 19:42 Dose: Not Given Spironolactone (Aldactone Tab*) 25 mg PO QAM [facility] Last Admin: 01/15/19 10:22 Dose: 25 mg Tiotropium [place] (Spiriva Respimat 2.5 Mcg) 2 puff INH DAILY [facility] Last Admin: 01/15/19 07:42 Dose: 2 puff Topiramate (Topamax(*)) 25 mg PO QAM [facility] Last Admin: 01/15/19 10:22 Dose: 25 mg Vital Signs - 8 hr 01/15/19 01/15/19 01/15/19 11:25 15:45 17:02 Temperature 98.1 F 97.6 F Pulse Rate 91 85 85 Respiratory 20 20 Rate Blood Pressure 140/58 138/82 (mmHg) O2 Sat by Pulse 99 99 Oximetry Oxygen Devices in Use Now: Nasal Cannula Appearance: NAD Eyes: No Scleral Icterus, PERRLA Ears/Nose/Mouth/Throat: NL Teeth, Lips, Gums, Clear Oropharnyx Neck: NL Appearance and Movements; NL JVP, Trachea Midline Respiratory: Symmetrical Chest Expansion and Respiratory Effort, Clear to Auscultation Cardiovascular: - - IRIR Abdominal: NL Sounds; No Tenderness; No Distention, No Hepatosplenomegaly Lymphatic: No Cervical Adenopathy Extremities: No Edema Skin: No Rash or Ulcers Neurological: - - AOx2 to self and hospital Result Diagrams: 01/15/19 05:52 01/15/19 05:52 Microbiology and Other Data: Microbiology 01/14/19 12:52 Aerobic Blood Culture - Preliminary Blood Venous No Growth Day 1 Anaerobic Blood Culture - Preliminary No Growth Day 1 01/14/19 12:48 Aerobic Blood Culture - Preliminary Blood Venous Anaerobic Blood Culture - Preliminary Blood MRSA/MSSA (PCR) - Final Mrsa Negative S.aureus Negative 01/15/19 06:05 Legionella Urinary Antigen - Final Urine Negative Legionella Antigen Streptococcus pneumoniae Ag Screen - Final Negative S. pneumo Antigen Assess/Plan/Problems-Billing Assessment: 88 yo F h/o afib, dementia, COPD on 3L home O2 pw SOB and increased oxygen demand at home found with RLL PNA - Patient Problems (1) Pneumonia Comment: RLL CTX, azithro day 2 steroids (2) Atrial fibrillation Comment: Chronic; rate-controlled. digoxin apixaban (3) COPD exacerbation Comment: home 3 L dulera duonebs prn (4) DVT prophylaxis Comment: apixaban
[2019-01-16] MEDS: Levothyroxine TAB* 50 MCG TAB PO SCH (05:37)
[2019-01-16] MEDS: COENZYME Q10 100 MG PO SCH (09:00)
[2019-01-16] MEDS: Mometasone/Formoter 200/5 MDI INH SCH ×2 (09:07→20:06)
[2019-01-16] MEDS: SPIRIVA Respimat* (tiotropium) 2.5 mcg/inh Inhaler INH SCH (09:07)
[2019-01-16] MEDS: Multivitamins/Minerals TAB PO SCH (09:35)
[2019-01-16] MEDS: Apixaban* 2.5 MG TAB PO SCH ×2 (09:36→20:01)
[2019-01-16] MEDS: Pantoprazole TAB * 40 MG TAB PO SCH (09:37)
[2019-01-16] MEDS: Spironolactone TAB* 25 MG PO SCH (09:37)
[2019-01-16] MEDS: Topiramate TAB(*) 25 MG PO SCH (09:38)
[2019-01-16] MEDS: methylPREDNISolone SOD 40 MG* 1 ML VIAL IV SCH ×2 (09:58→20:01)
[2019-01-16] MEDS: Polyethylene Glycol 3350* 17 GM PACKET PO PRN (10:20)
[2019-01-16] MEDS: Senna TAB 8.6 mg* TAB PO SCH (10:20)
[2019-01-16] MEDS: cefTRIAXone(*) 1 GM in NS 0.9% 50 ML* 50 ML IVPB SCH (13:55)
[2019-01-16] MEDS: Meclizine TAB* 12.5 MG PO PRN ×2 (15:27→20:01)
[2019-01-16] MEDS: Azithromycin IV(*) 250 MG in NS 0.9% 250 ML* 250 ML IVPB SCH (15:52)
--- NOTE | 2019-01-16 17:38 | PN ---
Subjective Date of Service: 01/16/19 Interval History: +cough ambulatory O2 sat <88 on home oxygen with concomitant tachycardia while ambulating Objective Active Medications: Acetaminophen (Tylenol Tab*) 650 mg PO Q4H PRN PRN Reason: PAIN - MILD Albuterol (Ventolin 2.5 Mg/3 Ml Neb.Jen*) 2.5 mg INH QID PRN PRN Reason: SHORTNESS OF BREATH Last Admin: 01/14/19 20:05 Dose: 2.5 mg Apixaban (Eliquis*) 2.5 mg PO BID [facility] Last Admin: 01/16/19 09:36 Dose: 2.5 mg Coenzyme Q10 (Coenzyme Q10 (Nf)) 1 cap PO DAILY [facility] Last Admin: 01/16/19 09:00 Dose: Not Given Digoxin (Lanoxin Tab*) 0.125 mg PO DAILY@1700 [facility] Last Admin: 01/15/19 17:02 Dose: 0.125 mg Guaifenesin (Robitussin*) 5 ml PO Q6H PRN PRN Reason: COUGH Azithromycin 250 mg/ Sodium (Chloride) 250 mls @ 250 mls/hr IVPB Q24H [facility] Last Admin: 01/16/19 15:52 Dose: 250 mls/hr Ceftriaxone Sodium 1 gm/ (Sodium Chloride) 50 mls @ 100 mls/hr IVPB Q24H [facility] Last Admin: 01/16/19 13:55 Dose: 100 mls/hr Levothyroxine Sodium (Synthroid Tab*) 50 mcg PO DAILY@0600 [facility] Last Admin: 01/16/19 05:37 Dose: 50 mcg Meclizine HCl (Antivert Tab*) 12.5 mg PO Q8HR PRN PRN Reason: DIZZINESS Last Admin: 01/16/19 15:27 Dose: 12.5 mg Methylprednisolone Sodium Succinate (Solu-Medrol 40 Mg) 40 mg IV Q12H [facility] Last Admin: 01/16/19 09:58 Dose: 40 mg Mometasone Furoate/Formoterol Fumar (Dulera 200/5 Mdi*) 2 puff INH BID [facility] Last Admin: 01/16/19 09:07 Dose: 2 puff Multivitamins/Minerals (Theragran/Minerals Tab*) 1 tab PO DAILY [facility] Last Admin: 01/16/19 09:35 Dose: 1 tab Ondansetron HCl (Zofran Odt Tab*) 4 mg PO Q6H PRN PRN Reason: NAUSEA Last Admin: 01/14/19 19:43 Dose: 4 mg Pantoprazole Sodium (Protonix Tab*) 40 mg PO DAILY [facility] Last Admin: 01/16/19 09:37 Dose: 40 mg Polyethylene Glycol/Electrolytes (Miralax*) 17 gm PO DAILY PRN PRN Reason: CONSTIPATION Last Admin: 01/16/19 10:20 Dose: 17 gm Senna (Senokot 8.6 Mg Tab*) 1 tab PO MOWEFR [facility] Last Admin: 01/16/19 10:20 Dose: 1 tab Spironolactone (Aldactone Tab*) 25 mg PO QAM [facility] Last Admin: 01/16/19 09:37 Dose: 25 mg Tiotropium [place] (Spiriva Respimat 2.5 Mcg) 2 puff INH DAILY [facility] Last Admin: 01/16/19 09:07 Dose: 2 puff Topiramate (Topamax(*)) 25 mg PO QAM [facility] Last Admin: 01/16/19 09:38 Dose: 25 mg Vital Signs - 8 hr 01/16/19 01/16/19 11:41 16:10 Temperature 98.3 F 97.3 F Pulse Rate 98 91 Respiratory 20 17 Rate Blood Pressure 131/65 129/77 (mmHg) O2 Sat by Pulse 94 96 Oximetry Oxygen Devices in Use Now: Nasal Cannula - 3L O2 Appearance: NAD Ears/Nose/Mouth/Throat: NL Teeth, Lips, Gums, Clear Oropharnyx Neck: NL Appearance and Movements; NL JVP, Trachea Midline Respiratory: Symmetrical Chest Expansion and Respiratory Effort, Clear to Auscultation Cardiovascular: - - IRIR Lymphatic: No Cervical Adenopathy, No Axillary Adenopathy Extremities: No Edema Skin: No Rash or Ulcers Neurological: - - AOx2 to self and hospital but not year, follows commands, pleasant Result Diagrams: 01/15/19 05:52 01/15/19 05:52 Microbiology and Other Data: Microbiology 01/14/19 12:52 Aerobic Blood Culture - Preliminary Blood Venous No Growth Day 1 Anaerobic Blood Culture - Preliminary No Growth Day 1 01/14/19 12:48 Aerobic Blood Culture - Preliminary Blood Venous Anaerobic Blood Culture - Preliminary Blood MRSA/MSSA (PCR) - Final Mrsa Negative S.aureus Negative 01/15/19 06:05 Legionella Urinary Antigen - Final Urine Negative Legionella Antigen Streptococcus pneumoniae Ag Screen - Final Negative S. pneumo Antigen Assess/Plan/Problems-Billing Assessment: 88 yo F h/o afib, dementia, COPD on 3L home O2 pw SOB and increased oxygen demand at home found with RLL PNA - Patient Problems (1) Pneumonia Comment: RLL CTX, azithro day 3 steroids (2) Atrial fibrillation Comment: Chronic; rate-controlled. digoxin apixaban (3) COPD exacerbation Comment: home 3 L dulera duonebs prn (4) DVT prophylaxis Comment: apixaban
[2019-01-16] MEDS: Digoxin TAB* 0.125 MG PO SCH (17:39)
[2019-01-16] MEDS: guaiFENesin LIQ* 100 MG/5 ML UDC PO PRN (17:41)
[2019-01-17] MEDS: Levothyroxine TAB* 50 MCG TAB PO SCH (05:33)
[2019-01-17] MEDS: SPIRIVA Respimat* (tiotropium) 2.5 mcg/inh Inhaler INH SCH (08:26)
[2019-01-17] MEDS: Mometasone/Formoter 200/5 MDI INH SCH (08:26)
[2019-01-17] MEDS: Apixaban* 2.5 MG TAB PO SCH (09:19)
[2019-01-17] MEDS: Pantoprazole TAB * 40 MG TAB PO SCH (09:19)
[2019-01-17] MEDS: Spironolactone TAB* 25 MG PO SCH (09:19)
[2019-01-17] MEDS: Multivitamins/Minerals TAB PO SCH (09:19)
[2019-01-17] MEDS: Topiramate TAB(*) 25 MG PO SCH (09:20)
[2019-01-17] MEDS: methylPREDNISolone SOD 40 MG* 1 ML VIAL IV SCH (09:20)
[2019-01-17] MEDS: COENZYME Q10 100 MG PO SCH (09:33)
[2019-01-17] MEDS: Meclizine TAB* 12.5 MG PO PRN (12:14)
[2019-01-17] MEDS: guaiFENesin LIQ* 100 MG/5 ML UDC PO PRN (12:26)
[2019-01-17 13:16] VITALS: BP 120/64
--- NOTE | 2019-01-17 19:00 | DS ---
CC: Dr. Nuria Martin; Aric Jean NP * DISCHARGE SUMMARY: DATE OF ADMISSION: 01/14/19 DATE OF DISCHARGE: 01/17/19 PRIMARY CARE PHYSICIANS: Dr. Nuria Martin and Aric Jean NP. DISPOSITION ON DISCHARGE: Home. CONDITION ON DISCHARGE: Good. MEDICATIONS ON DISCHARGE: Include: 1. Meclizine 6.25 to 12.5 mg twice daily as needed. 2. Senna 1 tab Saturday, Saturday, Saturday. 3. CoQ10 at 100 mg daily. 4. Ondansetron 4 mg every 6 hours as needed. 5. Multivitamin 1 tab daily. 6. Magnesium gluconate 250 mg daily. 7. Advair 250/50 one puff twice daily. 8. Tiotropium 2 puffs daily. 9. Spironolactone 25 mg daily. 10. Omeprazole 20 mg twice daily. 11. Digoxin 0.125 mg. 12. Albuterol 2.5 mg every 4 hours as needed. 13. Levothyroxine 50 mcg daily. 14. Eliquis 2.5 mg daily. 15. Topiramate 25 mg daily. 16. Prednisone 40 mg daily for 4 additional days. 17. Doxycycline 100 mg twice daily, to continue her previous outpatient dose to completion. 18. Cefdinir 300 mg twice daily for 5 additional days. DIAGNOSTIC STUDIES/LAB DATA: Pertinent Laboratory Data: White blood cell count on presentation 12.1, decreased to 6.6 on following day. Pertinent Microbiology: One set of blood cultures positive for Staph. epidermidis, presumed contaminant. Negative legionella and Strep pneumo urine antigens. Pertinent Imaging: Chest x-ray, formal impression: 1. Right lower lobe consolidation with a small right pleural effusion. Recommend followup until resolution to exclude underlying pulmonary parenchymal problem. 2. Cardiomegaly. HISTORY OF PRESENT ILLNESS AND HOSPITAL COURSE: This is an 88-year-old female with past medical history as outlined in the history of present illness who on the day of admission presented to the hospital with increased shortness of breath as well as increased oxygen demand at home, was found with a large right lower lobe pneumonia on chest x-ray. The patient had hypoxic respiratory failure on top of her chronic respiratory failure, but never was symptomatically very short of breath while in the hospital. She improved on antibiotics, ceftriaxone and azithromycin, which was transitioned to cefdinir and doxycycline given her longstanding digoxin prescription on discharge. She was ambulated daily to evaluate for oxygen need. Prior to her discharge, she had increased oxygen need and tachycardia with ambulating; however, on the day of discharge her oxygen need was stable. She was discharged on 4 L, which she needed while ambulating, although was stable at 3 L. There were no complications during the course of the hospital stay. No other medications were changed. At followup, please: 1. Evaluate for resolution of symptoms. 2. No other specific labs or vitals that need followup. Reasons to return to the hospital including, but not limited to recurrent or worsening symptoms, chest pain, shortness of breath, nausea, vomiting, lightheadedness, loss of consciousness or near loss of consciousness, increased oxygen demand were discussed with the patient and her daughter. Daughter acknowledged understanding. [id number]/[facility] #: [id number] IDRIS
== END 2019-01-17 13:05 | disposition home or self-care (01) | DRG 193 ==
LOC: ED 10:49 → MEDTELE 15:26 → OBSVTOIN 01-15 13:36
PROVIDERS: ADMIT Internal Medicine; ATTEND Internal Medicine
DX: J18.1 Lobar pneumonia, unspecified organism (principal); J96.21 Acute and chronic respiratory failure with hypoxia; J44.1 Chronic obstructive pulmonary disease with (acute) exacerbation; J44.0 Chronic obstructive pulmonary disease with (acute) lower respiratory infection; J90 Pleural effusion, not elsewhere classified; I50.32 Chronic diastolic (congestive) heart failure; Z79.01 Long term (current) use of anticoagulants; I50.9 Heart failure, unspecified; I11.0 Hypertensive heart disease with heart failure; F03.90 Unspecified dementia, unspecified severity, without behavioral disturbance, psychotic disturbance, mood disturbance, and anxiety; I48.2 Chronic atrial fibrillation; B96.20 Unspecified Escherichia coli [E. coli] as the cause of diseases classified elsewhere; E03.9 Hypothyroidism, unspecified; G43.909 Migraine, unspecified, not intractable, without status migrainosus; F41.9 Anxiety disorder, unspecified; R00.0 Tachycardia, unspecified; M19.90 Unspecified osteoarthritis, unspecified site; Z90.710 Acquired absence of both cervix and uterus; Z88.0 Allergy status to penicillin; Z88.1 Allergy status to other antibiotic agents; Z88.5 Allergy status to narcotic agent; Z99.81 Dependence on supplemental oxygen; Z95.2 Presence of prosthetic heart valve; Z86.73 Personal history of transient ischemic attack (TIA), and cerebral infarction without residual deficits; Z88.8 Allergy status to other drugs, medicaments and biological substances; Z88.2 Allergy status to sulfonamides; Z91.041 Radiographic dye allergy status; Z82.49 Family history of ischemic heart disease and other diseases of the circulatory system; Z87.891 Personal history of nicotine dependence
CPT/HCPCS: 36415; 71045; 80048; 80053; 82607; 83605; 83615; 83735; 83880; 84484; 85025; 85060; 87040; 87077; 87150; 87205; 87899; 93005; 94640; 99284; A9270-GY; G0378; J0456; J0696; J2920; J2930; J3490; J3535

== ENCOUNTER 2019-05-15 19:55 | Emergency (ER) | payer MEDICARE, OTHER ==
--- OUTSIDE RECORDS SUMMARY | 2019-05-15 20:01 | XMS REPORT | Continuity of Care Document ---
:1930 External Reference #:[id number] Author Name Martinez Casper MD Address [address] [place] [address] Care Team Providers Name Role Phone Yeimy Adams MD Care Team Information Yard Rigger [phone] Aric Jean NP - Nurse Practitioner Care Team Information Yard Rigger [phone] Problems Active Problems Provider Date Sensorineural hearing loss Martinez Casper MD Onset: 05/15/2019 Social History Type Date Description Comments Sex Unknown Tobacco Use Start: Unknown End: Former Cigarette Smoker 1 x 40 yrs, quit age 62 Unknown Pack Daily Tobacco Use Start: Unknown Never Smoked Cigars Tobacco Use Start: Unknown Never Smoked A Pipe Smokeless Tobacco Never Used Smokeless Tobacco ETOH Use Denies alcohol use Allergies, Adverse Reactions, Alerts Active Allergies Reaction Severity Comments Date Amoxicillin 05/15/2019 Nitrofurantoin, Macrocrystals / 05/15/2019 Nitrofurantoin, Monohydrate Morphine Vomitimg 05/15/2019 Nalfon 05/15/2019 Penicillin shortness of breathe 05/15/2019 Quinoline Yellow 05/15/2019 Sulfamethoxazole / Trimethoprim 05/15/2019 Theodrenaline 05/15/2019 Inactive Allergies Proventil 05/15/2019 Medications Active Medications SIG Qnty Indications Ordering Date Provider Topiramate Aric Jean NP 25mg Tablets Digoxin Take 1 Tablet By Unknown 125mcg Tablets Mouth Every Day Albuterol Sulfate Inhale The Unknown Contents Of 1 Vial (2.5mg/3ML) 0.083% Via Nebulizer 3 Nebulizer Times Daily as Needed Levothyroxine Sodium Take 1 Tablet By Unknown 50mcg Mouth Every Day Tablets Spironolactone Take 1 Tablet By Unknown 25mg Tablets Mouth Every Day Spiriva Handihaler Inhale The Unknown 18mcg Contents Of One Capsules Capsule Via Handihaler By Mouth Every Day Eliquis Take 1 Tablet By Unknown 2.5mg Tablets Mouth Twice A Day Omeprazole Take One Capsule Unknown 20mg Capsules DR By Mouth Twice A Day Centrum Adults as directed Unknown Tablets Coq-10 as directed Unknown 150mg Capsules Magnesium Oxide 1 by mouth every Unknown 500mg day Tablets Advair Diskus i inhalation twice Unknown a day 250-50mcg/Dose Aerosol Coq10 1 by mouth every Unknown 30mg Capsules day Senna Laxative as directed Unknown 8.6mg Tablets Immunizations Description No Information Available Vital Signs Date Vital Result Comment 05/15/2019 10:37am Weight 121.00 lb Weight 54.886 kg Height 60 inches 5'0" Height in cm's 152.4 cm BMI (Body Mass Index) 23.6 kg/m2 Results Description No Information Available Procedures Date Code Description Status 05/15/2019 11519 Tympanometry Completed 05/15/2019 28197 Comprehensive Audiogram Completed Medical Devices Description No Information Available Encounters Type Date Location Provider Dx Diagnosis Office Visit 05/15/2019 [place] Martinez Casper H90.5 Unspecified 10:30a 05/13/07 sensorineural hearing loss Assessments Date Code Description Provider 05/15/2019 H90.5 Unspecified sensorineural hearing loss Martinez Casper MD Plan of Treatment 05/15/2019 - Martinez Casper MDH90.5 Unspecified sensorineural hearing lossComments:Patient has 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 The patient would benefit greatly with hearing aids. This was advised to the patient. the patient is medically cleared for hearing aids Functional Status Description No Information Available Mental Status Description No Information Available Referrals Description No Information Available
--- OUTSIDE RECORDS SUMMARY | 2019-05-15 20:01 | XMS REPORT | Continuity of Care Document ---
:1930 External Reference #:[id number] Author Name Michaelle Rolon M.D. 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 Medicine Problems Active Problems Provider Date Mitral [...] former 1996 Unknown smoker Smoking Status Reviewed: 04/21/19 Patient is a former 1996 smoker Exercise Type/Frequency Walks daily limited Allergies, Adverse Reactions, Alerts Active Allergies Reaction Severity Comments Date Penicillin shortness of breathe 02/18/2013 Macrodantin 09/03/2014 Theodur 03/15/2017 Zaroxlen 03/15/2017 Morphine Vomitimg 03/22/2017 Nalfon 03/22/2017 Quinoline Yellow 04/24/2017 Amoxicillin 04/30/2017 Sulfamethoxazole / Trimethoprim 05/16/2017 Inactive Allergies Potasium 03/15/2017 Proventil 03/22/2017 Medications Active Medications SIG Qnty Indications Ordering Date Provider Mecliziilir HCL 1/2 to 1 tablet 30tabs R42 Aric Jean NP 01/07/2019 every 12 hours as 12.5mg Tablets needed for dizziness Fluticasone 2 sprays each 48gm Aric Jean NP 01/07/2019 Propionate nostril qd. 50mcg/Act Suspension Miralax dissolve 1 510units Aric Jean NP 09/25/2018 3350NF tablespoonful once Powder daily in liquid as needed Magnesium 1 by mouth every day 90tabs Aric Jean NP 08/02/2018 250mg Tablets Eliquis 1 tablet by mouth 180tabs I48.2 Aric Jean NP 03/26/2018 2.5mg twice a day. Tablets Digoxin take 1 tablet by 90tabs I48.0 Aric Jean NP 01/21/2018 125mcg mouth every day Tablets Albuterol Sulfate inhale the contents 270ml Aric Jean NP 10/02/2017 of 1 vial via (2.5mg/3ML) 0.083% nebulizer 3 times Nebulizer daily as needed Nebulizer use [...] Omeprazole take one capsule by 180caps Aric Jean NP 20mg Capsules DR mouth twice a day Zofran take 1 by mouth orn 30tabs Aric Jean NP 4mg Tablets q6 hours Levothyroxine Sodium take 1 tablet by 90tabs Aric Jean NP 50mcg mouth every day Tablets Senna Laxative 1 tab saturday 42tabs Aric Jean NP 8.6mg saturday Tablets History Medications Doxycycline Hyclate 1 by mouth twice 20tabs Aric Jean NP 01/13/2019 - 100mg a day 01/23/2019 Tablets Medications Administered in Office Medication SIG Qnty Indications Ordering Provider Date PPD Injection Nurse Visit A 07/08/2018 Triamcinolone (Kenalog) Jasiel Buitrago MD 04/22/2018 Injection Depomedrol 80MG Nava Rose M.D. 03/02/2015 Injection Depomedrol 80MG Nava Rose M.D. 09/20/2014 Injection Immunizations CPT Code Status Date Vaccine Reaction Lot # [id number] Given 03/09/2019 Pneumonia Vaccine No immediate reaction [id number] Given 02/26/2019 Influenza Virus Vaccine, Quadrivalent, Split, Preservative Free [id number] Given 02/13/2018 Influenza Virus Vaccine, Quadrivalent, Split, Preservative Free [id number] Given 01/25/2017 Influenza Virus Vaccine, [id number] Quadrivalent, Split, Preservative Free Vital Signs Date Vital Result Comment 04/21/2019 2:47pm Height 58.25 inches 4'10.25" Weight 118.00 lb Heart Rate 84 /min BP Systolic Sitting 109 mmHg BP Diastolic Sitting 69 mmHg Body Temperature 98.0 F O2 % BldC Oximetry 94 % BMI (Body Mass Index) 24.4 kg/m2 03/09/2019 4:21pm Height 58.25 inches 4'10.25" Weight 116.00 lb Heart Rate 75 /min BP Systolic 115 mmHg BP Diastolic 71 mmHg Body Temperature 98.6 F O2 % BldC Oximetry 91 % BMI (Body Mass Index) 24.0 kg/m2 Results Test Acquired Date Facility Test Result H/L Range Note Lipid Profile 01/30/2019 [facility] Triglycerides 78 mg/dL 1 (Trig/Chol/HDL) [place] [address] [phone] Cholesterol 121 mg/dL 2 HDL Cholesterol 42.5 mg/dL 3 LDL Cholesterol 63 mg/dL 4 Comp Metabolic 01/30/2019 [facility] Sodium 141 mmol/L Normal 135-145 [place] [address] [phone] Potassium 4.5 mmol/L Normal 3.5-5.0 Chloride 105 mmol/L Normal 101-111 Co2 Carbon Dioxide 31 mmol/L Normal 22-32 Anion Gap 5 mmol/L Normal 2-11 Glucose 83 mg/dL Normal 70-100 Blood Urea Nitrogen 15 mg/dL Normal 6-24 Creatinine 0.74 mg/dL Normal 0.51-0.95 BUN/Creatinine Ratio 20.3 High 8-20 Calcium 9.1 mg/dL Normal 8.6-10.3 Total Protein 6.1 g/dL Low 6.4-8.9 Albumin 4.1 g/dL Normal 3.2-5.2 Globulin 2.0 g/dL Normal 2-4 Albumin/Globulin Ratio 2.1 Normal 1-3 Total Bilirubin 1.00 mg/dL Normal 0.2-1.0 Alkaline Phosphatase 62 U/L Normal 34-104 Alt 12 U/L Normal 7-52 Ast 17 U/L Normal 13-39 Egfr Non- 74.1 >60 Egfr 89.6 >60 5 Laboratory 01/30/2019 [facility] TSH (Thyroid 2.27 Normal 0.34 -5.60 test finding Stim Horm) mcIU/[place] [address] [phone] Laboratory 01/14/2019 [facility] Magnesium 2.1 mg/dL Normal 1.9-2.7 [place] [address] [phone] LDH 236 U/L Normal 140-271 Vitamin B12 1292 pg/mL High 180-914 6 Pathologist Review (SEE NOTE) 7 Blood Culture SEE RESULT BELOW 8 Manual 01/14/2019 [facility] Immature 2.0 % Normal 0-[address] [place] [address] [phone] Neutrophil % 77.0 % Band % 1.0 % Normal 0-8 Lymphocytes % 8.0 % Monocytes % 13.0 % Myelocytes % 1.0 % Normal 0-1 Anisocytosis 2+ Laboratory test 01/14/2019 [facility] B-Type 842 pg/mL High <= [address] [place] [address] Peptide BNP [phone] CBC Auto Diff 01/14/2019 [facility] White Blood 12.1 High 3.5- 10.[address] Count 10^3/[place] [address] [phone] Red Blood Count 3.25 10^6/uL Low 3.70-4.87 Hemoglobin 10.4 g/dL Low 12.0-16.0 Hematocrit 32 % Low 35-47 Mean Corpuscular Volume 98 fL High 80-97 Mean Corpuscular Hemoglobin 32 pg High 27-31 Mean Corpuscular HGB Conc 33 g/dL Normal 31-36 Red Cell Distribution Width 16 % High 10-15 Platelet Count 179 10^3/uL Normal 150-450 Mean Platelet Volume 12.0 fL High 7.4-10.4 Abs Neutrophils 9.0 10^3/uL High 1.5-7.7 Abs Lymphocytes 0.9 10^3/uL Low 1.0-4.8 Abs Monocytes 2.1 10^3/uL High 0-0.8 Abs Eosinophils 0.0 10^3/uL Normal 0-0.6 Abs Basophils 0.1 10^3/uL Normal 0-0.2 Abs Nucleated RBC 0.0 10^3/uL Granulocyte % 74.5 % Lymphocyte % 7.4 % Monocyte % 17.3 % Eosinophil % 0.2 % Basophil % 0.6 % Nucleated Red Blood Cells % 0.1 Laboratory test 01/14/2019 [facility] Troponin-I 0.01 <0.04 [address] (TnI) ng/mL [place], [place] [id number] [phone] Comp Metabolic 01/14/2019 [facility] Sodium 137 Normal 135- [address] mmol/[place] [address] [phone] Potassium 4.0 mmol/L Normal 3.5-5.0 Chloride 101 mmol/L Normal 101-111 Co2 Carbon Dioxide 30 mmol/L Normal 22-32 Anion Gap 6 mmol/L Normal 2-11 Glucose 97 mg/dL Normal 70-100 Blood Urea Nitrogen 21 mg/dL Normal 6-24 Creatinine 0.72 mg/dL Normal 0.51-0.95 BUN/Creatinine Ratio 29.2 High 8-20 Calcium 9.7 mg/dL Normal 8.6-10.3 Total Protein 7.2 g/dL Normal 6.4-8.9 Albumin 4.1 g/dL Normal 3.2-5.2 Globulin 3.1 g/dL Normal 2-4 Albumin/Globulin Ratio 1.3 Normal 1-3 Total Bilirubin 1.60 mg/dL High 0.2-1.0 Alkaline Phosphatase 63 U/L Normal 34-104 Alt 11 U/L Normal 7-52 Ast 17 U/L Normal 13-39 Egfr Non- 76.4 >60 Egfr 92.5 >60 10 Laboratory test 01/14/2019 [facility] Lactic Acid 1.2 mmol/L Normal 0.5-2.0 [address] [place] [address] [phone] Ua Routine 01/08/2019 [facility] Urine Color Yellow [address] [place] [address] [phone] Urine Appearance Cloudy Urine Specific [place] 1.014 Normal 1.010-1.030 Urine pH 7.0 Normal 5-9 Urine Urobilinogen Negative Negative Urine Ketones Negative Negative Urine Protein Negative Negative Urine Leukocytes 3+ Abnormal Negative Urine Blood 1+ Abnormal Negative Urine Nitrite Negative Negative Urine Bilirubin Negative Negative Urine Glucose Negative Negative Urine White Blood Cell 3+(>20/hpf) Abnormal Absent Urine Red Blood Cell 3+(>10/hpf) Abnormal Absent Urine Bacteria Absent Absent Urine Squamous Epithelial Cell Present Abnormal Absent Urine Transitional Epithelial Present Abnormal Absent Urine Culture And 01/08/2019 [facility] Urine Culture SEE RESULT [address] [place] [address] [phone] Laboratory test 01/07/2019 [facility] Pathologist (SEE NOTE) 14, [address] [place] [address] [phone] Manual 01/07/2019 [facility] Neutrophil % 70.0 % Differential [address] [place] [address] [phone] Lymphocytes % 24.0 % Monocytes % 6.0 % Polychromasia 1+ Anisocytosis 1+ Elliptocyte 1+ CBC Auto 01/07/2019 [facility] White Blood 7.9 10^3/uL Normal 3.5-10.[address] [place] [address] [phone] Red Blood Count 3.48 10^6/uL Low 3.70-4.87 Hemoglobin 11.2 g/dL Low 12.0-16.0 Hematocrit 34 % Low 35-47 Mean Corpuscular Volume 98 fL High 80-97 Mean Corpuscular Hemoglobin 32 pg High 27-31 Mean Corpuscular HGB Conc 33 g/dL Normal 31-36 Red Cell Distribution Width 16 % High 10-15 Platelet Count 210 10^3/uL Normal 150-450 Mean Platelet Volume 11.9 fL High 7.4-10.4 Abs Neutrophils 5.3 10^3/uL Normal 1.5-7.7 Abs Lymphocytes 1.9 10^3/uL Normal 1.0-4.8 Abs Monocytes 0.7 10^3/uL Normal 0-0.8 Abs Eosinophils 0.0 10^3/uL Normal 0-0.6 Abs Basophils 0.0 10^3/uL Normal 0-0.2 Abs Nucleated RBC 0.0 10^3/uL Granulocyte % 66.5 % Lymphocyte % 24.1 % Monocyte % 8.6 % Eosinophil % 0.3 % Basophil % 0.5 % Nucleated Red Blood Cells % 0.1 Laboratory 01/07/2019 [facility] TSH (Thyroid 2.03 Normal 0.34 -5.60 16 test finding [address] Stim Horm) mcIU/[place] [address] [phone] Lipid Profile 01/07/2019 [facility] Triglycerides 123 mg/dL 17 (Trig/Chol/HD [address] L) [place] [address] [phone] Cholesterol 106 mg/dL 18 HDL Cholesterol 38.8 mg/dL 19 LDL Cholesterol 43 mg/dL 20 Comp Metabolic 01/07/2019 [facility] Sodium 139 mmol/L Normal 135-[address] [place] [address] [phone] Potassium 4.4 mmol/L Normal 3.5-5.0 Chloride 102 mmol/L Normal 101-111 Co2 Carbon Dioxide 33 mmol/L High 22-32 Anion Gap 4 mmol/L Normal 2-11 Glucose 95 mg/dL Normal 70-100 Blood Urea Nitrogen 22 mg/dL Normal 6-24 Creatinine 0.94 mg/dL Normal 0.51-0.95 BUN/Creatinine Ratio 23.4 High 8-20 Calcium 9.2 mg/dL Normal 8.6-10.3 Total Protein 6.6 g/dL Normal 6.4-8.9 Albumin 4.4 g/dL Normal 3.2-5.2 Globulin 2.2 g/dL Normal 2-4 Albumin/Globulin Ratio 2.0 Normal 1-3 Total Bilirubin 0.80 mg/dL Normal 0.2-1.0 Alkaline Phosphatase 67 U/L Normal 34-104 Alt 13 U/L Normal 7-52 Ast 18 U/L Normal 13-39 Egfr Non- 56.2 >60 Egfr 68.0 >60 21 Urine Culture And 11/14/2018 [facility] Urine Culture SEE RESULT [address] [place] [address] [phone] 1 Desirable: <150 Borderline High: 150-199 High: 200-499 Very High: >500 2 Desirable: <200 Borderline High: 200-239 High: >239 3 Low: <40 Desirable: 40-60 High: >60 4 Desirable: <100 Near Optimal: 100-129 Borderline High: 130-159 High: 160-189 Very High: >189 5 Because ethnic data is not always readily [...] 15-29 5 Kidney failure <15 (or dialysis) 6 Normal Range 180 to 914 Indeterminate Range 145 to 180 Deficient Range <145 7 Macrocytic anemia. Absolute monocytosis and neutrophilia. Reviewed by Mari Gaines MD 8 SEE RESULT BELOW Name: ANGLE CARROLL : [address]: Fadi Leal MD Acct: [id number] Unit: [id number] AGE: 88 Location: [place] [address] Re01/15/19 Dis: 01/17/19 SEX: F Status: DIS IN SPEC: [id number] NIKITA: 01/14/[address] [facility] [address]: Tracy Donovan MD REQ: [id number] RECD: 01/14/19 STATUS: VEE HAJI DR: [facility] Nuria Martin MD _ SOURCE: BLOOD,VENO SPDESC: ORDERED: Blood Cult Procedure Result Reported Site Aerobic Culture Bottle Final 01/19/19- 1301 ML No Growth Day 5 Anaerobic Culture Bottle Final 01/19/19- 1259 ML No Growth Day 5 * ML - Main Lab . END OF REPORT DEPARTMENT OF PATHOLOGY, [address] [place] [address] Carrington Chadwick M.D. Director [facility] # [id number] 9 Troponin-I testing on Plasma Separator Tubes (PST) has a known false positive rate of 0.20-0.40%. All positive troponins reflex immediately to secondary confirmatory testing. Using the [employer] DxI 800 Access Immunoassay systems, the 99th percentile upper reference limit was demonstrated to be < 0.03 ng/mL. 10 Because ethnic data is not always readily [...] 15-29 5 Kidney failure <15 (or dialysis) 11 [facility] Severe Sepsis and Septic Shock Management Bundle Measure requires all lactic acids initially measuring >2.0 mmol/L be repeated. 12 [id number] 13 SEE RESULT BELOW Name: ANGLE CARROLL : [address]: Aric Jean NP Acct: [id number] Unit: [id number] AGE: 88 Location: [facility] Re01/08/19 SEX: F Status: REG REF SPEC: [id number] NIKITA: 01/08/[address] [facility] [address]: Aric Jean NP REQ: [id number] RECD: 01/08/19 STATUS: COMP _ SOURCE: URINE SPDESC: ORDERED: Urine Culture Procedure Result Reported Site Urine Culture Final 01/10/19- 1140 ML Organism 1 ESCHERICHIA COLI Wilkinson Count 10-25,000 (Moderate) CFU/ML Organism 2 NORMAL ERIN Wilkinson Count 1-10,000 (Few) CFU/ML 1. ESCHERICHIA COLI [...] any additional antibiotic reporting. * ML - Main Lab . END OF REPORT DEPARTMENT OF PATHOLOGY, [address] [place] [address] Carrington Chadwick M.D. Director [facility] # [id number] 14 FASTING 10 HOUR 15 Mild, mildly macrocytic anemia noted. Additional studies as clinically warranted. Reviewed by Dr. Chadwick 16 FASTING 10 HOUR 17 Desirable: <150 Borderline High: 150-199 High: 200-499 Very High: >500 18 Desirable: <200 Borderline High: 200-239 High: >239 19 Low: <40 Desirable: 40-60 High: >60 20 Desirable: <100 Near Optimal: 100-129 Borderline High: 130-159 High: 160-189 Very High: >189 21 Because ethnic data is not always readily [...] 15-29 5 Kidney failure <15 (or dialysis) 22 SEE RESULT BELOW Name: ANGLE CARROLL : [address]: Aric Jean NP Acct: [id number] Unit: [id number] AGE: 88 Location: [facility] Re11/14/18 SEX: F Status: REG REF SPEC: [id number] NIKITA: 11/14/18-[address]: Aric Jean NP REQ: [id number] RECD: 11/14/181228 STATUS: COMP _ SOURCE: URINE SPDESC: ORDERED: Urine Culture COMMENTS: [id number] Procedure Result Reported Site Urine Culture Final 11/15/18- 1307 ML No growth of clinically significant organisms * ML - Main Lab . END OF REPORT DEPARTMENT OF PATHOLOGY, [address] [place] [address] Carrington Chadwick M.D. Director [facility] # [id number] Procedures Date Code Description Status 03/12/2019 71388 ECHO Transthoracic, Real-Time 2D With Doppler And Color Completed Flow 01/07/2019 34296 EKG Tracing & Interpretation Completed Medical Devices Description No Information Available Encounters Type Date Location Provider Dx Diagnosis Office Visit 03/09/2019 [facility] Internal Yeimy Adams MD R06.02 Shortness of 3:40p Medicine - Ccmob breath Z23 Encounter for immunization Office Visit 02/20/2019 12:00p [facility] John Castillo I48.0 Paroxysmal atrial Of Taylor aLma M.D. fibrillation I35.0 Nonrheumatic aortic (valve) stenosis I50.9 Heart failure, unspecified I42.9 Cardiomyopathy, unspecified I27.20 Pulmonary hypertension, unspecified Office Visit 01/27/2019 10:40a [facility] Internal Yeimy Adams, J18.8 Other pneumonia, Medicine - Ccmob unspecified organism Office Visit 01/17/2019 12:57p [place] [facility] Aponte J96.21 Acute and chronic Assoc, Edna Leal respiratory Hospitalists failure with hypoxia J18.9 Pneumonia, unspecified organism Office Visit 01/16/2019 12:57p Immanuel Aponte J96.21 Acute and chronic Assoc, Edna Leal respiratory Hospitalists failure with hypoxia J44.0 Chr obstructive pulmon disease with (acute) lower resp infct J18.9 Pneumonia, unspecified organism J44.1 Chronic obstructive pulmonary disease w (acute) exacerbation I48.2 Chronic atrial fibrillation Office Visit 01/15/2019 12:57p Immanuel Aponte J96.21 Acute and chronic Assoc, Edna Leal respiratory Hospitalists failure with hypoxia J44.0 Chr obstructive pulmon disease with (acute) lower resp infct J18.9 Pneumonia, unspecified organism J44.1 Chronic obstructive pulmonary disease w (acute) exacerbation Office Visit 01/14/2019 12:51p Immanuel Aponte J96.21 Acute and chronic Assoc, Edna Leal respiratory Hospitalists failure with hypoxia J44.0 Chr obstructive pulmon disease with (acute) lower resp infct J18.9 Pneumonia, unspecified organism I48.2 Chronic atrial fibrillation Office Visit 01/07/2019 3:00p [facility] Internal Aric Jean, MEMBERSHIP ADVISOR R42 Dizziness and Medicine - Ccmob giddiness Assessments Date Code Description Provider 04/21/2019 B34.9 Viral infection, unspecified Michaelle Rolon M.D. 03/12/2019 R06.02 Shortness of breath John Lama M.D. 03/12/2019 R06.02 Shortness of breath Traveling ECHO 1 03/09/2019 R06.02 Shortness of breath Yeimy Adams MD 03/09/2019 Z23 Encounter for immunization Yeimy Adams MD 02/20/2019 I48.0 Paroxysmal atrial fibrillation John Lama M.D. 02/20/2019 I35.0 Nonrheumatic aortic (valve) stenosis John Lama M.D. 02/20/2019 I50.9 Heart failure, unspecified John Lama M.D. 02/20/2019 I42.9 Cardiomyopathy, unspecified John Lama M.D. 02/20/2019 I27.20 Pulmonary hypertension, unspecified John Lama M.D. 02/06/2019 Z00.00 Encounter for general adult medical Aric Ted, MEMBERSHIP ADVISOR examination without abnormal findings 02/06/2019 I48.0 Paroxysmal atrial fibrillation Aric Ted, MEMBERSHIP ADVISOR 02/06/2019 H91.91 Unspecified hearing loss, right ear Aric Ted, MEMBERSHIP ADVISOR 01/27/2019 J18.8 Other pneumonia, unspecified organism Yeimy Adams MD 01/17/2019 J96.21 Acute and chronic respiratory failure with Fadi Leal M.D. hypoxia 01/17/2019 J18.9 Pneumonia, unspecified organism Fadi Leal M.D. 01/16/2019 J96.21 Acute and chronic respiratory failure with Fadi Leal M.D. hypoxia 01/16/2019 J44.0 Chronic obstructive pulmonary disease with Fadi Leal M.D. (acute) lower respiratory infection 01/16/2019 J18.9 Pneumonia, unspecified organism Fadi Leal M.D. 01/16/2019 J44.1 Chronic obstructive pulmonary disease with Fadi Leal M.D. (acute) exacerbation 01/16/2019 I48.2 Chronic atrial fibrillation Fadi Leal M.D. 01/15/2019 J96.21 Acute and chronic respiratory failure with Fadi Leal M.D. hypoxia 01/15/2019 J44.0 Chronic obstructive pulmonary disease with Fadi Leal M.D. (acute) lower respiratory infection 01/15/2019 J18.9 Pneumonia, unspecified organism Fadi Leal M.D. 01/15/2019 J44.1 Chronic obstructive pulmonary disease with Fadi Leal M.D. (acute) exacerbation 01/14/2019 J96.21 Acute and chronic respiratory failure with Fadi Leal M.D. hypoxia 01/14/2019 J44.0 Chronic obstructive pulmonary disease with Fadi Leal M.D. (acute) lower respiratory infection 01/14/2019 J18.9 Pneumonia, unspecified organism Fadi Leal M.D. 01/14/2019 I48.2 Chronic atrial fibrillation Fadi Leal M.D. 01/07/2019 I48.91 Unspecified atrial fibrillation Nuria Martin M.D. 01/07/2019 R42 Dizziness and giddiness Aric Jean, RENE 01/07/2019 R42 Dizziness and giddiness Nuria Martin M.D. Plan of Treatment 04/21/2019 - Michaelle Rolon M.D.B34.9 Viral infection, unspecifiedComments:if she has progression of symptoms in terms of cough, shortness of breath , please come in again Functional Status Description No Information Available Mental Status Description No Information Available Referrals Refer to Dr Reason for Referral Status Appt Date Reji Wilkerson MD No appt yet 02/16 Received Partial 03/13/[address] [place] [id number] [phone]
--- NOTE | 2019-05-15 20:04 | UC ---
Complaint Female HPI - HPI Summary HPI Summary: 88yo with multiple medical problems including COPD and CHF, with a 2 day history of dysuria and frequency. She has an ongoing hx of urinary infections. getting about 2 per year(reviewed record--on some occasions culture negative) .She has chronic nocturia and persistent stress incontinence. 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 Onset/Duration: Sudden Onset, Lasting Days - 2 Timing: Intermittent, Lasting Minutes Severity Initially: Mild Severity Currently: Moderate Character: Burning Aggravating Factor(s): Urination Alleviating Factor(s): Position Associated Signs And Symptoms: Positive: Negative - Allergies/Home Medications Allergies/Adverse Reactions: Allergies Allergy/AdvReac Type Severity Reaction Status Date / Time amoxicillin [From Augmentin] Allergy Unknown Verified 01/14/19 12:47 Reaction Details clavulanic acid Allergy Unknown Verified 01/14/19 12:47 [From Augmentin] Reaction Details fenoprofen Allergy Unknown Verified 01/14/19 12:47 Reaction Details metolazone Allergy Unknown Verified 01/14/19 12:47 Reaction Details morphine Allergy Nausea Verified 01/14/19 12:47 nitrofurantoin Allergy Unknown Verified 01/14/19 12:47 [From Macrodantin] Reaction Details Penicillins Allergy Shortness Verified 01/14/19 12:47 of Breath sulfamethoxazole Allergy Nausea Verified 01/14/19 12:47 [From Septra] theophylline Allergy Unknown Verified 01/14/19 12:47 Reaction Details trimethoprim [From Septra] Allergy Nausea Verified 01/14/19 12:47 yellow dye Allergy Unknown Verified 01/14/19 12:47 Reaction Details PMH/Surg Hx/FS Hx/Imm Hx Cardiovascular History: Cardiac Disease - multiple valve replacements, on Eliquis Respiratory History: COPD, Pneumonia - last treated 01/29 GI/ History: Gastroesophageal Reflux Neurological History: Dementia - moderate Other History Of: Anticoagulant Therapy - coumadin - Surgical History Surgical History: Yes Surgery Procedure, Year, and Place: open heart surgery september 2011. hysterectomy. Valve repair 2017-[facility] FOR 1.5 OR 3T-UP TO 720 G/CM. HEART ABLASION - Family History Known Family History: Positive: Cardiac Disease, Hypertension - Social History Occupation: Retired Lives: With Family - lives with her with in home support. Alcohol Use: None Substance Use Type: None Smoking Status (MU): Former Smoker - Immunization History Most Recent Influenza Vaccination: 2017 Most Recent Tetanus Shot: with in last 5 years Most Recent Pneumonia Vaccination: 2017 Review of Systems All Other Systems Reviewed And Are Negative: Yes Constitutional: Positive: Fatigue - chronically fatigued. Skin: Positive: Negative Eyes: Positive: Negative ENT: Positive: Negative Respiratory: Positive: Shortness Of Breath - chronic oxygen. Cardiovascular: Positive: Other - increased edema recently secondary to eating ham per her daughter. Physical Exam Triage Information Reviewed: Yes Appearance: No Pain Distress, Ill-Appearing - looks chronically unwell, short of breath walking to exam room and bathroom ENT: Positive: Pharynx normal Neck: Positive: Supple, Nontender, No Lymphadenopathy Respiratory: Positive: Lungs clear, Decreased breath sounds. Negative: Crackles , Rhonchi, Wheezing Cardiovascular: Positive: RRR, No Murmur Abdomen Description: Positive: Nontender, No Organomegaly. Negative: CVA Tenderness (R), CVA Tenderness (L) Musculoskeletal Exam: Other - slow gait, kyphotic chest wall Psychological Exam: Normal Skin Exam: Normal Diagnostics - Laboratory Lab Results: UA with leukocytes + Complaint Female Dx - Course Course Of Treatment: begin cephalexin pending report of urine culture. - Differential Dx/Diagnosis Differential Diagnosis/HQI/PQRI: Urinary Tract Infection, Other - atrophic vaginitis. Provider Diagnosis: UTI (urinary tract infection) Discharge ED - Sign-Out/Discharge Documenting (check all that apply): Patient Departure All imaging exams completed and their final reports reviewed: Yes - Discharge Plan Condition: Stable Disposition: HOME Prescriptions: cephALEXin [Keflex] 500 mg PO BID #14 capsule Patient Education Materials: Urinary Tract Infection in Women (ED) Referrals: Nuria Martin MD [Primary Care Provider] - Additional Instructions: Begin cephalexin pending report of culture report. If a change of treatment is needed based on the report of the culture, you will receive a call. Push water as much as possible (within recommendations for congestive heart failure) and continue efforts to limit salt intake. - Billing Disposition and Condition Condition: STABLE Disposition: Home
[2019-05-15 20:23] VITALS: BP 130/67
[2019-05-15] MEDS ORDERED: Cephalexin CAP* 500 MG PO ONE (20:30)
--- NOTE | 2019-05-18 14:58 | UC ---
- Progress Note Progress Note: Urine culture final with no growth. If pt improving - finish anbx If not improving - may stop anbx and needs f/u with PCP within 1-2 days Course/Dx - Diagnoses Provider Diagnoses: UTI (urinary tract infection) Discharge ED - Sign-Out/Discharge Documenting (check all that apply): Post-Discharge Follow Up All imaging exams completed and their final reports reviewed: Yes - Discharge Plan Condition: Stable Disposition: HOME Prescriptions: cephALEXin [Keflex] 500 mg PO BID #14 capsule Patient Education Materials: Urinary Tract Infection in Women (ED) Referrals: Nuria Martin MD [Primary Care Provider] - Additional Instructions: Begin cephalexin pending report of culture report. If a change of treatment is needed based on the report of the culture, you will receive a call. Push water as much as possible (within recommendations for congestive heart failure) and continue efforts to limit salt intake. - Billing Disposition and Condition Condition: STABLE Disposition: Home
== END 2019-05-15 20:51 | disposition home or self-care (01) ==
LOC: UCEAST 19:55
DX: N39.0 Urinary tract infection, site not specified (principal); J44.9 Chronic obstructive pulmonary disease, unspecified; F03.90 Unspecified dementia, unspecified severity, without behavioral disturbance, psychotic disturbance, mood disturbance, and anxiety; I50.9 Heart failure, unspecified; Z87.891 Personal history of nicotine dependence; Z79.01 Long term (current) use of anticoagulants; Z88.0 Allergy status to penicillin; Z88.6 Allergy status to analgesic agent; Z88.8 Allergy status to other drugs, medicaments and biological substances; Z88.5 Allergy status to narcotic agent; Z88.1 Allergy status to other antibiotic agents; Z88.2 Allergy status to sulfonamides; Z91.041 Radiographic dye allergy status
CPT/HCPCS: 81003; 87086; 99212; A9270-GY; G0463

== ENCOUNTER 2019-05-28 12:29 | Inpatient (IN) | payer MEDICARE, OTHER ==
[2019-05-28] MEDS ORDERED: Furosemide IV* 10 MG/ML VIAL (40 MG) IV ONE (12:38)
[2019-05-28] MEDS ORDERED: Nitro 2% OINT* (Nitroglycerin) 1 INCH/PAK PAK TOPICAL ONE (12:39)
[2019-05-28] MEDS ORDERED: Diltiazem IV BAG* D5W Premix 125 MG/125 ML BAG IV ONE (12:47)
[2019-05-28] MEDS ORDERED: Diltiazem IV push/loading dose 5 MG/ML 5 ML vial (25 mg) IV SLOW PU ONE (12:57)
[2019-05-28 13:00] LABS: Hematocrit 34 % (35-47); Hemoglobin 11.4 g/dL (12.0-16.0); Mean Corpuscular HGB Conc 33 g/dL (31-36); Mean Corpuscular Hemoglobin 32 pg (27-31); Mean Corpuscular Volume 98 fL (80-97); Mean Platelet Volume 11.5 fL (7.4-10.4); Platelet Count 264 10^3/uL (150-450); Red Blood Count 3.51 10^6 /uL (3.70-4.87); Red Cell Distribution Width 18 % (10-15); White Blood Count 25.8 10^3/uL (3.5-10.8)
[2019-05-28] MEDS ORDERED: Azithromycin 500 mg/250 ml NS 500 MG/250 ML BAG IVPB ONE (13:09)
[2019-05-28] MEDS ORDERED: cefTRIAXone(*) 1 GM in NS 0.9% 50 ML* 50 ML IVPB ONE (13:09)
[2019-05-28 13:18] LABS: ALT 17 U/L (7-52); AST 33 U/L (13-39); Albumin 4.2 g/dL (3.2-5.2); Albumin/Globulin Ratio 1.6 (1-3); Alkaline Phosphatase 80 U/L (34-104); Anion Gap 11 mmol/L (2-11); BUN/Creatinine Ratio 17.2 (8-20); Blood Urea Nitrogen 15 mg/dL (6-24); CO2 Carbon Dioxide 29 mmol/L (22-32); Calcium 9.1 mg/dL (8.6-10.3); Chloride 92 mmol/L (101-111); EGFR African American 74.4 (>60); EGFR Non-African American 61.4 (>60); Globulin 2.7 g/dL (2-4); Glucose 196 mg/dL (70-100); Potassium 4.6 mmol/L (3.5-5.0); Sodium 132 mmol/L (135-145); Total Protein 6.9 g/dL (6.4-8.9)
--- OUTSIDE RECORDS SUMMARY | 2019-05-28 13:20 | XMS REPORT | Continuity of Care Document ---
:1930 External Reference #:[id number] Author Name Deysi Wilder M.D., FACP (transmitted by agent of provider Zakiya Langley) Address [address] [facility], [place] [address] Care Team Providers Name Role Phone Nuria Martin MD - Internal Care Team Information Baker Test [phone] Medicine John Lama MD - Cardiovascular Care Team Information Baker Test Disease Problems Active Problems Provider Date Mitral valve disorder John Lama M.D. 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 Onset: 02/18/2013 Hypoxemia Jonh Lama M.D. Onset: 02/18/2013 Localized, primary osteoarthritis [...] former 1996 Unknown smoker Smoking Status Reviewed: 05/27/19 Patient is a former 1996 smoker Exercise Type/Frequency Walks daily limited Allergies, Adverse Reactions, Alerts Active Allergies Reaction Severity Comments Date Penicillin shortness of breathe 02/18/2013 Macrodantin 09/03/2014 Theodur 03/15/2017 Zaroxlen 03/15/2017 Morphine Vomitimg 03/22/2017 Nalfon 03/22/2017 Quinoline Yellow 04/24/2017 Amoxicillin 04/30/2017 Sulfamethoxazole / Trimethoprim 05/16/2017 Inactive Allergies Potasium 03/15/2017 Proventil 03/22/2017 Medications Active Medications SIG Qnty Indications Ordering Date Provider Vikas Christianson Use as directed 1units I50.9 Deysi Wilder, 05/27/2019 M.D., FACP Furosemide 1 by mouth every day 30tabs Deysi Wilder, 05/19/2019 20mg M.D., FACP Tablets Miralax dissolve 1 510units Aric Jean NP 09/25/2018 3350NF tablespoonful once Powder daily in liquid as needed Magnesium 1 by mouth every day 90tabs Aric Jean NP 08/02/2018 250mg Tablets Eliquis 1 tablet by mouth 180tabs I48.2 Aric Jean NP 03/26/2018 2.5mg twice a day. Tablets Digoxin Take 1 Tablet By 90tabs I48.0 Aric Jean NP 01/21/2018 125mcg Mouth Every Day Tablets Albuterol Sulfate inhale the contents 270ml [...] 1units Román Miller 03/15/2017 Device nebulized solution up Edna Sheets to 4 times a day. Cephalexin 2 tabs for 7 days Unknown 500mg Capsules Wixela Inhub use 1 inhalation Unknown 250-50mcg/Dose twice daily Aerosol Senna Laxative 1 tab saturday 42tabs Aric Jean NP 8.6mg saturday Tablets Levothyroxine Sodium take 1 tablet by 90tabs Aric Jean NP 50mcg mouth every day Tablets Zofran take 1 by mouth prn 30tabs Aric Jean NP 4mg Tablets q6 hours Omeprazole take one capsule by 180caps Aric Jean NP 20mg Capsules DR mouth twice a day Coq-10 1 by mouth daily 90caps Aric Jean NP 100mg Capsules ER Wheelchair to be used as needed 1units Román Shukla. Edna Sheets Centrum Silver 50+Women 1 by mouth daily 90tabs Aric Jean NP 50+Women Tablets Oxygen 2-3 L continuously 1units Unknown Misc Topamax 1 by mouth every day 90tabs Aric Jean NP 25mg Tablets History Medications Doxycycline Hyclate 1 by mouth twice a 20tabs Aric Jean NP 01/13/2019 - day 01/23/2019 100mg Tablets Meclizine HCL 1/2 to 1 tablet 30tabs R42 Aric Jean NP 01/07/2019 - 12.5mg every 12 hours as 05/13/2019 Tablets needed for dizziness Fluticasone 2 sprays each 48gm Aric Jean NP 01/07/2019 - Propionate nostril qd. 05/13/2019 50mcg/Act Suspension Medications Administered in Office Medication SIG Qnty Indications Ordering Provider Date PPD Injection Nurse Visit A 07/08/2018 Triamcinolone (Kenalog) Jasiel Buitrago MD 04/22/2018 Injection Depomedrol 80MG Nava Rose M.D. 03/02/2015 Injection Depomedrol 80MG Nava Rose M.D. 09/20/2014 Injection Immunizations CPT Code Status Date Vaccine Reaction Lot # [id number] Given 03/09/2019 Pneumonia Vaccine No immediate reaction [id number] Given 02/26/2019 Influenza Virus Vaccine, Quadrivalent, Split, Preservative Free [id number] Given 02/13/2018 Influenza Virus Vaccine, Quadrivalent, Split, Preservative Free 83032 Given 01/25/2017 Influenza Virus Vaccine, [id number] Quadrivalent, Split, Preservative Free Vital Signs Date Vital Result Comment 05/27/2019 1:42pm Height 58.25 inches 4'10.25" Weight 122.00 lb Heart Rate 100 /min BP Systolic 123 mmHg BP Diastolic 71 mmHg O2 % BldC Oximetry 93 % pt on 4L BMI (Body Mass Index) 25.3 kg/m2 05/18/2019 2:00pm Height 58.25 inches 4'10.25" Weight 122.00 lb Heart Rate 88 /min BP Systolic Sitting 121 mmHg Rue reg cuff BP Diastolic Sitting 78 mmHg Rue reg cuff O2 % BldC Oximetry 97 % BMI (Body Mass Index) 25.3 kg/m2 Results Test Acquired Date Facility Test Result H/L Range Note Laboratory test 05/18/2019 [facility] B-Type 1079 pg/mL High < =[address] [place] [address] Peptide BNP [phone] Basic Metabolic 05/18/2019 [facility] Sodium 138 mmol/L Normal 135-[address] [place] [address] [phone] Potassium 4.9 mmol/L Normal 3.5-5.0 Chloride 98 mmol/L Low 101-111 Co2 Carbon Dioxide 35 mmol/L High 22-32 Anion Gap 5 mmol/L Normal 2-11 Glucose 87 mg/dL Normal 70-100 Blood Urea Nitrogen 16 mg/dL Normal 6-24 Creatinine 0.76 mg/dL Normal 0.51-0.95 BUN/Creatinine Ratio 21.1 High 8-20 Calcium 9.2 mg/dL Normal 8.6-10.3 Egfr Non- 71.8 >60 Egfr 86.9 >60 1 Laboratory test 05/18/2019 [facility] Digoxin 1.2 ng/ml Normal 0.8-2.[address] [place] [address] [phone] CBC Auto Diff 05/18/2019 [facility] White Blood 10.1 Normal 3.5-10.[address] Count 10^3/[place] [address] [phone] Red Blood Count 3.35 10^6/uL Low 3.70-4.87 Hemoglobin 10.7 g/dL Low 12.0-16.0 Hematocrit 33 % Low 35-47 Mean Corpuscular Volume 98 fL High 80-97 Mean Corpuscular Hemoglobin 32 pg High 27-31 Mean Corpuscular HGB Conc 33 g/dL Normal 31-36 Red Cell Distribution Width 16 % High 10-15 Platelet Count 201 10^3/uL Normal 150-450 Mean Platelet Volume 11.6 fL High 7.4-10.4 Abs Neutrophils 7.3 10^3/uL Normal 1.5-7.7 Abs Lymphocytes 1.5 10^3/uL Normal 1.0-4.8 Abs Monocytes 1.2 10^3/uL High 0-0.8 Abs Eosinophils 0.0 10^3/uL Normal 0-0.6 Abs Basophils 0.1 10^3/uL Normal 0-0.2 Abs Nucleated RBC 0.0 10^3/uL Granulocyte % 72.0 % Lymphocyte % 14.6 % Monocyte % 12.1 % Eosinophil % 0.5 % Basophil % 0.8 % Nucleated Red Blood Cells % 0.2 Manual Differential 05/18/2019 [facility] Neutrophil % 75.0 % [address] [place] [address] [phone] Lymphocytes % 13.0 % Monocytes % 8.0 % Variant Lymph % 4.0 % Normal 0-6 Polychromasia 1+ Anisocytosis 1+ Elliptocyte 1+ Laboratory test 05/18/2019 [facility] Pathologist (SEE NOTE) [address] [place] [address] [phone] Urine Culture And 05/15/2019 [facility] Urine Culture SEE RESULT 3, [address] [place] [address] [phone] Poc Urinalysis 05/15/2019 [facility] Poc Glucose, NEGATIVE Negative [address] [place] [address] [phone] Poc Bilirubin, Urine NEGATIVE Negative Poc Ketone, Urine TRACE Negative Poc Specific Soldier, Urine >= 1.030 Normal 1.010-1.030 Poc Blood, Urine TRACE-INTACT Negative 5 Poc pH, Urine 5.0 Normal 5-9 Poc Protein, Urine 2+ Abnormal Negative Poc Urobilinogen, Urine 0.2 Negative Poc Nitrite, Urine NEGATIVE Negative Poc Leukocytes, Urine 2+ Abnormal Negative Poc Color, Urine PERNELL Poc Clarity, Urine SLIGHTLY CLOUDY Lipid Profile 01/30/2019 [facility] Triglycerides 78 mg/dL 6 (Trig/Chol/HDL) [address] [place] [address] [phone] Cholesterol 121 mg/dL 7 HDL Cholesterol 42.5 mg/dL 8 LDL Cholesterol 63 mg/dL 9 Comp Metabolic 01/30/2019 [facility] Sodium 141 mmol/L Normal 135-145 Panel [address] [place] [address] [phone] Potassium 4.5 mmol/L Normal 3.5-5.0 Chloride 105 [...] Egfr Non- 74.1 >60 Egfr 89.6 >60 10 Laboratory 01/30/2019 [facility] TSH (Thyroid 2.27 Normal 0.34 -5.60 test finding Stim Horm) mcIU/[place] [address] [phone] Laboratory 01/14/2019 [facility] Magnesium 2.1 mg/dL Normal 1.9-2.[address] [place] [address] [phone] LDH 236 U/L Normal 140-271 Vitamin B12 1292 pg/mL High 180-914 11 Pathologist Review (SEE NOTE) 12 Blood Culture SEE RESULT BELOW 13 Manual 01/14/2019 [facility] Immature 2.0 % Normal 0-9 Differential [address] [place] [address] [phone] Neutrophil % 77.0 % Band % 1.0 % Normal 0-8 Lymphocytes % 8.0 % Monocytes % 13.0 % Myelocytes % 1.0 % Normal 0-1 Anisocytosis 2+ Laboratory test 01/14/2019 [facility] B-Type 842 pg/mL High <= [address] [place] [address] Peptide BNP [phone] CBC Auto Diff 01/14/2019 [facility] White Blood 12.1 High 3.5- 10.[address] Count 10^3/[place] [address] [phone] Red Blood Count 3.25 10^6/uL Low 3.70-4.87 [...] Blood Cells % 0.1 Laboratory test 01/14/2019 [facility] Troponin-I 0.01 <0.04 [address] (TnI) ng/[place] [address] [phone] Comp Metabolic 01/14/2019 [facility] Sodium 137 Normal 135- [address] mmol/[place] [address] [phone] Potassium 4.0 mmol/L Normal 3.5-5.0 Chloride 101 [...] Egfr Non- 76.4 >60 Egfr 92.5 >60 15 Laboratory test 01/14/2019 [facility] Lactic Acid 1.2 mmol/L Normal 0.5-2.0 [address] [place] [address] [phone] Ua Routine 01/08/2019 [facility] Urine Color Yellow [address] [place] [address] [phone] Urine Appearance Cloudy Urine Specific Soldier 1.014 Normal 1.010-1.030 Urine pH 7.0 Normal [...] Present Abnormal Absent Urine Culture And 01/08/2019 [facility] Urine SEE RESULT [address] [place] [address] [phone] Comp Metabolic 01/07/2019 [facility] Sodium 139 mmol/L Normal 135- [address] [place] [address] [phone] Potassium 4.4 mmol/L Normal 3.5-5.0 Chloride 102 [...] Egfr Non- 56.2 >60 Egfr 68.0 >60 20 Lipid Profile 01/07/2019 [facility] Triglycerides 123 mg/dL 21 (Trig/Chol/HDL) [address] [place] [address] [phone] Cholesterol 106 mg/dL 22 HDL Cholesterol 38.8 mg/dL 23 LDL Cholesterol 43 mg/dL 24 Laboratory 01/07/2019 [facility] TSH (Thyroid 2.03 Normal 0.34 -5.60 25 test finding [address] Stim Horm) mcIU/mL [place], [place] [phone] CBC Auto Diff 01/07/2019 [facility] White Blood 7.9 Normal 3.5 -10.[address] Count 10^3/uL [place], [place] [id number] [phone] Red Blood Count 3.48 10^6/uL Low 3.70-4.87 [...] % Nucleated Red Blood Cells % 0.1 Manual Differential 01/07/2019 [facility] Neutrophil % 70.0 % [address] [place] [address] [phone] Lymphocytes % 24.0 % Monocytes % 6.0 % Polychromasia 1+ Anisocytosis 1+ Elliptocyte 1+ Laboratory test 01/07/2019 [facility] Pathologist Review (SEE NOTE) 26 finding [address] [place] [address] [phone] 1 Because ethnic data is not always readily [...] 15-29 5 Kidney failure <15 (or dialysis) 2 Mild macrocytic anemia noted. Additional studies as clinically warranted. Reviewed by Dr. Chadwick 3 [id number] 4 SEE RESULT BELOW Name: ANGLE CARROLL : [address]: Leigh Ann Pritchett MD Acct: [id number] Unit: [id number] AGE: 88 Location: [facility] Re05/15/19 SEX: F Status: DEP ER SPEC: [id number] NIKITA: 05/15/19-[address]: Leigh Ann Pritchett MD REQ: [id number] RECD: 05/16/19 STATUS: COMP ADITHYA DR: Nuria Martin MD _ SOURCE: URINE SPDESC: ORDERED: Urine Culture COMMENTS: [id number] Procedure Result Reported Site Urine Culture Final 05/18/19- 0934 ML No growth of clinically significant organisms * ML - Main Lab . END OF REPORT DEPARTMENT OF PATHOLOGY, [address] [place] [address] Carrington Chadwick M.D. Director [facility] # [id number] 5 Draw Bench Operator: [id number] Desirable: <150 Borderline High: 150-199 High: 200-499 Very High: >500 7 Desirable: <200 Borderline High: 200-239 High: >239 8 Low: <40 Desirable: 40-60 High: >60 9 Desirable: <100 Near Optimal: 100-129 Borderline High: 130-159 High: 160-189 Very High: >189 10 Because ethnic data is not always [...] 5 Kidney failure <15 (or dialysis) 11 Normal Range 180 to 914 Indeterminate Range 145 to 180 Deficient Range <145 12 Macrocytic anemia. Absolute monocytosis and neutrophilia. Reviewed by Mari Gaines MD 13 SEE RESULT BELOW Name: ANGLE CARROLL : [address]: Fadi Leal MD Acct: [id number] Unit: [id number] AGE: 88 Location: [place] [address] Re01/15/19 Dis: 01/17/19 SEX: F Status: DIS IN SPEC: [id number] NIKITA: 01/14/19-[address] [facility] [address]: Tracy Donovan MD REQ: [id number] RECD: 01/14/19 STATUS: VEE HAJI DR: [facility] Nuria Martin MD _ SOURCE: BLOOD,VENO SPDESC: ORDERED: Blood Cult Procedure Result Reported Site Aerobic Culture Bottle Final 01/19/19- 1301 ML No Growth Day 5 Anaerobic Culture Bottle Final 01/19/19- 1259 ML No Growth Day 5 * ML - Main Lab . END OF REPORT DEPARTMENT OF PATHOLOGY, [address] [place] [address] Carrington Chadwick M.D. Director [facility] # [id number] 14 Troponin-I testing on Plasma Separator Tubes (PST) has a known false positive rate of 0.20-0.40%. All positive troponins reflex immediately to secondary confirmatory testing. Using the [employer] DxI 800 Access Immunoassay systems, the 99th percentile upper reference limit was demonstrated to be < 0.03 ng/mL. 15 Because ethnic data is not always [...] 5 Kidney failure <15 (or dialysis) 16 [facility] Severe Sepsis and Septic Shock Management Bundle Measure requires all lactic acids initially measuring >2.0 mmol/L be repeated. 17 [id number] 18 SEE RESULT BELOW Name: ANGLE CARROLL : [address]: Aric Jean NP Acct: [id number] Unit: [id number] AGE: 88 Location: [facility] Re01/08/19 SEX: F Status: REG REF SPEC: [id number] NIKITA: 01/08/19-[address]: Aric Jean NP REQ: [id number] RECD: 01/08/19142 STATUS: COMP _ SOURCE: URINE [facility]: ORDERED: Urine Culture Procedure Result Reported Site Urine Culture Final 01/10/19- 1140 ML Organism 1 ESCHERICHIA COLI [place] Count 10-25,000 (Moderate) CFU/ML Organism 2 NORMAL ERIN [place] Count 1-10,000 (Few) CFU/ML 1. ESCHERICHIA COLI [...] . END OF REPORT DEPARTMENT OF PATHOLOGY, [address], [place], [place] [address] Carrington Chadwick M.D. Director [facility] # [id number] 19 FASTING 10 HOUR 20 Because ethnic data is not always readily [...] 15-29 5 Kidney failure <15 (or dialysis) 21 Desirable: <150 Borderline High: 150-199 High: 200-499 Very High: >500 22 Desirable: <200 Borderline High: 200-239 High: >239 23 Low: <40 Desirable: 40-60 High: >60 24 Desirable: <100 Near Optimal: 100-129 Borderline High: 130-159 High: 160-189 Very High: >189 25 FASTING 10 HOUR 26 Mild, mildly macrocytic anemia noted. Additional studies as clinically warranted. Reviewed by Dr. Chadwick Procedures Date Code Description Status 03/12/2019 78294 ECHO Transthoracic, Real-Time 2D With Doppler And Color Completed Flow 01/07/2019 45147 EKG Tracing & Interpretation Completed Medical Devices Description No Information Available Encounters Type Date Location Provider Dx Diagnosis Office Visit 05/18/2019 [facility] Deysi Wilder, I50.9 Heart failure, 2:00p Medicine - Khushi Bishop, FACP unspecified J44.9 Chronic obstructive pulmonary disease, unspecified I48.20 Chronic atrial fibrillation, unspecified Office Visit 03/09/2019 3:40p [facility] Yeimy Adams, R06.02 Shortness of Medicine - Khushi LEON breath Z23 Encounter for immunization Office Visit 02/20/2019 12:00p [facility] John Castillo I48.0 Paroxysmal atrial Of Taylor Lama M.D. fibrillation I35.0 Nonrheumatic aortic (valve) stenosis I50.9 Heart failure, unspecified I42.9 Cardiomyopathy, unspecified I27.20 Pulmonary hypertension, unspecified Office Visit 01/27/2019 10:40a [facility] Internal Yeimy Bryan, J18.8 Other pneumonia, Medicine - Ccmob MD unspecified organism Office Visit 01/17/2019 12:57p Paden Lizett Aponte J96.21 Acute and chronic Assoc,festus Leal M.D. respiratory Hospitalists failure with hypoxia J18.9 Pneumonia, unspecified organism Office Visit 01/16/2019 12:57p Paden Lizett Aponte J96.21 Acute and chronic Assoc,festus Leal M.D. respiratory Hospitalists failure with hypoxia J44.0 Chr obstructive pulmon disease with (acute) lower resp infct J18.9 Pneumonia, unspecified organism J44.1 Chronic obstructive pulmonary disease w (acute) exacerbation I48.2 Chronic atrial fibrillation Office Visit 01/15/2019 12:57p Paden Lizett Aponte J96.21 Acute and chronic Assoc,festus Leal M.D. respiratory Hospitalists failure with hypoxia J44.0 Chr obstructive pulmon disease with (acute) lower resp infct J18.9 Pneumonia, unspecified organism J44.1 Chronic obstructive pulmonary disease w (acute) exacerbation Office Visit 01/14/2019 12:51p Immanuel Aponte J96.21 Acute and chronic Assoc,festus Leal M.D. respiratory Hospitalists failure with hypoxia J44.0 Chr obstructive pulmon disease with (acute) lower resp infct J18.9 Pneumonia, unspecified organism I48.2 Chronic atrial fibrillation Office Visit 01/07/2019 3:00p [facility] Aric Ted, SENIOR FINANCIAL CONSULTANT R42 [facility] Date Code Description Provider 05/27/2019 I50.9 Heart failure, unspecified [facility] 05/27/2019 R06.02 Shortness of breath Deysi Wilder M.D., FACP 05/18/2019 I50.9 Heart failure, unspecified Deysi Wilder M.D., FACP 05/18/2019 J44.9 Chronic obstructive pulmonary disease, Deysi Wilder M.D., FACP unspecified 05/18/2019 I48.20 Chronic atrial fibrillation, unspecified Dyesi Wiledr M.D. , FACP 04/21/2019 B34.9 Viral infection, unspecified Michaelle Rolon [...] Encounter for general adult medical Aric Ted, SENIOR FINANCIAL CONSULTANT examination without abnormal findings 02/06/2019 I48.0 Paroxysmal atrial fibrillation Aric Ted, SENIOR FINANCIAL CONSULTANT 02/06/2019 H91.91 Unspecified hearing loss, right ear Aric Ted, SENIOR FINANCIAL CONSULTANT 01/27/2019 J18.8 Other pneumonia, unspecified organism Yeimy [...] 01/07/2019 R42 Dizziness and giddiness Aric Jean, SENIOR FINANCIAL CONSULTANT 01/07/2019 R42 Dizziness and giddiness Nuria Martin M.D. Plan of Treatment 05/27/2019 - Deysi Wilder M.D., FACPI50.9 Heart failure, unspecifiedNew Medication:Thigh Hi Gordy Hose - Use as directedComments:HEART FAILURE:We talked about dosing the furosemide today. I recommend that this med be used once aday at most. Again, it is very important to restrict your sodium intake.I will let you and Dr. Lama know the results of today's blood work.R06.02 Shortness of breathComments:SHORTNESS OF BREATH:I understant that you are using the oxygen on a regular basis not just at rest but also when you ambulate. Trying the face mask for oxygen delivery when you know that you will be active, might reduce the shortness of breath. Functional Status Description No Information Available Mental Status Description No Information Available Referrals Refer to Reason for Referral Status Appt Date Reji Wilkerson MD No appt yet 02/16 Received Partial 03/13/[address] [place] [address] [phone]
--- OUTSIDE RECORDS SUMMARY | 2019-05-28 13:20 | XMS REPORT | Continuity of Care Document ---
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 [phone] Medicine Problems Active Problems Provider Date Mitral [...] former 1996 Unknown smoker Smoking Status Reviewed: 05/18/19 Patient is a former 1996 smoker Exercise Type/Frequency Walks daily limited Allergies, Adverse Reactions, Alerts Active Allergies Reaction Severity Comments Date Penicillin shortness of breathe 02/18/2013 Macrodantin 09/03/2014 Theodur 03/15/2017 Zaroxlen 03/15/2017 Morphine Vomitimg 03/22/2017 Nalfon 03/22/2017 Quinoline Yellow 04/24/2017 Amoxicillin 04/30/2017 Sulfamethoxazole / Trimethoprim 05/16/2017 Inactive Allergies Potasium 03/15/2017 Proventil 03/22/2017 Medications Active Medications SIG Qnty Indications Ordering Date Provider Miralax dissolve 1 510units Aric Jean NP [...] day Tablets Zofran take 1 by mouth orn 30tabs Aric Jean NP 4mg Tablets q6 hours Omeprazole take one capsule by 180caps Aric Jean NP 20mg Capsules DR mouth twice a day Coq-10 1 by mouth daily 90caps Aric Jean NP 100mg Capsules ER Wheelchair to be used as needed 1units Román Miller Edna Sheets Centrum Silver 50+Women 1 by mouth daily 90tabs Aric Jean NP 50+Women Tablets Oxygen 2-3 L continuously 1units Unknown Misc Topamax 1 by mouth every day 90tabs rAic Jean NP 25mg Tablets History Medications Doxycycline [...] Code Status Date Vaccine Reaction Lot # [id number] Given 03/09/2019 Pneumonia Vaccine No immediate reaction [id number] Given 02/26/2019 Influenza Virus Vaccine, Quadrivalent, Split, Preservative Free 30732 Given 02/13/2018 Influenza Virus Vaccine, Quadrivalent, Split, Preservative Free 27974 Given 01/25/2017 Influenza Virus Vaccine, [id number] Quadrivalent, Split, Preservative Free Vital Signs Date Vital Result Comment 05/18/2019 2:00pm Height 58.25 inches 4'10.25" Weight 122.00 lb Heart Rate 88 /min BP Systolic Sitting 121 mmHg Rue reg cuff BP Diastolic Sitting 78 mmHg Rue reg cuff O2 % BldC Oximetry 97 % BMI (Body Mass Index) 25.3 kg/m2 04/21/2019 2:47pm Height 58.25 inches 4'10.25" Weight 118.00 lb Heart Rate 84 /min BP Systolic Sitting 109 mmHg BP Diastolic Sitting 69 mmHg Body Temperature 98.0 F O2 % BldC Oximetry 94 % BMI (Body Mass Index) 24.4 kg/m2 Results Test Acquired Date Facility Test Result H/L Range Note Urine Culture And 05/15/2019 [facility] Urine SEE RESULT 1 , [address] [place] [address] [phone] Poc Urinalysis 05/15/2019 [facility] Poc NEGATIVE Negative [address] Glucose, [place] [address] Urine [phone] Poc Bilirubin, Urine NEGATIVE Negative Poc Ketone, Urine TRACE Negative Poc Specific [place], Urine >= 1.030 Normal 1.010-1.030 Poc Blood, Urine TRACE-INTACT Negative 3 Poc pH, Urine 5.0 Normal 5-9 Poc Protein, Urine 2+ Abnormal Negative Poc Urobilinogen, Urine 0.2 Negative Poc Nitrite, Urine NEGATIVE Negative Poc Leukocytes, Urine 2+ Abnormal Negative Poc Color, Urine PERNELL Poc Clarity, Urine SLIGHTLY CLOUDY Lipid Profile 01/30/2019 [facility] Triglycerides 78 mg/dL 4 (Trig/Chol/HDL) [address] [place] [address] [phone] Cholesterol 121 mg/dL 5 HDL Cholesterol 42.5 mg/dL 6 LDL Cholesterol 63 mg/dL 7 Comp Metabolic 01/30/2019 [facility] Sodium 141 mmol/L Normal 135-145 [place] [address] [phone] Potassium 4.5 mmol/L Normal 3.5-5.0 Chloride 105 [...] Egfr Non- 74.1 >60 Egfr 89.6 >60 8 Laboratory 01/30/2019 [facility] TSH (Thyroid 2.27 Normal 0.34 -5.[address] Stim Horm) mcIU/[place] [address] [phone] Laboratory 01/14/2019 [facility] Lactic Acid 1.2 mmol/L Normal 0.5-2.0 [address] [place] [address] [phone] Comp Metabolic 01/14/2019 [facility] Sodium 137 mmol/L Normal 135-[address] [place] [address] [phone] Potassium 4.0 mmol/L Normal 3.5-5.0 Chloride 101 [...] Egfr 92.5 >60 10 Laboratory test 01/14/2019 [facility] Troponin-I 0.01 <0.04 11 finding 101 (TnI) ng/[place] [address] [phone] CBC Auto Diff 01/14/2019 [facility] White Blood 12.1 High 3.5- 10.[address] Count 10^3/[place] [address] [phone] Red Blood Count 3.25 10^6/uL Low 3.70-4.87 [...] Blood Cells % 0.1 Laboratory test 01/14/2019 [facility] B-Type 842 pg/mL High <= [address] [place] [address] Peptide BNP [phone] Manual 01/14/2019 [facility] Immature 2.0 % Normal 0-[address] [place] [address] [phone] Neutrophil % 77.0 % Band % 1.0 % Normal 0-8 Lymphocytes % 8.0 % Monocytes % 13.0 % Myelocytes % 1.0 % Normal 0-1 Anisocytosis 2+ Laboratory test 01/14/2019 [facility] Magnesium 2.1 mg/dL Normal 1.9-2.[address] [place], [place] [id number] [phone] LDH 236 U/L Normal 140-271 Vitamin B12 1292 pg/mL High 180-914 12 Pathologist Review (SEE NOTE) 13 Blood Culture SEE RESULT BELOW 14 Urine Culture And 01/08/2019 [facility] Urine Culture SEE RESULT 15, [address] [place] [address] [phone] Ua Routine 01/08/2019 [facility] Urine Color Yellow [address] [place] [address] [phone] Urine Appearance Cloudy Urine Specific [place] 1.014 Normal 1.010-1.030 Urine pH 7.0 Normal [...] Absent Urine Transitional Epithelial Present Abnormal Absent Comp Metabolic 01/07/2019 [facility] Sodium 139 mmol/L Normal 135-145 17 Panel [address] [place] [address] [phone] Potassium 4.4 mmol/L Normal 3.5-5.0 Chloride 102 [...] Egfr Non- 56.2 >60 Egfr 68.0 >60 18 Lipid Profile 01/07/2019 [facility] Triglycerides 123 mg/dL 19 (Trig/Chol/HDL) [address] [place] [address] [phone] Cholesterol 106 mg/dL 20 HDL Cholesterol 38.8 mg/dL 21 LDL Cholesterol 43 mg/dL 22 Laboratory 01/07/2019 [facility] TSH (Thyroid 2.03 Normal 0.34 -5.60 [address] Stim Horm) mcIU/[place] [address] [phone] CBC Auto Diff 01/07/2019 [facility] White Blood 7.9 Normal 3.5 -10.[address] Count 10^3/[place] [address] [phone] Red Blood Count 3.48 10^6/uL Low 3.70-4.87 [...] Blood Cells % 0.1 Manual Differential 01/07/2019 [facility] Neutrophil % 70.0 % [place] [address] [phone] Lymphocytes % 24.0 % Monocytes % 6.0 % Polychromasia 1+ Anisocytosis 1+ Elliptocyte 1+ Laboratory test 01/07/2019 [facility] Pathologist Review (SEE NOTE) 24 finding [address] [place] [address] [phone] 1 [id number] 2 SEE RESULT BELOW Name: ANGLE CARROLL : [address]: Leigh Ann Pritchett MD Acct: [id number] Unit: [id number] AGE: 88 Location: [facility] Re05/15/19 SEX: F Status: DEP ER SPEC: [id number] NIKITA: 05/15/[address]: Leigh Ann Pritchett MD REQ: [id number] RECD: 05/16/19 STATUS: COMP MARYCARMENHR DR: Nuria Martin MD _ SOURCE: URINE SPDESC: ORDERED: Urine Culture COMMENTS: [id number] Procedure Result Reported Site Urine Culture Final 05/18/19- 3113 ML No growth of clinically significant organisms * ML - Main Lab . END OF REPORT DEPARTMENT OF PATHOLOGY, [address] [place] [address] Carrington Chadwick M.D. Director [facility] # [id number] 3 Glass Lathe Operator: [id number] Desirable: <150 Borderline High: 150-199 High: 200-499 Very High: >500 5 Desirable: <200 Borderline High: 200-239 High: >239 6 Low: <40 Desirable: 40-60 High: >60 7 Desirable: <100 Near Optimal: 100-129 Borderline High: 130-159 High: 160-189 Very High: >189 8 Because ethnic data is not always readily [...] 15-29 5 Kidney failure <15 (or dialysis) 9 [facility] Severe Sepsis and Septic Shock Management Bundle Measure requires all lactic acids initially measuring >2.0 mmol/L be repeated. 10 Because ethnic data is not always [...] 5 Kidney failure <15 (or dialysis) 11 Troponin-I testing on Plasma Separator Tubes (PST) has a known false positive rate of 0.20-0.40%. All positive troponins reflex immediately to secondary confirmatory testing. Using the [employer] DxI 800 Access Immunoassay systems, the 99th percentile upper reference limit was demonstrated to be < 0.03 ng/mL. 12 Normal Range 180 to 914 Indeterminate Range 145 to 180 Deficient Range <145 13 Macrocytic anemia. Absolute monocytosis and neutrophilia. Reviewed by Mari Gaines MD 14 SEE RESULT BELOW Name: ANGLE CARROLL : [address]: Fadi Leal MD Acct: [id number] Unit: [id number] AGE: 88 Location: [place] [address] Re01/15/19 Dis: 01/17/19 SEX: F Status: DIS IN SPEC: [id number] NIKITA: 01/14/19 [facility] DR: Tracy Donovan MD REQ: [id number] RECD: 01/14/19 STATUS: VEE HAJI DR: [facility] Nuria Martin MD _ SOURCE: BLOOD,VENO SPDESC: ORDERED: Blood Cult Procedure Result Reported Site Aerobic Culture Bottle Final 01/19/19- 1301 ML No Growth Day 5 Anaerobic Culture Bottle Final 01/19/19- 1259 ML No Growth Day 5 * ML - Main Lab . END OF REPORT DEPARTMENT OF PATHOLOGY, [address] [place] [address] Carrington Chadwick M.D. Director [facility] # [id number] 15 [id number] 16 SEE RESULT BELOW Name: ANGLE CARROLL : [address]: Aric Jean NP Acct: [id number] Unit: [id number] AGE: 88 Location: [facility] Re01/08/19 SEX: F Status: REG REF SPEC: [id number] NIKITA: 01/08/19-1120 [facility] DR: Aric Jean NP REQ: [id number] RECD: 01/08/19 STATUS: COMP _ SOURCE: URINE SPDESC: ORDERED: Urine Culture Procedure Result Reported Site Urine Culture Final 01/10/19- 1140 ML Organism 1 ESCHERICHIA COLI [place] Count 10-25,000 (Moderate) CFU/ML Organism 2 NORMAL ERIN [place] Count 1-10,000 (Few) CFU/ML 1. ESCHERICHIA COLI [...] . END OF REPORT DEPARTMENT OF PATHOLOGY, [address] [place] [address] Carrington Chadwick M.D. Director [facility] # [id number] 17 FASTING 10 HOUR 18 Because ethnic data is not always [...] 5 Kidney failure <15 (or dialysis) 19 Desirable: <150 Borderline High: 150-199 High: 200-499 Very High: >500 20 Desirable: <200 Borderline High: 200-239 High: >239 21 Low: <40 Desirable: 40-60 High: >60 22 Desirable: <100 Near Optimal: 100-129 Borderline High: 130-159 High: 160-189 Very High: >189 23 FASTING 10 HOUR 24 Mild, mildly macrocytic anemia noted. Additional studies as clinically warranted. Reviewed by Dr. Chadwick Procedures Date Code Description Status 03/12/2019 77299 ECHO Transthoracic, Real-Time 2D With Doppler And Color Completed Flow 01/07/2019 58033 EKG Tracing & Interpretation Completed Medical Devices Description No Information Available Encounters Type Date Location Provider Dx Diagnosis Office Visit 03/09/2019 [facility] Internal Yeimy Adams MD R06.02 Shortness of 3:40p Medicine - Ccmob breath Z23 Encounter for immunization Office Visit 02/20/2019 12:00p [facility] John Castillo I48.0 Paroxysmal atrial Of Taylor Lama M.D. fibrillation I35.0 Nonrheumatic aortic (valve) stenosis I50.9 Heart failure, unspecified I42.9 Cardiomyopathy, unspecified I27.20 Pulmonary hypertension, unspecified Office Visit 01/27/2019 10:40a [facility] Internal Yeimy Bryan, J18.8 Other [facility] unspecified organism Office Visit 01/17/2019 12:57p [facility]uff[facility] Lizett Aponte J96.21 Acute and chronic Assoc,festus Leal M.D. respiratory Hospitalists failure with hypoxia J18.9 Pneumonia, unspecified organism Office Visit 01/16/2019 12:57p Ruffin Lizett Aponte J96.21 Acute and chronic Assoc,festus Leal M.D. respiratory Hospitalists failure with hypoxia J44.0 Chr obstructive pulmon disease with (acute) lower resp infct J18.9 Pneumonia, unspecified organism J44.1 Chronic obstructive pulmonary disease w (acute) exacerbation I48.2 Chronic atrial fibrillation Office Visit 01/15/2019 12:57p Ruffin Lizett Aponte J96.21 Acute and chronic Assoc,festus [...] Chronic atrial fibrillation Office Visit 01/07/2019 3:00p [facility] Internal Aric Ted, LAB DIRECTOR R42 [facility]izz[facility] Assessments Date Code Description Provider 05/18/2019 I50.9 Heart failure, unspecified Deysi Wilder M.D., FACP 04/21/2019 B34.9 Viral infection, unspecified Michaelle [...] Encounter for general adult medical Aric Ted, LAB DIRECTOR examination without abnormal findings 02/06/2019 I48.0 Paroxysmal atrial fibrillation Aric Ted, LAB DIRECTOR 02/06/2019 H91.91 Unspecified hearing loss, right ear Aric Ted, LAB DIRECTOR 01/27/2019 J18.8 Other pneumonia, unspecified organism Yeimy [...] J44.0 Chronic obstructive pulmonary disease with Fadi Lela M.D. (acute) lower respiratory infection 01/15/2019 J18.9 [...] 01/07/2019 R42 Dizziness and giddiness Aric Jean, LAB DIRECTOR 01/07/2019 R42 Dizziness and giddiness Nuria Martin M.D. Plan of Treatment 05/18/2019 - Deysi Wilder M.D., FACPI50.9 Heart failure, unspecifiedComments: HEART FAILURE:We talked about dosing the spironolactone today. It is really important to scrupulously keep track of your sodium intake. I would like you to check your weight daily (at the same time of day). If you note an increase of greater than 3-5#/day over a 48 hour period, please contact me right away. Since your bp's are already so low, we need to be careful about increasing the diuretics. I would like to check some blood work today. I will call tomorrow with the test results and we will decide on the plan accordingly. Functional Status Description No Information Available Mental Status Description No Information Available Referrals Refer to Reason for Referral Status Appt Date Reji Wilkerson MD No appt yet 02/16 Received Partial 03/13/2019 [address] [place] [address] [phone]
--- NOTE | 2019-05-28 13:23 | ED ---
Shortness of Breath - HPI Summary HPI Summary: Patient is an 88 y/o F presenting to the ED via EMS for a chief complaint of shortness of breath. Per EMS, patient had an oxygen saturation in the 60s on EMS arrival. Patient was given albuterol and placed on CPAP by EMS with improvement. Patient also has bilateral LE edema. On 05/27/19, patient was given twice her usual dosage of Lasix by her home health aide and nurse. PMHx is significant for COPD and CHF. - History of Current Complaint Chief Complaint: EDRespiratoryDistress Time Seen by Provider: 05/28/19 12:35 Hx Obtained From: Patient, EMS Onset/Duration: Sudden Onset, Still Present Timing: Constant Current Severity: Moderate Dyspnea At: Rest Aggravating Factors: Nothing Alleviating Factors: Oxygen Associated Signs & Symptoms: Edema - Bilateral LE - Allergy/Home Medications Allergies/Adverse Reactions: Allergies Allergy/AdvReac Type Severity Reaction Status Date / Time amoxicillin [From Augmentin] Allergy Unknown Verified 01/14/19 12:47 Reaction Details clavulanic acid Allergy Unknown Verified 01/14/19 12:47 [From Augmentin] Reaction Details fenoprofen Allergy Unknown Verified 01/14/19 12:47 Reaction Details metolazone Allergy Unknown Verified 01/14/19 12:47 Reaction Details morphine Allergy Nausea Verified 01/14/19 12:47 nitrofurantoin Allergy Unknown Verified 01/14/19 12:47 [From Macrodantin] Reaction Details Penicillins Allergy Shortness Verified 01/14/19 12:47 of Breath sulfamethoxazole Allergy Nausea Verified 01/14/19 12:47 [From Septra] theophylline Allergy Unknown Verified 01/14/19 12:47 Reaction Details trimethoprim [From Septra] Allergy Nausea Verified 01/14/19 12:47 yellow dye Allergy Unknown Verified 01/14/19 12:47 Reaction Details Home Medications: Home Medications Furosemide TAB* [Lasix TAB*] 20 mg PO DAILY 05/28/19 [History Confirmed 05/28/19 ] Polyethylene Glycol 3350* [Miralax*] 17 gm PO DAILY PRN 05/28/19 [History Confirmed 05/28/19] Ubidecarenone [Coq-10 Tr] 100 mg PO DAILY 05/28/19 [History Confirmed 05/28/19] PMH/Surg Hx/FS Hx/Imm Hx Previously Healthy: Yes Endocrine/Hematology History: Reports: Hx Anticoagulant Therapy - coumadin, Hx Thyroid Disease Denies: Hx Diabetes, Hx Systemic Lupus Erythematosus Cardiovascular History: Reports: Hx Atrial Fibrillation, Hx Congestive Heart Failure - HX, Hx Hypertension, Hx Valvular Heart Disease, Other Cardiovascular Problems/Disorders - VALVULAR HEART DISEASE Denies: Hx Pacemaker/ICD Respiratory History: Reports: Hx Asthma, Hx Chronic Obstructive Pulmonary Disease (COPD) GI History: Reports: Hx Gastrointestinal Bleed History: Reports: Hx Kidney Infection, Other Problems/Disorders - UTIs Denies: Hx Dialysis, Hx Renal Disease Musculoskeletal History: Reports: Hx Arthritis Denies: Hx Rheumatoid Arthritis, Hx Scoliosis Sensory History: Reports: Hx Contacts or Glasses Denies: Hx Legally Blind, Hx Deafness, Hx Hearing Aid Opthamlomology History: Reports: Hx Contacts or Glasses Denies: Hx Legally Blind EENT History: Denies: Hx Deafness Neurological History: Reports: Hx Dementia - per pt's daughter, Hx Migraine, Hx Transient Ischemic Attacks (TIA) Denies: Hx Headaches, Other Neuro Impairments/Disorders Psychiatric History: Reports: Hx Anxiety Denies: Hx Panic Disorder - Cancer History Cancer Type, Location and Year: Skin Hx Chemotherapy: No Hx Radiation Therapy: No - Surgical History Surgical History: Yes Surgery Procedure, Year, and Place: open heart surgery september 2011. hysterectomy. Valve repair 2017-[facility] 3-OK FOR 1.5 OR 3T-UP TO 720 G/CM. HEART ABLASION Infectious Disease History: No Infectious Disease History: Denies: Traveled Outside the [place] in Last 30 Days - Family History Known Family History: Positive: Cardiac Disease, Hypertension - Social History Occupation: Retired Lives: With Family Alcohol Use: None Hx Substance Use: No Substance Use Type: Reports: None Hx Tobacco Use: Yes Smoking Status (MU): Former Smoker Review of Systems Positive: Shortness Of Breath Positive: Edema - Bilateral LE All Other Systems Reviewed And Are Negative: Yes Physical Exam - Summary Physical Exam Summary: Constitutional: Well-developed, Well-nourished, Alert. Appears anxious. Skin: Warm, Dry HENT: Normocephalic; Atraumatic Eyes: Conjunctiva normal Neck: Musculoskeletal ROM normal neck. (-) JVD, (-) Stridor, (-) Tracheal deviation Cardio: Heart sounds normal; Intact distal pulses; The pedal pulses are 2+ and symmetric. Radial pulses are 2+ and symmetric. (-) Murmur.Tachycardic, irregular rhythm Pulmonary/Chest wall: (-) Wheezes, Bilateral rales, increased respiration rate, increased workup breathing Abd: Soft, (-) tenderness, (-) Distension, (-) Guarding, (-) Rebound Musculoskeletal: Bilateral LE edema. Lymph: (-) Cervical adenopathy Neuro: Alert, Oriented x3 Psych: Mood and affect Normal Triage Information Reviewed: Yes Vital Signs On Initial Exam: Initial Vitals Temp Pulse Resp BP Pulse Ox 99.2 F 133 30 152/125 96 05/28/19 12:35 05/28/19 12:35 05/28/19 12:35 05/28/19 12:35 05/28/19 12:35 Vital Signs Reviewed: Yes Procedures - Sedation Patient Received Moderate/Deep Sedation with Procedure: No Diagnostics - Vital Signs Vital Signs Temp Pulse Resp BP Pulse Ox 05/28/19 13:07 127 32 161/91 95 05/28/19 13:00 143 49 96 05/28/19 12:59 140 41 152/94 96 05/28/19 12:56 143 26 145/99 96 05/28/19 12:48 126 40 96 05/28/19 12:35 99.2 F 143 45 152/125 94 - Laboratory Lab Results: Lab Results 05/28/19 05/28/19 Range/Units 12:48 12:48 WBC 25.8 H (3.5-10.8) 10^3/uL RBC 3.51 L (3.70-4.87) 10^6 /uL Hgb 11.4 L (12.0-16.0) g/dL Hct 34 L (35-47) % MCV 98 H (80-97) fL MCH 32 H (27-31) pg MCHC 33 (31-36) g/dL RDW 18 H (10-15) % Plt Count 264 (150-450) 10^3/uL MPV 11.5 H (7.4-10.4) fL Neut % (Auto) Pending Lymph % (Auto) Pending [place] % (Auto) Pending Eos % (Auto) Pending Baso % (Auto) Pending Absolute Neuts (auto) Pending Absolute Lymphs (auto) Pending Absolute Monos (auto) Pending Absolute Eos (auto) Pending Absolute Basos (auto) Pending Absolute Nucleated RBC Pending Nucleated RBC % Pending Sodium 132 L (135-145) mmol/L Potassium 4.6 (3.5-5.0) mmol/L Chloride 92 L (101-111) mmol/L Carbon Dioxide 29 (22-32) mmol/L Anion Gap 11 (2-11) mmol/L BUN 15 (6-24) mg/dL Creatinine 0.87 (0.51-0.95) mg/dL Est GFR ( Amer) 74.4 (>60) Est GFR (Non-Af Amer) 61.4 (>60) BUN/Creatinine Ratio 17.2 (8-20) Glucose 196 H (70-100) mg/dL Calcium 9.1 (8.6-10.3) mg/dL Total Bilirubin 1.60 H (0.2-1.0) mg/dL AST 33 (13-39) U/L ALT 17 (7-52) U/L Alkaline Phosphatase 80 (34-104) U/L Troponin I Pending Total Protein 6.9 (6.4-8.9) g/dL Albumin 4.2 (3.2-5.2) g/dL Globulin 2.7 (2-4) g/dL Albumin/Globulin Ratio 1.6 (1-3) Digoxin Pending Result Diagrams: 05/28/19 12:48 05/28/19 12:48 Lab Statement: Any lab studies that have been ordered have been reviewed, and results considered in the medical decision making process. - Radiology Chest X-ray Radiology Interpretation Completed By: Radiologist Summary of Radiographic Findings: Chest X-ray IMPRESSION: FINDINGS CONSISTENT WITH CARDIOMEGALY AND RIGHT BASILAR PNEUMONIA. Reviewed by Dr. Hernadez. - EKG 12:40 Cardiac Rate: Other Rate - 148 BPM EKG Rhythm: Atrial Fibrillation ST Segment: Normal Ectopy: None Summary of EKG Findings: EKG at 12:40 shows atrial fibrillation with RVR with 148 BPM, no STEMI. Dr. Hernadez has reviewed and interpreted this EKG. Course/Dx - Course Course Of Treatment: Patient is an 88 y/o F presenting to the ED via EMS for a chief complaint of shortness of breath. Per EMS, patient had an oxygen saturation in the 60s on EMS arrival. Patient was given albuterol and placed on CPAP by EMS with improvement. Patient also has bilateral LE edema. On 05/27/19, patient was given twice her usual dosage of Lasix by her home health aide and nurse. PMHx is significant for COPD and CHF. On exam, tachycardic, irregular rhythm, bilateral rales, increased respiration rate, increased workup breathing , appears anxious, bilateral LE edema. In the ED course, patient was given azithromycin 500 mg IVPB, diltiazem 125 mg IV, furosemide 60 mg IV, nitroglycerin 2% 1 inch TOPICAL, and IV fluids. EKG at 12:40 shows atrial fibrillation with RVR with 148 BPM, no STEMI. Laboratory abnormal findings: WBC 25.8, RBC 3.51, Hgb 11.4, Hct 34, MCV 98, MCH 32, RDW 18, MPV 11.5, absolute neuts 21.5, absolute monos 2.2, sodium 132, chloride 92, glucose 196, lactic acid 2.9, total bilirubin 1.6, troponin I 0.07, BNP >1300. Chest X-ray IMPRESSION: FINDINGS CONSISTENT WITH CARDIOMEGALY AND RIGHT BASILAR PNEUMONIA. At 13:25, I discussed with Dr. Marino Tucker who [place] [facility] [place] [facility] [place] a diagnosis of pneumonia, atrial fibrillation with RVR, and CHF exacerbation. - Diagnoses Provider Diagnoses: Pneumonia, CHF exacerbation, Atrial fibrillation with RVR - Physician Notifications Discussed Care of Patient With: Marino Tucker - At 13:25, I discussed with Dr. Marino Tucker who will [place] the [place] [facility] [place] Time Discussed With Above Provider: 13:25 Instructed by Provider To: Admit As Inpatient - Critical Care Time Critical Care Time: 30-74 min - 60 minutes Discharge ED - Sign-Out/Discharge Documenting (check all that apply): Patient Departure - Admit - Discharge Plan Condition: Stable Disposition: ADMITTED TO [facility] - Billing Disposition and Condition Condition: STABLE Disposition: Admitted to [facility] - Attestation Statements Document Initiated by Scribe: Yes Documenting Scribe: Judy Her Provider For Whom Scribe is Documenting (Include Credential): Wesly Hernadez DO Scribe Attestation: Judy Caba scribed for Wesly Hernadez DO on 05/28/19 at 1656. Scribe Documentation Reviewed: Yes Provider Attestation: The documentation as recorded by the scribe, Judy Her accurately reflects the service I personally performed and the decisions made by me, Wesly Hernadez, DO Status of Scribe Document: Viewed
[2019-05-28] MEDS ORDERED: cefTRIAXone(*) 1 GM ADVAN/BAG ONE (13:27)
[2019-05-28 13:29] LABS: Troponin I 0.07 ng/mL (<0.03)
[2019-05-28 13:40] LABS: Digoxin 1.2 ng/ml (0.8-2.0)
[2019-05-28 13:44] LABS: ABS Basophils 0.1 10^3/ul (0-0.2); ABS Monocytes 2.2 10^3/ul (0-0.8); ABS Neutrophils 21.5 10^3/ul (1.5-7.7); ABS Nucleated RBC 0.1 10^3/ul; Lymphocyte % 7.7 %; Nucleated Red Blood Cells % 0.2
--- NOTE | 2019-05-28 14:58 | HP ---
H&P (Free Text) History and Physical: History and Physical -- Critical Care Limitations in history/physical: dementia, limited; history from family at bedside and ER/Chart HPI: 88y F w/pmhx of HTN, Afib on eliquis, LV Diastolic dysfunction, s/p TAVR and MV repair, COPD on 3-5L home O2, Dementia (moderate), lives at home, hypothyroidism, AVMs; [place] [facility] [place] treated with ctx/doxy; comes to ER wtih shortness of breath from home x1-2 days. Family states 1 week of increasing LE swelling, weight gain+, no improvement with increased oral lasix dose. No cough/sputum/fevers. no chest pain/palp. Today sats in 80s, O2 increased with improvement in sats. Brought to ER, tachycardic, hypertensive, tachypnic, started on NIV, given cardizem, lasix, started on ctx/ doxy for possible pneumonia. on NIV and improved now, sats 90s, tachycardia improved to 90s. On Cardizem infusion 10mg/hr. She appears in no distress, denying complaints at this time of any sob now. ED/floor Course: as above ROS: ROS unable to be obtained secondary to dementia PMHx: HTN, Afib on eliquis, LV Diastolic dysfunction, s/p TAVR and MV repair, COPD on 3-5L home O2, Dementia (moderate), lives at home, hypothyroidism, AVMs PSHx: s/p TAVR, s/p MV repair, hysterectomy Family History: father with [place] Social History: Alcohol-none, Smoking-former smoker x 60yrs, Drug use-none; lives at home with and uses Aid Allergies: Allergies Allergy/AdvReac Type Severity Reaction Status Date / Time amoxicillin [From Augmentin] Allergy Unknown Verified 01/14/19 12:47 Reaction Details clavulanic acid Allergy Unknown Verified 01/14/19 12:47 [From Augmentin] Reaction Details fenoprofen Allergy Unknown Verified 01/14/19 12:47 Reaction Details metolazone Allergy Unknown Verified 01/14/19 12:47 Reaction Details morphine Allergy Nausea Verified 01/14/19 12:47 nitrofurantoin Allergy Unknown Verified 01/14/19 12:47 [From Macrodantin] Reaction Details Penicillins Allergy Shortness Verified 01/14/19 12:47 of Breath sulfamethoxazole Allergy Nausea Verified 01/14/19 12:47 [From ] theophylline Allergy Unknown Verified 01/14/19 12:47 Reaction Details trimethoprim [From ] Allergy Nausea Verified 01/14/19 12:47 yellow dye Allergy Unknown Verified 01/14/19 12:47 Reaction Details Home Medications: Topiramate TAB(*) [Topamax 25 MG tab] 25 mg PO DAILY 10/11/12 [History Confirmed 05/28/19] Levothyroxine TAB* [Synthroid 25 MCG TAB*] 50 mcg PO DAILY 01/09/14 [History Confirmed 05/28/19] Tiotropium CAPSULE (NF) [Spiriva CAPSULE (NF)] 1 cap INH DAILY 03/17/17 [ History Confirmed 05/28/19] Magnesium Gluconate 250 mg PO DAILY 04/24/17 [History Confirmed 05/28/19] Spironolactone 25 mg PO DAILY 11/13/17 [History Confirmed 05/28/19] Albuterol 2.5MG/3ML (0.083%)* [Ventolin 2.5 MG/3 ML NEB.KAUSHAL*] 2.5 mg INH QID PRN 01/16/18 [History Confirmed 05/28/19] Multivitamins/Minerals TAB* [Theragran/minerals TAB*] 1 tab PO DAILY 01/16/18 [ History Confirmed 05/28/19] Omeprazole CAP (NF) [Prilosec CAP* 20 MG] 20 mg PO BID 01/16/18 [History Confirmed 05/28/19] Ondansetron ODT TAB* [Zofran 4 MG Odt TAB*] 4 mg PO Q6H PRN #30 tab.odt [Rx Confirmed 05/28/19] Apixaban* [Eliquis*] 2.5 mg PO BID 12/18/18 [History Confirmed 05/28/19] Fluticasone-Salmeterol 250-50* [Advair Diskus 250-50*] 1 puff INH BID 12/18/18 [ History Confirmed 05/28/19] Digoxin TAB* [Lanoxin TAB*] 0.125 mcg PO DAILY 01/14/19 [History Confirmed 05/28] Senna TAB 8.6 mg* [Senokot 8.6 mg TAB*] 8.6 mg PO MOWEFR 01/14/19 [History Confirmed 05/28/19] Furosemide TAB* [Lasix TAB*] 20 mg PO DAILY 05/28/19 [History Confirmed 05/28/19 ] Polyethylene Glycol 3350* [Miralax*] 17 gm PO DAILY PRN 05/28/19 [History Confirmed 05/28/19] Ubidecarenone [Coq-10 Tr] 100 mg PO DAILY 05/28/19 [History Confirmed 05/28/19] Tele: Afib with RVR Vitals: Vital Signs Temp 99.2 F 05/28/19 12:35 Pulse 79 05/28/19 14:40 Resp 30 05/28/19 14:40 BP 119/59 05/28/19 14:40 Pulse Ox 95 05/28/19 14:40 Intake & Output 05/27/19 05/28/19 05/28/19 18:59 06:59 18:59 Weight 58.922 kg O2/Vent: NIV 50% Infusions: cardizem 10mg/hr Current Medications: Albuterol (Ventolin 2.5 Mg/3 Ml Neb.Kaushal*) 2.5 mg INH Q4H PRN PRN Reason: SOB/WHEEZING Apixaban (Eliquis*) 2.5 mg PO BID YOSSI Digoxin (Lanoxin Tab*) 0.0001 mg PO DAILY YOSSI Diltiazem HCl (Cardizem Tab*) 30 mg PO Q6HR YOSSI Furosemide (Lasix Iv*) 40 mg IV BID YOSSI Diltiazem/Dextrose (Cardizem Iv D5w Bag* Premix) 125 mg in 125 mls @ 10 mls/hr IV ED ONCE ONE; Protocol Stop: 05/29/19 01:16 Last Admin: 05/28/19 12:59 Dose: 10 mls/hr Levothyroxine Sodium (Synthroid Tab*) 50 mcg PO DAILY YOSSI Pantoprazole Sodium (Protonix Tab*) 40 mg PO DAILY YOSSI Fluticasone/Salmeterol (Advair Diskus 250-50*) 1 puff INH BID YOSSI Spironolactone (Aldactone Tab*) 25 mg PO DAILY YOSSI Tiotropium [place] (Spiriva Capsule (Nf)) 1 cap INH DAILY YOSSI Physical Exam: Constitutional: awake, alert, no distress, no diaphoresis Head: normocephalic, atraumatic Eyes: no pallor, no icterus ENT: moist mucous membranes Neck: soft, supple, no jvd, no stridor CVS: normal rate, regular, no murmur Chest/Resp: bilateral air entry, ++ bilateral rhales, no wheeze, no rhonchi, no acc muscle use Abdomen/GI: soft, nontender, nondistended, BS+ Ext/Msk: warm, pulses+, 3+ bilateral edema Skin: intact, warm Neuro: awake, alert, orientedx3, moving all extremities, no gross focal deficit Psych: normal affect Labs: Laboratory Results - last 24 hr 05/28/19 05/28/19 05/28/19 12:48 12:48 12:48 WBC 25.8 H RBC 3.51 L Hgb 11.4 L Hct 34 L MCV 98 H MCH 32 H MCHC 33 RDW 18 H Plt Count 264 MPV 11.5 H Neut % (Auto) 83.4 Lymph % (Auto) 7.7 [place] % (Auto) 8.6 Eos % (Auto) 0.0 Baso % (Auto) 0.3 Absolute Neuts (auto) 21.5 H Absolute Lymphs (auto) 2.0 Absolute Monos (auto) 2.2 H Absolute Eos (auto) 0.0 Absolute Basos (auto) 0.1 Absolute Nucleated RBC 0.1 Neutrophils % 81.0 Lymphocytes % 8.0 Reactive Lymphs % 4.0 Monocytes % 7.0 Nucleated RBC % 0.2 Normal RBC Morphology Normal Sodium 132 L Potassium 4.6 Chloride 92 L Carbon Dioxide 29 Anion Gap 11 BUN 15 Creatinine 0.87 Est GFR ( Amer) 74.4 Est GFR (Non-Af Amer) 61.4 BUN/Creatinine Ratio 17.2 Glucose 196 H Lactic Acid 3.9 H* Calcium 9.1 Magnesium Total Bilirubin 1.60 H AST 33 ALT 17 Alkaline Phosphatase 80 Troponin I 0.07 H* B-Natriuretic Peptide Total Protein 6.9 Albumin 4.2 Globulin 2.7 Albumin/Globulin Ratio 1.6 Digoxin 1.2 05/28/19 05/28/19 05/28/19 12:48 13:26 13:26 WBC RBC Hgb Hct MCV MCH MCHC RDW Plt Count MPV Neut % (Auto) Lymph % (Auto) [place] % (Auto) Eos % (Auto) Baso % (Auto) Absolute Neuts (auto) Absolute Lymphs (auto) Absolute Monos (auto) Absolute Eos (auto) Absolute Basos (auto) Absolute Nucleated RBC Neutrophils % Lymphocytes % Reactive Lymphs % Monocytes % Nucleated RBC % Normal RBC Morphology Sodium Potassium Chloride Carbon Dioxide Anion Gap BUN Creatinine Est GFR ( Amer) Est GFR (Non-Af Amer) BUN/Creatinine Ratio Glucose Lactic Acid 2.9 H* Calcium Magnesium 2.0 Total Bilirubin AST ALT Alkaline Phosphatase Troponin I B-Natriuretic Peptide > 1300 H Total Protein Albumin Globulin Albumin/Globulin Ratio Digoxin Imaging: cxr 05/28 - congestion, increased right basal infiltrate+ Assessment: 88y F w/pmhx of HTN, Afib on eliquis, LV Diastolic dysfunction, s/p TAVR and MV repair, COPD on 3-5L home O2, Dementia (moderate), lives at home, hypothyroidism, AVMs; [place] [facility] [place] treated with ctx/doxy; comes to ER wtih shortness of breath from home x1-2 days. Family states 1 week of increasing LE swelling, weight gain+, no improvement with increased oral lasix dose. No cough/sputum/fevers. no chest pain/palp. Today sats in 80s, O2 increased with improvement in sats. Brought to ER, tachycardic, hypertensive, tachypnic, started on NIV, given cardizem, lasix, started on ctx/ doxy for possible pneumonia. on NIV and improved now, sats 90s, tachycardia improved to 90s. On Cardizem infusion 10mg/hr. She appears in no distress, denying complaints at this time of any sob now. -acute on chronic hypoxic respiratory failure -acute pulmonary congestion -suspected pneumonia of RLL -r/o sepsis -acute on chronic decompensated LV diastolic heart failure -Afib with RVR COPD Dementia HTN Hypothyroidism Plan: Neuro- -awake, alert -baseline dementia; otherwise able to function, only memory problems -Delirium prec; avoid BDZ CVS- -BP stable, elevated -Afib with RVR: now rate controlled; dec cardizem to 5mg/hr; target HR 90-110; start cardizem 30mg po q6h; cont dig 0.125mg daily -cont eliquis 2.5mg po bid for AC for Afib -Acute/chronic decomp CHF - goal neg 1-2 L/day; start lasix 40mg iv bid -trend LA; no hypotension but hypoxia was present; suspect LA was from hypoxia/ resp distress and not shock -Maintain MAP>65 Resp- -acute on chronic hypoxia; on NIV now, comfortable appearing after NIV and diuretics -CXR with congestion 05/28 , possible infiltrate on RLL -IV abx -IV diuretics -no wheeze; cont albuterol/advair/tiotropium -sputum culture if able -Wean Fio2 to keep sat>92% -Bronchodilators PRN, Aspiration prec ID- tmax 99.2m wbc 25, was 10 yesterday 05/27; LA 3.9, now 2.9 -suspect LA was from hypoxia -CXR reading as increase right basal infiltrate; i have compared and it seems there is similar right basal infiltrate -given her distress, WBC elevation may be reactive from hypoxia/chf; i will cont ctx/doxy, trial 3 days, if improving with diuresis then will limit course. GI- -Cardiac diet off NIV -h/o AVMs; cont ppi Renal- -Cr stable, K okay, no acidosis -hyponatremia 32, suspect hypervolemic ; cont IV diuretics, restrict free water -lasix 40mg iv bid -bhatia to be place for 24-48 hours -strict I/O, replete to keep K>4, Mg>2 -bhatia as indicated Heme- -anemia; hg stable -AFib; cont eliquis for AC Endo- Maintain BG<200, insulin protocol as needed Musculsk- pressure ulcer prophylaxis. Bedrest. Wounds- none Nutrition- cardiac diet DVT prophylaxis: SCD, eliquis GI prophylaxis: ppi Central Line: no Arterial Line: no Bhatia Cathetor: yes Disposition: Admit to ICU; Expected LOS>2 midnights; Patient requires Critical Care/ICU for respiratory failure req NIV, acute decomp CHF Patient Clinical Status: guarded Code Status: DNR/DNI Total Critical Care time is 60 minutes, excluding procedures/teaching Marino Tucker MD [employer] (Electronically Signed)
[2019-05-28 15:14] LABS: Urine Appearance Turbid; Urine Bilirubin Negative (Negative); Urine Blood 1+ (Negative); Urine Color Amber; Urine Glucose Negative (Negative); Urine Ketones Negative (Negative); Urine Nitrite Negative (Negative); Urine Protein 2+(100 mg/dL) (Negative); Urine Specific Gravity 1.011 (1.010-1.030); Urine Urobilinogen Negative (Negative)
[2019-05-28 15:41] LABS: Urine Bacteria Absent (Absent); Urine Red Blood Cell 2+(6-10/hpf) (Absent); Urine Squamous Epithelial Cell Present (Absent); Urine White Blood Cell 3+(>20/hpf) (Absent)
[2019-05-28 17:12] LABS: Troponin I 0.08 ng/mL (<0.03)
[2019-05-28] MEDS: Diltiazem TAB* 30 MG PO SCH (18:01)
[2019-05-28] MEDS ORDERED: QUEtiapine TAB* 25 MG PO ONE (20:45)
[2019-05-28] MEDS: Acetaminophen TAB* 325 MG PO PRN (20:49)
[2019-05-28] MEDS: Apixaban* 2.5 MG TAB PO SCH (20:49)
[2019-05-28] MEDS: Furosemide IV* 10 MG/ML VIAL (40 MG) IV SCH (20:50)
[2019-05-28 21:32] LABS: Troponin I 0.08 ng/mL (<0.03)
[2019-05-29] MEDS: Diltiazem TAB* 30 MG PO SCH ×4 (02:22→20:11)
[2019-05-29 04:38] LABS: Hematocrit 27 % (35-47); Hemoglobin 9.1 g/dL (12.0-16.0); Mean Corpuscular HGB Conc 33 g/dL (31-36); Mean Corpuscular Hemoglobin 32 pg (27-31); Mean Corpuscular Volume 97 fL (80-97); Mean Platelet Volume 11.1 fL (7.4-10.4); Platelet Count 173 10^3/uL (150-450); Red Blood Count 2.84 10^6 /uL (3.70-4.87); Red Cell Distribution Width 17 % (10-15)
[2019-05-29 04:56] LABS: Anion Gap 7 mmol/L (2-11); BUN/Creatinine Ratio 17.7 (8-20); Blood Urea Nitrogen 14 mg/dL (6-24); CO2 Carbon Dioxide 35 mmol/L (22-32); Calcium 8.6 mg/dL (8.6-10.3); Chloride 94 mmol/L (101-111); EGFR African American 83.1 (>60); EGFR Non-African American 68.7 (>60); Glucose 83 mg/dL (70-100); Magnesium 1.8 mg/dL (1.9-2.7); Potassium 3.4 mmol/L (3.5-5.0); Sodium 136 mmol/L (135-145)
[2019-05-29 05:00] LABS: Troponin I 0.06 ng/mL (<0.03)
[2019-05-29] MEDS ORDERED: Magnesium Sulfate 2 GM IV* 2 GM/50 ML BAG IVPB ONE (05:10)
[2019-05-29] MEDS ORDERED: Potassium Chlor TAB* 20 MEQ TAB.ER PO ONE (05:10)
[2019-05-29] MEDS: Levothyroxine TAB* 25 MCG TAB PO SCH (05:22)
[2019-05-29] MEDS: Fluticasone-Salmeterol 250-50* DISKUS INH SCH ×3 (07:47→23:23)
[2019-05-29] MEDS: Furosemide IV* 10 MG/ML VIAL (40 MG) IV SCH ×2 (08:59→20:08)
[2019-05-29] MEDS: Apixaban* 2.5 MG TAB PO SCH ×2 (08:59→20:10)
[2019-05-29] MEDS: Pantoprazole TAB * 40 MG TAB PO SCH (08:59)
[2019-05-29] MEDS: Digoxin TAB* 0.125 MG PO SCH (08:59)
[2019-05-29] MEDS: Spironolactone TAB* 25 MG PO SCH (08:59)
[2019-05-29] MEDS ORDERED: Metolazone TAB* 5 MG PO ONE (09:25)
[2019-05-29] MEDS: Albuterol 2.5 MG/3 ML NEB.SOL* (0.083%) INH PRN ×2 (09:28→17:42)
[2019-05-29] MEDS: SPIRIVA Respimat* (tiotropium) 2.5 mcg/inh Inhaler INH SCH (09:28)
--- NOTE | 2019-05-29 09:35 | PN ---
Progress Note - Progress Note Date of Service: 05/29/19 Note: Progress Note -- Critical Care 24 hour events -awake, alert; on NC now, NIV overnight -states SOB+ still; no cp/fever/cough/sputum/abd pain/n/v -eating breakfast -afebrile overnight -off cardizem infusion yesterday; some andrew overnight to 50s but stable, currently NSR 80s Tele: Afib Vitals: Vital Signs Temp 96.8 F 05/29/19 08:00 Pulse 90 05/29/19 09:29 Resp 29 05/29/19 09:29 BP 116/48 05/29/19 07:00 Pulse Ox 95 05/29/19 09:29 Intake & Output 05/28/19 05/29/19 05/29/19 18:59 06:59 18:59 Intake Total 100 170 Output Total 575 900 Balance -475 -730 Weight 55 kg 55.686 kg Intake: Oral 100 170 Output: Urine 0 Bhatia 575 900 Other: Estimated Void Small Date of Last Bowel t Movement # Bowel Movements 1 Estimated Stool Amount Medium O2/Vent: NC 5-8L, NIV overnight Infusions: heplock Current Medications: Acetaminophen (Tylenol Tab*) 650 mg PO Q6H PRN PRN Reason: PAIN - MILD Last Admin: 05/28/19 20:49 Dose: 650 mg Albuterol (Ventolin 2.5 Mg/3 Ml Neb.Jen*) 2.5 mg INH Q4H PRN PRN Reason: SOB/WHEEZING Last Admin: 05/29/19 09:28 Dose: 2.5 mg Apixaban (Eliquis*) 2.5 mg PO BID [facility] Last Admin: 05/29/19 08:59 Dose: 2.5 mg Digoxin (Lanoxin Tab*) 0.125 mg PO DAILY [facility] Last Admin: 05/29/19 08:59 Dose: 0.125 mg Diltiazem HCl (Cardizem Tab*) 30 mg PO Q6H [facility] Last Admin: 05/29/19 08:59 Dose: 30 mg Furosemide (Lasix Iv*) 40 mg IV BID [facility] Last Admin: 05/29/19 08:59 Dose: 40 mg Levothyroxine Sodium (Synthroid Tab*) 50 mcg PO DAILY@0600 [facility] Last Admin: 05/29/19 05:22 Dose: 50 mcg Metolazone (Zaroxolyn Tab*) 5 mg PO ONCE ONE Stop: 05/29/19 09:26 Pantoprazole Sodium (Protonix Tab*) 40 mg PO DAILY [facility] Last Admin: 05/29/19 08:59 Dose: 40 mg Fluticasone/Salmeterol (Advair Diskus 250-50*) 1 puff INH BID [facility] Last Admin: 05/29/19 09:28 Dose: 1 puff Spironolactone (Aldactone Tab*) 25 mg PO DAILY [facility] Last Admin: 05/29/19 08:59 Dose: 25 mg Tiotropium [place] (Spiriva Respimat 2.5 Mcg) 2 puff INH DAILY [facility] Last Admin: 05/29/19 09:28 Dose: 2 puff Physical Exam: Constitutional: awake, alert, no distress, no diaphoresis Head: normocephalic, atraumatic Eyes: no pallor, no icterus ENT: moist mucous membranes Neck: soft, supple, no jvd, no stridor CVS: normal rate, regular, no murmur Chest/Resp: bilateral air entry, +bilateral rhales, no wheeze, no rhonchi, no acc muscle use Abdomen/GI: soft, nontender, nondistended, BS+ Ext/Msk: warm, pulses+, 3+ bilateral edema Skin: intact, warm Neuro: awake, alert, orientedx3, moving all extremities, no gross focal deficit Psych: normal affect Labs: Laboratory Results - last 24 hr 05/28/19 05/28/19 05/28/19 12:48 12:48 12:48 WBC 25.8 H RBC 3.51 L Hgb 11.4 L Hct 34 L MCV 98 H MCH 32 H MCHC 33 RDW 18 H Plt Count 264 MPV 11.5 H Neut % (Auto) 83.4 Lymph % (Auto) 7.7 [place] % (Auto) 8.6 Eos % (Auto) 0.0 Baso % (Auto) 0.3 Absolute Neuts (auto) 21.5 H Absolute Lymphs (auto) 2.0 Absolute Monos (auto) 2.2 H Absolute Eos (auto) 0.0 Absolute Basos (auto) 0.1 Absolute Nucleated RBC 0.1 Neutrophils % 81.0 Lymphocytes % 8.0 Reactive Lymphs % 4.0 Monocytes % 7.0 Nucleated RBC % 0.2 Normal RBC Morphology Normal Hem Pathologist Commnt Sodium 132 L Potassium 4.6 Chloride 92 L Carbon Dioxide 29 Anion Gap 11 BUN 15 Creatinine 0.87 Est GFR ( Amer) 74.4 Est GFR (Non-Af Amer) 61.4 BUN/Creatinine Ratio 17.2 Glucose 196 H Lactic Acid 3.9 H* Calcium 9.1 Phosphorus Magnesium Total Bilirubin 1.60 H AST 33 ALT 17 Alkaline Phosphatase 80 Troponin I 0.07 H* B-Natriuretic Peptide Total Protein 6.9 Albumin 4.2 Globulin 2.7 Albumin/Globulin Ratio 1.6 Urine Color Urine Appearance Urine pH Ur Specific [place] Urine Protein Urine Ketones Urine Blood Urine Nitrate Urine Bilirubin Urine Urobilinogen Ur Leukocyte Esterase Urine WBC (Auto) Urine RBC (Auto) Ur Squamous Epith Cells Urine Bacteria Urine Glucose Digoxin 1.2 05/28/19 05/28/19 05/28/19 12:48 13:26 13:26 WBC RBC Hgb Hct MCV MCH MCHC RDW Plt Count MPV Neut % (Auto) Lymph % (Auto) [place] % (Auto) Eos % (Auto) Baso % (Auto) Absolute Neuts (auto) Absolute Lymphs (auto) Absolute Monos (auto) Absolute Eos (auto) Absolute Basos (auto) Absolute Nucleated RBC Neutrophils % Lymphocytes % Reactive Lymphs % Monocytes % Nucleated RBC % Normal RBC Morphology Hem Pathologist Commnt Sodium Potassium Chloride Carbon Dioxide Anion Gap BUN Creatinine Est GFR ( Amer) Est GFR (Non-Af Amer) BUN/Creatinine Ratio Glucose Lactic Acid 2.9 H* Calcium Phosphorus Magnesium 2.0 Total Bilirubin AST ALT Alkaline Phosphatase Troponin I B-Natriuretic Peptide > 1300 H Total Protein Albumin Globulin Albumin/Globulin Ratio Urine Color Urine Appearance Urine pH Ur Specific [place] Urine Protein Urine Ketones Urine Blood Urine Nitrate Urine Bilirubin Urine Urobilinogen Ur Leukocyte Esterase Urine WBC (Auto) Urine RBC (Auto) Ur Squamous Epith Cells Urine Bacteria Urine Glucose Digoxin 05/28/19 05/28/19 05/28/19 13:27 15:36 17:20 WBC RBC Hgb Hct MCV MCH MCHC RDW Plt Count MPV Neut % (Auto) Lymph % (Auto) [place] % (Auto) Eos % (Auto) Baso % (Auto) Absolute Neuts (auto) Absolute Lymphs (auto) Absolute Monos (auto) Absolute Eos (auto) Absolute Basos (auto) Absolute Nucleated RBC Neutrophils % Lymphocytes % Reactive Lymphs % Monocytes % Nucleated RBC % Normal RBC Morphology Hem Pathologist Commnt Sodium Potassium Chloride Carbon Dioxide Anion Gap BUN Creatinine Est GFR ( Amer) Est GFR (Non-Af Amer) BUN/Creatinine Ratio Glucose Lactic Acid 1.1 Calcium Phosphorus Magnesium Total Bilirubin AST ALT Alkaline Phosphatase Troponin I 0.08 H* B-Natriuretic Peptide Total Protein Albumin Globulin Albumin/Globulin Ratio Urine Color [place] Urine Appearance Turbid Urine pH 7.0 Ur Specific [place] 1.011 Urine Protein 2+(100 mg/dl) A Urine Ketones Negative Urine Blood 1+ A Urine Nitrate Negative Urine Bilirubin Negative Urine Urobilinogen Negative Ur Leukocyte Esterase 3+ A Urine WBC (Auto) 3+(>20/hpf) A Urine RBC (Auto) 2+(6-10/hpf) A Ur Squamous Epith Cells Present A Urine Bacteria Absent Urine Glucose Negative Digoxin 05/28/19 05/29/19 05/29/19 21:04 04:25 04:25 WBC 14.0 H RBC 2.84 L Hgb 9.1 L Hct 27 L MCV 97 MCH 32 H MCHC 33 RDW 17 H Plt Count 173 MPV 11.1 H Neut % (Auto) Lymph % (Auto) [place] % (Auto) Eos % (Auto) Baso % (Auto) Absolute Neuts (auto) Absolute Lymphs (auto) Absolute Monos (auto) Absolute Eos (auto) Absolute Basos (auto) Absolute Nucleated RBC Neutrophils % Lymphocytes % Reactive Lymphs % Monocytes % Nucleated RBC % Normal RBC Morphology Hem Pathologist Commnt Sodium 136 Potassium 3.4 L Chloride 94 L Carbon Dioxide 35 H Anion Gap 7 BUN 14 Creatinine 0.79 Est GFR ( Amer) 83.1 Est GFR (Non-Af Amer) 68.7 BUN/Creatinine Ratio 17.7 Glucose 83 Lactic Acid Calcium 8.6 Phosphorus 4.0 Magnesium 1.8 L Total Bilirubin AST ALT Alkaline Phosphatase Troponin I 0.08 H* 0.06 H* B-Natriuretic Peptide Total Protein Albumin Globulin Albumin/Globulin Ratio Urine Color Urine Appearance Urine pH Ur Specific [place] Urine Protein Urine Ketones Urine Blood Urine Nitrate Urine Bilirubin Urine Urobilinogen Ur Leukocyte Esterase Urine WBC (Auto) Urine RBC (Auto) Ur Squamous Epith Cells Urine Bacteria Urine Glucose Digoxin Imaging: cxr 05/28 - congestion, increased right basal infiltrate+ cxr 05/29- similar congestion/basal infiltrates+ Assessment: 88y F w/pmhx of HTN, Afib on eliquis, LV Diastolic dysfunction, s/p TAVR and MV repair, COPD on 3-5L home O2, Dementia (moderate), lives at home, hypothyroidism, AVMs; last admission to [facility] 01/2019 for pneumonia treated with ctx/doxy; comes to ER wtih shortness of breath from home x1-2 days. Family states 1 week of increasing LE swelling, weight gain+, no improvement with increased oral lasix dose. No cough/sputum/fevers. no chest pain/palp. Today sats in 80s, O2 increased with improvement in sats. Brought to ER, tachycardic, hypertensive, tachypnic, started on NIV, given cardizem, lasix, started on ctx/ doxy for possible pneumonia. on NIV and improved now, sats 90s, tachycardia improved to 90s. On Cardizem infusion 10mg/hr. She appears in no distress, denying complaints at this time of any sob now. -acute on chronic hypoxic respiratory failure -acute pulmonary congestion -suspected pneumonia of RLL -r/o sepsis -acute on chronic decompensated LV diastolic heart failure -Afib with RVR COPD Dementia HTN Hypothyroidism Plan: Neuro- -awake, alert -baseline dementia; otherwise able to function, only memory problems -Delirium prec; avoid BDZ CVS- -BP stable -Afib with RVR: now rate controlled; target HR 90-110; cont cardizem 30mg po q6h ; cont dig 0.125mg daily; check dig level tomorrow -cont eliquis 2.5mg po bid for AC for Afib -Acute/chronic decomp CHF - goal neg 1-2 L/day; cont lasix 40mg iv bid; metolazone 5mg po x1 today -Maintain MAP>65 Resp- -acute on chronic hypoxia; on NC, NIV prn; still tachypnic intermittently, likely to need soem NIV this morning again, neb tx ongoing -CXR with congestion 05/29 , possible infiltrate on RLL/bases -IV abx -IV diuretics -no wheeze; cont albuterol/advair/tiotropium -sputum culture if able -Wean Fio2 to keep sat>92% -Bronchodilators PRN, Aspiration prec ID- tmax 99.2, afebrile now, wbc 25-14; LA normalized -suspect LA was from hypoxia -CXR 05/29 similar infiltrates/mild congestion -given her distress, WBC elevation may be reactive from hypoxia/chf; i will cont ctx/doxy, trial 3 day GI- -Cardiac diet off NIV -h/o AVMs; cont ppi Renal- -Cr stable, replete K, no acidosis, replete Mg -hyponatremia better; suspect hypervolemic ; cont IV diuretics, restrict free water -lasix 40mg iv bid, metolazone 5mg po x1 -strict I/O, replete to keep K>4, Mg>2 -bhatia as indicated Heme- -anemia; hg stable; 9-10s -AFib; cont eliquis for AC Endo- Maintain BG<200, insulin protocol as needed Musculsk- pressure ulcer prophylaxis. Bedrest, oob to chair today Wounds- none Nutrition- cardiac diet DVT prophylaxis: SCD, eliquis GI prophylaxis: ppi Central Line: no Arterial Line: no Bhatia Cathetor: yes Disposition: Patient requires Critical Care/ICU for respiratory failure req NIV , acute decomp CHF Patient Clinical Status: guarded Code Status: DNR/DNI Total Critical Care time is 35 minutes, excluding procedures/teaching Marino Tucker MD [employer] (Electronically Signed)
[2019-05-29] MEDS ORDERED: QUEtiapine TAB* 25 MG PO ONE (16:34)
[2019-05-29] MEDS ORDERED: Haloperidol INJ IV/IM* 5 MG/ML AMP IV SLOW PU ONE (19:06)
[2019-05-29] MEDS: Acetaminophen TAB* 325 MG PO PRN (20:10)
[2019-05-29] MEDS ORDERED: Potassium Chloride* LIQUID 20 MEQ/15 ML UDC PO ONE (21:04)
[2019-05-30] MEDS: Diltiazem TAB* 30 MG PO SCH ×6 (03:24→19:33)
[2019-05-30 06:19] LABS: Hematocrit 26 % (35-47); Mean Corpuscular HGB Conc 35 g/dL (31-36); Mean Corpuscular Hemoglobin 33 pg (27-31); Mean Corpuscular Volume 95 fL (80-97); Mean Platelet Volume 11.2 fL (7.4-10.4); Platelet Count 169 10^3/uL (150-450); Red Blood Count 2.72 10^6 /uL (3.70-4.87); Red Cell Distribution Width 17 % (10-15); White Blood Count 10.8 10^3/uL (3.5-10.8)
[2019-05-30] MEDS: Levothyroxine TAB* 25 MCG TAB PO SCH (06:32)
[2019-05-30 06:37] LABS: BUN/Creatinine Ratio 18.5 (8-20); Calcium 8.7 mg/dL (8.6-10.3); EGFR African American 80.7 (>60); EGFR Non-African American 66.7 (>60); Magnesium 1.8 mg/dL (1.9-2.7); Phosphorus 3.5 mg/dL (2.5-5.0)
[2019-05-30 06:49] LABS: Digoxin 1.3 ng/ml (0.8-2.0)
[2019-05-30] MEDS ORDERED: Magnesium Sulfate 2 GM IV* 2 GM/50 ML BAG IVPB ONE (06:52)
[2019-05-30] MEDS: Fluticasone-Salmeterol 250-50* DISKUS INH SCH ×2 (07:50→19:51)
[2019-05-30] MEDS: SPIRIVA Respimat* (tiotropium) 2.5 mcg/inh Inhaler INH SCH (07:50)
[2019-05-30] MEDS: Potassium Chloride* LIQUID 20 MEQ/15 ML UDC PO ONE ×2 (09:27→11:14)
[2019-05-30] MEDS: Furosemide IV* 10 MG/ML VIAL (40 MG) IV SCH ×2 (09:27→20:22)
[2019-05-30] MEDS: Apixaban* 2.5 MG TAB PO SCH ×3 (09:28→20:20)
[2019-05-30] MEDS: Digoxin TAB* 0.125 MG PO SCH ×2 (09:28→10:47)
[2019-05-30] MEDS: Pantoprazole TAB * 40 MG TAB PO SCH ×2 (09:30→10:47)
[2019-05-30] MEDS: Spironolactone TAB* 25 MG PO SCH ×2 (09:30→10:48)
[2019-05-30] MEDS ORDERED: QUEtiapine TAB* 25 MG PO PRN (12:27)
[2019-05-30] MEDS ORDERED: ALPRAZolam TAB* 0.25 MG PO ONE (12:27)
--- NOTE | 2019-05-30 13:43 | PN ---
<Heather Ibrahim - Last Filed: 05/30/19 13:21> Progress Note - Progress Note Date of Service: 05/30/19 Note: Progress Note -- Critical Care 24 hour events/significant events: - Remains on bipap this morning d/t lethargy - One episode of bradycardia in 50's last night to which cardizem was held - K has been replaced multiple times a day - Continuing diuresis and antibiotics ROS: ROS unable to be obtained secondary to dementia Tele: Afib, rate controlled, HR 80's Vitals: Vital Signs 05/29/19 05/29/19 05/29/19 14:00 15:00 15:51 Temperature 98.7 F Pulse Rate 84 83 Respiratory 33 25 Rate Blood Pressure 110/57 133/69 (mmHg) O2 Sat by Pulse 100 99 Oximetry 05/29/19 05/29/19 05/29/19 16:00 17:00 18:00 Temperature Pulse Rate 97 93 93 Respiratory 30 31 37 Rate Blood Pressure 136/71 127/78 123/63 (mmHg) O2 Sat by Pulse 96 97 97 Oximetry 05/29/19 05/29/19 05/29/19 19:00 20:00 20:01 Temperature 98.5 F Pulse Rate 88 93 90 Respiratory 24 27 34 Rate Blood Pressure 121/74 135/75 (mmHg) O2 Sat by Pulse 94 89 96 Oximetry 05/29/19 05/29/19 05/29/19 21:00 22:00 23:00 Temperature Pulse Rate 92 67 63 Respiratory 27 19 18 Rate Blood Pressure 129/80 124/66 120/62 (mmHg) O2 Sat by Pulse 100 99 98 Oximetry 05/29/19 05/29/19 05/30/19 23:23 23:57 00:00 Temperature 98.4 F 98.4 F Pulse Rate 57 55 Respiratory 19 17 Rate Blood Pressure 125/55 (mmHg) O2 Sat by Pulse 98 97 Oximetry 05/30/19 05/30/19 05/30/19 00:21 01:00 02:00 Temperature Pulse Rate 63 54 61 Respiratory 15 17 16 Rate Blood Pressure 128/56 136/56 (mmHg) O2 Sat by Pulse 98 98 98 Oximetry 05/30/19 05/30/19 05/30/19 03:00 03:24 04:00 Temperature 97.1 F Pulse Rate 65 74 Respiratory 17 22 Rate Blood Pressure 125/64 (mmHg) O2 Sat by Pulse 99 97 Oximetry 05/30/19 05/30/19 05/30/19 04:01 05:00 06:00 Temperature Pulse Rate 70 72 74 Respiratory 18 17 21 Rate Blood Pressure 104/60 127/46 126/52 (mmHg) O2 Sat by Pulse 97 94 97 Oximetry 05/30/19 05/30/19 05/30/19 06:42 07:00 07:34 Temperature 97.9 F Pulse Rate 77 Respiratory 21 22 Rate Blood Pressure 127/61 (mmHg) O2 Sat by Pulse 96 Oximetry 05/30/19 05/30/19 05/30/19 08:00 09:00 10:00 Temperature Pulse Rate 83 82 85 Respiratory 21 24 18 Rate Blood Pressure 131/65 118/69 140/61 (mmHg) O2 Sat by Pulse 97 97 97 Oximetry 05/30/19 05/30/19 05/30/19 10:47 11:00 12:00 Temperature 98.6 F Pulse Rate 87 91 90 Respiratory 20 32 Rate Blood Pressure 119/70 (mmHg) O2 Sat by Pulse 100 98 Oximetry 05/30/19 05/30/19 05/30/19 12:01 12:43 13:00 Temperature Pulse Rate 92 90 Respiratory 37 24 24 Rate Blood Pressure 132/76 130/67 (mmHg) O2 Sat by Pulse 97 97 Oximetry 05/30/19 13:01 Temperature Pulse Rate 91 Respiratory 38 Rate Blood Pressure (mmHg) O2 Sat by Pulse 98 Oximetry Intake and Output Last 24 Hours 05/28/19 05/29/19 05/30/19 05/31/19 06:59 06:59 06:59 06:59 Intake Total 270 720 376 Output Total 4172 3585 1050 Balance -120 -8455 -674 Weight 122 lb 12.253 oz 114 lb 13.773 oz Intake: IV Fluids 76 NS 76 Oral 270 720 300 Output: Urine 0 Bhatia 1475 3585 1050 Other: Estimated Void Small Small Date of Last Bowel t 05/28/2019 Movement # Bowel Movements 1 Estimated Stool Amount Medium O2/Vent: Bipap, salter cannula Infusions: None Medications: Acetaminophen (Tylenol Tab*) 650 mg PO Q6H PRN PRN Reason: PAIN - MILD Last Admin: 05/29/19 20:10 Dose: 650 mg Albuterol (Ventolin 2.5 Mg/3 Ml Neb.Jen*) 2.5 mg INH Q4H PRN PRN Reason: SOB/WHEEZING Last Admin: 05/29/19 17:42 Dose: 2.5 mg Apixaban (Eliquis*) 2.5 mg PO BID [facility] Last Admin: 05/30/19 10:48 Dose: 2.5 mg Digoxin (Lanoxin Tab*) 0.125 mg PO DAILY [facility] Last Admin: 05/30/19 10:47 Dose: 0.125 mg Diltiazem HCl (Cardizem Tab*) 30 mg PO Q6H [facility] Last Admin: 05/30/19 10:47 Dose: 30 mg Furosemide (Lasix Iv*) 40 mg IV BID [facility] Last Admin: 05/30/19 09:27 Dose: 40 mg Levothyroxine Sodium (Synthroid Tab*) 50 mcg PO DAILY@0600 [facility] Last Admin: 05/30/19 06:32 Dose: 50 mcg Pantoprazole Sodium (Protonix Tab*) 40 mg PO DAILY [facility] Last Admin: 05/30/19 10:47 Dose: 40 mg Potassium Chloride (Potassium Chloride Liquid) 40 meq PO ONCE ONE Stop: 05/30/19 21:01 Quetiapine Fumarate (Seroquel Tab*) 12.5 mg PO BEDTIME PRN PRN Reason: AGITATION Quetiapine Fumarate (Seroquel Tab*) 25 mg PO DAILY PRN PRN Reason: anxiety, restlessness Fluticasone/Salmeterol (Advair Diskus 250-50*) 1 puff INH BID [facility] Last Admin: 05/30/19 07:50 Dose: 1 puff Spironolactone (Aldactone Tab*) 25 mg PO DAILY [facility] Last Admin: 05/30/19 10:48 Dose: 25 mg Tiotropium [place] (Spiriva Respimat 2.5 Mcg) 2 puff INH DAILY [facility] Last Admin: 05/30/19 07:50 Dose: 2 puff Physical Exam: Constitutional: awake, alert, no distress, no diaphoresis Head: normocephalic, atraumatic Eyes: no pallor, no icterus ENT: Dry mucous membranes Neck: soft, supple, no jvd, no stridor CVS: Irregular, S1S2. No obvious murmur Chest/Resp: bilateral air entry, very diminished throughout. Slight expiratory wheeze RLL. 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 Family states 1 week of increasing LE swelling, weight gain+, no improvement with increased oral lasix dose. No cough/sputum/fevers. no chest pain/palp. Today sats in 90s, on salter cannula 10L. Appears more comfortable. -acute on chronic hypoxic respiratory failure -acute pulmonary congestion -suspected pneumonia of RLL - atrial fibrillation - COPD Plan: Neuro- -Delirium prec; avoid BDZ - Seroquel 12.5mg PRN at bedtime for agitation/anxiety CVS- - SBP goal <140, has been within range. - Afib- continue cardizem, digoxin. Rate is controlled Resp- -Wean Fio2 to keep sat>92%, weaning off bipap. -Severe COPD- Bronchodilators PRN, continue inhalers, Aspiration prec, Pulmonary Toilet - Reviewed most recent chest xray. Patient appears to be improving clinically ID- - Afebrile, WBC weaning down - Treating for suspected PNA. Continue 5 day course of antibiotics - CBC daily GI- -Nutrition: encourage PO regular diet -GI prophylaxis Renal- -strict I/O, replete to keep K>4, Mg>2. Continue to replace K BID as indicated -Continue bhatia - Continue aggressive diuresis with lasix and spironolactone. Keep net negative - Consider Zaroxylyn tomorrow in AM - Continue to monitor CO2 on BMP Heme- - Currently on Eliquis 2.5mg BID for afib Endo-Maintain BG<200, insulin protocol as needed Musculsk- pressure ulcer prophylaxis.OOB to chair Wounds- none Nutrition- regular diet DVT prophylaxis: eliquis GI prophylaxis: protonix Bhatia Catheter: continue while aggressively diuresing. Consider removal tomorrow Disposition: Patient requires Critical Care/ICU for Bipap, close respiratory monitoring, fluid overload, diuresis, tele monitoring Patient clinical status: Guarded Code Status: DNR/DNI Total Critical Care time is 40 minutes, <Marino Tucker - Last Filed: 05/31/19 12:57> Progress Note - Progress Note Note: Attending note - continued diuresis, NIV support as needed restart abx , short course. i do not suspect a pneumonia but she had initial mild symptoms. agree with above findings Marino Tucker MD
--- NOTE | 2019-05-30 17:59 | PN ---
Progress Note - Progress Note Date of Service: 05/30/19 Note: CTX and azithro not on yesterday or today. She already has downtrending wbc, afebrile. diuresing well cxr today with basal infiltrates and congestion clinically more so appears CHF exacc with pulm congestion will continue diuretics. will give short course of doxycycline 100mg iv bid for 6 doses for suspect pneumonia soy mock md
[2019-05-30] MEDS: DOXYcycline IV* 100 MG in NS 0.9% 250 ML* 250 ML IVPB SCH (19:02)
[2019-05-30] MEDS ORDERED: Potassium Chloride* LIQUID 20 MEQ/15 ML UDC PO ONE (21:00)
[2019-05-30] MEDS: Albuterol 2.5 MG/3 ML NEB.SOL* (0.083%) INH PRN (21:21)
[2019-05-30] MEDS: QUEtiapine TAB* 25 MG PO PRN (21:38)
[2019-05-31] MEDS: Diltiazem TAB* 30 MG PO SCH ×4 (02:39→21:06)
[2019-05-31 05:14] LABS: Hematocrit 29 % (35-47); Hemoglobin 9.5 g/dL (12.0-16.0); Mean Corpuscular HGB Conc 33 g/dL (31-36); Mean Corpuscular Hemoglobin 32 pg (27-31); Mean Corpuscular Volume 97 fL (80-97); Mean Platelet Volume 10.6 fL (7.4-10.4); Platelet Count 195 10^3/uL (150-450); Red Blood Count 2.98 10^6 /uL (3.70-4.87); Red Cell Distribution Width 17 % (10-15); White Blood Count 9.2 10^3/uL (3.5-10.8)
[2019-05-31] MEDS: DOXYcycline IV* 100 MG in NS 0.9% 250 ML* 250 ML IVPB SCH ×2 (05:24→17:29)
[2019-05-31] MEDS: Levothyroxine TAB* 25 MCG TAB PO SCH (05:29)
[2019-05-31 05:30] LABS: BUN/Creatinine Ratio 15.4 (8-20); Calcium 9.2 mg/dL (8.6-10.3); EGFR African American 84.3 (>60); EGFR Non-African American 69.7 (>60); Magnesium 1.8 mg/dL (1.9-2.7); Phosphorus 3.3 mg/dL (2.5-5.0); Potassium 3.6 mmol/L (3.5-5.0)
[2019-05-31 05:38] LABS: Polychromasia 1+
[2019-05-31] MEDS ORDERED: Magnesium Sulfate 2 GM IV* 2 GM/50 ML BAG IVPB ONE ×2 (05:57→09:21)
[2019-05-31] MEDS ORDERED: Potassium Chlor TAB* 20 MEQ TAB.ER PO ONE (05:57)
[2019-05-31] MEDS ORDERED: Metolazone TAB* 5 MG PO ONE (07:40)
[2019-05-31] MEDS ORDERED: KCL 20 MEQ/100 ML IVPREMIX* 20 MEQ/100 ML BAG IV ONE (09:21)
[2019-05-31] MEDS ORDERED: Potassium Chloride* LIQUID 20 MEQ/15 ML UDC PO SCH (10:00)
[2019-05-31] MEDS: SPIRIVA Respimat* (tiotropium) 2.5 mcg/inh Inhaler INH SCH (10:15)
[2019-05-31] MEDS: Fluticasone-Salmeterol 250-50* DISKUS INH SCH (10:15)
[2019-05-31] MEDS: Pantoprazole TAB * 40 MG TAB PO SCH (10:39)
[2019-05-31] MEDS: Digoxin TAB* 0.125 MG PO SCH (10:40)
[2019-05-31] MEDS: Spironolactone TAB* 25 MG PO SCH (10:40)
[2019-05-31] MEDS: Apixaban* 2.5 MG TAB PO SCH ×2 (10:40→21:06)
[2019-05-31] MEDS ORDERED: Potassium Chloride* LIQUID 20 MEQ/15 ML UDC PO ONE ×2 (10:47→21:00)
[2019-05-31] MEDS ORDERED: acetaZOLAMIDE VIAL* 500 MG in NS 0.9% 50 ML* 50 ML IVPB SCH (11:00)
--- NOTE | 2019-05-31 11:07 | PN ---
<Heather Ibrahim - Last Filed: 05/31/19 11:30> Progress Note - Progress Note Date of Service: 05/31/19 Note: Progress Note -- Critical Care 24 hour events/significant events: -Bipap overnight, transitioned to oxygen mask this AM. Was able to ambulate to bathroom overnight. - Vital signs stable, BP controlled, negative 3L for the past 24hrs. - CO2 appears to be trending up - BLE edema appears slightly improved ROS: ROS unable to be obtained secondary to dementia Tele: Afib, rate controlled, HR 90's Vitals: Vital Signs 05/30/19 05/30/19 05/30/19 12:00 12:01 12:43 Temperature 98.6 F Pulse Rate 90 92 Respiratory 32 37 24 Rate Blood Pressure 132/76 (mmHg) O2 Sat by Pulse 98 97 Oximetry 05/30/19 05/30/19 05/30/19 13:00 13:01 14:00 Temperature Pulse Rate 90 91 83 Respiratory 24 38 30 Rate Blood Pressure 130/67 125/63 (mmHg) O2 Sat by Pulse 97 98 98 Oximetry 05/30/19 05/30/19 05/30/19 15:00 16:00 16:01 Temperature 98.6 F Pulse Rate 79 80 83 Respiratory 29 28 30 Rate Blood Pressure 135/66 115/65 (mmHg) O2 Sat by Pulse 98 97 Oximetry 05/30/19 05/30/19 05/30/19 17:00 18:00 19:00 Temperature Pulse Rate 81 90 91 Respiratory 42 28 22 Rate Blood Pressure 138/65 134/68 128/71 (mmHg) O2 Sat by Pulse 94 93 97 Oximetry 05/30/19 05/30/19 05/30/19 19:53 20:00 21:00 Temperature 98.0 F Pulse Rate 92 84 110 Respiratory 18 33 35 Rate Blood Pressure 128/61 144/85 (mmHg) O2 Sat by Pulse 99 98 96 Oximetry 05/30/19 05/30/19 05/30/19 21:24 22:00 23:00 Temperature Pulse Rate 97 88 82 Respiratory 28 27 22 Rate Blood Pressure 127/64 136/67 (mmHg) O2 Sat by Pulse 100 98 98 Oximetry 05/30/19 05/30/19 05/31/19 23:02 23:53 00:00 Temperature 99.0 F Pulse Rate 86 86 Respiratory 22 23 Rate Blood Pressure 137/59 (mmHg) O2 Sat by Pulse 98 97 Oximetry 05/31/19 05/31/19 05/31/19 01:00 02:00 03:00 Temperature Pulse Rate 86 77 80 Respiratory 34 19 18 Rate Blood Pressure 129/67 117/74 119/64 (mmHg) O2 Sat by Pulse 99 100 100 Oximetry 05/31/19 05/31/19 05/31/19 04:00 05:00 06:00 Temperature 98.7 F Pulse Rate 75 83 69 Respiratory 28 17 27 Rate Blood Pressure 113/70 114/59 117/58 (mmHg) O2 Sat by Pulse 94 96 98 Oximetry 05/31/19 05/31/19 05/31/19 07:07 07:17 10:40 Temperature 98.4 F Pulse Rate 75 87 Respiratory 18 Rate Blood Pressure (mmHg) O2 Sat by Pulse 96 Oximetry Intake and Output Last 24 Hours 05/29/19 05/30/19 05/31/19 06/01/19 06:59 06:59 06:59 06:59 Intake Total 739 789 8245 Output Total 1475 3585 4320 Balance -1205 -1395 -3135 Weight 122 lb 12.253 oz 114 lb 13.773 oz 111 lb 5.335 oz Intake: IV Fluids 93 ABX - DOXYCYCLINE 1 NS 92 IVPB 542 ABX - DOXYCYCLINE 263 Magnesium Sulfate 2 gm 14 NS 265 Oral 270 720 550 Output: Urine 0 Bhatia 1475 3585 4320 Other: Estimated Void Small Small Date of Last Bowel t 05/28/2019 05/28/2019 Movement # Bowel Movements 1 Estimated Stool Amount Medium O2/Vent: Bipap, oxygen mask Infusions: None Medications: Acetaminophen (Tylenol Tab*) 650 mg PO Q6H PRN PRN Reason: PAIN - MILD Last Admin: 05/29/19 20:10 Dose: 650 mg Albuterol (Ventolin 2.5 Mg/3 Ml Neb.Jen*) 2.5 mg INH Q4H PRN PRN Reason: SOB/WHEEZING Last Admin: 05/30/19 21:21 Dose: 2.5 mg Apixaban (Eliquis*) 2.5 mg PO BID [facility] Last Admin: 05/31/19 10:40 Dose: 2.5 mg Digoxin (Lanoxin Tab*) 0.125 mg PO DAILY [facility] Last Admin: 05/31/19 10:40 Dose: 0.125 mg Diltiazem HCl (Cardizem Tab*) 30 mg PO Q6H [facility] Last Admin: 05/31/19 10:39 Dose: 30 mg Furosemide (Lasix Iv*) 40 mg IV BID [facility] Doxycycline Hyclate 100 mg/ (Sodium Chloride) 250 mls @ 250 mls/hr IVPB Q12H [facility] Stop: 06/02/19 06:59 Last Admin: 05/31/19 05:24 Dose: 250 mls/hr Potassium Chloride (Potassium Chloride 20 Meq/100 Ml Ivpremix*) 20 meq in 100 mls @ 50 mls/hr IV ONCE ONE Stop: 05/31/19 11:20 Acetazolamide Sodium 250 mg/ (Sodium Chloride) 50 mls @ 100 mls/hr IVPB Q12HR [facility] Stop: 05/31/19 21:01 Levothyroxine Sodium (Synthroid Tab*) 50 mcg PO DAILY@0600 [facility] Last Admin: 05/31/19 05:29 Dose: 50 mcg Pantoprazole Sodium (Protonix Tab*) 40 mg PO DAILY [facility] Last Admin: 05/31/19 10:39 Dose: 40 mg Potassium Chloride (Potassium Chloride Liquid) 20 meq PO ONCE ONE Stop: 05/31/19 10:48 Potassium Chloride (Potassium Chloride Liquid) 40 meq PO ONCE ONE Stop: 05/31/19 21:01 Quetiapine Fumarate (Seroquel Tab*) 12.5 mg PO BEDTIME PRN PRN Reason: AGITATION Last Admin: 05/30/19 21:38 Dose: 12.5 mg Fluticasone/Salmeterol (Advair Diskus 250-50*) 1 puff INH BID [facility] Last Admin: 05/31/19 10:15 Dose: 1 puff Spironolactone (Aldactone Tab*) 25 mg PO DAILY [facility] Last Admin: 05/31/19 10:40 Dose: 25 mg Tiotropium [place] (Spiriva Respimat 2.5 Mcg) 2 puff INH DAILY [facility] Last Admin: 05/31/19 10:15 Dose: 2 puff Physical Exam: Constitutional: sleeping but awakens easily, no distress, no diaphoresis Head: normocephalic, atraumatic Eyes: no pallor, no icterus ENT: Dry mucous membranes Neck: soft, supple, no jvd, no stridor CVS: Irregular, S1S2. No obvious murmur Chest/Resp: bilateral air entry, diminished throughout. No acc muscle use Abdomen/GI: soft, nontender, nondistended, BS+ Ext/Msk: warm, pulses+, BLE edema +2 Skin: intact, warm Neuro: Oriented x2, moving all extremities, no gross focal deficit Psych: normal affect Labs: Laboratory Results - last 24 hr 05/31/19 05/31/19 04:55 04:55 WBC 9.2 RBC 2.98 L Hgb 9.5 L Hct 29 L MCV 97 MCH 32 H MCHC 33 RDW 17 H Plt Count 195 MPV 10.6 H Neutrophils % 68.0 Lymphocytes % 14.0 Monocytes % 18.0 Abs Neuts (Manual) 6.3 Abs Lymphs (Manual) 1.2 Abs Monocytes (Manual) 1.7 H Normal RBC Morphology Not Reportable Polychromasia 1+ Anisocytosis 1+ Sodium 136 Potassium 3.6 Chloride 85 L Carbon Dioxide 45 H* Anion Gap 6 BUN 12 Creatinine 0.78 Est GFR ( Amer) 84.3 Est GFR (Non-Af Amer) 69.7 BUN/Creatinine Ratio 15.4 Glucose 91 Calcium 9.2 Phosphorus 3.3 Magnesium 1.8 L Imaging: cxr 05/28 - congestion, increased right basal infiltrate+ cxr 05/29- similar congestion/basal infiltrates+ Assessment: 88y F w/pmhx of HTN, Afib on eliquis, LV Diastolic dysfunction, s/ p TAVR and MV repair, severe COPD on 3-5L home O2, Dementia (moderate), lives at home, hypothyroidism, AVMs; last admission [place] [facility] [place] for pneumonia treated with ctx/doxy; comes to ER wtih shortness of breath from home x1-2 days. Family states 1 week of increasing LE swelling, weight gain+, no improvement with increased oral lasix dose. No cough/sputum/fevers. -acute on chronic hypoxic respiratory failure -acute pulmonary congestion -suspected pneumonia of RLL - atrial fibrillation - COPD Plan: Neuro- -Delirium prec; avoid BDZ - Seroquel 12.5mg PRN at bedtime for agitation/anxiety - Appears lethargic in AM. Encourage OOB, awake during daytime hours, limit naps during daytime CVS- - SBP goal <140,MAP>65 has been within range. - Afib- continue cardizem, digoxin. Rate is controlled Resp- -Wean Fio2 to keep sat>92%, weaning off bipap. Transitioned to oxygen mask this AM. Tonight we will attempt to keep patient off the bipap. -Severe COPD- Bronchodilators PRN, continue inhalers, Aspiration prec, Pulmonary Toilet - Reviewed most recent chest xray. Patient appears to be improving clinically ID- - Afebrile, WBC WNL - Treating for suspected PNA. Continue doxycycline until course is complete - CBC daily - Goal temp<38C GI- -Nutrition: encourage PO regular diet -GI prophylaxis Renal- -strict I/O, replete to keep K>4, Mg>2. Continue to replace K BID as indicated. Will give an additional 20meq this AM and 40meq this evening. -Continue bhatia, discontinue in AM - Continue diuresis. Keep net negative 1-2L. - Considering that CO2 is slowly trending up, will give diamox. 250mg now and another 250mg dose tonight. Hold lasix today and restart in the AM. - Continue to monitor CO2 on BMP Heme- - Currently on Eliquis 2.5mg BID for afib Endo-Maintain BG<200, insulin protocol as needed Musculsk- pressure ulcer prophylaxis.OOB to chair Wounds- none Nutrition- regular diet DVT prophylaxis: eliquis GI prophylaxis: protonix Bhatia Catheter: continue while aggressively diuresing. Consider removal tomorrow Disposition: Patient requires Critical Care/ICU for Bipap, close respiratory monitoring, fluid overload, diuresis, tele monitoring. Consider transfer to floor tomorrow. Patient clinical status: Fair Code Status: DNR/DNI Total Critical Care time is 30 minutes, <Marino Tucker - Last Filed: 05/31/19 13:00> Progress Note - Progress Note Note: Attending Note - on NIV, awake, alert. episodes of anxiety, will give xanax prn or seroquel will give acetazolamide 250mg iv bid today instead of lasix given metabolic alkalosis. supplement K PO BID transition to [place], oob to chair today. NIV PRN cont paula Tucker MD
[2019-05-31] MEDS ORDERED: acetaZOLAMIDE VIAL* 500 MG VIAL ONE (11:15)
[2019-05-31] MEDS: acetaZOLAMIDE VIAL* 250 MG in NS 0.9% 50 ML* 50 ML IVPB SCH ×2 (12:09→21:14)
[2019-05-31] MEDS ORDERED: ALPRAZolam TAB* 0.25 MG PO ONE (16:40)
[2019-05-31] MEDS ORDERED: ALPRAZolam TAB* 0.25 MG ONE (16:45)
[2019-05-31] MEDS: Albuterol 2.5 MG/3 ML NEB.SOL* (0.083%) INH PRN (21:02)
[2019-05-31] MEDS: Acetaminophen TAB* 325 MG PO PRN (21:05)
[2019-05-31] MEDS: QUEtiapine TAB* 25 MG PO PRN (21:05)
[2019-05-31] MEDS ORDERED: Haloperidol INJ IV/IM* 5 MG/ML AMP IV SLOW PU ONE (23:07)
[2019-05-31] MEDS ORDERED: Morphine INJ* 2 MG/ML 1 ML SYRINGE (TWO MG - NEW SYRINGE VERSION) IV ONE (23:26)
--- NOTE | 2019-05-31 23:34 | PN ---
Hospitalist Progress Note Date of Service: 05/31/19 ON-CALL MD NOTE: 23:31 05/31.2020 Was called earlier in the night- due to patient being anxious and agitated- had received xanax during daytime, had received seroquel without any changes. ORdered one dose of risperidone- which did not help, the RN called again as patient was having RR of 40's. Came to bedside, she reports that she cannot get any air in, currently on oxygen , sating 97%. On exam: tachypneic, in distress. Will order one dose of morphine 1mg IV Push. Will continue to monitor. 2:07AM: Re-evaluated patient, resting comfortably, no signs of respiratory distress.
[2019-06-01] MEDS: Diltiazem TAB* 30 MG PO SCH ×4 (04:13→20:32)
[2019-06-01 04:34] LABS: Hematocrit 28 % (35-47); Mean Corpuscular HGB Conc 32 g/dL (31-36); Mean Corpuscular Hemoglobin 31 pg (27-31); Mean Corpuscular Volume 98 fL (80-97); Mean Platelet Volume 10.8 fL (7.4-10.4); Platelet Count 218 10^3/uL (150-450); Red Blood Count 2.87 10^6 /uL (3.70-4.87); Red Cell Distribution Width 17 % (10-15); White Blood Count 13.1 10^3/uL (3.5-10.8)
[2019-06-01 04:47] LABS: BUN/Creatinine Ratio 20.5 (8-20); Calcium 9.1 mg/dL (8.6-10.3); EGFR African American 84.3 (>60); EGFR Non-African American 69.7 (>60); Magnesium 2.2 mg/dL (1.9-2.7); Phosphorus 3.8 mg/dL (2.5-5.0); Potassium 4.4 mmol/L (3.5-5.0)
[2019-06-01] MEDS: Levothyroxine TAB* 25 MCG TAB PO SCH (06:11)
[2019-06-01] MEDS: DOXYcycline IV* 100 MG in NS 0.9% 250 ML* 250 ML IVPB SCH ×2 (06:11→18:25)
[2019-06-01] MEDS: Fluticasone-Salmeterol 250-50* DISKUS INH SCH ×3 (06:49→20:28)
[2019-06-01] MEDS: Furosemide IV* 10 MG/ML VIAL (40 MG) IV SCH ×3 (07:08→20:32)
[2019-06-01] MEDS: Spironolactone TAB* 25 MG PO SCH (07:52)
[2019-06-01] MEDS: Digoxin TAB* 0.125 MG PO SCH (07:52)
[2019-06-01] MEDS: Pantoprazole TAB * 40 MG TAB PO SCH (07:52)
[2019-06-01] MEDS: Albuterol 2.5 MG/3 ML NEB.SOL* (0.083%) INH PRN (08:36)
[2019-06-01] MEDS: SPIRIVA Respimat* (tiotropium) 2.5 mcg/inh Inhaler INH SCH (08:37)
[2019-06-01] MEDS ORDERED: LORazepam TAB(*) 0.5 MG PO PRN (09:12)
[2019-06-01] MEDS: Apixaban* 2.5 MG TAB PO SCH ×2 (10:12→20:32)
--- NOTE | 2019-06-01 12:11 | PN ---
Date of Service: 06/01/19 Critical Care Services: Had an episode of SOB last night which resolved after morphine. No SOB this AM, but patient does have anxiety. Is about 6 liters negative since coming to ICU Vital Signs: Temp Pulse Resp BP SpO2 FiO2 98.6 F 79 21 128/84 95 40 Physical Exam: Gen: Up in chair. Alert and breathing comfortably HEENT:OP clear Lungs: Bibasilar crackles Cardiac: No murmurs Abdomen: Not ditended Extremities: 1+ edema lower extremities Neuro: No focal deficits Fluid Balance (Past 24 Hours): 05/30/19 05/31/19 06:59 06:59 Intake Total 720 1185 Output Total 3585 4320 Balance -2865 -3135 Weight 114 lb 13.773 oz 111 lb 5.335 oz Intake: IV Fluids 93 ABX - DOXYCYCLINE 1 NS 92 IVPB 542 ABX - DOXYCYCLINE 263 Magnesium Sulfate 2 gm 14 NS 265 Oral 720 550 Output: Brady 3585 4320 Other: Estimated Void Small Date of Last Bowel 05/28/2019 05/28/2019 Movement Labs: 06/01/19 06/01/19 04:18 04:18 WBC 13.1 H RBC 2.87 L Hgb 9.0 L Hct 28 L MCV 98 H MCH 31 MCHC 32 RDW 17 H Plt Count 218 MPV 10.8 H Sodium 132 L Potassium 4.4 Chloride 87 L Carbon Dioxide 40 H Anion Gap 5 BUN 16 Creatinine 0.78 Est GFR ( Amer) 84.3 Est GFR (Non-Af Amer) 69.7 BUN/Creatinine Ratio 20.5 H Glucose 111 H Calcium 9.1 Phosphorus 3.8 Magnesium 2.2 Studies: CXR: cardiomegaly Nutrition: Heart healthy diet Impression: Improving after diuresis for CHF. Patient also experiences anxiety, which may be at least partly responsible for her complaints of dyspnea. Plan: Contiue diuresis with furosemide and spironolactone. Transfer out of ICU today.
[2019-06-01] MEDS ORDERED: ALPRAZolam TAB* 0.25 MG PO PRN (18:10)
[2019-06-02] MEDS: QUEtiapine TAB* 25 MG PO PRN (01:11)
[2019-06-02] MEDS: Diltiazem TAB* 30 MG PO SCH ×4 (02:35→23:31)
[2019-06-02] MEDS: DOXYcycline IV* 100 MG in NS 0.9% 250 ML* 250 ML IVPB SCH (05:28)
[2019-06-02] MEDS: Levothyroxine TAB* 25 MCG TAB PO SCH (06:00)
[2019-06-02 06:09] LABS: Hematocrit 28 % (35-47); Hemoglobin 9.4 g/dL (12.0-16.0); Mean Corpuscular HGB Conc 34 g/dL (31-36); Mean Corpuscular Hemoglobin 33 pg (27-31); Mean Corpuscular Volume 97 fL (80-97); Mean Platelet Volume 10.6 fL (7.4-10.4); Platelet Count 208 10^3/uL (150-450); Red Blood Count 2.86 10^6 /uL (3.70-4.87); Red Cell Distribution Width 17 % (10-15)
[2019-06-02 06:39] LABS: Calcium 8.9 mg/dL (8.6-10.3); Magnesium 1.7 mg/dL (1.9-2.7); Potassium 3.4 mmol/L (3.5-5.0)
[2019-06-02 06:45] LABS: BUN/Creatinine Ratio 27.8 (8-20); EGFR African American 92.5 (>60); EGFR Non-African American 76.4 (>60); Phosphorus 3.7 mg/dL (2.5-5.0)
[2019-06-02] MEDS ORDERED: Potassium Chlor TAB* 20 MEQ TAB.ER PO ONE (06:48)
[2019-06-02] MEDS ORDERED: Magnesium Sulfate 2 GM IV* 2 GM/50 ML BAG IVPB ONE (06:48)
[2019-06-02] MEDS: SPIRIVA Respimat* (tiotropium) 2.5 mcg/inh Inhaler INH SCH (09:01)
[2019-06-02] MEDS: Fluticasone-Salmeterol 250-50* DISKUS INH SCH ×2 (09:01→19:24)
[2019-06-02] MEDS: Pantoprazole TAB * 40 MG TAB PO SCH (10:03)
[2019-06-02] MEDS: Furosemide IV* 10 MG/ML VIAL (40 MG) IV SCH (10:03)
[2019-06-02] MEDS: Spironolactone TAB* 25 MG PO SCH (10:03)
[2019-06-02] MEDS: Apixaban* 2.5 MG TAB PO SCH ×2 (10:03→20:33)
[2019-06-02] MEDS: Digoxin TAB* 0.125 MG PO SCH (10:04)
--- NOTE | 2019-06-02 15:29 | PN ---
Subjective Date of Service: 06/02/19 Interval History: Patient has no complaints today, says she feels fine. She is very sleepy and family reports poor sleep due to agitation from ativan yesterday. Has been on bipap since last evening for work of breathing, had breaks today to eat meals and felt well off of it, but family put her back on since she is sleeping. She is not bothered by the bipap at all and prefers to keep it on. Objective Active Medications: Acetaminophen (Tylenol Tab*) 650 mg PO Q6H PRN PRN Reason: PAIN - MILD Last Admin: 05/31/19 21:05 Dose: 650 mg Albuterol (Ventolin 2.5 Mg/3 Ml Neb.Jen*) 2.5 mg INH Q4H PRN PRN Reason: SOB/WHEEZING Last Admin: 06/01/19 08:36 Dose: 2.5 mg Alprazolam (Xanax Tab*) 0.25 mg PO Q8H PRN PRN Reason: ANXIETY Apixaban (Eliquis*) 2.5 mg PO BID [facility] Last Admin: 06/02/19 10:03 Dose: 2.5 mg Digoxin (Lanoxin Tab*) 0.125 mg PO DAILY [facility] Last Admin: 06/02/19 10:04 Dose: 0.125 mg Diltiazem HCl (Cardizem Tab*) 30 mg PO Q6H [facility] Last Admin: 06/02/19 14:39 Dose: 30 mg Furosemide (Lasix Iv*) 40 mg IV DAILY [facility] Levothyroxine Sodium (Synthroid Tab*) 50 mcg PO DAILY@0600 [facility] Last Admin: 06/02/19 06:00 Dose: 50 mcg Pantoprazole Sodium (Protonix Tab*) 40 mg PO DAILY [facility] Last Admin: 06/02/19 10:03 Dose: 40 mg Quetiapine Fumarate (Seroquel Tab*) 12.5 mg PO BEDTIME PRN PRN Reason: AGITATION Last Admin: 06/02/19 01:11 Dose: 12.5 mg Fluticasone/Salmeterol (Advair Diskus 250-50*) 1 puff INH BID [facility] Last Admin: 06/02/19 09:01 Dose: Not Given Spironolactone (Aldactone Tab*) 25 mg PO DAILY [facility] Last Admin: 06/02/19 10:03 Dose: 25 mg Tiotropium [place] (Spiriva Respimat 2.5 Mcg) 2 puff INH DAILY [facility] Last Admin: 06/02/19 09:01 Dose: Not Given Vital Signs - 8 hr 06/02/19 06/02/19 06/02/19 07:57 08:00 09:00 Temperature 97.3 F Pulse Rate 78 77 Respiratory 20 20 Rate Blood Pressure 117/54 (mmHg) O2 Sat by Pulse 100 99 Oximetry 06/02/19 06/02/19 06/02/19 09:45 10:04 11:00 Temperature Pulse Rate 80 86 Respiratory Rate Blood Pressure 142/62 (mmHg) O2 Sat by Pulse 99 Oximetry 06/02/19 06/02/19 06/02/19 11:37 12:00 14:00 Temperature 98.2 F Pulse Rate 87 76 87 Respiratory 24 Rate Blood Pressure 136/62 (mmHg) O2 Sat by Pulse 99 100 97 Oximetry 06/02/19 14:43 Temperature Pulse Rate 87 Respiratory Rate Blood Pressure 117/46 (mmHg) O2 Sat by Pulse Oximetry Oxygen Devices in Use Now: BiPAP Appearance: sleepy, arouses to voice and appropriately answers questions Eyes: No Scleral Icterus Neck: - - EJs are distended, cannot see IJs Respiratory: Symmetrical Chest Expansion and Respiratory Effort Cardiovascular: - - difficult to appreciate over bipap; irregular rhythm, ? systolic murmur Abdominal: - - mild tenderness diffusely Lymphatic: No Cervical Adenopathy Extremities: No Edema Neurological: NL Muscle Strength and Tone, - Result Diagrams: 06/02/19 05:48 06/02/19 05:48 Additional Lab and Data: Lab Results 05/28/19 05/28/19 Range/Units 12:48 12:48 WBC 25.8 H (3.5-10.8) 10^3/uL RBC 3.51 L (3.70-4.87) 10^6 /uL Hgb 11.4 L (12.0-16.0) g/dL Hct 34 L (35-47) % MCV 98 H (80-97) fL MCH 32 H (27-31) pg MCHC 33 (31-36) g/dL RDW 18 H (10-15) % Plt Count 264 (150-450) 10^3/uL MPV 11.5 H (7.4-10.4) fL Neut % (Auto) Pending Lymph % (Auto) Pending [place] % (Auto) Pending Eos % (Auto) Pending Baso % (Auto) Pending Absolute Neuts (auto) Pending Absolute Lymphs (auto) Pending Absolute Monos (auto) Pending Absolute Eos (auto) Pending Absolute Basos (auto) Pending Absolute Nucleated RBC Pending Nucleated RBC % Pending Sodium 132 L (135-145) mmol/L Potassium 4.6 (3.5-5.0) mmol/L Chloride 92 L (101-111) mmol/L Carbon Dioxide 29 (22-32) mmol/L Anion Gap 11 (2-11) mmol/L BUN 15 (6-24) mg/dL Creatinine 0.87 (0.51-0.95) mg/dL Est GFR ( Amer) 74.4 (>60) Est GFR (Non-Af Amer) 61.4 (>60) BUN/Creatinine Ratio 17.2 (8-20) Glucose 196 H (70-100) mg/dL Calcium 9.1 (8.6-10.3) mg/dL Total Bilirubin 1.60 H (0.2-1.0) mg/dL AST 33 (13-39) U/L ALT 17 (7-52) U/L Alkaline Phosphatase 80 (34-104) U/L Troponin I Pending Total Protein 6.9 (6.4-8.9) g/dL Albumin 4.2 (3.2-5.2) g/dL Globulin 2.7 (2-4) g/dL Albumin/Globulin Ratio 1.6 (1-3) Digoxin Pending Microbiology and Other Data: Microbiology 05/28/19 13:27 Urine Culture - Final Urine Escherichia Coli 05/28/19 20:02 Nasal Screen MRSA (PCR) - Final Nasal Mrsa Not Detected 05/28/19 13:27 Legionella Urinary Antigen - Final Urine Negative Legionella Antigen 05/28/19 13:27 Streptococcus pneumoniae Ag Screen - Final Urine Negative S. pneumo Antigen Assess/Plan/Problems-Billing Assessment: This is an 88 year old woman with history of systolic heart failure who has been getting more short of breath over several weeks at home, was started on lasix as an outpatient but continued to be more short of breath, was sent to the ED and found to have pneumonia as well as decompensated heart failure - Patient Problems (1) Acute and chronic respiratory failure with hypoxia Current Visit: No Status: Acute Code(s): J96.21 - ACUTE AND CHRONIC RESPIRATORY FAILURE WITH HYPOXIA SNOMED Code(s): 51594288 Comment: likely multifactorial and related to both pneumonia and decompensated heart failure, but seems moreso related to heart failure at this point has been treated with 5 days of antibiotics for CAP stable on bipap for now; will attempt to wean off by tomorrow and back to home O2 requirement (2) Acute on chronic systolic (congestive) heart failure Current Visit: Yes Status: Acute Code(s): I50.23 - ACUTE ON CHRONIC SYSTOLIC (CONGESTIVE) HEART FAILURE SNOMED Code(s): 811681762 Comment: I discussed her case with Dr. Lama, who knows her well from outpatient I could not access her TTE, have requested it be faxed from [facility], but Dr. Lama reports from 03/12/19: ef 20-25%, sev global hypokinesis, normal prosthetic aortic valve, mod MR, mod TR He has recommended hospice and I will continue this discussion with her and her family if she continues to decline I am decreasing her lasix to 40mg IV once a day since she is developing a contraction alkalosis and wants to rest this afternoon She is not on an marck or a bb, likely her bp would not tolerate an MARCK, but cardizem had to be added this admission due to RVR, so I will plan to add low dose toprol in place of cardizem (3) Pneumonia Current Visit: No Status: Acute Code(s): J18.9 - PNEUMONIA, UNSPECIFIED ORGANISM SNOMED Code(s): 516136986 Comment: s/p 5 days of abx (4) Anemia Current Visit: No Status: Acute Priority: High Code(s): D64.9 - ANEMIA, UNSPECIFIED SNOMED Code(s): 469231698 (5) Atrial fibrillation Current Visit: No Status: Acute Priority: High Code(s): I48.91 - UNSPECIFIED ATRIAL FIBRILLATION SNOMED Code(s): 96937328 Comment: continue digoxin and apixaban cardizem added this admission for RVR; will try to transition to bb prior to discharge
[2019-06-03] MEDS: Diltiazem TAB* 30 MG PO SCH ×3 (05:46→17:53)
[2019-06-03] MEDS: Levothyroxine TAB* 25 MCG TAB PO SCH (05:46)
[2019-06-03 07:33] LABS: Hematocrit 31 % (35-47); Hemoglobin 10.2 g/dL (12.0-16.0); Mean Corpuscular HGB Conc 33 g/dL (31-36); Mean Corpuscular Hemoglobin 32 pg (27-31); Mean Corpuscular Volume 97 fL (80-97); Mean Platelet Volume 10.6 fL (7.4-10.4); Platelet Count 256 10^3/uL (150-450); Red Blood Count 3.17 10^6 /uL (3.70-4.87); Red Cell Distribution Width 17 % (10-15); White Blood Count 12.8 10^3/uL (3.5-10.8)
[2019-06-03] MEDS: Fluticasone-Salmeterol 250-50* DISKUS INH SCH ×2 (07:42→19:24)
[2019-06-03] MEDS: SPIRIVA Respimat* (tiotropium) 2.5 mcg/inh Inhaler INH SCH (07:42)
[2019-06-03 08:02] LABS: ABS Lymphocytes 1.6 10^3/ul (1.0-4.8); ABS Monocytes 2.6 10^3/ul (0-0.8); ABS Neutrophils 8.5 10^3/ul (1.5-7.7); Eosinophil % 0.2 %; Lymphocyte % 12.5 %
[2019-06-03 08:07] LABS: Polychromasia 1+
[2019-06-03 08:10] LABS: BUN/Creatinine Ratio 33.8 (8-20); Calcium 9.1 mg/dL (8.6-10.3); EGFR African American 104.1 (>60); Magnesium 1.8 mg/dL (1.9-2.7)
[2019-06-03] MEDS ORDERED: Magnesium Oxide TAB* 400 MG PO ONE (09:41)
[2019-06-03] MEDS: Digoxin TAB* 0.125 MG PO SCH (09:42)
[2019-06-03] MEDS: Furosemide IV* 10 MG/ML VIAL (40 MG) IV SCH (09:42)
[2019-06-03] MEDS: Pantoprazole TAB * 40 MG TAB PO SCH (09:44)
[2019-06-03] MEDS: guaiFENesin ER TAB 600 MG PO PRN (09:44)
[2019-06-03] MEDS: Apixaban* 2.5 MG TAB PO SCH ×2 (09:44→20:53)
[2019-06-03] MEDS: Spironolactone TAB* 25 MG PO SCH (09:45)
--- NOTE | 2019-06-03 09:55 | PN ---
Subjective Date of Service: 06/03/19 Interval History: No overnight events; Angle slept with bipap on uneventfully. Erick tried to turn down O2 to 8L from 9L this morning, and Angle had increased work of breathing. When I come in to see her, she is sitting up in the recliner and says she feels well. She has no complaints. Her breathing feels comfortable. Objective Active Medications: Acetaminophen (Tylenol Tab*) 650 mg PO Q6H PRN PRN Reason: PAIN - MILD Last Admin: 05/31/19 21:05 Dose: 650 mg Albuterol (Ventolin 2.5 Mg/3 Ml Neb.Jen*) 2.5 mg INH Q4H PRN PRN Reason: SOB/WHEEZING Last Admin: 06/01/19 08:36 Dose: 2.5 mg Alprazolam (Xanax Tab*) 0.25 mg PO Q8H PRN PRN Reason: ANXIETY Apixaban (Eliquis*) 2.5 mg PO BID [facility] Last Admin: 06/02/19 20:33 Dose: 2.5 mg Digoxin (Lanoxin Tab*) 0.125 mg PO DAILY [facility] Last Admin: 06/02/19 10:04 Dose: 0.125 mg Diltiazem HCl (Cardizem Tab*) 30 mg PO Q6HR [facility] Last Admin: 06/03/19 05:46 Dose: 30 mg Furosemide (Lasix Iv*) 40 mg IV DAILY [facility] Guaifenesin (Mucinex*) 600 mg PO BID PRN PRN Reason: COUGH Levothyroxine Sodium (Synthroid Tab*) 50 mcg PO DAILY@0600 [facility] Last Admin: 06/03/19 05:46 Dose: 50 mcg Magnesium Oxide (Magox 400 Tab*) 400 mg PO ONCE ONE Stop: 06/03/19 09:42 Pantoprazole Sodium (Protonix Tab*) 40 mg PO DAILY [facility] Last Admin: 06/02/19 10:03 Dose: 40 mg Quetiapine Fumarate (Seroquel Tab*) 12.5 mg PO BEDTIME PRN PRN Reason: AGITATION Last Admin: 06/02/19 01:11 Dose: 12.5 mg Fluticasone/Salmeterol (Advair Diskus 250-50*) 1 puff INH BID [facility] Last Admin: 01/22/20 07:42 Dose: 1 puff Spironolactone (Aldactone Tab*) 25 mg PO DAILY [facility] Last Admin: 06/02/19 10:03 Dose: 25 mg Tiotropium [place] (Spiriva Respimat 2.5 Mcg) 2 puff INH DAILY [facility] Last Admin: 06/03/19 07:42 Dose: 2 puff Vital Signs - 8 hr 06/03/19 06/03/19 06/03/19 03:27 05:00 06:00 Temperature 98.7 F Pulse Rate 83 85 90 Respiratory 20 Rate Blood Pressure 139/58 (mmHg) O2 Sat by Pulse 100 99 99 Oximetry 06/03/19 06/03/19 07:41 07:50 Temperature 98.8 F Pulse Rate 76 85 Respiratory 22 18 Rate Blood Pressure 125/52 (mmHg) O2 Sat by Pulse 100 100 Oximetry Oxygen Devices in Use Now: Nasal Cannula Appearance: alert, tired appearing but comfortable Eyes: No Scleral Icterus Neck: - - distended EJs, I cannot see her IJs Respiratory: - - no crackles, breath sounds decreased on L compared to R Cardiovascular: - - systolic murmur, irregular rhythm Abdominal: NL Sounds; No Tenderness; No Distention Lymphatic: No Cervical Adenopathy Extremities: No Edema Neurological: - - oriented to person and place Result Diagrams: 06/03/19 07:20 06/03/19 07:20 Additional Lab and Data: Lab Results 05/28/19 05/28/19 Range/Units 12:48 12:48 WBC 25.8 H (3.5-10.8) 10^3/uL RBC 3.51 L (3.70-4.87) 10^6 /uL Hgb 11.4 L (12.0-16.0) g/dL Hct 34 L (35-47) % MCV 98 H (80-97) fL MCH 32 H (27-31) pg MCHC 33 (31-36) g/dL RDW 18 H (10-15) % Plt Count 264 (150-450) 10^3/uL MPV 11.5 H (7.4-10.4) fL Neut % (Auto) Pending Lymph % (Auto) Pending [place] % (Auto) Pending Eos % (Auto) Pending Baso % (Auto) Pending Absolute Neuts (auto) Pending Absolute Lymphs (auto) Pending Absolute Monos (auto) Pending Absolute Eos (auto) Pending Absolute Basos (auto) Pending Absolute Nucleated RBC Pending Nucleated RBC % Pending Sodium 132 L (135-145) mmol/L Potassium 4.6 (3.5-5.0) mmol/L Chloride 92 L (101-111) mmol/L Carbon Dioxide 29 (22-32) mmol/L Anion Gap 11 (2-11) mmol/L BUN 15 (6-24) mg/dL Creatinine 0.87 (0.51-0.95) mg/dL Est GFR ( Amer) 74.4 (>60) Est GFR (Non-Af Amer) 61.4 (>60) BUN/Creatinine Ratio 17.2 (8-20) Glucose 196 H (70-100) mg/dL Calcium 9.1 (8.6-10.3) mg/dL Total Bilirubin 1.60 H (0.2-1.0) mg/dL AST 33 (13-39) U/L ALT 17 (7-52) U/L Alkaline Phosphatase 80 (34-104) U/L Troponin I Pending Total Protein 6.9 (6.4-8.9) g/dL Albumin 4.2 (3.2-5.2) g/dL Globulin 2.7 (2-4) g/dL Albumin/Globulin Ratio 1.6 (1-3) Digoxin Pending Microbiology and Other Data: Microbiology 05/28/19 13:27 Urine Culture - Final Urine Escherichia Coli 05/28/19 20:02 Nasal Screen MRSA (PCR) - Final Nasal Mrsa Not Detected 05/28/19 13:27 Legionella Urinary Antigen - Final Urine Negative Legionella Antigen 05/28/19 13:27 Streptococcus pneumoniae Ag Screen - Final Urine Negative S. pneumo Antigen Assess/Plan/Problems-Billing Assessment: This is an 88 year old woman with history of systolic heart failure who has been getting more short of breath over several weeks at home, was started on lasix as an outpatient but continued to be more short of breath, was sent to the ED and found to have pneumonia as well as decompensated heart failure - Patient Problems (1) Acute and chronic respiratory failure with hypoxia Current Visit: No Status: Acute Code(s): J96.21 - ACUTE AND CHRONIC RESPIRATORY FAILURE WITH HYPOXIA SNOMED Code(s): 18541530 Comment: likely multifactorial and related to both pneumonia and decompensated heart failure, but seems moreso related to heart failure at this point has been treated with 5 days of antibiotics for CAP required bipap for work of breathing, now on 9L O2 home baseline requirement is 2-5L will attempt to wean today repeat CXR trial nebs (2) Acute on chronic systolic (congestive) heart failure Current Visit: Yes Status: Acute Code(s): I50.23 - ACUTE ON CHRONIC SYSTOLIC (CONGESTIVE) HEART FAILURE SNOMED Code(s): 135211891 Comment: I discussed her case with Dr. Lama, who knows her well from outpatient I could not access her TTE, have requested it be faxed from [facility], but Dr. Lama reports from 03/12/19: ef 20-25%, sev global hypokinesis, normal prosthetic aortic valve, mod MR, mod TR He has recommended hospice and I will continue this discussion with her and her family if she continues to decline I decreased her lasix to 40mg IV once a day due to contraction (she was just started on lasix 20mg PO daily last week) She is not on an marck or a bb, likely her bp would not tolerate an MARCK, but cardizem had to be added this admission due to RVR, so I will plan to add low dose toprol in place of cardizem (3) Pneumonia Current Visit: No Status: Acute Code(s): J18.9 - PNEUMONIA, UNSPECIFIED ORGANISM SNOMED Code(s): 721831029 Comment: s/p 5 days of abx (4) Anemia Current Visit: No Status: Acute Priority: High Code(s): D64.9 - ANEMIA, UNSPECIFIED SNOMED Code(s): 370755907 (5) Atrial fibrillation Current Visit: No Status: Acute Priority: High Code(s): I48.91 - UNSPECIFIED ATRIAL FIBRILLATION SNOMED Code(s): 77144842 Comment: continue digoxin and apixaban cardizem added this admission for RVR; will try to transition to bb prior to discharge
[2019-06-03] MEDS: Albuterol 2.5 MG/3 ML NEB.SOL* (0.083%) INH PRN ×2 (10:54→17:53)
[2019-06-03] MEDS: DOXYcycline CAP(*) 100 MG PO SCH (20:53)
[2019-06-03] MEDS: Acetaminophen TAB* 325 MG PO PRN (20:53)
[2019-06-04] MEDS: Diltiazem TAB* 30 MG PO SCH ×3 (00:41→11:52)
[2019-06-04 05:48] LABS: Hematocrit 28 % (35-47); Hemoglobin 9.3 g/dL (12.0-16.0); Mean Corpuscular HGB Conc 33 g/dL (31-36); Mean Corpuscular Hemoglobin 32 pg (27-31); Mean Corpuscular Volume 96 fL (80-97); Mean Platelet Volume 10.6 fL (7.4-10.4); Platelet Count 257 10^3/uL (150-450); Red Blood Count 2.93 10^6 /uL (3.70-4.87); Red Cell Distribution Width 16 % (10-15); White Blood Count 19.3 10^3/uL (3.5-10.8)
[2019-06-04] MEDS: Levothyroxine TAB* 25 MCG TAB PO SCH (05:55)
[2019-06-04 06:04] LABS: BUN/Creatinine Ratio 49.2 (8-20); Calcium 9.5 mg/dL (8.6-10.3); EGFR Non-African American 92.6 (>60); Potassium 3.8 mmol/L (3.5-5.0)
[2019-06-04] MEDS: Fluticasone-Salmeterol 250-50* DISKUS INH SCH ×2 (07:42→20:58)
[2019-06-04] MEDS: SPIRIVA Respimat* (tiotropium) 2.5 mcg/inh Inhaler INH SCH (07:42)
[2019-06-04] MEDS: Albuterol 2.5 MG/3 ML NEB.SOL* (0.083%) INH PRN ×2 (07:48→17:17)
[2019-06-04] MEDS: Spironolactone TAB* 25 MG PO SCH (08:41)
[2019-06-04] MEDS: Pantoprazole TAB * 40 MG TAB PO SCH (08:41)
[2019-06-04] MEDS: DOXYcycline CAP(*) 100 MG PO SCH ×2 (08:41→21:10)
[2019-06-04] MEDS: Apixaban* 2.5 MG TAB PO SCH ×2 (08:41→21:10)
[2019-06-04] MEDS: guaiFENesin ER TAB 600 MG PO PRN (08:41)
[2019-06-04] MEDS: Furosemide IV* 10 MG/ML VIAL (40 MG) IV SCH (08:42)
[2019-06-04] MEDS: Digoxin TAB* 0.125 MG PO SCH (08:42)
[2019-06-04] MEDS: Polyethylene Glycol 3350* 17 GM PACKET PO PRN (11:52)
[2019-06-04] MEDS ORDERED: Senna TAB 8.6 mg* TAB PO ONE (12:38)
--- NOTE | 2019-06-04 12:43 | PN ---
Subjective Date of Service: 06/04/19 Interval History: Patient lives at home w/ at baseline. She has COPD, on 3L/min O2 at home. Since ICU stay, has been on 5L/min, BiPAP at night. Denies cough, SOB. Granddaughter reports desaturation w/ exertion. No BM in 3 days, has some diffuse abdominal discomfort. Can walk to BR. Family History: Unchanged from Admission Social History: Unchanged from Admission Past Medical History: Unchanged from Admission Objective Active Medications: Acetaminophen (Tylenol Tab*) 650 mg PO Q6H PRN PRN Reason: PAIN - MILD Last Admin: 06/03/19 20:53 Dose: 650 mg Albuterol (Ventolin 2.5 Mg/3 Ml Neb.Jen*) 2.5 mg INH Q4H PRN PRN Reason: SOB/WHEEZING Last Admin: 06/04/19 07:48 Dose: 2.5 mg Alprazolam (Xanax Tab*) 0.25 mg PO Q8H PRN PRN Reason: ANXIETY Apixaban (Eliquis*) 2.5 mg PO BID [facility] Last Admin: 06/04/19 08:41 Dose: 2.5 mg Digoxin (Lanoxin Tab*) 0.125 mg PO DAILY [facility] Last Admin: 06/04/19 08:42 Dose: 0.125 mg Diltiazem HCl (Cardizem Tab*) 30 mg PO Q6HR [facility] Last Admin: 06/04/19 11:52 Dose: 30 mg Doxycycline Hyclate (Vibramycin Cap(*)) 100 mg PO BID [facility] Last Admin: 06/04/19 08:41 Dose: 100 mg Furosemide (Lasix Iv*) 40 mg IV DAILY [facility] Last Admin: 06/04/19 08:42 Dose: 40 mg Guaifenesin (Mucinex*) 600 mg PO BID PRN PRN Reason: COUGH Last Admin: 06/04/19 08:41 Dose: 600 mg Levothyroxine Sodium (Synthroid Tab*) 50 mcg PO DAILY@0600 [facility] Last Admin: 06/04/19 05:55 Dose: 50 mcg Pantoprazole Sodium (Protonix Tab*) 40 mg PO DAILY [facility] Last Admin: 06/04/19 08:41 Dose: 40 mg Polyethylene Glycol/Electrolytes (Miralax*) 17 gm PO DAILY PRN PRN Reason: CONSTIPATION Last Admin: 06/04/19 11:52 Dose: 17 gm Prednisone (Deltasone 50 Mg Tab) 50 mg PO DAILY [facility] Last Admin: 06/04/19 08:41 Dose: 50 mg Quetiapine Fumarate (Seroquel Tab*) 12.5 mg PO BEDTIME PRN PRN Reason: AGITATION Last Admin: 06/02/19 01:11 Dose: 12.5 mg Fluticasone/Salmeterol (Advair Diskus 250-50*) 1 puff INH BID [facility] Last Admin: 06/04/19 07:42 Dose: 1 puff Senna (Senokot 8.6 Mg Tab*) 1 tab PO MOWEFR [facility] Spironolactone (Aldactone Tab*) 25 mg PO DAILY [facility] Last Admin: 06/04/19 08:41 Dose: 25 mg Tiotropium [place] (Spiriva Respimat 2.5 Mcg) 2 puff INH DAILY [facility] Last Admin: 06/04/19 07:42 Dose: 2 puff Vital Signs - 8 hr 06/04/19 06/04/19 06/04/19 06:00 07:00 07:43 Temperature 36.7 C Pulse Rate 73 65 92 Respiratory 18 Rate Blood Pressure 138/56 132/42 (mmHg) O2 Sat by Pulse 99 98 97 Oximetry 06/04/19 06/04/19 06/04/19 09:00 10:00 11:45 Temperature 36.6 C Pulse Rate 78 87 86 Respiratory 18 Rate Blood Pressure 123/46 (mmHg) O2 Sat by Pulse 98 99 99 Oximetry Oxygen Devices in Use Now: Nasal Cannula Appearance: alert, no distress Eyes: No Scleral Icterus Ears/Nose/Mouth/Throat: Clear Oropharnyx Neck: No Thyroid Enlargement, Masses Respiratory: Symmetrical Chest Expansion and Respiratory Effort, Clear to Auscultation Cardiovascular: NL Sounds; No Murmurs; No JVD, RRR Abdominal: No Hepatosplenomegaly, - - soft, tender throughout, no rebound, +BS Extremities: No Edema Lines/Tubes/Other Access: Clean, Dry and Intact Peripheral IV Nutrition: Taking PO's Result Diagrams: 06/04/19 05:17 06/04/19 05:17 Microbiology and Other Data: Microbiology 05/28/19 13:27 Urine Culture - Final Urine Escherichia Coli 05/28/19 20:02 Nasal Screen MRSA (PCR) - Final Nasal Mrsa Not Detected 05/28/19 13:27 Legionella Urinary Antigen - Final Urine Negative Legionella Antigen 05/28/19 13:27 Streptococcus pneumoniae Ag Screen - Final Urine Negative S. pneumo Antigen Assess/Plan/Problems-Billing Assessment: 88 year old woman with history of systolic heart failure who has been getting more short of breath over several weeks at home, was started on lasix as an outpatient but continued to be more short of breath, was sent to the ED and found to have pneumonia as well as decompensated heart failure - Patient Problems (1) Acute on chronic systolic (congestive) heart failure Current Visit: Yes Status: Acute Priority: Medium Code(s): I50.23 - ACUTE ON CHRONIC SYSTOLIC (CONGESTIVE) HEART FAILURE SNOMED Code(s): 437079049 Comment: -Patient has EF 20-25%, sev global hypokinesis, normal prosthetic aortic valve, mod MR, mod TR -Dr. Lama has recommended hospice and we will pursue discussion with her and her family if she continues to decline -Euvolemic today, switched to PO lasix. -Tolerating diltiazem for rate control, will switch to Coreg in setting of systolic failure. -Digoxin therapeutic (2) COPD exacerbation Current Visit: Yes Status: Acute Priority: High Code(s): J44.1 - CHRONIC OBSTRUCTIVE PULMONARY DISEASE W (ACUTE) EXACERBATION SNOMED Code(s): 371845621 Comment: -Tolerating prednisone, granddaughter reports no h/o adverse reaction to this. -Restarted doxycycline yesterday, breathing clinically had been worse -Continue O2, nebulizers -Not at baseline (3) Constipation Current Visit: Yes Status: Acute Priority: Medium Code(s): K59.00 - CONSTIPATION, UNSPECIFIED SNOMED Code(s): 44895843 Comment: -Restarted outpatient bowel regimen. (4) DVT prophylaxis Current Visit: No Status: Acute Priority: Low Code(s): IUO2850 - SNOMED Code(s): 671169016 Comment: - SCDs.
[2019-06-04] MEDS: Carvedilol TAB* 6.25 MG PO SCH (21:10)
[2019-06-05 05:53] LABS: Hematocrit 28 % (35-47); Hemoglobin 9.1 g/dL (12.0-16.0); Mean Corpuscular HGB Conc 32 g/dL (31-36); Mean Corpuscular Hemoglobin 31 pg (27-31); Mean Corpuscular Volume 96 fL (80-97); Mean Platelet Volume 10.2 fL (7.4-10.4); Platelet Count 308 10^3/uL (150-450); Red Blood Count 2.92 10^6 /uL (3.70-4.87); Red Cell Distribution Width 17 % (10-15); White Blood Count 24.3 10^3/uL (3.5-10.8)
[2019-06-05] MEDS: Levothyroxine TAB* 25 MCG TAB PO SCH (06:28)
[2019-06-05 06:40] LABS: ABS Basophils 0.1 10^3/ul (0-0.2); ABS Lymphocytes 2.2 10^3/ul (1.0-4.8); ABS Monocytes 2.8 10^3/ul (0-0.8); ABS Neutrophils 19.3 10^3/ul (1.5-7.7)
[2019-06-05] MEDS: Polyethylene Glycol 3350* 17 GM PACKET PO PRN (08:03)
[2019-06-05] MEDS: Pantoprazole TAB * 40 MG TAB PO SCH (08:03)
[2019-06-05] MEDS: Digoxin TAB* 0.125 MG PO SCH (08:03)
[2019-06-05] MEDS: DOXYcycline CAP(*) 100 MG PO SCH ×2 (08:03→20:27)
[2019-06-05] MEDS: Apixaban* 2.5 MG TAB PO SCH ×2 (08:04→20:27)
[2019-06-05] MEDS: Carvedilol TAB* 6.25 MG PO SCH ×2 (08:04→20:27)
[2019-06-05] MEDS: Spironolactone TAB* 25 MG PO SCH (08:04)
[2019-06-05] MEDS: SPIRIVA Respimat* (tiotropium) 2.5 mcg/inh Inhaler INH SCH (08:27)
[2019-06-05] MEDS: Fluticasone-Salmeterol 250-50* DISKUS INH SCH ×2 (08:27→19:23)
[2019-06-05] MEDS ORDERED: Furosemide TAB* 40 MG PO SCH (09:00)
[2019-06-05] MEDS ORDERED: Senna TAB 8.6 mg* TAB PO SCH (09:00)
--- NOTE | 2019-06-05 10:01 | PN ---
Subjective Date of Service: 06/05/19 Interval History: No acute events overnight. Pt would become hypoxic when NC not in place. SaO2 100% on 4L this morning but decreaesed to 87% when on 2L. Patient reports no oxygen at home, but it is documented she uses 3L NC at home. Leukocytosis worsened, but also now s/p 2 doses of prednisone. Patient reports feeling well and wanting to go home. She does not remember what brought her in. Denies all symptoms. Still no BM. Will do enema today. Objective Active Medications: Acetaminophen (Tylenol Tab*) 650 mg PO Q6H PRN PRN Reason: PAIN - MILD Last Admin: 06/03/19 20:53 Dose: 650 mg Albuterol (Ventolin 2.5 Mg/3 Ml Neb.Jen*) 2.5 mg INH Q4H PRN PRN Reason: SOB/WHEEZING Last Admin: 06/04/19 17:17 Dose: 2.5 mg Alprazolam (Xanax Tab*) 0.25 mg PO Q8H PRN PRN Reason: ANXIETY Apixaban (Eliquis*) 2.5 mg PO BID [facility] Last Admin: 06/05/19 08:04 Dose: 2.5 mg Carvedilol (Coreg Tab*) 6.25 mg PO BID [facility] Last Admin: 06/05/19 08:04 Dose: 6.25 mg Digoxin (Lanoxin Tab*) 0.125 mg PO DAILY [facility] Last Admin: 06/05/19 08:03 Dose: 0.125 mg Doxycycline Hyclate (Vibramycin Cap(*)) 100 mg PO BID [facility] Last Admin: 06/05/19 08:03 Dose: 100 mg Furosemide (Lasix Tab*) 40 mg PO DAILY [facility] Last Admin: 06/05/19 08:03 Dose: 40 mg Guaifenesin (Mucinex*) 600 mg PO BID PRN PRN Reason: COUGH Last Admin: 06/04/19 08:41 Dose: 600 mg Levothyroxine Sodium (Synthroid Tab*) 50 mcg PO DAILY@0600 [facility] Last Admin: 06/05/19 06:28 Dose: 50 mcg Pantoprazole Sodium (Protonix Tab*) 40 mg PO DAILY [facility] Last Admin: 06/05/19 08:03 Dose: 40 mg Polyethylene Glycol/Electrolytes (Miralax*) 17 gm PO DAILY PRN PRN Reason: CONSTIPATION Last Admin: 06/05/19 08:03 Dose: 17 gm Prednisone (Deltasone 50 Mg Tab) 50 mg PO DAILY [facility] Last Admin: 06/05/19 08:03 Dose: 50 mg Quetiapine Fumarate (Seroquel Tab*) 12.5 mg PO BEDTIME PRN PRN Reason: AGITATION Last Admin: 06/02/19 01:11 Dose: 12.5 mg Fluticasone/Salmeterol (Advair Diskus 250-50*) 1 puff INH BID [facility] Last Admin: 06/05/19 08:27 Dose: 1 puff Senna (Senokot 8.6 Mg Tab*) 1 tab PO MOWEFR [facility] Last Admin: 06/05/19 09:15 Dose: 1 tab Spironolactone (Aldactone Tab*) 25 mg PO DAILY [facility] Last Admin: 06/05/19 08:04 Dose: 25 mg Tiotropium [place] (Spiriva Respimat 2.5 Mcg) 2 puff INH DAILY [facility] Last Admin: 06/05/19 08:27 Dose: 2 puff Vital Signs - 8 hr 06/05/19 06/05/19 06/05/19 02:00 03:22 04:00 Temperature Pulse Rate 75 78 70 Respiratory 18 Rate Blood Pressure 127/49 (mmHg) O2 Sat by Pulse 96 100 95 Oximetry 06/05/19 06/05/19 06/05/19 05:02 07:44 08:03 Temperature 98 F Pulse Rate 79 76 72 Respiratory 18 Rate Blood Pressure 126/51 (mmHg) O2 Sat by Pulse 94 94 Oximetry Oxygen Devices in Use Now: Nasal Cannula Appearance: chronically ill-appearing woman, alert and interactive without increased WOB Eyes: No Scleral Icterus Ears/Nose/Mouth/Throat: Clear Oropharnyx, Mucous Membranes Moist Neck: NL Appearance and Movements; NL JVP Respiratory: - - decreased air movement b/l but otherwise clear Abdominal: NL Sounds; No Tenderness; No Distention, No Hepatosplenomegaly Extremities: No Edema Skin: No Rash or Ulcers Neurological: - - AOx1, knows she's in a hospital Result Diagrams: 06/05/19 05:35 06/05/19 10:09 Additional Lab and Data: Lab Results 05/28/19 05/28/19 Range/Units 12:48 12:48 WBC 25.8 H (3.5-10.8) 10^3/uL RBC 3.51 L (3.70-4.87) 10^6 /uL Hgb 11.4 L (12.0-16.0) g/dL Hct 34 L (35-47) % MCV 98 H (80-97) fL MCH 32 H (27-31) pg MCHC 33 (31-36) g/dL RDW 18 H (10-15) % Plt Count 264 (150-450) 10^3/uL MPV 11.5 H (7.4-10.4) fL Neut % (Auto) Pending Lymph % (Auto) Pending [place] % (Auto) Pending Eos % (Auto) Pending Baso % (Auto) Pending Absolute Neuts (auto) Pending Absolute Lymphs (auto) Pending Absolute Monos (auto) Pending Absolute Eos (auto) Pending Absolute Basos (auto) Pending Absolute Nucleated RBC Pending Nucleated RBC % Pending Sodium 132 L (135-145) mmol/L Potassium 4.6 (3.5-5.0) mmol/L Chloride 92 L (101-111) mmol/L Carbon Dioxide 29 (22-32) mmol/L Anion Gap 11 (2-11) mmol/L BUN 15 (6-24) mg/dL Creatinine 0.87 (0.51-0.95) mg/dL Est GFR ( Amer) 74.4 (>60) Est GFR (Non-Af Amer) 61.4 (>60) BUN/Creatinine Ratio 17.2 (8-20) Glucose 196 H (70-100) mg/dL Calcium 9.1 (8.6-10.3) mg/dL Total Bilirubin 1.60 H (0.2-1.0) mg/dL AST 33 (13-39) U/L ALT 17 (7-52) U/L Alkaline Phosphatase 80 (34-104) U/L Troponin I Pending Total Protein 6.9 (6.4-8.9) g/dL Albumin 4.2 (3.2-5.2) g/dL Globulin 2.7 (2-4) g/dL Albumin/Globulin Ratio 1.6 (1-3) Digoxin Pending Microbiology and Other Data: Microbiology 05/28/19 13:27 Urine Culture - Final Urine Escherichia Coli 05/28/19 20:02 Nasal Screen MRSA (PCR) - Final Nasal Mrsa Not Detected 05/28/19 13:27 Legionella Urinary Antigen - Final Urine Negative Legionella Antigen 05/28/19 13:27 Streptococcus pneumoniae Ag Screen - Final Urine Negative S. pneumo Antigen Assess/Plan/Problems-Billing Assessment: 88W with HFrEF 25-30%, COPD on 3-5L O2, afib on Eliquis, TAVR, HTN, dementia, hypothyroidism, AVMs, presents with progressive dyspnea and LE edema despite increased Lasix dose. Found with pneumonia, decompensated heart failure, and afib with RVR. - Patient Problems (1) Acute and chronic respiratory failure with hypoxia Comment: Likely multifactorial PNA, decompensated HF, and COPD. - on abx, diuretics, nebs - required BiPAP/ICU for work of breathing, now on NC; home baseline requirement is 2-5L (2) Pneumonia Comment: - on doxy (05/30 - 06/05) (3) Acute on chronic systolic (congestive) heart failure Comment: TTE 02/2019 with EF 20-25%, sev global hypokinesis, normal prosthetic aortic valve, mod MR, mod TR. Dr. Lama recommends hospice and we will pursue discussion with her and her family if she continues to decline. -cont furosemide 40mg PO daily -cont carvedilol 6.25mg q12h -cont digoxin (4) COPD exacerbation Comment: - pred (06/03 - 06/07) - continue supplemental O2, SaO2 goal 88-92% - nebs prn (5) Atrial fibrillation Comment: continue digoxin and apixaban cardizem added this admission for RVR; will try to transition to bb prior to discharge (6) Constipation Comment: - on bowel regimen - enema today (7) DVT prophylaxis Comment: - on Eliquis for afib
[2019-06-05 10:42] LABS: Calcium 9.5 mg/dL (8.6-10.3); EGFR African American 97.2 (>60); EGFR Non-African American 80.3 (>60); Magnesium 1.7 mg/dL (1.9-2.7); Potassium 4.2 mmol/L (3.5-5.0)
[2019-06-05] MEDS ORDERED: Potassium Chlor TAB* 20 MEQ TAB.ER PO ONE (18:18)
[2019-06-05] MEDS ORDERED: NS 0.9% 250 ML* 250 ML IV ONE (18:19)
[2019-06-05] MEDS ORDERED: Magnesium Sulfate 2 GM IV* 2 GM/50 ML BAG IVPB ONE (18:45)
[2019-06-06] MEDS: Levothyroxine TAB* 25 MCG TAB PO SCH (05:15)
[2019-06-06 05:16] LABS: Hematocrit 29 % (35-47); Hemoglobin 9.6 g/dL (12.0-16.0); Mean Corpuscular HGB Conc 33 g/dL (31-36); Mean Corpuscular Hemoglobin 32 pg (27-31); Mean Corpuscular Volume 96 fL (80-97); Mean Platelet Volume 10.1 fL (7.4-10.4); Platelet Count 331 10^3/uL (150-450); Red Blood Count 3.04 10^6 /uL (3.70-4.87); Red Cell Distribution Width 16 % (10-15); White Blood Count 26.2 10^3/uL (3.5-10.8)
[2019-06-06 05:29] LABS: BUN/Creatinine Ratio 69.6 (8-20); Calcium 9.5 mg/dL (8.6-10.3); EGFR African American 97.2 (>60); EGFR Non-African American 80.3 (>60); Magnesium 2.3 mg/dL (1.9-2.7); Potassium 4.5 mmol/L (3.5-5.0)
[2019-06-06] MEDS ORDERED: acetaZOLAMIDE TAB* 250 MG PO ONE (07:56)
--- NOTE | 2019-06-06 07:59 | PN ---
Subjective Date of Service: 06/06/19 Interval History: No acute events overnight. Gave 250 IVF last night for significantly increasing BUN, but BUN again increased on morning labs. Will stop diuretic. For rising bicarb, will give acetazolamide x1. ABG significant for CO2 retention - will start patient back on nightly BiPAP. Pt still with significant desaturation on ambulation. She reports feeling well and wanting to return home. She is AOx1, doesn't know the president. Denies dyspnea, fevers, chest pain. Objective Active Medications: Acetaminophen (Tylenol Tab*) 650 mg PO Q6H PRN PRN Reason: PAIN - MILD Last Admin: 06/03/19 20:53 Dose: 650 mg Albuterol (Ventolin 2.5 Mg/3 Ml Neb.Jen*) 2.5 mg INH Q4H PRN PRN Reason: SOB/WHEEZING Last Admin: 06/04/19 17:17 Dose: 2.5 mg Apixaban (Eliquis*) 2.5 mg PO BID [facility] Last Admin: 06/06/19 08:34 Dose: 2.5 mg Carvedilol (Coreg Tab*) 6.25 mg PO BID [facility] Last Admin: 06/06/19 08:34 Dose: 6.25 mg Digoxin (Lanoxin Tab*) 0.125 mg PO DAILY [facility] Last Admin: 06/06/19 08:34 Dose: 0.125 mg Glycerin (Glycerin Adult Supp*) 1 supp [place] DAILY PRN PRN Reason: CONSTIPATION Guaifenesin (Mucinex*) 600 mg PO BID PRN PRN Reason: COUGH Last Admin: 06/04/19 08:41 Dose: 600 mg Levothyroxine Sodium (Synthroid Tab*) 50 mcg PO DAILY@0600 [facility] Last Admin: 06/06/19 05:15 Dose: 50 mcg Magnesium Hydroxide (Milk Of Magnesia Liq*) 30 ml PO Q6H PRN PRN Reason: CONSTIPATION Last Admin: 06/06/19 11:39 Dose: 30 ml Prednisone (Deltasone 20 Mg Tab) 40 mg PO DAILY [facility] Stop: 06/07/19 23:59 Last Admin: 06/06/19 08:34 Dose: 40 mg Quetiapine Fumarate (Seroquel Tab*) 12.5 mg PO BEDTIME PRN PRN Reason: AGITATION Last Admin: 06/02/19 01:11 Dose: 12.5 mg Fluticasone/Salmeterol (Advair Diskus 250-50*) 1 puff INH BID [facility] Last Admin: 06/06/19 08:30 Dose: 1 puff Senna (Senokot 8.6 Mg Tab*) 1 tab PO BEDTIME PRN PRN Reason: if no BM during day Spironolactone (Aldactone Tab*) 25 mg PO DAILY [facility] Last Admin: 06/06/19 08:34 Dose: 25 mg Tiotropium [place] (Spiriva Respimat 2.5 Mcg) 2 puff INH DAILY [facility] Last Admin: 06/06/19 08:30 Dose: 2 puff Vital Signs - 8 hr 06/06/19 07:40 Temperature 97.2 F Pulse Rate 54 Respiratory 22 Rate Blood Pressure 129/47 (mmHg) O2 Sat by Pulse 96 Oximetry Oxygen Devices in Use Now: Nasal Cannula Appearance: frail, chronically ill-appearing elderly woman in NAD, alert and interactive but puts her head on tray after interview Eyes: No Scleral Icterus Ears/Nose/Mouth/Throat: Mucous Membranes Moist Neck: NL Appearance and Movements; NL JVP, Trachea Midline Respiratory: - - decreased air movement but no wheeze/crackles/rhonchi Cardiovascular: - - irreg irreg, no mgr Abdominal: NL Sounds; No Tenderness; No Distention, No Hepatosplenomegaly Extremities: No Edema Neurological: - - knows husbands name, not year/location/president Result Diagrams: 06/06/19 05:07 06/06/19 05:07 Additional Lab and Data: Lab Results 05/28/19 05/28/19 Range/Units 12:48 12:48 WBC 25.8 H (3.5-10.8) 10^3/uL RBC 3.51 L (3.70-4.87) 10^6 /uL Hgb 11.4 L (12.0-16.0) g/dL Hct 34 L (35-47) % MCV 98 H (80-97) fL MCH 32 H (27-31) pg MCHC 33 (31-36) g/dL RDW 18 H (10-15) % Plt Count 264 (150-450) 10^3/uL MPV 11.5 H (7.4-10.4) fL Neut % (Auto) Pending Lymph % (Auto) Pending [place] % (Auto) Pending Eos % (Auto) Pending Baso % (Auto) Pending Absolute Neuts (auto) Pending Absolute Lymphs (auto) Pending Absolute Monos (auto) Pending Absolute Eos (auto) Pending Absolute Basos (auto) Pending Absolute Nucleated RBC Pending Nucleated RBC % Pending Sodium 132 L (135-145) mmol/L Potassium 4.6 (3.5-5.0) mmol/L Chloride 92 L (101-111) mmol/L Carbon Dioxide 29 (22-32) mmol/L Anion Gap 11 (2-11) mmol/L BUN 15 (6-24) mg/dL Creatinine 0.87 (0.51-0.95) mg/dL Est GFR ( Amer) 74.4 (>60) Est GFR (Non-Af Amer) 61.4 (>60) BUN/Creatinine Ratio 17.2 (8-20) Glucose 196 H (70-100) mg/dL Calcium 9.1 (8.6-10.3) mg/dL Total Bilirubin 1.60 H (0.2-1.0) mg/dL AST 33 (13-39) U/L ALT 17 (7-52) U/L Alkaline Phosphatase 80 (34-104) U/L Troponin I Pending Total Protein 6.9 (6.4-8.9) g/dL Albumin 4.2 (3.2-5.2) g/dL Globulin 2.7 (2-4) g/dL Albumin/Globulin Ratio 1.6 (1-3) Digoxin Pending Microbiology and Other Data: Microbiology 05/28/19 13:27 Urine Culture - Final Urine Escherichia Coli 05/28/19 20:02 Nasal Screen MRSA (PCR) - Final Nasal Mrsa Not Detected 05/28/19 13:27 Legionella Urinary Antigen - Final Urine Negative Legionella Antigen 05/28/19 13:27 Streptococcus pneumoniae Ag Screen - Final Urine Negative S. pneumo Antigen Assess/Plan/Problems-Billing Assessment: 88W with HFrEF 25-30%, COPD on 3-5L O2 at home, afib on Eliquis, TAVR, HTN, dementia, hypothyroidism, AVMs, presents with progressive dyspnea and LE edema despite increased Lasix dose. Found with pneumonia, COPD exac, decompensated heart failure, and afib with RVR. - Patient Problems (1) Acute and chronic respiratory failure with hypoxia Comment: Likely multifactorial PNA, decompensated HF, and COPD. - on abx, diuretics, nebs - required BiPAP/ICU for work of breathing; home baseline requirement is 2-5L; now retaining off nightly BiPAP so will restart (2) COPD exacerbation Comment: - pred (06/03 - 06/07) - continue supplemental O2, SaO2 goal 88-92% - nebs prn (3) Pneumonia Comment: - on doxy (05/30 - 06/05) (4) Acute on chronic systolic (congestive) heart failure Comment: TTE 02/2019 with EF 20-25%, sev global hypokinesis, normal prosthetic aortic valve, mod MR, mod TR. Dr. Lama recommends hospice and we will pursue discussion with her and her family if she continues to decline. - holding furosemide 40mg PO; BUN and bicarb increasing significantly; was on 20mg at home -cont carvedilol 6.25mg q12h; was not on MARCK-I prior to admission -cont digoxin, spironolactone (5) Atrial fibrillation Comment: - continue digoxin and apixaban - on beta-zoie (6) Constipation Comment: - on bowel regimen, improved s/p enema (7) DVT prophylaxis Comment: - on Eliquis for afib
[2019-06-06] MEDS: SPIRIVA Respimat* (tiotropium) 2.5 mcg/inh Inhaler INH SCH (08:30)
[2019-06-06] MEDS: Fluticasone-Salmeterol 250-50* DISKUS INH SCH ×2 (08:30→20:28)
[2019-06-06] MEDS: Polyethylene Glycol 3350* 17 GM PACKET PO PRN (08:33)
[2019-06-06] MEDS: Spironolactone TAB* 25 MG PO SCH (08:34)
[2019-06-06] MEDS: Digoxin TAB* 0.125 MG PO SCH (08:34)
[2019-06-06] MEDS: Carvedilol TAB* 6.25 MG PO SCH ×2 (08:34→20:23)
[2019-06-06] MEDS: Pantoprazole TAB * 40 MG TAB PO SCH (08:34)
[2019-06-06] MEDS: Apixaban* 2.5 MG TAB PO SCH ×2 (08:34→20:23)
[2019-06-06] MEDS ORDERED: Magnesium Hydroxide LIQ* 30 ML UDC PO PRN (11:24)
[2019-06-07] MEDS: Levothyroxine TAB* 25 MCG TAB PO SCH (05:33)
[2019-06-07 07:28] LABS: BUN/Creatinine Ratio 49.4 (8-20); Calcium 9.4 mg/dL (8.6-10.3); EGFR African American 80.7 (>60); EGFR Non-African American 66.7 (>60); Magnesium 2.1 mg/dL (1.9-2.7); Potassium 3.9 mmol/L (3.5-5.0)
[2019-06-07] MEDS: Fluticasone-Salmeterol 250-50* DISKUS INH SCH ×2 (07:33→19:55)
[2019-06-07] MEDS: SPIRIVA Respimat* (tiotropium) 2.5 mcg/inh Inhaler INH SCH (07:35)
[2019-06-07] MEDS ORDERED: Potassium Chlor TAB* 20 MEQ TAB.ER PO ONE (08:05)
--- NOTE | 2019-06-07 08:10 | PN ---
Subjective Date of Service: 06/07/19 Interval History: No acute events overnight. Pt refused BiPAP, but labs improved after Diamox - bicarb and BUN decreased. Pt again denies all symptoms. She again does not remember being on BiPAP, or that I recommend she continue this treatment at home. Today is last day of steroids. She has finished antibiotics. Will restart furosemide today, but at lower dose. Objective Active Medications: Acetaminophen (Tylenol Tab*) 650 mg PO Q6H PRN PRN Reason: PAIN - MILD Last Admin: 06/07/19 08:23 Dose: 650 mg Albuterol (Ventolin 2.5 Mg/3 Ml Neb.Jen*) 2.5 mg INH Q4H PRN PRN Reason: SOB/WHEEZING Last Admin: 06/07/19 11:59 Dose: 2.5 mg Apixaban (Eliquis*) 2.5 mg PO BID [facility] Last Admin: 06/07/19 08:24 Dose: 2.5 mg Carvedilol (Coreg Tab*) 6.25 mg PO BID [facility] Last Admin: 06/07/19 08:25 Dose: 6.25 mg Digoxin (Lanoxin Tab*) 0.125 mg PO DAILY [facility] Last Admin: 06/07/19 08:24 Dose: 0.125 mg Furosemide (Lasix Tab*) 20 mg PO DAILY [facility] Glycerin (Glycerin Adult Supp*) 1 supp [place] DAILY PRN PRN Reason: CONSTIPATION Guaifenesin (Mucinex*) 600 mg PO BID PRN PRN Reason: COUGH Last Admin: 06/04/19 08:41 Dose: 600 mg Levothyroxine Sodium (Synthroid Tab*) 50 mcg PO DAILY@0600 [facility] Last Admin: 06/07/19 05:33 Dose: 50 mcg Magnesium Hydroxide (Milk Of Magnesia Liq*) 30 ml PO Q6H PRN PRN Reason: CONSTIPATION Last Admin: 06/06/19 11:39 Dose: 30 ml Quetiapine Fumarate (Seroquel Tab*) 12.5 mg PO BEDTIME PRN PRN Reason: AGITATION Last Admin: 06/02/19 01:11 Dose: 12.5 mg Fluticasone/Salmeterol (Advair Diskus 250-50*) 1 puff INH BID [facility] Last Admin: 06/07/19 07:33 Dose: 1 puff Senna (Senokot 8.6 Mg Tab*) 1 tab PO BEDTIME PRN PRN Reason: if no BM during day Spironolactone (Aldactone Tab*) 25 mg PO DAILY [facility] Last Admin: 06/07/19 08:24 Dose: 25 mg Tiotropium [place] (Spiriva Respimat 2.5 Mcg) 2 puff INH DAILY [facility] Last Admin: 06/07/19 07:35 Dose: 2 puff Vital Signs - 8 hr 06/07/19 06/07/19 06/07/19 01:00 02:00 03:15 Pulse Rate 68 49 60 Respiratory 18 Rate Blood Pressure 128/54 (mmHg) O2 Sat by Pulse 93 91 93 Oximetry 06/07/19 04:00 Pulse Rate 53 Respiratory Rate Blood Pressure (mmHg) O2 Sat by Pulse 95 Oximetry Oxygen Devices in Use Now: Nasal Cannula Appearance: chronically ill appearing, frail woman in NAD; no increased WOB Eyes: No Scleral Icterus Ears/Nose/Mouth/Throat: Clear Oropharnyx, Mucous Membranes Moist Respiratory: - - decreased air movement, no adventitious sounds Cardiovascular: NL Sounds; No Murmurs; No JVD, - - irreg irreg Abdominal: NL Sounds; No Tenderness; No Distention, No Hepatosplenomegaly Extremities: - - 1+ edema over LEs Skin: No Rash or Ulcers Result Diagrams: 06/06/19 05:07 06/07/19 06:49 Additional Lab and Data: Lab Results 05/28/19 05/28/19 Range/Units 12:48 12:48 WBC 25.8 H (3.5-10.8) 10^3/uL RBC 3.51 L (3.70-4.87) 10^6 /uL Hgb 11.4 L (12.0-16.0) g/dL Hct 34 L (35-47) % MCV 98 H (80-97) fL MCH 32 H (27-31) pg MCHC 33 (31-36) g/dL RDW 18 H (10-15) % Plt Count 264 (150-450) 10^3/uL MPV 11.5 H (7.4-10.4) fL Neut % (Auto) Pending Lymph % (Auto) Pending [place] % (Auto) Pending Eos % (Auto) Pending Baso % (Auto) Pending Absolute Neuts (auto) Pending Absolute Lymphs (auto) Pending Absolute Monos (auto) Pending Absolute Eos (auto) Pending Absolute Basos (auto) Pending Absolute Nucleated RBC Pending Nucleated RBC % Pending Sodium 132 L (135-145) mmol/L Potassium 4.6 (3.5-5.0) mmol/L Chloride 92 L (101-111) mmol/L Carbon Dioxide 29 (22-32) mmol/L Anion Gap 11 (2-11) mmol/L BUN 15 (6-24) mg/dL Creatinine 0.87 (0.51-0.95) mg/dL Est GFR ( Amer) 74.4 (>60) Est GFR (Non-Af Amer) 61.4 (>60) BUN/Creatinine Ratio 17.2 (8-20) Glucose 196 H (70-100) mg/dL Calcium 9.1 (8.6-10.3) mg/dL Total Bilirubin 1.60 H (0.2-1.0) mg/dL AST 33 (13-39) U/L ALT 17 (7-52) U/L Alkaline Phosphatase 80 (34-104) U/L Troponin I Pending Total Protein 6.9 (6.4-8.9) g/dL Albumin 4.2 (3.2-5.2) g/dL Globulin 2.7 (2-4) g/dL Albumin/Globulin Ratio 1.6 (1-3) Digoxin Pending Microbiology and Other Data: Microbiology 05/28/19 13:27 Urine Culture - Final Urine Escherichia Coli 05/28/19 20:02 Nasal Screen MRSA (PCR) - Final Nasal Mrsa Not Detected 05/28/19 13:27 Legionella Urinary Antigen - Final Urine Negative Legionella Antigen 05/28/19 13:27 Streptococcus pneumoniae Ag Screen - Final Urine Negative S. pneumo Antigen Assess/Plan/Problems-Billing Assessment: 88W with HFrEF 25-30%, COPD on 3-5L O2 at home, afib on Eliquis, TAVR, HTN, dementia, hypothyroidism, AVMs, presents with progressive dyspnea and LE edema despite increased Lasix dose. Found with pneumonia, COPD exac, decompensated heart failure, and afib with RVR. - Patient Problems (1) Acute and chronic respiratory failure with hypoxia Comment: and hypercapnea. Likely multifactorial: PNA, decompensated HF, and COPD. - abx, diuretics, steroids, nebs as below - required BiPAP/ICU for work of breathing; home baseline requirement is 3-5L; now retaining CO2 off nightly BiPAP, so will restart and apply for home BiPAP prior to discharge (2) COPD exacerbation Comment: Home O2 3-5 L - prednisone burst (06/03 - 06/07) - continue supplemental O2, SaO2 goal 88-92% - nebs prn - BiPAP nightly for CO2 retention, will apply for home BiPAP (3) Acute on chronic systolic (congestive) heart failure Comment: TTE 02/2019 with EF 20-25%, sev global hypokinesis, normal prosthetic aortic valve, mod MR, mod TR. Dr. Lama recommends hospice and we will pursue discussion with her and her family if she continues to decline. - BUN and bicarb increased significantly on furosemide 40mg PO - start Lasix 20mg PO and follow BMP - cont carvedilol 6.25mg q12h; was not on MARCK-I prior to admission - cont digoxin, spironolactone (4) Pneumonia Comment: - s/p doxy (05/30 - 06/05) (5) Atrial fibrillation Comment: - continue digoxin and apixaban - on beta-zoie (6) Constipation Comment: - on bowel regimen, improved s/p enema (7) DVT prophylaxis Comment: - on Eliquis for afib
[2019-06-07] MEDS: Acetaminophen TAB* 325 MG PO PRN (08:23)
[2019-06-07] MEDS: Spironolactone TAB* 25 MG PO SCH (08:24)
[2019-06-07] MEDS: Apixaban* 2.5 MG TAB PO SCH ×2 (08:24→20:56)
[2019-06-07] MEDS: Digoxin TAB* 0.125 MG PO SCH (08:24)
[2019-06-07] MEDS: Carvedilol TAB* 6.25 MG PO SCH ×2 (08:25→20:56)
[2019-06-07] MEDS: Albuterol 2.5 MG/3 ML NEB.SOL* (0.083%) INH PRN ×2 (11:59→21:02)
[2019-06-07] MEDS: Furosemide TAB* 20 MG PO SCH (16:06)
[2019-06-08 06:07] LABS: Hematocrit 30 % (35-47); Hemoglobin 9.7 g/dL (12.0-16.0); Mean Corpuscular HGB Conc 33 g/dL (31-36); Mean Corpuscular Hemoglobin 32 pg (27-31); Mean Corpuscular Volume 97 fL (80-97); Mean Platelet Volume 9.8 fL (7.4-10.4); Platelet Count 318 10^3/uL (150-450); Red Blood Count 3.07 10^6 /uL (3.70-4.87); Red Cell Distribution Width 16 % (10-15); White Blood Count 29.8 10^3/uL (3.5-10.8)
[2019-06-08 06:29] LABS: BUN/Creatinine Ratio 64.3 (8-20); Calcium 9.2 mg/dL (8.6-10.3); EGFR African American 95.6 (>60); Potassium 4.4 mmol/L (3.5-5.0)
[2019-06-08] MEDS: Levothyroxine TAB* 25 MCG TAB PO SCH (06:29)
[2019-06-08] MEDS: Furosemide TAB* 20 MG PO SCH (07:54)
[2019-06-08] MEDS: Digoxin TAB* 0.125 MG PO SCH (07:54)
[2019-06-08] MEDS: Carvedilol TAB* 6.25 MG PO SCH ×2 (07:54→20:38)
[2019-06-08] MEDS: Spironolactone TAB* 25 MG PO SCH (07:54)
[2019-06-08] MEDS: Apixaban* 2.5 MG TAB PO SCH ×2 (07:54→20:38)
[2019-06-08] MEDS: SPIRIVA Respimat* (tiotropium) 2.5 mcg/inh Inhaler INH SCH (08:13)
[2019-06-08] MEDS: Fluticasone-Salmeterol 250-50* DISKUS INH SCH ×2 (08:14→19:42)
[2019-06-08] MEDS: Albuterol 2.5 MG/3 ML NEB.SOL* (0.083%) INH PRN ×2 (09:47→15:33)
[2019-06-08 10:55] LABS: Urine Appearance Cloudy; Urine Bilirubin Negative (Negative); Urine Blood Negative (Negative); Urine Color Yellow; Urine Glucose Negative (Negative); Urine Ketones Negative (Negative); Urine Nitrite Negative (Negative); Urine Protein Negative (Negative); Urine Specific Gravity 1.013 (1.010-1.030); Urine Urobilinogen Negative (Negative)
--- NOTE | 2019-06-08 14:42 | PN ---
Subjective Date of Service: 06/08/19 Interval History: D11 admission [place] is still not using Bipap at night as she couldn't tolerate it. She was sleepy looking this morning. There was an episode of desaturation early this morning. otherwise, no dysuria, no fever, no SOB while on O2. She wants to go home after this hospital stay, patient and her family doesn't want to consider short term rehab Objective Active Medications: Acetaminophen (Tylenol Tab*) 650 mg PO Q6H PRN PRN Reason: PAIN - MILD Last Admin: 06/07/19 08:23 Dose: 650 mg Albuterol (Ventolin 2.5 Mg/3 Ml Neb.Jen*) 2.5 mg INH Q4H PRN PRN Reason: SOB/WHEEZING Last Admin: 06/08/19 09:47 Dose: 2.5 mg Apixaban (Eliquis*) 2.5 mg PO BID [facility] Last Admin: 06/08/19 07:54 Dose: 2.5 mg Carvedilol (Coreg Tab*) 6.25 mg PO BID [facility] Last Admin: 06/08/19 07:54 Dose: 6.25 mg Digoxin (Lanoxin Tab*) 0.125 mg PO DAILY [facility] Last Admin: 06/08/19 07:54 Dose: 0.125 mg Furosemide (Lasix Tab*) 20 mg PO DAILY [facility] Last Admin: 06/08/19 07:54 Dose: 20 mg Glycerin (Glycerin Adult Supp*) 1 supp [place] DAILY PRN PRN Reason: CONSTIPATION Guaifenesin (Mucinex*) 600 mg PO BID PRN PRN Reason: COUGH Last Admin: 06/04/19 08:41 Dose: 600 mg Levothyroxine Sodium (Synthroid Tab*) 50 mcg PO DAILY@0600 [facility] Last Admin: 06/08/19 06:29 Dose: 50 mcg Magnesium Hydroxide (Milk Of Magnesia Liq*) 30 ml PO Q6H PRN PRN Reason: CONSTIPATION Last Admin: 06/06/19 11:39 Dose: 30 ml Quetiapine Fumarate (Seroquel Tab*) 12.5 mg PO BEDTIME PRN PRN Reason: AGITATION Last Admin: 06/02/19 01:11 Dose: 12.5 mg Fluticasone/Salmeterol (Advair Diskus 250-50*) 1 puff INH BID [facility] Last Admin: 06/08/19 08:14 Dose: 1 puff Senna (Senokot 8.6 Mg Tab*) 1 tab PO BEDTIME PRN PRN Reason: if no BM during day Spironolactone (Aldactone Tab*) 25 mg PO DAILY [facility] Last Admin: 06/08/19 07:54 Dose: 25 mg Tiotropium [place] (Spiriva Respimat 2.5 Mcg) 2 puff INH DAILY [facility] Last Admin: 06/08/19 08:13 Dose: 2 puff Vital Signs - 8 hr 06/08/19 06/08/19 06/08/19 07:15 08:00 11:15 Temperature 98.0 F 97.2 F Pulse Rate 64 54 Respiratory 20 21 21 Rate Blood Pressure 121/56 125/46 (mmHg) O2 Sat by Pulse 92 100 Oximetry Oxygen Devices in Use Now: Nasal Cannula Exam: Oxygen Devices in Use Now: Nasal Cannula Appearance: chronically ill appearing, frail woman in NAD; no increased WOB Eyes: No Scleral Icterus Ears/Nose/Mouth/Throat: Clear Oropharnyx, Mucous Membranes Moist Respiratory: right basal rhonchi, no adventitious sounds Cardiovascular: NL Sounds; No Murmurs; No JVD, - - irreg irreg Abdominal: NL Sounds; No Tenderness; No Distention, No Hepatosplenomegaly Extremities: 1+ pedal edema Skin: No Rash or Ulcers Result Diagrams: 06/08/19 05:51 06/08/19 05:51 Additional Lab and Data: Lab Results 05/28/19 05/28/19 Range/Units 12:48 12:48 WBC 25.8 H (3.5-10.8) 10^3/uL RBC 3.51 L (3.70-4.87) 10^6 /uL Hgb 11.4 L (12.0-16.0) g/dL Hct 34 L (35-47) % MCV 98 H (80-97) fL MCH 32 H (27-31) pg MCHC 33 (31-36) g/dL RDW 18 H (10-15) % Plt Count 264 (150-450) 10^3/uL MPV 11.5 H (7.4-10.4) fL Neut % (Auto) Pending Lymph % (Auto) Pending [place] % (Auto) Pending Eos % (Auto) Pending Baso % (Auto) Pending Absolute Neuts (auto) Pending Absolute Lymphs (auto) Pending Absolute Monos (auto) Pending Absolute Eos (auto) Pending Absolute Basos (auto) Pending Absolute Nucleated RBC Pending Nucleated RBC % Pending Sodium 132 L (135-145) mmol/L Potassium 4.6 (3.5-5.0) mmol/L Chloride 92 L (101-111) mmol/L Carbon Dioxide 29 (22-32) mmol/L Anion Gap 11 (2-11) mmol/L BUN 15 (6-24) mg/dL Creatinine 0.87 (0.51-0.95) mg/dL Est GFR ( Amer) 74.4 (>60) Est GFR (Non-Af Amer) 61.4 (>60) BUN/Creatinine Ratio 17.2 (8-20) Glucose 196 H (70-100) mg/dL Calcium 9.1 (8.6-10.3) mg/dL Total Bilirubin 1.60 H (0.2-1.0) mg/dL AST 33 (13-39) U/L ALT 17 (7-52) U/L Alkaline Phosphatase 80 (34-104) U/L Troponin I Pending Total Protein 6.9 (6.4-8.9) g/dL Albumin 4.2 (3.2-5.2) g/dL Globulin 2.7 (2-4) g/dL Albumin/Globulin Ratio 1.6 (1-3) Digoxin Pending Microbiology and Other Data: Microbiology 05/28/19 13:27 Urine Culture - Final Urine Escherichia Coli 05/28/19 20:02 Nasal Screen MRSA (PCR) - Final Nasal Mrsa Not Detected 05/28/19 13:27 Legionella Urinary Antigen - Final Urine Negative Legionella Antigen 05/28/19 13:27 Streptococcus pneumoniae Ag Screen - Final Urine Negative S. pneumo Antigen Assess/Plan/Problems-Billing Assessment: 88W with HFrEF 25-30%, COPD on 3-5L O2 at home, afib on Eliquis, TAVR, HTN, dementia, hypothyroidism, AVMs, presents with progressive dyspnea and LE edema despite increased Lasix dose. Found to have respiratory failure with pneumonia, COPD exac, and decompensated heart failure, also afib with RVR. - Patient Problems (1) Acute and chronic respiratory failure with hypoxia Current Visit: Yes Status: Acute Code(s): J96.21 - ACUTE AND CHRONIC RESPIRATORY FAILURE WITH HYPOXIA SNOMED Code(s): 10368213 Comment: and hypercapnea. Likely multifactorial: PNA, decompensated HF, and COPD. - abx, diuretics, steroids, nebs as below - required BiPAP/ICU for work of breathing; home baseline requirement is 3-5L; - she can't tolerate the standard Bipap machine during her hospital stay , pCO2 59, would require a home nonivasive home ventilator (2) Acute on chronic systolic (congestive) heart failure Current Visit: Yes Status: Acute Priority: Medium Code(s): I50.23 - ACUTE ON CHRONIC SYSTOLIC (CONGESTIVE) HEART FAILURE SNOMED Code(s): 322215222 Comment: TTE 02/2019 with EF 20-25%, sev global hypokinesis, normal prosthetic aortic valve, mod MR, mod TR. Dr. Lama recommends hospice, but family reclines and would like to go home directly with home care. - continue lasix 20mg - cont carvedilol 6.25mg q12h; was not on MARCK-I prior to admission - cont digoxin, spironolactone - CXR today, congestion improves (3) Atrial fibrillation Current Visit: Yes Status: Acute Priority: High Code(s): I48.91 - UNSPECIFIED ATRIAL FIBRILLATION SNOMED Code(s): 57470150 Comment: - continue digoxin and apixaban - on beta-zoie (4) COPD exacerbation Current Visit: Yes Status: Acute Priority: High Code(s): J44.1 - CHRONIC OBSTRUCTIVE PULMONARY DISEASE W (ACUTE) EXACERBATION SNOMED Code(s): 054986828 Comment: Home O2 3-5 L - prednisone burst (06/03 - 06/07) - continue supplemental O2, SaO2 goal 88-92% - nebs prn - BiPAP nightly for CO2 retention, will apply for home BiPAP (5) Constipation Current Visit: Yes Status: Acute Priority: Medium Code(s): K59.00 - CONSTIPATION, UNSPECIFIED SNOMED Code(s): 85610707 Comment: - on bowel regimen, improved s/p enema (6) Pneumonia Current Visit: Yes Status: Acute Code(s): J18.9 - PNEUMONIA, UNSPECIFIED ORGANISM SNOMED Code(s): 441353057 Comment: - s/p doxy (05/30 - 06/05) - CXR today: no new opacities seen. (7) DVT prophylaxis Current Visit: No Status: Acute Code(s): Z29.9 - ENCOUNTER FOR PROPHYLACTIC MEASURES, UNSPECIFIED SNOMED Code(s): 024385472 Comment: apixaban Status and Disposition: Stable to home once home bipap machine available Attestation Documenting Resident: Toshia Bustamante Supervising Physician: Kevin Martinez Attending/Supervising Physician Comment: Patient more lethargic today, and desaturating periodically. Improved later in afternoon after several hours of BiPAP. Signed papers for home NIPV. Attestation: This service has been performed in part by a resident under the direction of a teaching physician.I, Kevin Martinez, performed the service, or was physically present during the critical, or garcia portions of the service, furnished by the resident. I participated in the management of the patient.
[2019-06-08] MEDS: QUEtiapine TAB* 25 MG PO PRN (20:39)
[2019-06-09] MEDS: Levothyroxine TAB* 25 MCG TAB PO SCH (06:07)
[2019-06-09 06:08] LABS: Hematocrit 29 % (35-47); Hemoglobin 9.5 g/dL (12.0-16.0); Mean Corpuscular HGB Conc 32 g/dL (31-36); Mean Corpuscular Hemoglobin 31 pg (27-31); Mean Corpuscular Volume 96 fL (80-97); Mean Platelet Volume 9.8 fL (7.4-10.4); Platelet Count 300 10^3/uL (150-450); Red Blood Count 3.07 10^6 /uL (3.70-4.87); Red Cell Distribution Width 16 % (10-15)
[2019-06-09 06:33] LABS: BUN/Creatinine Ratio 57.4 (8-20); C Reactive Protein 6.78 mg/L (<8.01); Calcium 9.2 mg/dL (8.6-10.3); EGFR African American 98.8 (>60); EGFR Non-African American 81.7 (>60); Potassium 4.1 mmol/L (3.5-5.0)
[2019-06-09] MEDS: Fluticasone-Salmeterol 250-50* DISKUS INH SCH (07:37)
[2019-06-09] MEDS: SPIRIVA Respimat* (tiotropium) 2.5 mcg/inh Inhaler INH SCH (07:38)
[2019-06-09 08:00] LABS: ABS Basophils 0.2 10^3/ul (0-0.2); ABS Monocytes 5.1 10^3/ul (0-0.8); ABS Neutrophils 12.7 10^3/ul (1.5-7.7); Eosinophil % 0.1 %; Lymphocyte % 21.7 %; Nucleated Red Blood Cells % 0.1
[2019-06-09] MEDS: Apixaban* 2.5 MG TAB PO SCH ×2 (08:21→21:04)
[2019-06-09] MEDS: Digoxin TAB* 0.125 MG PO SCH (08:21)
[2019-06-09] MEDS: Carvedilol TAB* 6.25 MG PO SCH ×2 (08:25→21:04)
[2019-06-09] MEDS: Furosemide TAB* 20 MG PO SCH (08:25)
[2019-06-09] MEDS: Spironolactone TAB* 25 MG PO SCH (08:25)
--- NOTE | 2019-06-09 17:20 | PN ---
Subjective Date of Service: 06/09/19 Interval History: Angle was wearing bipap the whole night last night, and intermittently during daytime. Patient looks brighter today though still tired looking. No shortness of breath, no fever. Communicated with Dandre spring encaser, still trying to get her nonivasive ventilator at home. Objective Active Medications: Acetaminophen (Tylenol Tab*) 650 mg PO Q6H PRN PRN Reason: PAIN - MILD Last Admin: 06/07/19 08:23 Dose: 650 mg Albuterol (Ventolin 2.5 Mg/3 Ml Neb.Jen*) 2.5 mg INH Q4H PRN PRN Reason: SOB/WHEEZING Last Admin: 06/08/19 15:33 Dose: 2.5 mg Apixaban (Eliquis*) 2.5 mg PO BID [facility] Last Admin: 06/09/19 08:21 Dose: 2.5 mg Carvedilol (Coreg Tab*) 6.25 mg PO BID [facility] Last Admin: 06/09/19 08:25 Dose: 6.25 mg Digoxin (Lanoxin Tab*) 0.125 mg PO DAILY [facility] Last Admin: 06/09/19 08:21 Dose: 0.125 mg Furosemide (Lasix Tab*) 20 mg PO DAILY [facility] Last Admin: 06/09/19 08:25 Dose: 20 mg Glycerin (Glycerin Adult Supp*) 1 supp [place] DAILY PRN PRN Reason: CONSTIPATION Guaifenesin (Mucinex*) 600 mg PO BID PRN PRN Reason: COUGH Last Admin: 06/04/19 08:41 Dose: 600 mg Levothyroxine Sodium (Synthroid Tab*) 50 mcg PO DAILY@0600 [facility] Last Admin: 06/09/19 06:07 Dose: 50 mcg Magnesium Hydroxide (Milk Of Magnesia Liq*) 30 ml PO Q6H PRN PRN Reason: CONSTIPATION Last Admin: 06/06/19 11:39 Dose: 30 ml Quetiapine Fumarate (Seroquel Tab*) 12.5 mg PO BEDTIME PRN PRN Reason: AGITATION Last Admin: 06/08/19 20:39 Dose: 12.5 mg Fluticasone/Salmeterol (Advair Diskus 250-50*) 1 puff INH BID [facility] Last Admin: 06/09/19 07:37 Dose: Not Given Senna (Senokot 8.6 Mg Tab*) 1 tab PO BEDTIME PRN PRN Reason: if no BM during day Spironolactone (Aldactone Tab*) 25 mg PO DAILY [facility] Last Admin: 06/09/19 08:25 Dose: 25 mg Tiotropium [place] (Spiriva Respimat 2.5 Mcg) 2 puff INH DAILY [facility] Last Admin: 06/09/19 07:38 Dose: Not Given Vital Signs - 8 hr 06/09/19 06/09/19 11:03 15:20 Temperature 98.5 F 97.7 F Pulse Rate 65 77 Respiratory 18 20 Rate Blood Pressure 120/34 115/49 (mmHg) O2 Sat by Pulse 100 100 Oximetry Oxygen Devices in Use Now: Nasal Cannula Exam: Appearance: chronically ill appearing, frail woman in NAD; no increased WOB Eyes: No Scleral Icterus Ears/Nose/Mouth/Throat: Clear Oropharnyx, Mucous Membranes Moist Respiratory: occ rhonchi, no adventitious sounds Cardiovascular: NL Sounds; No Murmurs; No JVD, - - irreg irreg Abdominal: NL Sounds; No Tenderness; No Distention, No Hepatosplenomegaly Extremities: 1+ pedal edema up to [place] Skin: No Rash or Ulcers Result Diagrams: 06/10/19 09:01 06/10/19 09:01 Additional Lab and Data: Bicarb 42, creatinine stable, K, Na normal, CRP normal Microbiology and Other Data: Microbiology 05/28/19 13:27 Urine Culture - Final Urine Escherichia Coli 05/28/19 20:02 Nasal Screen MRSA (PCR) - Final Nasal Mrsa Not Detected 05/28/19 13:27 Legionella Urinary Antigen - Final Urine Negative Legionella Antigen 05/28/19 13:27 Streptococcus pneumoniae Ag Screen - Final Urine Negative S. pneumo Antigen Assess/Plan/Problems-Billing Assessment: 88W with HFrEF 25-30%, COPD on 3-5L O2 at home, afib on Eliquis, TAVR, HTN, dementia, hypothyroidism, AVMs, presents with progressive dyspnea and LE edema despite increased Lasix dose. Found to have respiratory failure with pneumonia, COPD exac, and decompensated heart failure, also afib with RVR, currently all resolving. - Patient Problems (1) Acute and chronic respiratory failure with hypoxia Current Visit: Yes Status: Acute Code(s): J96.21 - ACUTE AND CHRONIC RESPIRATORY FAILURE WITH HYPOXIA SNOMED Code(s): 39020817 Comment: and hypercapnea. Likely multifactorial: PNA, decompensated HF, and COPD. - abx, diuretics, steroids, nebs as below - home baseline requirement is 3-5L; - patient can't tolerate the standard Bipap machine during her hospital stay , pCO2 59, would require a home nonivasive home ventilator - would need noninvasive home ventilator set up before discharge. - noticed increasing bicarb today, again likely compensation for CO2 retention, will give once dose of Diomax for that, and home non invasive vent which is more acceptable to her will definitely help (2) Acute on chronic systolic (congestive) heart failure Current Visit: Yes Status: Acute Priority: Medium Code(s): I50.23 - ACUTE ON CHRONIC SYSTOLIC (CONGESTIVE) HEART FAILURE SNOMED Code(s): 829700511 Comment: TTE 02/2019 with EF 20-25%, sev global hypokinesis, normal prosthetic aortic valve, mod MR, mod TR. Dr. Lama recommends hospice, but family reclines and would like to go home directly with home care. - increase lasix to 20mg and 40mg alternating - cont carvedilol 6.25mg q12h; was not on MARCK-I prior to admission - cont digoxin, spironolactone - CXR today, congestion improves (3) Atrial fibrillation Current Visit: Yes Status: Acute Priority: High Code(s): I48.91 - UNSPECIFIED ATRIAL FIBRILLATION SNOMED Code(s): 08321802 Comment: - continue digoxin and apixaban - on beta-zoie (4) COPD exacerbation Current Visit: Yes Status: Acute Priority: High Code(s): J44.1 - CHRONIC OBSTRUCTIVE PULMONARY DISEASE W (ACUTE) EXACERBATION SNOMED Code(s): 907526062 Comment: Home O2 3-5 L - prednisone burst (06/03 - 06/07) - continue supplemental O2, SaO2 goal 88-92% - nebs prn - BiPAP nightly for CO2 retention, will apply for home noninvasive ventilator (5) Constipation Current Visit: Yes Status: Acute Priority: Medium Code(s): K59.00 - CONSTIPATION, UNSPECIFIED SNOMED Code(s): 60749835 Comment: - on bowel regimen, improved s/p enema (6) Pneumonia Current Visit: Yes Status: Acute Code(s): J18.9 - PNEUMONIA, UNSPECIFIED ORGANISM SNOMED Code(s): 705314038 Comment: - s/p doxy (05/30 - 06/05) - CXR today: no new opacities seen. - CRP normal (7) DVT prophylaxis Current Visit: No Status: Acute Code(s): Z29.9 - ENCOUNTER FOR PROPHYLACTIC MEASURES, UNSPECIFIED SNOMED Code(s): 160946372 Comment: apixaban Status and Disposition: Stable to home once home noninvasive ventilator available Attestation Documenting Resident: Toshia Bustamante Supervising Physician: Kevin Martinez Attending/Supervising Physician Comment: Patient improving clinically, after treatment for CHF, COPD, pneumonia, also has hypoxic and hypercarbic resp failure, acute on chronic. After using BiPAP overnight, more alert. Can be discharged when home NIPV available. Attestation: This service has been performed in part by a resident under the direction of a teaching physician.I, Kevin Martinez, performed the service, or was physically present during the critical, or garcia portions of the service, furnished by the resident. I participated in the management of the patient.
[2019-06-09] MEDS: Acetaminophen TAB* 325 MG PO PRN (21:04)
[2019-06-09] MEDS: Polyethylene Glycol 3350* 17 GM PACKET PO SCH (21:05)
[2019-06-09] MEDS: Senna TAB 8.6 mg* TAB PO PRN (21:05)
[2019-06-09] MEDS: Glycerin ADULT SUPP PR PRN (21:27)
[2019-06-10] MEDS: Levothyroxine TAB* 25 MCG TAB PO SCH (05:52)
[2019-06-10] MEDS: Fluticasone-Salmeterol 250-50* DISKUS INH SCH ×3 (07:10→19:51)
[2019-06-10] MEDS: SPIRIVA Respimat* (tiotropium) 2.5 mcg/inh Inhaler INH SCH (07:44)
[2019-06-10] MEDS ORDERED: Furosemide TAB* 40 MG PO SCH (09:00)
[2019-06-10] MEDS: Apixaban* 2.5 MG TAB PO SCH ×2 (09:05→20:34)
[2019-06-10] MEDS: Polyethylene Glycol 3350* 17 GM PACKET PO SCH ×2 (09:05→20:34)
[2019-06-10] MEDS: Carvedilol TAB* 6.25 MG PO SCH ×2 (09:05→20:34)
[2019-06-10] MEDS: Spironolactone TAB* 25 MG PO SCH (09:05)
[2019-06-10] MEDS: Digoxin TAB* 0.125 MG PO SCH (09:05)
[2019-06-10 09:11] LABS: Hematocrit 31 % (35-47); Hemoglobin 10.2 g/dL (12.0-16.0); Mean Corpuscular HGB Conc 33 g/dL (31-36); Mean Corpuscular Hemoglobin 32 pg (27-31); Mean Corpuscular Volume 97 fL (80-97); Mean Platelet Volume 9.9 fL (7.4-10.4); Platelet Count 262 10^3/uL (150-450); Red Cell Distribution Width 17 % (10-15); White Blood Count 14.7 10^3/uL (3.5-10.8)
[2019-06-10 09:28] LABS: BUN/Creatinine Ratio 47.8 (8-20); Calcium 9.3 mg/dL (8.6-10.3); EGFR African American 97.2 (>60); EGFR Non-African American 80.3 (>60); Potassium 4.1 mmol/L (3.5-5.0)
[2019-06-10 09:30] LABS: ABS Basophils 0.1 10^3/ul (0-0.2); ABS Lymphocytes 2.8 10^3/ul (1.0-4.8); ABS Monocytes 2.8 10^3/ul (0-0.8); ABS Neutrophils 8.9 10^3/ul (1.5-7.7); Lymphocyte % 19.2 %; Nucleated Red Blood Cells % 0.1
[2019-06-10] MEDS ORDERED: Calcium Carbonate CHEW TAB* 500 MG (TUMS) PO ONE (09:52)
[2019-06-10] MEDS: Albuterol 2.5 MG/3 ML NEB.SOL* (0.083%) INH PRN ×2 (11:03→15:33)
[2019-06-10] MEDS ORDERED: Pantoprazole TAB * 40 MG TAB PO ONE (11:56)
[2019-06-10] MEDS: Glycerin ADULT SUPP PR PRN (12:28)
[2019-06-10] MEDS ORDERED: acetaZOLAMIDE TAB* 250 MG PO ONE (15:55)
[2019-06-10] MEDS: Albuterol 2.5 MG/3 ML NEB.SOL* (0.083%) INH SCH ×3 (16:00→23:49)
--- NOTE | 2019-06-10 17:14 | PN ---
Subjective Date of Service: 06/10/19 Interval History: Patient was using bipap the whole night Energy level improved this morning. Still awaiting non invasive home vent to get delivered home. Patient complained of stomach pain before meals today, family stated she was taking omeprazole at home but was not prescribed here. Objective Active Medications: Acetaminophen (Tylenol Tab*) 650 mg PO Q6H PRN PRN Reason: PAIN - MILD Last Admin: 06/09/19 21:04 Dose: 650 mg Albuterol (Ventolin 2.5 Mg/3 Ml Neb.Jen*) 2.5 mg INH [id number] Last Admin: 06/10/19 16:00 Dose: Not Given Apixaban (Eliquis*) 2.5 mg PO BID [facility] Last Admin: 06/10/19 09:05 Dose: 2.5 mg Carvedilol (Coreg Tab*) 6.25 mg PO BID [facility] Last Admin: 06/10/19 09:05 Dose: 6.25 mg Digoxin (Lanoxin Tab*) 0.125 mg PO DAILY [facility] Last Admin: 06/10/19 09:05 Dose: 0.125 mg Furosemide (Lasix Tab*) 40 mg PO EVERY OTHER DAY [facility] Last Admin: 06/10/19 09:05 Dose: 40 mg Furosemide (Lasix Tab*) 20 mg PO EVERY OTHER DAY [facility] Glycerin (Glycerin Adult Supp*) 1 supp [place] DAILY PRN PRN Reason: CONSTIPATION Last Admin: 06/09/19 21:27 Dose: 1 supp Guaifenesin (Mucinex*) 600 mg PO BID PRN PRN Reason: COUGH Last Admin: 06/04/19 08:41 Dose: 600 mg Levothyroxine Sodium (Synthroid Tab*) 50 mcg PO DAILY@0600 [facility] Last Admin: 06/10/19 05:52 Dose: 50 mcg Magnesium Hydroxide (Milk Of Magnesia Liq*) 30 ml PO Q6H PRN PRN Reason: CONSTIPATION Last Admin: 06/06/19 11:39 Dose: 30 ml Pantoprazole Sodium (Protonix Tab*) 40 mg PO DAILY [facility] Polyethylene Glycol/Electrolytes (Miralax*) 17 gm PO 0800,2100 [facility] Last Admin: 06/10/19 09:05 Dose: 17 gm Quetiapine Fumarate (Seroquel Tab*) 12.5 mg PO BEDTIME PRN PRN Reason: AGITATION Last Admin: 06/08/19 20:39 Dose: 12.5 mg Fluticasone/Salmeterol (Advair Diskus 250-50*) 1 puff INH BID [facility] Last Admin: 06/10/19 07:43 Dose: Not Given Senna (Senokot 8.6 Mg Tab*) 1 tab PO BEDTIME PRN PRN Reason: if no BM during day Last Admin: 06/09/19 21:05 Dose: 1 tab Spironolactone (Aldactone Tab*) 25 mg PO DAILY [facility] Last Admin: 06/10/19 09:05 Dose: 25 mg Tiotropium [place] (Spiriva Respimat 2.5 Mcg) 2 puff INH DAILY [facility] Last Admin: 06/10/19 07:44 Dose: Not Given Vital Signs - 8 hr 06/10/19 06/10/19 06/10/19 11:05 11:15 15:33 Temperature 98.1 F Pulse Rate 75 72 82 Respiratory 22 20 22 Rate Blood Pressure 128/34 (mmHg) O2 Sat by Pulse 100 99 Oximetry 06/10/19 16:56 Temperature 97.3 F Pulse Rate 67 Respiratory 18 Rate Blood Pressure 125/43 (mmHg) O2 Sat by Pulse 100 Oximetry Oxygen Devices in Use Now: Nasal Cannula Exam: Appearance: chronically ill appearing, frail woman in NAD; no increased WOB Eyes: No Scleral Icterus Ears/Nose/Mouth/Throat: Clear Oropharnyx, Mucous Membranes Moist Respiratory: base mild crakles, Cardiovascular: NL Sounds; No Murmurs; No JVD, - - irreg irreg Abdominal: NL Sounds; No Tenderness; No Distention, No Hepatosplenomegaly Extremities: 1+ pedal edema up to [place] Skin: No Rash or Ulcersf Result Diagrams: 06/10/19 09:01 06/10/19 09:01 Additional Lab and Data: Bicarb 42, creatinine stable, K, Na normal, CRP normal Microbiology and Other Data: Microbiology 05/28/19 13:27 Urine Culture - Final Urine Escherichia Coli 05/28/19 20:02 Nasal Screen MRSA (PCR) - Final Nasal Mrsa Not Detected 05/28/19 13:27 Legionella Urinary Antigen - Final Urine Negative Legionella Antigen 05/28/19 13:27 Streptococcus pneumoniae Ag Screen - Final Urine Negative S. pneumo Antigen Assess/Plan/Problems-Billing Assessment: 88W with HFrEF 25-30%, COPD on 3-5L O2 at home, afib on Eliquis, TAVR, HTN, dementia, hypothyroidism, AVMs, presents with progressive dyspnea and LE edema despite increased Lasix dose. Found to have respiratory failure with pneumonia, COPD exac, and decompensated heart failure, also afib with RVR, currently all resolving. - Patient Problems (1) Acute and chronic respiratory failure with hypoxia Current Visit: Yes Status: Acute Code(s): J96.21 - ACUTE AND CHRONIC RESPIRATORY FAILURE WITH HYPOXIA SNOMED Code(s): 18800761 Comment: and hypercapnea. Likely multifactorial: PNA, decompensated HF, and COPD. - abx, diuretics, steroids, nebs as below - home baseline requirement is 3-5L; - patient can't tolerate the standard Bipap machine during her hospital stay , pCO2 59, would require a home nonivasive home ventilator - would need noninvasive home ventilator set up before discharge. - noticed increasing bicarb today, again likely compensation for CO2 retention, will give once dose of Diomax for that, and home non invasive vent which is more acceptable to her will definitely help (2) Acute on chronic systolic (congestive) heart failure Current Visit: Yes Status: Acute Priority: Medium Code(s): I50.23 - ACUTE ON CHRONIC SYSTOLIC (CONGESTIVE) HEART FAILURE SNOMED Code(s): 506078370 Comment: TTE 02/2019 with EF 20-25%, sev global hypokinesis, normal prosthetic aortic valve, mod MR, mod TR. Dr. Lama recommends hospice, but family reclines and would like to go home directly with home care. - increase lasix to 20mg and 40mg alternating - cont carvedilol 6.25mg q12h; was not on MARCK-I prior to admission - cont digoxin, spironolactone - CXR today, congestion improves (3) Atrial fibrillation Current Visit: Yes Status: Acute Priority: High Code(s): I48.91 - UNSPECIFIED ATRIAL FIBRILLATION SNOMED Code(s): 27433827 Comment: - continue digoxin and apixaban - on beta-zoie (4) COPD exacerbation Current Visit: Yes Status: Acute Priority: High Code(s): J44.1 - CHRONIC OBSTRUCTIVE PULMONARY DISEASE W (ACUTE) EXACERBATION SNOMED Code(s): 423001589 Comment: Home O2 3-5 L - prednisone burst (06/03 - 06/07) - continue supplemental O2, SaO2 goal 88-92% - nebs prn - BiPAP nightly for CO2 retention, will apply for home noninvasive ventilator (5) Constipation Current Visit: Yes Status: Acute Priority: Medium Code(s): K59.00 - CONSTIPATION, UNSPECIFIED SNOMED Code(s): 85806681 Comment: - on bowel regimen, improved s/p enema (6) Pneumonia Current Visit: Yes Status: Acute Code(s): J18.9 - PNEUMONIA, UNSPECIFIED ORGANISM SNOMED Code(s): 682374391 Comment: - s/p doxy (05/30 - 06/05) - CXR today: no new opacities seen. - CRP normal (7) DVT prophylaxis Current Visit: No Status: Acute Code(s): Z29.9 - ENCOUNTER FOR PROPHYLACTIC MEASURES, UNSPECIFIED SNOMED Code(s): 778077109 Comment: apixaban Status and Disposition: Stable to home once home noninvasive ventilator available Attestation Documenting Resident: Toshia Bustamante Supervising Physician: Kevin Martinez Attending/Supervising Physician Comment: Patient is clinically doing well w/ BiPAP overnight. Has completed treatment for CHF, PNA, COPD exacerbation. Likely discharge tomorrow when home non- invasive vent available. Attestation: This service has been performed in part by a resident under the direction of a teaching physician.I, Kevin Martinez, performed the service, or was physically present during the critical, or garcia portions of the service, furnished by the resident. I participated in the management of the patient.
[2019-06-10] MEDS: Acetaminophen TAB* 325 MG PO PRN (20:34)
[2019-06-11] MEDS: Albuterol 2.5 MG/3 ML NEB.SOL* (0.083%) INH SCH ×3 (03:28→11:55)
[2019-06-11] MEDS: Levothyroxine TAB* 25 MCG TAB PO SCH (06:21)
[2019-06-11] MEDS: Fluticasone-Salmeterol 250-50* DISKUS INH SCH (07:22)
[2019-06-11] MEDS: SPIRIVA Respimat* (tiotropium) 2.5 mcg/inh Inhaler INH SCH (07:22)
[2019-06-11] MEDS: Polyethylene Glycol 3350* 17 GM PACKET PO SCH (08:44)
[2019-06-11] MEDS: Digoxin TAB* 0.125 MG PO SCH (08:45)
[2019-06-11] MEDS: Apixaban* 2.5 MG TAB PO SCH (08:45)
[2019-06-11] MEDS: Carvedilol TAB* 6.25 MG PO SCH (08:45)
[2019-06-11] MEDS: Spironolactone TAB* 25 MG PO SCH (08:45)
[2019-06-11] MEDS: Senna TAB 8.6 mg* TAB PO PRN (08:45)
[2019-06-11] MEDS: Glycerin ADULT SUPP PR PRN (08:46)
[2019-06-11] MEDS ORDERED: Pantoprazole TAB * 40 MG TAB PO SCH (09:00)
[2019-06-11] MEDS ORDERED: Furosemide TAB* 20 MG PO SCH (09:00)
[2019-06-11 09:40] VITALS: BP 128/40
--- NOTE | 2019-06-12 21:15 | DS ---
CC: Aric Jean NP, [facility] Internal Medicine; Dr. Lama * DISCHARGE SUMMARY: DATE OF ADMISSION: 05/28/19 DATE OF DISCHARGE: 06/11/19 PRIMARY DIAGNOSIS: Acute on chronic hypoxic hypercarbic respiratory failure. SECONDARY DIAGNOSES: 1. Heart failure with reduced ejection fraction (ejection fraction 20%) with exacerbation. 2. Right lower lobe pneumonia. 3. Chronic obstructive pulmonary disease exacerbation. 4. Atrial fibrillation. 5. Hypertension. 6. History of aortic stenosis, status post transcatheter aortic valve replacement. 7. History of mitral regurgitation, status post repair. 8. Moderate dementia. 9. Hypothyroidism. 10. Arteriovenous malformations. 11. Constipation. 12. Gastroesophageal reflux disease. MEDICATIONS ON DISCHARGE: 1. Albuterol nebulizer 2.5 mg 4 times a day p.r.n. wheezing. 2. Apixaban 2.5 mg p.o. b.i.d. 3. Digoxin 0.125 mg p.o. daily. 4. Advair Diskus 250/50 one inhalation b.i.d. 5. Levothyroxine 50 mcg p.o. daily. 6. Magnesium gluconate 250 mg p.o. daily. 7. Multivitamin 1 tab p.o. daily. 8. MiraLAX 17 g mix with water p.o. daily. 9. Senna 1 tab p.o. Saturday, Saturday, Saturday. 10. Spironolactone 25 mg p.o. q.a.m. 11. Spiriva 1 cap inhaled daily. 12. CoQ10 100 mg p.o. daily. 13. Coreg 6.25 mg p.o. b.i.d. 14. Furosemide 20 and 40 mg alternating days. 15. Milk of magnesia 30 mL p.o. q.6 hours p.r.n. constipation or dyspepsia. 16. Ondansetron 4 mg p.o. q.6 hours p.r.n. nausea. 17. Pantoprazole 40 mg p.o. daily. 18. Quetiapine 12.5 mg p.o. q.h.s. CONSULTATIONS: None. PROCEDURES: None. COMPLICATIONS: None. HOSPITAL COURSE: Ms. Luevano is an 88-year-old woman with a complex medical history as outlined above. Please see the history and physical dated 05/28/[address] Tucker for complete presenting illness. In brief, the patient presented with acute on chronic hypoxic respiratory failure and was treated for both congestive heart failure as well as pneumonia with chronic obstructive pulmonary disease exacerbation. The patient's pneumonia was initially treated with ceftriaxone and azithromycin in the ER for 1 dose and then switched to IV doxycycline in the ICU. After 4 days of treatment, the patient was switched to oral doxycycline and completed 1 week course. Chest x-ray was repeated on multiple days, on 06/03/19 there was presence of patchy alveolar and interstitial opacities that may represent pulmonary edema on top of pneumonia. There is a small right pleural effusion. Chest x-ray on 06/08/19 showed improved aeration of both lungs with mild cardiomegaly. Microbiology testing of sputum grew normal tim. Urine testing showed negative Legionella pneumococcal antigens. No MRSA was found on nasal swab. Incidentally, an urine culture was sent which showed E. coli which was sensitive to tetracycline. The patient did not have any urinary symptoms to report, but her initial UA showed 1+ blood, 3+ leuko esterase, 3+ white cells. The UA was repeated on 06/08/19 and it was negative. The patient's heart failure was related to history of valvular disease and systolic failure with an echo on 03/12/19, which showed ejection fraction of 20 % to 25%, severe global hypokinesis, normal prosthetic aortic valve, moderate mitral regurgitation. Dr. Lama has stated that she is on maximum medical therapy and has advised hospice as next step on her if she decompensates cardiac situation. She did also have atrial fibrillation which has been chronic and she remained on carvedilol and digoxin during the hospital stay with heart rate ranging between 61 and up to 78. Her digoxin level was 1.2 on admission, 1.3 on 05/30/19. The patient did have continued difficulty breathing after her ICU stay of approximately 5 days. COPD exacerbation was also suspected and she was treated with continued nebulizers and oxygen supplementation. She was also treated with prednisone 50 mg and this was tapered down to 40 mg. The patient's breathing improved and she no longer had any wheezing. The prednisone was stopped on 06/07/19 without further tapering. It became apparent the patient was quite dependent on BiPAP. When she did not use it overnight, she was quite sluggish and delirious in the morning. The patient was advised to use her BiPAP when she is at rest napping and certainly overnight when she is sleeping. The patient does have home BiPAP and requires supplemental oxygen as well. PERTINENT LABORATORY AND OTHER FINDINGS: The patient with elevated white count throughout most hospital stay; she came in with 25.8, became normal on 06/02/19 , went up again to 29 white count on 06/08/19, and fell to 14 on 06/10/19, it is unclear what causes elevation, because it does not correlate with her prednisone doses. She does have a mild normocytic anemia with hemoglobin at 10.2 on discharge. Platelets have been normal. Blood gas on the 06/06/19 showed pH of 7.5, pCO2 of 59, pO2 of 94, and bicarb of 40. Because her bicarb was elevated on her BMP on multiple days, she did get a few doses of Diamox, which did not have significant effect on her carbon dioxide. Her renal function remained stable. Her BNP was greater than 1300 on admission and was not repeated. The troponin was 0.07 on admission, marry to 0.08 and then fell to 0.06. DISPOSITION: Home with visiting nurse. DIET: Cardiac, low salt, low fat. ACTIVITY: Ambulate with walker as tolerated. STATUS: Inpatient. CONDITION: Improved. FOLLOWUP: The patient should see Aric Jean or another doctor in [facility] within 1 week. She has appointment on 06/16/19 at 10:30 a.m. TIME SPENT: I spent more than 50 minutes with the patient and coordinating care on the day of discharge. [id number]/[facility] #: [id number] IDRIS
== END 2019-06-11 12:15 | disposition home health service (06) | DRG 291 ==
LOC: ED 12:29 → ICU 14:05 → MEDTELE 06-01 12:18
PROVIDERS: ADMIT Internal Medicine Critical Care Medicine; ATTEND Internal Medicine
DX: I11.0 Hypertensive heart disease with heart failure (principal); J96.21 Acute and chronic respiratory failure with hypoxia; J96.22 Acute and chronic respiratory failure with hypercapnia; J18.9 Pneumonia, unspecified organism; J44.0 Chronic obstructive pulmonary disease with (acute) lower respiratory infection; E87.1 Hypo-osmolality and hyponatremia; J44.1 Chronic obstructive pulmonary disease with (acute) exacerbation; I50.43 Acute on chronic combined systolic (congestive) and diastolic (congestive) heart failure; I48.91 Unspecified atrial fibrillation; M19.90 Unspecified osteoarthritis, unspecified site; F03.90 Unspecified dementia, unspecified severity, without behavioral disturbance, psychotic disturbance, mood disturbance, and anxiety; G43.909 Migraine, unspecified, not intractable, without status migrainosus; E03.9 Hypothyroidism, unspecified; D64.9 Anemia, unspecified; I08.1 Rheumatic disorders of both mitral and tricuspid valves; K59.00 Constipation, unspecified; K55.20 Angiodysplasia of colon without hemorrhage; K21.9 Gastro-esophageal reflux disease without esophagitis; Z88.0 Allergy status to penicillin; Z88.1 Allergy status to other antibiotic agents; Z88.6 Allergy status to analgesic agent; Z88.2 Allergy status to sulfonamides; Z88.8 Allergy status to other drugs, medicaments and biological substances; Z85.828 Personal history of other malignant neoplasm of skin; Z91.041 Radiographic dye allergy status; Z86.73 Personal history of transient ischemic attack (TIA), and cerebral infarction without residual deficits; Z87.891 Personal history of nicotine dependence; Z95.2 Presence of prosthetic heart valve; Z79.01 Long term (current) use of anticoagulants
CPT/HCPCS: 36415; 36600; 71045; 80048; 80053; 80162; 81003; 81015; 82803; 83605; 83735; 83880; 84100; 84484; 85025; 85027; 85060; 86140; 87070; 87077; 87086; 87186; 87205; 87641; 87899; 93005; 94640; 94660; 99285; A9270-GY; J0456; J0696; J1120; J1630; J1940; J3475; J3490; J3535; J7512